=== PATIENT | female | born 1965 | race Caucasian/White ===

== ENCOUNTER 2017-08-29 00:21 | Observation (INO) | payer MEDICAID, SELFPAY ==
[2017-08-29] VITALS (9 sets, daily range): BP systolic 120–136; BP diastolic 64–76; PULSE 61–87; RESP 16–24; TEMP 36.1–36.8; O2SAT 96–98; BMI 54.1; BMI 56.2
--- NOTE | 2017-08-29 00:33 | XR_ITS ---
XR chest 2V HISTORY: ITS.REASON: CHEST PAIN AND SOB ORDERING PHYSICIAN: Juan Monreal MD PATIENT AGE: 52 years COMPARISON: 01/09/2017 FINDINGS: The cardiomediastinal silhouette and pulmonary vascularity are within normal limits. Mild coarsening of the bronchovascular markings. Patchy density is present in the right midlung over the second interspace and also in the left mid upper lung zone suggesting patchy areas of infiltrate. 7 mm nodular opacity in the right lung base course bony to calcified granuloma seen on prior chest CT. No effusions. No acute bony anomalies. IMPRESSION: Patchy perihilar infiltrates
[2017-08-29 01:09] LABS: Basophils # 0.1 K/mm3 (0-0.2); Basophils % 0.7 % (0.1-2.0); Eosinophils # 0.2 K/mm3 (0.0-0.4); Eosinophils % 2.5 % (0.1-12.0); Hematocrit 38.1 % (37.0-47.0); Hemoglobin 12.3 g/dL (12.2-16.2); Lymphocytes # 3.6 K/mm3 (0.7-4.5); Lymphocytes % 37.7 K/mm3 (10-50); Mean Corpuscular HGB Conc 32.4 g/dL (31.8-35.4); Mean Corpuscular Hemoglobin 27.5 pg (27.0-31.2); Mean Corpuscular Volume 84.6 fl (81-99); Mean Platelet Volume 7.8 fl (7.4-10.4); Monocytes # 0.6 K/mm3 (0.1-1.0); Monocytes % 6.7 % (1.7-9.3); Neutrophils % 52.4 % (37.0-80.0); Platelet Count 223 K/mm3 (142-424); Red Cell Distribution Width 14.1 % (11.5-17.5); White Blood Count 9.6 K/mm3 (4.8-10.8)
--- NOTE | 2017-08-29 01:10 | HMH.EDCP ---
ED Disposition Clinical Impression: Chest pain Qualifiers: Chest pain type: precordial pain Qualified Code(s): R07.2 - Precordial pain Disposition: Admitted as Observation Condition on Discharge: Good Referrals: Mariana Guillen PA [Primary Care Provider] - - Critical Care Critical Care Time: No Attestation: On 08/29/17, the high probability of a clinically significant, sudden or life threatening deterioration of the following system(s) required my full and direct attention, intervention and personal management. The time I documented below is in addition to time spent performing reported procedures but includes the following listed in this critical care notation. Medical Decision Making - Medical Records Medical records reviewed: Yes: I reviewed the patient's medical records. Vital Signs: 08/29/17 00:22 08/29/17 01:59 Temperature 97.5 F L Temperature Source Oral Pulse Rate [Right Brachial] 87 78 Respiratory Rate 24 20 Blood Pressure [Right Arm] 125/64 136/71 Blood Pressure Mean [Right Arm] 84 92 Blood Pressure Source [Right Arm] Automatic Cuff Automatic Cuff Blood Pressure Position [Right Arm] Supine Sitting 02 Sat by Pulse Oximetry 98 97 Oxygen Delivery Method Room Air Room Air - Lab Data Lab results reviewed: Yes: I reviewed the patient's lab results. Lab Results 08/29/17 00:50: WBC 9.6, RBC 4.50, Hgb 12.3, Hct 38.1, MCV 84.6, MCH 27.5, MCHC 32.4, RDW 14.1, Plt Count 223, MPV 7.8, Neut % (Auto) 52.4, Lymph % (Auto) 37.7, [place] % (Auto) 6.7, Eos % (Auto) 2.5, Baso % (Auto) 0.7, Neut # (Auto) 5.0, Lymph # (Auto) 3.6, [place] # (Auto) 0.6, Eos # (Auto) 0.2, Baso # (Auto) 0.1 08/29/17 00:50: Sodium 142, Potassium 3.4 L, Chloride 106, Carbon Dioxide 26, Anion Gap 13.4, BUN 15, Creatinine 1.17 H, Estimated Creat Clear 44, Estimated GFR 49 L, Est GFR ( Amer) 59, Glucose 120 H, Calcium 8.0 L, Total Bilirubin 0.2, AST 21, ALT 41, Alkaline Phosphatase 83, Total Protein 6.8, Albumin 2.9 L, Globulin 3.9 H, Albumin/Globulin Ratio 0.7 L 08/29/17 00:50: Total Creatine Kinase 73, CK-MB (CK-2) 1.0, CK-MB (CK-2) Rel Index 1.4, Troponin I < 0.02 08/29/17 00:50: B-Natriuretic Peptide 15 Result diagrams: 08/29/17 00:50 08/29/17 00:50 Orders (Tests/Meds): ED MEDICATIONS Discontinued Medications Generic Name Dose Route Start Last Admin Trade Name Freq PRN Reason Stop Dose Admin Furosemide 40 mg 08/29/17 03:00 Lasix 40mg/4ml Vial IV 08/29/17 03:01 ONCE ONE Nitroglycerin 1 gm 08/29/17 01:37 08/29/17 01:41 Nitroglycerin 1 Inch Oint Udp TD 08/29/17 01:38 1 gm ONCE ONE Administration ORDERS Category Date Time Status XR chest 2V Stat Exams 08/29/17 00:33 Taken ECG Request by /Nse Stat Y 08/29/17 00:33 Ordered - Radiology Data #1 Image(s): Chest Image Reviewed: Yes I reviewed the patient's radiology image Preliminary Findings: Normal/NAD - ECG Data Tracing #1 I reviewed this ECG and interpreted as documented below: Ischemic changes: non-specific ST-T wave changes - Bin Inquiry Pt receiving controlled substance: No Chest Pain HPI - General Chief Complaint: Chest Pain Stated Complaint: CHEST PAIN Time Seen by Provider: 08/29/17 01:11 Mode of Arrival: EMS Source of Information: Patient, EMS, Medical Record Limitations: No Limitations Description of Symptoms (Recalled from ER Triage Doc. by RN): C/O CHEST PAIN AND SOB - History of Present Illness HPI narrative: pt with chest pain intermittant during the day with no dec inc or dec factors complaint: chest pain indicative of cardiac Onset (ago): day(s) Duration: intermittent Activity at onset: during rest Pain location: substernal Severity: moderate Quality: aching Pain radiation: back Relieving factors: nothing Associated symptoms: dyspnea Risk Factors for CAD: Hypertension, Hypercholesterolemia, Family Hx of CAD, Smoking Treatments prior to or on arrival for Cardiac Chest
--- NOTE | 2017-08-29 01:16 | ED_ITS ---
ED Disposition Clinical Impression: Chest pain Qualifiers: Chest pain type: precordial pain Qualified Code(s): R07.2 - Precordial pain Disposition: Admitted as Observation Condition on Discharge: Good Referrals: Mariana Guillen PA [Primary Care Provider] - - Critical Care Critical Care Time: No Attestation: On 08/29/17, the high probability of a clinically significant, sudden or life threatening deterioration of the following system(s) required my full and direct attention, intervention and personal management. The time I documented below is in addition to time spent performing reported procedures but includes the following listed in this critical care notation. Medical Decision Making - Medical Records Medical records reviewed: Yes: I reviewed the patient's medical records. Vital Signs: 08/29/17 00:22 08/29/17 01:59 Temperature 97.5 F L Temperature Source Oral Pulse Rate [Right Brachial] 87 78 Respiratory Rate 24 20 Blood Pressure [Right Arm] 125/64 136/71 Blood Pressure Mean [Right Arm] 84 92 Blood Pressure Source [Right Arm] Automatic Cuff Automatic Cuff Blood Pressure Position [Right Arm] Supine Sitting 02 Sat by Pulse Oximetry 98 97 Oxygen Delivery Method Room Air Room Air - Lab Data Lab results reviewed: Yes: I reviewed the patient's lab results. Lab Results 08/29/17 00:50: WBC 9.6, RBC 4.50, Hgb 12.3, Hct 38.1, MCV 84.6, MCH 27.5, MCHC 32.4, RDW 14.1, Plt Count 223, MPV 7.8, Neut % (Auto) 52.4, Lymph % (Auto) 37.7 , [place] % (Auto) 6.7, Eos % (Auto) 2.5, Baso % (Auto) 0.7, Neut # (Auto) 5.0, Lymph # (Auto) 3.6, [place] # (Auto) 0.6, Eos # (Auto) 0.2, Baso # (Auto) 0.1 08/29/17 00:50: Sodium 142, Potassium 3.4 L, Chloride 106, Carbon Dioxide 26, Anion Gap 13.4, BUN 15, Creatinine 1.17 H, Estimated Creat Clear 44, Estimated GFR 49 L, Est GFR ( Amer) 59, Glucose 120 H, Calcium 8.0 L, Total Bilirubin 0.2, AST 21, ALT 41, Alkaline Phosphatase 83, Total Protein 6.8, Albumin 2.9 L, Globulin 3.9 H, Albumin/Globulin Ratio 0.7 L 08/29/17 00:50: Total Creatine Kinase 73, CK-MB (CK-2) 1.0, CK-MB (CK-2) Rel Index 1.4, Troponin I < 0.02 08/29/17 00:50: B-Natriuretic Peptide 15 Result diagrams: 08/29/17 00:50 08/29/17 00:50 Orders (Tests/Meds): ED MEDICATIONS Discontinued Medications Generic Name Dose Route Start Last Admin Trade Name Freq PRN Reason Stop Dose Admin Furosemide 40 mg 08/29/17 03:00 Lasix 40mg/4ml Vial IV 08/29/17 03:01 ONCE ONE Nitroglycerin 1 gm 08/29/17 01:37 08/29/17 01:41 Nitroglycerin 1 Inch Oint Udp TD 08/29/17 01:38 1 gm ONCE ONE Administration ORDERS Category Date Time Status XR chest 2V Stat Exams 08/29/17 00:33 Taken ECG Request by /Nse Stat Y 08/29/17 00:33 Ordered - Radiology Data #1 Image(s): Chest Image Reviewed: Yes I reviewed the patient's radiology image Preliminary Findings: Normal/NAD - ECG Data Tracing #1 I reviewed this ECG and interpreted as documented below: Ischemic changes: non-specific ST-T wave changes - Bin Inquiry Pt receiving controlled substance: No Chest Pain HPI - General Chief Complaint: Chest Pain Stated Complaint: CHEST PAIN Time Seen by Provider: 08/29/17 01:11 Mode of Arrival: EMS Source of Information: Patient, EMS, Medical Record
[2017-08-29 02:44] LABS: Alanine Aminotransferase 41 U/L (12-78); Albumin Level 2.9 gm/dL (3.4-5.0); Albumin/Globulin Ratio 0.7 (1.1-1.8); Alkaline Phosphatase 83 U/L (46-116); Anion Gap 13.4 mEq/L (5-15); Aspartate Amino Transferase 21 U/L (15-37); Bilirubin,Total 0.2 mg/dL (0.2-1.0); Blood Urea Nitrogen 15 mg/dL (7-18); Carbon Dioxide 26 mmol/L (21.0-32.0); Chloride 106 mmol/L (98-107); Creatinine Clearance Estimated 44 mL/min (0-300); Creatinine,Serum 1.17 mg/dL (0.55-1.02); Estimated Glomerular Filt Rate 49 ml/min (>60); GFR (African American) 59 ML/MIN (>60); Globulin 3.9 gm/dl (1.3-3.2); Glucose 120 mg/dL (74-106); Potassium 3.4 mmoL/L (3.5-5.1); Sodium 142 mmol/L (136-145); Total Protein,Serum 6.8 gm/dL (6.4-8.2)
[2017-08-29 02:54] LABS: CKMB Relative Index 1.4 U/L (0-4.0); Creatine Kinase 73 U/L (26-192); Troponin I < 0.02 ng/ml (0.00-0.06)
[2017-08-29 04:55] LABS: Troponin I < 0.02 ng/ml (0.00-0.06)
[2017-08-29 05:26] LABS: Basophils # 0.1 K/mm3 (0-0.2); Basophils % 0.9 % (0.1-2.0); Eosinophils # 0.3 K/mm3 (0.0-0.4); Eosinophils % 3.3 % (0.1-12.0); Hematocrit 39.7 % (37.0-47.0); Hemoglobin 13.2 g/dL (12.2-16.2); Lymphocytes # 3.4 K/mm3 (0.7-4.5); Lymphocytes % 37.7 K/mm3 (10-50); Mean Corpuscular HGB Conc 33.2 g/dL (31.8-35.4); Mean Corpuscular Volume 84.2 fl (81-99); Mean Platelet Volume 8.1 fl (7.4-10.4); Monocytes # 0.6 K/mm3 (0.1-1.0); Monocytes % 6.4 % (1.7-9.3); Neutrophils # 4.7 K/mm3 (1.8-7.8); Neutrophils % 51.7 % (37.0-80.0); Platelet Count 243 K/mm3 (142-424); Red Blood Count 4.71 M/mm3 (4.20-5.40); White Blood Count 9.1 K/mm3 (4.8-10.8)
[2017-08-29 05:28] LABS: Microscopic, Urine URINE MICROSCOPIC (MICROSCOPIC)
[2017-08-29 05:32] LABS: Appearance,Urine CLEAR (Clear); Bilirubin,Urine Negative (Negative); Blood, Urine Negative (Negative); Color,Urine YELLOW (Yellow); Glucose,Urine (UA) Negative (Negative); Ketones,Urine Negative (Negative); Leukocyte Esterase,Urine Negative (Negative); Nitrate,Urine Negative (Negative); PH,Urine 5.5 (5.0-8.5); Protein,Urine Negative (Negative); Specific Gravity, Urine 1.025 (1.005-1.030); Urobilinogen,Urine 0.2 EU/dl (0.2)
[2017-08-29 05:43] LABS: Bacteria,Urine 1+ /lpf; Mucus,Urine 1+ /lpf
[2017-08-29 06:38] LABS: Anion Gap 12.3 mEq/L (5-15); Blood Urea Nitrogen 15 mg/dL (7-18); Carbon Dioxide 26 mmol/L (21.0-32.0); Chloride 106 mmol/L (98-107); Chol/HDL Ratio 5.2 (1-3.5); Cholesterol 166 mg/dL (140-200); Creatinine Clearance Estimated 53 mL/min (0-300); Creatinine,Serum 0.99 mg/dL (0.55-1.02); Estimated Glomerular Filt Rate 59 ml/min (>60); GFR (African American) 71 ML/MIN (>60); Glucose 123 mg/dL (74-106); HDL Cholesterol 32 mg/dL (29-89); LDL Cholesterol 98 mg/dL (0-130); Potassium 3.3 mmoL/L (3.5-5.1); Sodium 141 mmol/L (136-145); Triglycerides 181 mg/dL (30-200); Troponin I < 0.02 ng/ml (0.00-0.06); VLDL Cholesterol 36 mg/dL (0-40)
--- NOTE | 2017-08-29 07:21 | HMH.PHAVTE ---
[facility] [place] Pharmacy VTE Monitoring - Patient Demographics Admission date: 08/29/17 Report Date: 08/29/17 Time: 07:21 Allergies/Adverse Reactions: Patient Allergies No Known Allergies Allergy (Verified 08/29/17 00:22) Height: 1.57 m Weight: 139.4 kg Patient Problems: Current Active Problems Chest pain (Acute) - VTE Risk Labs: VTE Related Lab Results Hgb 13.2 g/dL (12.2-16.2) 08/29/17 04:30 Hct 39.7 % (37.0-47.0) 08/29/17 04:30 Plt Count 243 K/mm3 (142-424) 08/29/17 04:30 BUN 15 mg/dL (7-18) 08/29/17 06:00 Creatinine 0.99 mg/dL (0.55-1.02) 08/29/17 06:00 Estimated Creat Clear 53 mL/min (0-300) 08/29/17 06:00 Was VTE Risk Assessment Performed: Yes VTE Score: 4 VTE Risk Level: Low Risk - Prophylaxis VTE Prophylaxis Ordered?: Yes Types of VTE Prophylaxis: TEDS Knee High Location of Applied Device: Bilateral Lower Extremeties - VTE Diagnosis Confirmed Treatment or plan recommended: Continue Current Treatment
--- NOTE | 2017-08-29 07:26 | PC.NURSE ---
REPORT GIVEN TO Pop JACK RN
--- NOTE | 2017-08-29 07:38 | PC.NURSE ---
REPORT GIVEN TO Pop CARCAMO W/C
--- NOTE | 2017-08-29 08:31 | HMH.CARDCON2 ---
History of Present Illness Consult date: 08/29/17 Requesting physician: Juan Monreal Consult reason: chest pain Chief complaint: chest pains History of present illness: 52 yo WF with normal coronaries and moderate pulmonary HTN by cath, 03/2016, was at rest last night when she developed SS chest pains that were worse with breathing and coughing. Recently with Nausea, vomiting and diarrhea last week. Pt was admitted with serial cardiac enzymes that returned normal. EKG is sinus and normal. Cardiology consulted for evaluation. Review of Systems - *Cardiovascular Reports chest pain - *Respiratory Reports shortness of breath - *Gastrointestinal Denies abdominal pain - *Neurologic Denies seizure-like activity [facility] History Medical History: Denies:: Cancer, Diabetes Mellitus Type 1, Diabetes Mellitus Type 2, Internal Pacemaker, MRSA Other Surgeries: Yes: Hysterectomy-Partial. No: Pacemaker Amputation: No Fractures: No - *Social History Educational Level: Completed High School Smoking Status: Current every day smoker Tobacco Type: cigarettes # Packs/Day (cigarettes): 1 #Yrs smoked (if former smoker): 40 Alcohol Intake: never Occupational Status: disabled Housing: house Household Members: significant other - Psychiatric History Expresses thoughts of harming self/others: None Suicide Plan Description: No Plan *Family Hx:: Anemia, Asthma, Cancer, Coronary Artery Disease, Heart Attack, Hyperlipidemia, Hypertension, Kidney Disease, Stroke Meds Home Medications Medication Instructions Recorded Confirmed Type Amitriptyline HCl [Elavil 50mg 50 mg PO DAILY 08/29/17 08/29/17 History tablet] Bumetanide 2 mg PO DAILY 08/29/17 08/29/17 History Carvedilol [Carvedilol 12.5mg Tab] 12.5 mg PO DAILY 08/29/17 08/29/17 History Citalopram Hydrobromide [Celexa] 40 mg PO DAILY 08/29/17 08/29/17 History Fenofibrate Nanocrystallized 145 mg PO DAILY 08/29/17 08/29/17 History [Fenofibrate] Gabapentin [Gabapentin 800mg Tab] 800 mg PO QID 08/29/17 08/29/17 History Lisinopril [Lisinopril 20mg Tab] 20 mg PO DAILY 08/29/17 08/29/17 History Lurasidone HCl [Latuda] 40 mg PO DAILY 08/29/17 08/29/17 History Triamterene/Hydrochlorothiazid 1 each PO DAILY 08/29/17 08/29/17 History [Triamterene-Hctz 75-50 mg Tab] cloNIDine HCl [cloNIDine 0.2mg 0.2 mg PO DAILY 08/29/17 08/29/17 History Tablet] lamoTRIgine [Lamotrigine] 100 mg PO DAILY 08/29/17 08/29/17 History Allergies Allergy/AdvReac Type Severity Reaction Status Date / Time No Known Allergies Allergy Verified 08/29/17 00:22 Exam Vital signs and Labs for Last 24 Hours: Temp Pulse Resp BP Pulse Ox 97.0 F L 80 22 133/64 97 08/29/17 03:45 08/29/17 04:35 08/29/17 03:45 08/29/17 03:45 08/29/17 03:45 Laboratory Results - last 24 hr 08/29/17 04:30: Troponin I < 0.02 08/29/17 04:30: WBC 9.1, RBC 4.71, Hgb 13.2, Hct 39.7, MCV 84.2, MCH 28.0, MCHC 33.2, RDW 14.0, Plt Count 243, MPV 8.1, Neut % (Auto) 51.7, Lymph % (Auto) 37.7, [place] % (Auto) 6.4, Eos % (Auto) 3.3, Baso % (Auto) 0.9, Neut # (Auto) 4.7, Lymph # (Auto) 3.4, [place] # (Auto) 0.6, Eos # (Auto) 0.3, Baso # (Auto) 0.1 08/29/17 06:00: Sodium 141, Potassium 3.3 L, Chloride 106, Carbon Dioxide 26, Anion Gap 12.3, BUN 15, Creatinine 0.99, Estimated Creat Clear 53, Estimated GFR 59, Est GFR ( Amer) 71 D, Glucose 123 H, Troponin I < 0.02, Triglycerides 181, Cholesterol 166, LDL Cholesterol 98, VLDL Cholesterol 36, HDL Cholesterol 32, Cholesterol/HDL Ratio 5.2 H I & O for Last 24 hours: Intake & Output 08/26/17 08/27/17 08/28/17 08/29/17 11:59 11:59 11:59 11:59 Output Total 900 / 900 Balance -900 / -900 Weight 307 lb 5.19 oz - *Routine Neck Exam Absent: JVD, carotid bruit - Routine Chest/Breast/Axilla Exam Chest wall: Present: tenderness - *Routine Respiratory Exam Present: rhonchi, wheezes - *Routine Cardiovascular Exam Present: RRR. Absent: murmur, gallop, ru
--- NOTE | 2017-08-29 08:34 | P.CONS_ITS ---
History of Present Illness Consult date: 08/29/17 Requesting physician: Juan Monreal Consult reason: chest pain Chief complaint: chest pains History of present illness: 52 yo WF with normal coronaries and moderate pulmonary HTN by cath, 03/2016, was at rest last night when she developed SS chest pains that were worse with breathing and coughing. Recently with Nausea, vomiting and diarrhea last week. Pt was admitted with serial cardiac enzymes that returned normal. EKG is sinus and normal. Cardiology consulted for evaluation. Review of Systems - *Cardiovascular Reports chest pain - *Respiratory Reports shortness of breath - *Gastrointestinal Denies abdominal pain - *Neurologic Denies seizure-like activity [facility] History Medical History: Denies:: Cancer, Diabetes Mellitus Type 1, Diabetes Mellitus Type 2, Internal Pacemaker, MRSA Other Surgeries: Yes: Hysterectomy-Partial. No: Pacemaker Amputation: No Fractures: No - *Social History Educational Level: Completed High School Smoking Status: Current every day smoker Tobacco Type: cigarettes # Packs/Day (cigarettes): 1 #Yrs smoked (if former smoker): 40 Alcohol Intake: never Occupational Status: disabled Housing: house Household Members: significant other - Psychiatric History Expresses thoughts of harming self/others: None Suicide Plan Description: No Plan *Family Hx:: Anemia, Asthma, Cancer, Coronary Artery Disease, Heart Attack, Hyperlipidemia, Hypertension, Kidney Disease, Stroke Meds Home Medications Medication Instructions Recorded Confirmed Type Amitriptyline HCl [Elavil 50mg 50 mg PO DAILY 08/29/17 08/29/17 History tablet] Bumetanide 2 mg PO DAILY 08/29/17 08/29/17 History Carvedilol [Carvedilol 12.5mg Tab] 12.5 mg PO DAILY 08/29/17 08/29/17 History Citalopram Hydrobromide [Celexa] 40 mg PO DAILY 08/29/17 08/29/17 History Fenofibrate Nanocrystallized 145 mg PO DAILY 08/29/17 08/29/17 History [Fenofibrate] Gabapentin [Gabapentin 800mg Tab] 800 mg PO QID 08/29/17 08/29/17 History Lisinopril [Lisinopril 20mg Tab] 20 mg PO DAILY 08/29/17 08/29/17 History Lurasidone HCl [Latuda] 40 mg PO DAILY 08/29/17 08/29/17 History Triamterene/Hydrochlorothiazid 1 each PO DAILY 08/29/17 08/29/17 History [Triamterene-Hctz 75-50 mg Tab] cloNIDine HCl [cloNIDine 0.2mg 0.2 mg PO DAILY 08/29/17 08/29/17 History Tablet] lamoTRIgine [Lamotrigine] 100 mg PO DAILY 08/29/17 08/29/17 History Allergies Allergy/AdvReac Type Severity Reaction Status Date / Time No Known Allergies Allergy Verified 08/29/17 00:22 Exam Vital signs and Labs for Last 24 Hours: Temp Pulse Resp BP Pulse Ox 97.0 F L 80 22 133/64 97 08/29/17 03:45 08/29/17 04:35 08/29/17 03:45 08/29/17 03:45 08/29/17 03:45 Laboratory Results - last 24 hr 08/29/17 04:30: Troponin I < 0.02 08/29/17 04:30: WBC 9.1, RBC 4.71, Hgb 13.2, Hct 39.7, MCV 84.2, MCH 28.0, MCHC 33.2, RDW 14.0, Plt Count 243, MPV 8.1, Neut % (Auto) 51.7, Lymph % (Auto) 37.7 , [place] % (Auto) 6.4, Eos % (Auto) 3.3, Baso % (Auto) 0.9, Neut # (Auto) 4.7, Lymph # (Auto) 3.4, [place] # (Auto) 0.6, Eos # (Auto) 0.3, Baso # (Auto) 0.1 08/29/17 06:00: Sodium 141, Potassium 3.3 L, Chloride 106, Carbon Dioxide 26, Anion Gap 12.3, BUN 15, Creatinine 0.99, Estimated Creat Clear 53, Estimated GFR 59, Est GFR ( Amer) 71 D, Glucose 123 H, Troponin I < 0.02, Trig
--- NOTE | 2017-08-29 08:43 | CA_ITS ---
PROCEDURE: 2-D M-mode and color Doppler study INDICATIONS FOR THE TEST: Chest pain X COPD Heart Murmur Tobacco Smoking Palpitations Fatigue Syncope Edema HypertensionXDiabetes Mellitus Rheumatic Fever SOBXXDOEXObesityXHyperlipidemiaX Family History HD Additional History TDS SECONDARY TO OBESITY PATIENT INFORMATION HEIGHT: 62 WEIGHT:307 GENDER: Female B/P:133/64 2-D/M-MODE INTERPRETATION: 2-D MEASUREMENTS OBSERVED VALUES IN CMS Right Ventricular Dimension (RVDd) 2.5 Interventricular Septum (Thickness)(IVsd) 1.3 Left Ventricular Internal Dimensions(LVIDd) 4.8 Left Ventricular Posterior Wall (Thickness)(LVPWd) 1.5 Aortic Root 3.1 Aortic Cusp Separation 1.9 Left Atrial Dimensions (LAD) 3.0 2D 1. Technically difficult study because of the patient's factor and poor acoustic windows. 2. Left atrium is mildly enlarged, left ventricle is normal size, there is mild concentric left ventricular hypertrophy, visually estimated ejection fraction 55-60% with no obvious regional wall motion abnormality. 3. The right atrium and right ventricle are relatively normal size and function. 4. The aortic valve is minimally thickened and fibrosed. 5. The mitral and tricuspid valve leaflets are grossly normal. 6. The pulmonic valve is poorly visualized. 7. No significant pericardial effusion noted. DOPPLER INTERROGATION: Doppler interrogation of the aortic, mitral and tricuspid valvular presence of mild mitral and tricuspid regurgitation, tricuspid regurgitant jet velocity is insufficient for calculation of the right ventricular systolic pressure, grade 1 diastolic dysfunction seen with tissue Doppler evidence of raised left atrial pressure. CONCLUSION: 1. Technically difficult study because of the patient's factor and poor acoustic windows 2. Mildly enlarged left atrium, normal left ventricular size, mild concentric left ventricular hypertrophy, visually estimated ejection fraction 55% with no obvious regional wall motion abnormality. Grade 1 diastolic dysfunction seen with tissue Doppler evidence of raised left atrial pressure. 3. Mild mitral and tricuspid regurgitation. 4. No significant pericardial effusion noted.
--- NOTE | 2017-08-29 08:58 | HMH.HPDC ---
General - General Admission date: 08/29/17 Discharge date: 08/29/17 *Admission Date: 08/29/17 *Chief complaint: chest pain *History of present illness: 52 yo WF with normal coronaries and moderate pulmonary HTN by cath, 03/2016, was at rest last night when she developed SS chest pains that were worse with breathing and coughing. Recently with Nausea, vomiting and diarrhea last week. Pt was admitted with serial cardiac enzymes that returned normal. EKG is sinus and normal. Cardiology consulted for evaluation. [facility] History I have reviewed the patient's past medical history: Yes Medical History: Denies:: Cancer, Diabetes Mellitus Type 1, Diabetes Mellitus Type 2, Internal Pacemaker, MRSA Other Surgeries: Yes: Hysterectomy-Partial. No: Pacemaker Amputation: No Fractures: No - *Social History Educational Level: Completed High School Smoking Status: Current every day smoker Tobacco Type: cigarettes # Packs/Day (cigarettes): 1 #Yrs smoked (if former smoker): 40 Alcohol Intake: never Occupational Status: disabled Housing: house Household Members: significant other - Psychiatric History Expresses thoughts of harming self/others: None Suicide Plan Description: No Plan *Family Hx:: Anemia, Asthma, Cancer, Coronary Artery Disease, Heart Attack, Hyperlipidemia, Hypertension, Kidney Disease, Stroke Review of Systems - Constitutional Denies body ache(s), Denies fever(s) - Eyes Denies blurry vision - ENT Denies abnormal hearing - *Cardiovascular Reports chest pain, Denies chest pain with activity, Denies excessive sweating, Denies shortness of breath, Denies shortness of breath with activity - *Respiratory Denies change in phlegm color, Denies chest congestion, Denies cough - *Gastrointestinal Denies abdominal pain - *Genitourinary Denies abnormal periods - *Musculoskeletal Denies abnormal walking - Integumentary/Breasts Denies rash - *Neurologic Denies seizure-like activity - Psychiatric Denies abnormal sleep pattern - Endocrine Denies cold intolerance, Denies excessive sweating, Denies heat intolerance - Hematologic/Lymphatic Denies easy bleeding - Allergic/Immunologic Denies GI upset with certain foods Exam Vital signs and Labs for Last 24 Hours: Temp Pulse Resp BP Pulse Ox 98.3 F 70 20 136/70 97 08/29/17 08:00 08/29/17 08:00 08/29/17 08:00 08/29/17 08:00 08/29/17 08:00 Laboratory Results - last 24 hr 08/29/17 04:30: Troponin I < 0.02 08/29/17 04:30: WBC 9.1, RBC 4.71, Hgb 13.2, Hct 39.7, MCV 84.2, MCH 28.0, MCHC 33.2, RDW 14.0, Plt Count 243, MPV 8.1, Neut % (Auto) 51.7, Lymph % (Auto) 37.7, [place] % (Auto) 6.4, Eos % (Auto) 3.3, Baso % (Auto) 0.9, Neut # (Auto) 4.7, Lymph # (Auto) 3.4, [place] # (Auto) 0.6, Eos # (Auto) 0.3, Baso # (Auto) 0.1 08/29/17 06:00: Sodium 141, Potassium 3.3 L, Chloride 106, Carbon Dioxide 26, Anion Gap 12.3, BUN 15, Creatinine 0.99, Estimated Creat Clear 53, Estimated GFR 59, Est GFR ( Amer) 71 D, Glucose 123 H, Troponin I < 0.02, Triglycerides 181, Cholesterol 166, LDL Cholesterol 98, VLDL Cholesterol 36, HDL Cholesterol 32, Cholesterol/HDL Ratio 5.2 H I & O for Last 24 hours: Intake & Output 08/26/17 08/27/17 08/28/17 08/29/17 11:59 11:59 11:59 11:59 Output Total 900 / 900 Balance -900 / -900 Weight 307 lb 5.19 oz - Constitutional no acute distress, obese - *Routine HEENT Exam Head: Present: normocephalic Eye: Present: PERRL ENT: Present: mucous membranes moist - *Routine Neck Exam Present: supple, full ROM - *Routine Respiratory Exam Present: CTA bilaterally - *Routine Cardiovascular Exam Present: RRR - *Routine Abdominal Exam Present: soft, normoactive bowel sounds - *Routine Extremities Exam Present: full ROM - *Routine Neurological Exam Present: alert, oriented X3 Hospital Course Hospital Course: Pt c/o chest wall tenderness upon palpation and suspect this is from recent GI illness/vomiti
--- NOTE | 2017-08-29 09:01 | P.SWB_ITS ---
General - General Admission date: 08/29/17 Discharge date: 08/29/17 *Admission Date: 08/29/17 *Chief complaint: chest pain *History of present illness: 52 yo WF with normal coronaries and moderate pulmonary HTN by cath, 03/2016, was at rest last night when she developed SS chest pains that were worse with breathing and coughing. Recently with Nausea, vomiting and diarrhea last week. Pt was admitted with serial cardiac enzymes that returned normal. EKG is sinus and normal. Cardiology consulted for evaluation. [facility] History I have reviewed the patient's past medical history: Yes Medical History: Denies:: Cancer, Diabetes Mellitus Type 1, Diabetes Mellitus Type 2, Internal Pacemaker, MRSA Other Surgeries: Yes: Hysterectomy-Partial. No: Pacemaker Amputation: No Fractures: No - *Social History Educational Level: Completed High School Smoking Status: Current every day smoker Tobacco Type: cigarettes # Packs/Day (cigarettes): 1 #Yrs smoked (if former smoker): 40 Alcohol Intake: never Occupational Status: disabled Housing: house Household Members: significant other - Psychiatric History Expresses thoughts of harming self/others: None Suicide Plan Description: No Plan *Family Hx:: Anemia, Asthma, Cancer, Coronary Artery Disease, Heart Attack, Hyperlipidemia, Hypertension, Kidney Disease, Stroke Review of Systems - Constitutional Denies body ache(s), Denies fever(s) - Eyes Denies blurry vision - ENT Denies abnormal hearing - *Cardiovascular Reports chest pain, Denies chest pain with activity, Denies excessive sweating, Denies shortness of breath, Denies shortness of breath with activity - *Respiratory Denies change in phlegm color, Denies chest congestion, Denies cough - *Gastrointestinal Denies abdominal pain - *Genitourinary Denies abnormal periods - *Musculoskeletal Denies abnormal walking - Integumentary/Breasts Denies rash - *Neurologic Denies seizure-like activity - Psychiatric Denies abnormal sleep pattern - Endocrine Denies cold intolerance, Denies excessive sweating, Denies heat intolerance - Hematologic/Lymphatic Denies easy bleeding - Allergic/Immunologic Denies GI upset with certain foods Exam Vital signs and Labs for Last 24 Hours: Temp Pulse Resp BP Pulse Ox 98.3 F 70 20 136/70 97 08/29/17 08:00 08/29/17 08:00 08/29/17 08:00 08/29/17 08:00 08/29/17 08:00 Laboratory Results - last 24 hr 08/29/17 04:30: Troponin I < 0.02 08/29/17 04:30: WBC 9.1, RBC 4.71, Hgb 13.2, Hct 39.7, MCV 84.2, MCH 28.0, MCHC 33.2, RDW 14.0, Plt Count 243, MPV 8.1, Neut % (Auto) 51.7, Lymph % (Auto) 37.7 , [place] % (Auto) 6.4, Eos % (Auto) 3.3, Baso % (Auto) 0.9, Neut # (Auto) 4.7, Lymph # (Auto) 3.4, [place] # (Auto) 0.6, Eos # (Auto) 0.3, Baso # (Auto) 0.1 08/29/17 06:00: Sodium 141, Potassium 3.3 L, Chloride 106, Carbon Dioxide 26, Anion Gap 12.3, BUN 15, Creatinine 0.99, Estimated Creat Clear 53, Estimated GFR 59, Est GFR ( Amer) 71 D, Glucose 123 H, Troponin I < 0.02, Triglycerides 181, Cholesterol 166, LDL Cholesterol 98, VLDL Cholesterol 36, HDL Cholesterol 32, Cholesterol/HDL Ratio 5.2 H I & O for Last 24 hours: Intake & Output 08/26/17 08/27/17 08/28/17 08/29/17 11:59 11:59 11:59 11:59 Output Total 900 / 900 Balance -900 / -900 Weight 307 lb 5.19 oz - Constitutional no acute distress, obese - *Routine
[2017-08-29 09:34] LABS: Troponin I < 0.02 ng/ml (0.00-0.06)
--- NOTE | 2017-08-29 13:43 | PC.NURSE ---
Lab called regarding troponin draw. Labs were to be done q3hrs for 3 draws. Labs have been completed and troponin levels wnl.
== END 2017-08-29 19:08 | disposition home or self-care (01) ==
LOC: ER 02:42 → 2ND 03:50
PROVIDERS: Admitting Provider Emergency Medicine; Emergency Provider Emergency Medicine; PCP Physician Assistant; Visit Provider Emergency Medicine
DX: R07.2 Precordial pain (principal); I27.20 Pulmonary hypertension, unspecified; E66.9 Obesity, unspecified; I10 Essential (primary) hypertension; E87.6 Hypokalemia; Z72.0 Tobacco use
CPT/HCPCS: 36415; 71046; 80048; 80053; 80061; 81001; 82550; 82553; 83880; 84484; 85025; 93005; 93041; 93306; 99285; G0378; J2405

== ENCOUNTER → 2017-09-18 09:36 | Outpatient (CLI) | payer MEDICAID, SELFPAY ==
--- NOTE | 2017-09-18 09:39 | US_ITS ---
MM Dig mamm BI DX w/CAD, US breast RT complete COMPARISON: Outside films of 05/15/2012 INDICATION: Palpable abnormality of the right breast ORDERING PHYSICIAN: ARABELLA Stallworth PATIENT AGE: 52 years TECHNIQUE: Standard images were performed along with spot compression views and ultrasound of the right breast FINDINGS: A marker is placed over the palpable abnormality in the medial aspect of the right breast. No obvious mammographic mL is present in this region. There is average fibroglandular tissue with benign-appearing calcifications. There is a benign. Multilocular 6 mm nodule deep in the right breast seen on the cc view and may be inferior The left breast has an unremarkable appearance. Right breast ultrasound: There is a 7 mm area of increased echogenicity in the right breast at 1:00 and a similar but slightly larger 11 x 5 mm area of increased echogenicity in the subcutaneous region at 3:00 corresponding to the palpable abnormality. These are probably due to small lipomas. They have a benign appearance. At 11:00 there is a 4 mm cystic region. No other abnormalities are evident. IMPRESSION: No evidence of malignancy. Probably benign findings of the right breast. Left breast has an unremarkable appearance. Probable benign multilocular nodule in the right breast centrally not identified by ultrasound BI-RADS Category: 3 Benign Finding Short Term Follow-up RECOMMENDED FOLLOW-UP: 6M - 6 MONTH FOLLOW-UP Recommend 6 month sonographic and mammographic follow-up of the right breast (A letter has been sent to the patient regarding results of the study.)
== END ==
PROVIDERS: PCP Physician Assistant; Visit Provider Physician Assistant
DX: N63.10 Unspecified lump in the right breast, unspecified quadrant (principal)
CPT/HCPCS: 76641; 77066

== ENCOUNTER → 2017-10-16 11:02 | Outpatient (CLI) | payer MEDICAID, SELFPAY ==
[2017-10-16 12:34] LABS: Blood Urea Nitrogen 43 mg/dL (7-18); Creatinine,Serum 1.94 mg/dL (0.55-1.02); Estimated Glomerular Filt Rate 27 ml/min (>60); GFR (African American) 33 ML/MIN (>60); Glucose 127 mg/dL (74-106); Magnesium 2.4 mg/dL (1.4-2.2)
[2017-10-16 13:57] LABS: Anion Gap 20.2 mEq/L (5-15); Carbon Dioxide 18 mmol/L (21.0-32.0); Chloride 105 mmol/L (98-107); Potassium 5.2 mmoL/L (3.5-5.1); Sodium 138 mmol/L (136-145)
== END ==
PROVIDERS: Physician Assistant; Visit Provider Internal Medicine
DX: I50.9 Heart failure, unspecified (principal)
CPT/HCPCS: 36415; 80048; 83735

== ENCOUNTER 2017-10-19 07:13 | Emergency (ER) | payer MEDICAID, SELFPAY ==
[2017-10-19] VITALS (8 sets, daily range): BP systolic 86–114; BP diastolic 52–65; PULSE 68–79; RESP 18–20; TEMP 36.4–36.8; O2SAT 92–99; BMI 56.1
--- NOTE | 2017-10-19 07:50 | PC.NURSE ---
Notified retail shift supervisor ER MD that unable to palpate or doppler pulse in pt L foot. rn shift mgr ER MD at BS to assess pt.
[2017-10-19 07:59] LABS: Basophils # 0.1 K/mm3 (0-0.2); Basophils % 0.5 % (0.1-2.0); Eosinophils # 0.3 K/mm3 (0.0-0.4); Eosinophils % 1.6 % (0.1-12.0); Hematocrit 44.8 % (37.0-47.0); Hemoglobin 14.5 g/dL (12.2-16.2); Lymphocytes # 2.6 K/mm3 (0.7-4.5); Lymphocytes % 16.9 K/mm3 (10-50); Mean Corpuscular HGB Conc 32.4 g/dL (31.8-35.4); Mean Corpuscular Hemoglobin 28.4 pg (27.0-31.2); Mean Corpuscular Volume 87.6 fl (81-99); Mean Platelet Volume 7.4 fl (7.4-10.4); Monocytes # 1.1 K/mm3 (0.1-1.0); Monocytes % 6.9 % (1.7-9.3); Neutrophils # 11.3 K/mm3 (1.8-7.8); Neutrophils % 74.1 % (37.0-80.0); Platelet Count 263 K/mm3 (142-424); Red Blood Count 5.11 M/mm3 (4.20-5.40); Red Cell Distribution Width 14.4 % (11.5-17.5); White Blood Count 15.3 K/mm3 (4.8-10.8)
[2017-10-19 08:12] LABS: Alanine Aminotransferase 45 U/L (12-78); Albumin Level 3.6 gm/dL (3.4-5.0); Albumin/Globulin Ratio 0.8 (1.1-1.8); Alkaline Phosphatase 91 U/L (46-116); Aspartate Amino Transferase 14 U/L (15-37); Bilirubin,Total 0.4 mg/dL (0.2-1.0); Blood Urea Nitrogen 41 mg/dL (7-18); Calcium 8.8 mg/dL (8.5-10.1); Carbon Dioxide 25 mmol/L (21.0-32.0); Chloride 99 mmol/L (98-107); Creatinine Clearance Estimated 19 mL/min (0-300); Creatinine,Serum 2.62 mg/dL (0.55-1.02); Estimated Glomerular Filt Rate 19 ml/min (>60); GFR (African American) 23 ML/MIN (>60); Globulin 4.6 gm/dl (1.3-3.2); Glucose 145 mg/dL (74-106); Sodium 135 mmol/L (136-145); Total Protein,Serum 8.2 gm/dL (6.4-8.2)
--- NOTE | 2017-10-19 08:12 | PC.NURSE ---
day shift ER MD at BS assess pt.
--- NOTE | 2017-10-19 08:22 | PC.NURSE ---
AMY HOLLEY spoke with Dr. Vaughn at this time
--- NOTE | 2017-10-19 08:24 | PC.NURSE ---
notified Dexter in lab of add on lab orders.
--- NOTE | 2017-10-19 08:27 | PC.NURSE ---
ER MD unable to palpate or doppler pulses in L foot, pt has pulses with doppler in popliteal area, palpable femoral pulses
--- NOTE | 2017-10-19 08:28 | CT_ITS ---
CT head/brain wo con INDICATION: Left foot numbness Routine axial images for brain followed by additional post-processing axial bone window images. Axial CT scanning from the base of the skull through the vertex to evaluate the brain was performed. Subsequent post processing 2-D CT bone windows were submitted to PACS and are useful to evaluate calvarium, visualize portions of paranasal sinuses, mastoids and base of skull. Multiaxial scans are obtained from the base of the skull to the vertex and performed without contrast. The base of the skull appeared normal. The ventricular system was normal. There was no ischemic infarct or bleed and there were no extra-axial fluid collections. The bony calvarium appeared intact. IMPRESSION: Negative noncontrast CT scan of the brain.
--- NOTE | 2017-10-19 08:29 | PC.NURSE ---
AMY HOLLEY stated to get a stat CT head on pt and he will place orders for Heparin IV as requested per Dr. Vaughn. Stated to wait for CT Head results to start Heparin.
[2017-10-19 08:30] LABS: MANUAL DIFFERENTIAL MANUAL DIFFERENTIAL (MANUAL DIFF)
--- NOTE | 2017-10-19 08:36 | PC.NURSE ---
Pt to CT at this time.
[2017-10-19 08:37] LABS: Activated Partial Thrombo Time 23.4 seconds (23.6-34.0); Prothrombin Time 10.8 seconds (9.4-11.8)
--- NOTE | 2017-10-19 08:43 | CT_ITS ---
CT lumbar spine wo con COMPARISON: None HISTORY: Low back pain and left leg weakness TECHNIQUE: Multiaxial scans the lumbar spine were obtained. Sagittal and coronal reformats were evaluated as well. FINDINGS: There is normal curvature and alignment. There is a transitional vertebrae lumbosacral with partial lumbarization of S1 with unilateral pseudarthrosis on the right side. Disc spaces are well maintained throughout. Detail is degraded due to the patient's very large size. There is a very small central disc protrusion L5-S1. The spinal canal is normal size throughout. IMPRESSION: Transitional vertebrae lumbar sacral junction with very small central disc protrusion L5-S1
--- NOTE | 2017-10-19 08:43 | CT_ITS ---
CT pelvis wo con COMPARISON: None HISTORY: Low back pain and left leg weakness TECHNIQUE: Multiaxial scans of the pelvis were obtained. Sagittal and coronal reformats were evaluated as well. FINDINGS: The transitional vertebrae lumbosacral junction is again noted with unilateral pseudarthrosis on the right side. There is mild sclerosis of the SI joints bilaterally more prominent left side than right. Both hips are normally articulated with no significant degenerative change on either side. There are mild degenerative changes of the symphysis pubis. The urinary bladder appears normal, there has been a previous hysterectomy. IMPRESSION: Mild left sacroiliitis otherwise unremarkable CT scan of the pelvis
[2017-10-19 08:48] LABS: Eosinophils % 3 % (0-3); Lymphocytes % 18 % (10-50); Monocytes % 4 % (2-9); Neutrophils % 75 % (42-76); Platelet Estimate Normal; RBC Morphology Normal; Total Cells Counted 100
--- NOTE | 2017-10-19 08:53 | HMH.EDEXTP ---
ED Disposition Clinical Impression: Lumbar radiculopathy, Acute renal failure, Dehydration, PVD (peripheral vascular disease), Lumbar disc disease, Sacroiliac joint disease, Obesity Disposition: Xfer Short-Term Hosp Condition on Discharge: Fair Referrals: Mariana Guillen PA [Primary Care Provider] - Forms: Transfer Record - ED - Critical Care Critical Care Time: No Attestation: On 10/19/17, the high probability of a clinically significant, sudden or life threatening deterioration of the following system(s) required my full and direct attention, intervention and personal management. The time I documented below is in addition to time spent performing reported procedures but includes the following listed in this critical care notation. Medical Decision Making - Medical Records Medical records reviewed: Yes: I reviewed the patient's medical records. MR Comment: Due to her medications and old labs from the computer. - Bin Inquiry Pt receiving controlled substance: Yes Bin was queried for this patient: No Risks and benefits of using a controlled substance: were discussed with pt by me Vital Signs: 10/19/17 07:14 10/19/17 08:14 10/19/17 09:35 Temperature 97.6 F Temperature Source Oral Pulse Rate Pulse Rate [Right Brachial] 79 72 68 Respiratory Rate 20 20 18 Blood Pressure Blood Pressure [Right Arm] 111/57 93/53 86/56 Blood Pressure Mean [Right Arm] 75 66 66 Blood Pressure Source Blood Pressure Source [Right Arm] Manual Cuff/ Doppler Automatic Cuff Automatic Cuff Blood Pressure Position Blood Pressure Position [Right Arm] Supine Sitting 02 Sat by Pulse Oximetry 95 92 L 97 Oxygen Delivery Method Room Air Room Air 10/19/17 10:15 10/19/17 10:55 10/19/17 11:30 Temperature Temperature Source Pulse Rate Pulse Rate [Right Brachial] 73 74 76 Respiratory Rate 18 18 20 Blood Pressure Blood Pressure [Right Arm] 114/57 89/53 99/57 Blood Pressure Mean [Right Arm] 76 65 71 Blood Pressure Source Blood Pressure Source [Right Arm] Automatic Cuff Automatic Cuff Automatic Cuff Blood Pressure Position Blood Pressure Position [Right Arm] Sitting Sitting Sitting 02 Sat by Pulse Oximetry 97 97 99 Oxygen Delivery Method Room Air Room Air Room Air 10/19/17 11:52 10/19/17 12:37 Temperature 98.2 F Temperature Source Oral Pulse Rate 75 Pulse Rate [Right Brachial] 73 Respiratory Rate 20 18 Blood Pressure 100/65 Blood Pressure [Right Arm] 96/52 Blood Pressure Mean [Right Arm] 66 Blood Pressure Source Automatic Cuff Blood Pressure Source [Right Arm] Automatic Cuff Blood Pressure Position Sitting Blood Pressure Position [Right Arm] Sitting 02 Sat by Pulse Oximetry 99 Oxygen Delivery Method Room Air Room Air - Lab Data Lab results reviewed: Yes: I reviewed the patient's lab results. Lab Results 10/19/17 07:50: WBC 15.3 H, RBC 5.11, Hgb 14.5, Hct 44.8, MCV 87.6, MCH 28.4, MCHC 32.4, RDW 14.4, Plt Count 263, MPV 7.4, Neut % (Auto) 74.1, Lymph % (Auto) 16.9, [place] % (Auto) 6.9, Eos % (Auto) 1.6, Baso % (Auto) 0.5, Neut # (Auto) 11.3 H, Lymph # (Auto) 2.6, [place] # (Auto) 1.1 H, Eos # (Auto) 0.3, Baso # (Auto) 0.1, Total Counted 100, Neutrophils % (Manual) 75, Lymphocytes % (Manual) 18, Monocytes % (Manual) 4, Eosinophils % (Manual) 3, Platelet Estimate Normal, RBC Morphology Normal 10/19/17 07:50: Sodium 135 L, Potassium 5.0, Chloride 99, Carbon Dioxide 25 D, Anion Gap 16.0 H, BUN 41 H, Creatinine 2.62 H D, Estimated Creat Clear 19, Estimated GFR 19 L*, Est GFR ( Amer) 23 L D, Glucose 145 H, Calcium 8.8, Total Bilirubin 0.4, AST 14 L, ALT 45, Alkaline Phosphatase 91, Total Protein 8.2, Albumin 3.6, Globulin 4.6 H, Albumin/Globulin Ratio 0.8 L 10/19/17 07:50: PT 10.8, INR 1.00, APTT 23.4 L 10/19/17 07:50: Total Creatine Kinase 54, CK-MB (CK-2) 2.1 D, CK-MB (CK-2) Rel Index 3.9, Troponin I < 0.02 10/19/17 09:58: Urine Color Yellow, Urine Appearance Clear, Urine pH 5.5, Ur
[2017-10-19 08:59] LABS: CKMB Relative Index 3.9 U/L (0-4.0); Creatine Kinase 54 U/L (26-192); Creatine Kinase MB 2.1 mg/ml (0.0-3.6); Troponin I < 0.02 ng/ml (0.00-0.06)
--- NOTE | 2017-10-19 09:10 | ED_ITS ---
ED Disposition Clinical Impression: Lumbar radiculopathy, Acute renal failure, Dehydration, PVD (peripheral vascular disease), Lumbar disc disease, Sacroiliac joint disease, Obesity Disposition: Xfer Short-Term Hosp Condition on Discharge: Fair Referrals: Mariana Guillen PA [Primary Care Provider] - Forms: Transfer Record - ED - Critical Care Critical Care Time: No Attestation: On 10/19/17, the high probability of a clinically significant, sudden or life threatening deterioration of the following system(s) required my full and direct attention, intervention and personal management. The time I documented below is in addition to time spent performing reported procedures but includes the following listed in this critical care notation. Medical Decision Making - Medical Records Medical records reviewed: Yes: I reviewed the patient's medical records. MR Comment: Due to her medications and old labs from the computer. - Bin Inquiry Pt receiving controlled substance: Yes Bin was queried for this patient: No Risks and benefits of using a controlled substance: were discussed with pt by me Vital Signs: 10/19/17 07:14 10/19/17 08:14 10/19/17 09:35 Temperature 97.6 F Temperature Source Oral Pulse Rate Pulse Rate [Right Brachial] 79 72 68 Respiratory Rate 20 20 18 Blood Pressure Blood Pressure [Right Arm] 111/57 93/53 86/56 Blood Pressure Mean [Right Arm] 75 66 66 Blood Pressure Source Blood Pressure Source [Right Arm] Manual Cuff/ Doppler Automatic Cuff Automatic Cuff Blood Pressure Position Blood Pressure Position [Right Arm] Supine Sitting 02 Sat by Pulse Oximetry 95 92 L 97 Oxygen Delivery Method Room Air Room Air 10/19/17 10:15 10/19/17 10:55 10/19/17 11:30 Temperature Temperature Source Pulse Rate Pulse Rate [Right Brachial] 73 74 76 Respiratory Rate 18 18 20 Blood Pressure Blood Pressure [Right Arm] 114/57 89/53 99/57 Blood Pressure Mean [Right Arm] 76 65 71 Blood Pressure Source Blood Pressure Source [Right Arm] Automatic Cuff Automatic Cuff Automatic Cuff Blood Pressure Position Blood Pressure Position [Right Arm] Sitting Sitting Sitting 02 Sat by Pulse Oximetry 97 97 99 Oxygen Delivery Method Room Air Room Air Room Air 10/19/17 11:52 10/19/17 12:37 Temperature 98.2 F Temperature Source Oral Pulse Rate 75 Pulse Rate [Right Brachial] 73 Respiratory Rate 20 18 Blood Pressure 100/65 Blood Pressure [Right Arm] 96/52 Blood Pressure Mean [Right Arm] 66 Blood Pressure Source Automatic Cuff Blood Pressure Source [Right Arm] Automatic Cuff Blood Pressure Position Sitting Blood Pressure Position [Right Arm] Sitting 02 Sat by Pulse Oximetry 99 Oxygen Delivery Method Room Air Room Air - Lab Data Lab results reviewed: Yes: I reviewed the patient's lab results. Lab Results 10/19/17 07:50: WBC 15.3 H, RBC 5.11, Hgb 14.5, Hct 44.8, MCV 87.6, MCH 28.4, MCHC 32.4, RDW 14.4, Plt Count 263, MPV 7.4, Neut % (Auto) 74.1, Lymph % (Auto) 16.9, [place] % (Auto) 6.9, Eos % (Auto) 1.6, Baso % (Auto) 0.5, Neut # (Auto) 11.3 H, Lymph # (Auto) 2.6, [place] # (Auto) 1.1 H, Eos # (Auto) 0.3, Baso # (Auto ) 0.1, Total Counted 100, [place]
--- NOTE | 2017-10-19 09:43 | PC.NURSE ---
Contacted Pharmacy r/t Heparin dosing, ER was having difficulty placing orders on pt. ER stated that per Dr. Vaughn Pt is to have a 10,000 unit bolus of Heparin once and then started on a Heparin drip at 1000 units/hr. Spoke with Rashad in pharmacy was okayed dosing and stated he would place orders in computer for pt.
--- NOTE | 2017-10-19 09:46 | XR_ITS ---
XR chest portable COMPARISON: PA and lateral chest 08/29/2017 HISTORY: Leukocytosis TECHNIQUE: Portable upright chest FINDINGS: The lung hall are well expanded and appear clear of infiltrate. The cardiac silhouette and vascularity are normal and is no pleural fluid. There are monitor lines overlying the chest. IMPRESSION: Negative portable chest
[2017-10-19 10:09] LABS: Microscopic, Urine URINE MICROSCOPIC (MICROSCOPIC)
[2017-10-19 10:20] LABS: Appearance,Urine CLEAR (Clear); Bilirubin,Urine Negative (Negative); Blood, Urine Negative (Negative); Color,Urine YELLOW (Yellow); Glucose,Urine (UA) Negative (Negative); Ketones,Urine Negative (Negative); Leukocyte Esterase,Urine Negative (Negative); Nitrate,Urine Negative (Negative); PH,Urine 5.5 (5.0-8.5); Protein,Urine Negative (Negative); Urobilinogen,Urine 0.2 EU/dl (0.2)
[2017-10-19 10:45] LABS: Lactic Acid 1.4 mmol/L (0.4-2.0)
[2017-10-19 11:17] LABS: Amorphous Sediment,Urine 1+ /lpf; Bacteria,Urine Trace /lpf; Squamous Epithelial Cell,Urine Occasional #/hpf (0-5); WBC,Urine Occasional #/hpf (0-3)
--- NOTE | 2017-10-19 11:52 | PC.NURSE ---
AMY HOLLEY spoke with Dr. Vaughn at this time.
--- NOTE | 2017-10-19 12:00 | PC.NURSE ---
1142 Dr. Rome Spoke with Dr. Vaughn about pt.
--- NOTE | 2017-10-19 12:00 | PC.NURSE ---
[id number] Dr. Latricia ortega MD at [facility]'s
--- NOTE | 2017-10-19 12:01 | PC.NURSE ---
Contacted [employer] about flight to pending weather they will call back.
--- NOTE | 2017-10-19 12:03 | PC.NURSE ---
[employer] returned call, accepted flight will have ETA of 22 min.
--- NOTE | 2017-10-19 12:08 | PC.NURSE ---
Dr. Rome discussed case with Dr Townsend vascular surgeon at [facility]
--- NOTE | 2017-10-19 12:14 | PC.NURSE ---
Pt accepted by Dr. Townsend at .
--- NOTE | 2017-10-19 12:28 | PC.NURSE ---
report called to Katlyn Ziegler RN at ED at this time.
--- NOTE | 2017-10-19 12:37 | PC.NURSE ---
report given to [employer] staff at this time.
== END 2017-10-19 12:52 | disposition still patient (30) ==
PROVIDERS: Emergency Medicine; Emergency Provider Emergency Medicine; PCP Physician Assistant
DX: M54.16 Radiculopathy, lumbar region (principal); N17.9 Acute kidney failure, unspecified; I73.9 Peripheral vascular disease, unspecified; E86.0 Dehydration; I10 Essential (primary) hypertension; F17.210 Nicotine dependence, cigarettes, uncomplicated; Z79.899 Other long term (current) drug therapy
CPT/HCPCS: 70450; 71045; 72131; 72192; 80053; 81001; 82550; 82553; 83605; 84484; 85007; 85025; 85610; 85730; 87040; 93005; 96365; 96367; 96375; 99285

== ENCOUNTER → 2017-10-22 12:00 | Outpatient (REF) | payer MEDICAID, SELFPAY ==
[2017-10-22 19:06] LABS: Anion Gap 7.3 mEq/L (5-15); Blood Urea Nitrogen 25 mg/dL (7-18); Carbon Dioxide 24 mmol/L (21.0-32.0); Chloride 104 mmol/L (98-107); Creatinine,Serum 1.12 mg/dL (0.55-1.02); Estimated Glomerular Filt Rate 51 ml/min (>60); GFR (African American) 62 ML/MIN (>60); Glucose 131 mg/dL (74-106); Potassium 4.3 mmoL/L (3.5-5.1); Sodium 131 mmol/L (136-145)
== END ==
LOC: LAB 12:00
PROVIDERS: Visit Provider Physician Assistant
DX: N19 Unspecified kidney failure (principal)
CPT/HCPCS: 80048

== ENCOUNTER 2017-10-25 10:25 | Emergency (ER) | payer MEDICAID, SELFPAY ==
[2017-10-25 10:29] VITALS: BP 128/103; PULSE 102; RESP 20; TEMP 36.5; O2SAT 95; BMI 56.1
--- NOTE | 2017-10-25 10:47 | PC.NURSE ---
attempted to establish viability of pedal pulses via doppler unsuccessful on the left lower extremity. notable weakend pulse to rle; and marked
--- NOTE | 2017-10-25 10:51 | HMH.EDGENADL ---
ED Disposition Clinical Impression: Bilateral foot pain Disposition: Home, Self-Care Condition on Discharge: Good Additional Instructions: Go to registration now and registered to have angiogram done by Dr. Vaughn. See Dr. Monreal in his office on Saturday. Referrals: Mariana Valdez PA [Primary Care Provider] - - Critical Care Critical Care Time: No Attestation: On 10/25/17, the high probability of a clinically significant, sudden or life threatening deterioration of the following system(s) required my full and direct attention, intervention and personal management. The time I documented below is in addition to time spent performing reported procedures but includes the following listed in this critical care notation. Medical Decision Making - Bin Inquiry Pt receiving controlled substance: No Vital Signs: 10/25/17 10:29 10/25/17 10:52 Temperature 97.7 F Temperature Source Oral Pulse Rate [Right Brachial] 102 H 91 H Respiratory Rate 20 20 Blood Pressure [Right Arm] 128/103 147/90 Blood Pressure Mean [Right Arm] 111 109 Blood Pressure Source [Right Arm] Automatic Cuff Automatic Cuff Blood Pressure Position [Right Arm] Sitting Sitting 02 Sat by Pulse Oximetry 95 95 Oxygen Delivery Method Room Air Room Air - Lab Data Lab Results 10/25/17 10:30: WBC 10.7, RBC 4.40, Hgb 12.5, Hct 38.3, MCV 87.1, MCH 28.4, MCHC 32.6, RDW 14.5, Plt Count 274, MPV 7.5, Neut % (Auto) 68.4, Lymph % (Auto) 23.3, [place] % (Auto) 5.3, Eos % (Auto) 2.3, Baso % (Auto) 0.7, Neut # (Auto) 7.3, Lymph # (Auto) 2.5, [place] # (Auto) 0.6, Eos # (Auto) 0.2, Baso # (Auto) 0.1 10/25/17 10:30: PT 10.4, INR 0.96, APTT 24.0 10/25/17 10:30: Sodium 140, Potassium 3.9, Chloride 108 H, Carbon Dioxide 25, Anion Gap 10.9, BUN 17 D, Creatinine 1.01, Estimated Creat Clear 52, Estimated GFR 58 L, Est GFR ( Amer) 70, Glucose 136 H, Calcium 8.2 L, Total Bilirubin 0.1 L, AST 17, ALT 47, Alkaline Phosphatase 85, Total Protein 7.4, Albumin 3.1 L, Globulin 4.3 H, Albumin/Globulin Ratio 0.7 L 10/25/17 10:30: Total Creatine Kinase 57, CK-MB (CK-2) 1.5 D, CK-MB (CK-2) Rel Index 2.6, Troponin I < 0.02 Result diagrams: 10/25/17 10:30 10/25/17 10:30 Orders (Tests/Meds): ORDERS Category Date Time Status ECG Request by /Nse Stat Y 10/25/17 10:43 Ordered - US Data US Images: Lower Extremity (bilateral) Findings Narrative: As per [facility] procedure, ultrasound report received from golf technician: Negative for DVT - ECG Data Tracing #1 EKG interpreted by Ivan Tyler MD: Rhythm: sinus Rate: 86 [place]: Left Ectopy: none Conduction: normal ST Segment Changes: none T Wave Changes: none Q Waves: none No evidence of acute ischemia or injury Medical Decision Narrative: 11:00 AM: Discussed with Dr. Monreal. He had seen the patient with Mariana valdez in the office on 10/22/17. She was complaining of left foot pain at that time. He says she still did not have a palpable pulse in that foot. He had spoken with Dr. Vaughn. He states that Dr. Vaughn said that if her creatinine was normal he would do a vascular study on her. The patient's creatinine that day was 1.12. Dr. Monreal states they can follow-up the patient in their office on Saturday. 12:14 PM: Previous imaging studies of extremities reviewed. Had an x-ray of her left lower leg and a Doppler ultrasound of her left lower leg last year that were negative. Had ABIs in February 2016 that were normal. Discussed with ARABELLA Langston, for Dr. Vaughn. He says he will have Dr. Vaughn see the patient in the ER. 12:50 PM: Patient seen by ARABELLA Langston, for Dr. Vaughn. They have obtained approval for angiogram. He requests patient be discharged from the ED and then sent to registration to have her test done. General Adult HPI - General Chief complaint: PAIN Stated complaint: Legs and feet hurting Time Seen by Provider: 10/25/17 11:00 Mode of Arrival: Whe
[2017-10-25 10:52] VITALS: BP 147/90; PULSE 91; RESP 20; O2SAT 95
[2017-10-25 10:58] LABS: Basophils # 0.1 K/mm3 (0-0.2); Basophils % 0.7 % (0.1-2.0); Eosinophils # 0.2 K/mm3 (0.0-0.4); Eosinophils % 2.3 % (0.1-12.0); Hematocrit 38.3 % (37.0-47.0); Hemoglobin 12.5 g/dL (12.2-16.2); Lymphocytes # 2.5 K/mm3 (0.7-4.5); Lymphocytes % 23.3 K/mm3 (10-50); Mean Corpuscular HGB Conc 32.6 g/dL (31.8-35.4); Mean Corpuscular Hemoglobin 28.4 pg (27.0-31.2); Mean Corpuscular Volume 87.1 fl (81-99); Mean Platelet Volume 7.5 fl (7.4-10.4); Monocytes # 0.6 K/mm3 (0.1-1.0); Monocytes % 5.3 % (1.7-9.3); Neutrophils # 7.3 K/mm3 (1.8-7.8); Neutrophils % 68.4 % (37.0-80.0); Platelet Count 274 K/mm3 (142-424); Red Cell Distribution Width 14.5 % (11.5-17.5); White Blood Count 10.7 K/mm3 (4.8-10.8)
--- NOTE | 2017-10-25 10:59 | NVE_ITS ---
Venous Exam Indications: 729.81 Swelling of limb. IMPRESSIONS 1. There is no evidence of significant Reflux. 2. No evidence of deep or superficial vein thrombosis involving the left lower extremity 3. No evidence of deep or superficial vein thrombosis involving the right lower extremity Complete lower extremity venous duplex evaluation. Doppler flow study including spectral analysis, color and gerber scale imaging. Location: Bedside. Patient status: Emergency department. CRITICAL FINDINGS - Reported to: Nurse - Read back and verified. - 10/25/17 - 1200 - None Tables: Venous flow and imaging: + + + + Location Overall Flow properties + + + + Right common femoral Patent Normal phasicity; spontaneous; normal augmentation; compressible + + + + Right saphenofemoral Patent Compressible junction + + + + Right profunda femoral Patent Compressible + + + + Right femoral Patent Normal phasicity; spontaneous; normal augmentation; compressible; no reflux + + + + Right greater saphenous Patent Normal phasicity; spontaneous; normal augmentation; compressible + + + + Right popliteal Patent Normal phasicity; spontaneous; normal augmentation; compressible + + + + Right posterior tibial Patent Compressible + + + + Right peroneal Difficult study + + + + Right gastrocnemius Patent Compressible + + + + Right soleal Patent Compressible + + + + Left common femoral Patent Normal phasicity; spontaneous; normal augmentation; compressible + + + + Left saphenofemoral Patent Compressible junction + + + +
[2017-10-25 11:07] LABS: INR 0.96 (0.9-1.1); Prothrombin Time 10.4 seconds (9.4-11.8)
[2017-10-25 11:09] LABS: Alanine Aminotransferase 47 U/L (12-78); Albumin Level 3.1 gm/dL (3.4-5.0); Albumin/Globulin Ratio 0.7 (1.1-1.8); Alkaline Phosphatase 85 U/L (46-116); Anion Gap 10.9 mEq/L (5-15); Aspartate Amino Transferase 17 U/L (15-37); Bilirubin,Total 0.1 mg/dL (0.2-1.0); Blood Urea Nitrogen 17 mg/dL (7-18); Calcium 8.2 mg/dL (8.5-10.1); Carbon Dioxide 25 mmol/L (21.0-32.0); Chloride 108 mmol/L (98-107); Creatinine Clearance Estimated 52 mL/min (0-300); Creatinine,Serum 1.01 mg/dL (0.55-1.02); Estimated Glomerular Filt Rate 58 ml/min (>60); GFR (African American) 70 ML/MIN (>60); Globulin 4.3 gm/dl (1.3-3.2); Glucose 136 mg/dL (74-106); Potassium 3.9 mmoL/L (3.5-5.1); Sodium 140 mmol/L (136-145); Total Protein,Serum 7.4 gm/dL (6.4-8.2)
[2017-10-25 11:37] LABS: CKMB Relative Index 2.6 U/L (0-4.0); Creatine Kinase 57 U/L (26-192); Creatine Kinase MB 1.5 ng/ml (0.0-3.6); Troponin I < 0.02 ng/ml (0.00-0.06)
--- NOTE | 2017-10-25 12:47 | HMH.CNCARD ---
History of Present Illness Consult date: 10/25/17 Requesting physician: Juan Monreal Chief complaint: Bilateral pain in feet (Left greater than the right) Additional Medical History:: 1. Chronic obstructive pulmonary disease A. Tobacco use starting at age 13, Stopped 2015 2. Hypertension 3. Hyperlipidemia 4. Obesity A. Referred for bariatric surgery but this never occurred. 5. Abnormal electrocardiogram with LEFT anterior fascicular block and anterior infarct pattern. A. right and left heart cath, 03/2016, normal coronaries with hyperdynamic LVEF and moderate pulmonary HTN. Diuretics recommended. 6. Hypothyroidism, on replacement. History of present illness: The patient complains of pain in both of her feet that started on Saturday 2 days ago. She says it is in the midfoot dorsally on both feet. She says she first got a knot on her right dorsal midfoot and now also has one on the left. She says she cannot bear weight. She has a history of chronic left leg pain and neurogenic claudication. She was seen in this emergency department 6 days ago for acute pain and numbness in her left leg and did not have pulses in her left foot that could be found by Doppler or palpation. She was airlifted to [facility]. She says however that they were able to find pulses there and she was discharged without any sort of vascular study. She followed up in the office with Dr. Monreal in [facility] on 10/22/17. She was started on [place] at that time. Patient states that she called Dr. Monreal's office today and spoke with office staff and was advised to come straight to the emergency department. The above per Dr. Tyler. Recent Cr >2 due to diclofenac use which has been stopped now. Cr today is 1.01. Dr. Vaughn spoke with Dr. Monreal earlier today and stated he would perform abdominal aortogram with LE runoff if needed. The patient has chronic leg pain with previous Neurologic workup unrevealing for definitive cause of pain per patient. Bilateral pedal pulses are not palpable but could be obtained with doppler. The feet are cool and tender to touch without cyanosis or evidence of acute thrombosis. [facility] History Medical History: Reports:: Hypertension Denies:: Cancer, Diabetes Mellitus Type 1, Diabetes Mellitus Type 2, Internal Pacemaker, MRSA Other Surgeries: Yes: Cardiac Catheterization, Hysterectomy-Partial. No: Pacemaker Amputation: No Fractures: No - *Social History Smoking Status: Current every day smoker Tobacco Type: cigarettes # Packs/Day (cigarettes): 1 #Yrs smoked (if former smoker): 40 Alcohol Intake: never Alcohol Intake Frequency:: other Substance Use Type: denies use Occupational Status: disabled Housing: house Household Members: significant other - Psychiatric History Expresses thoughts of harming self/others: None Suicide Plan Description: No Plan *Family Hx:: Anemia, Asthma, Cancer, Coronary Artery Disease, Heart Attack, Hyperlipidemia, Hypertension, Kidney Disease, Stroke Meds Home Medications Medication Instructions Recorded Confirmed Type Carvedilol [Carvedilol 25mg Tab] 12.5 mg PO BID 10/19/17 10/25/17 History Citalopram Hydrobromide [Celexa] 40 mg PO ONCE 10/19/17 10/25/17 History Furosemide [Furosemide 40MG tAB] 80 mg PO BID 10/19/17 10/25/17 History Lisinopril [Prinivil 20mg Tablet] 20 mg PO DAILY 10/19/17 10/25/17 History Lurasidone HCl [Latuda] 40 mg PO DAILY 10/19/17 10/25/17 History Spironolactone [Aldactone 100mg 50 mg PO DAILY 10/19/17 10/25/17 History Tab] Tizanidine HCl 4 mg PO Q8H 10/19/17 10/25/17 History lamoTRIgine [Lamotrigine] 200 mg PO QHS 10/19/17 10/25/17 History Aspirin [Low Dose Aspirin EC] 81 mg PO DAILY 10/25/17 10/25/17 History Clopidogrel Bisulfate [Plavix 75mg 75 mg PO DAILY 10/25/17 10/25/17 History Tab] Allergies Allergy/AdvReac Type Severity Reaction Status Date / Time No Known Allergies Allergy Verified 10/22/17 09:56 Review of Systems - *Cardi
--- NOTE | 2017-10-25 12:53 | P.CONS_ITS ---
History of Present Illness Consult date: 10/25/17 Requesting physician: Juan Monreal Chief complaint: Bilateral pain in feet (Left greater than the right) Additional Medical History:: 1. Chronic obstructive pulmonary disease A. Tobacco use starting at age 13, Stopped 2015 2. Hypertension 3. Hyperlipidemia 4. Obesity A. Referred for bariatric surgery but this never occurred. 5. Abnormal electrocardiogram with LEFT anterior fascicular block and anterior infarct pattern. A. right and left heart cath, 03/2016, normal coronaries with hyperdynamic LVEF and moderate pulmonary HTN. Diuretics recommended. 6. Hypothyroidism, on replacement. History of present illness: The patient complains of pain in both of her feet that started on Saturday 2 days ago. She says it is in the midfoot dorsally on both feet. She says she first got a knot on her right dorsal midfoot and now also has one on the left. She says she cannot bear weight. She has a history of chronic left leg pain and neurogenic claudication. She was seen in this emergency department 6 days ago for acute pain and numbness in her left leg and did not have pulses in her left foot that could be found by Doppler or palpation. She was airlifted to [facility]. She says however that they were able to find pulses there and she was discharged without any sort of vascular study. She followed up in the office with Dr. Monreal in [facility] on 10/22/17. She was started on [place] at that time. Patient states that she called Dr. Monreal's office today and spoke with office staff and was advised to come straight to the emergency department. The above per Dr. Tyler. Recent Cr >2 due to diclofenac use which has been stopped now. Cr today is 1.01. Dr. Vaughn spoke with Dr. Monreal earlier today and stated he would perform abdominal aortogram with LE runoff if needed. The patient has chronic leg pain with previous Neurologic workup unrevealing for definitive cause of pain per patient. Bilateral pedal pulses are not palpable but could be obtained with doppler. The feet are cool and tender to touch without cyanosis or evidence of acute thrombosis. [facility] History Medical History: Reports:: Hypertension Denies:: Cancer, Diabetes Mellitus Type 1, Diabetes Mellitus Type 2, Internal Pacemaker, MRSA Other Surgeries: Yes: Cardiac Catheterization, Hysterectomy-Partial. No: Pacemaker Amputation: No Fractures: No - *Social History Smoking Status: Current every day smoker Tobacco Type: cigarettes # Packs/Day (cigarettes): 1 #Yrs smoked (if former smoker): 40 Alcohol Intake: never Alcohol Intake Frequency:: other Substance Use Type: denies use Occupational Status: disabled Housing: house Household Members: significant other - Psychiatric History Expresses thoughts of harming self/others: None Suicide Plan Description: No Plan *Family Hx:: Anemia, Asthma, Cancer, Coronary Artery Disease, Heart Attack, Hyperlipidemia, Hypertension, Kidney Disease, Stroke Meds Home Medications Medication Instructions Recorded Confirmed Type Carvedilol [Carvedilol 25mg Tab] 12.5 mg PO BID 10/19/17 10/25/17 History Citalopram Hydrobromide [Celexa] 40 mg PO ONCE 10/19/17 10/25/17 History Furosemide [Furosemide 40MG tAB] 80 mg PO BID 10/19/17 10/25/17 History Lisinopril [Prinivil 20mg Tablet] 20 mg PO DAILY 10/19/17 10/25/17 History Lurasidone HCl [Latuda] 40 mg PO DAILY 10/19/17 10/25/17 History Spironolactone [Aldactone 100mg 50 mg PO DAILY 10/19/17 10/25/17 History Tab] Tizanidine HCl 4 mg PO Q8H 10/19/17 10/25/17 Histo
[2017-10-25 12:56] VITALS: BP 153/85; PULSE 85; RESP 18; TEMP 36.8; O2SAT 95
== END 2017-10-25 13:04 | disposition home or self-care (01) ==
PROVIDERS: Emergency Provider Emergency Medicine; PCP Physician Assistant
DX: M79.671 Pain in right foot (principal); M79.672 Pain in left foot; I73.9 Peripheral vascular disease, unspecified; R09.89 Other specified symptoms and signs involving the circulatory and respiratory systems; I10 Essential (primary) hypertension; F17.210 Nicotine dependence, cigarettes, uncomplicated; Z79.899 Other long term (current) drug therapy
CPT/HCPCS: 80053; 82550; 82553; 84484; 85025; 85610; 85730; 93005; 93970; 99283

== ENCOUNTER 2017-11-18 09:55 | Outpatient (CLI) | payer MEDICAID, SELFPAY ==
--- NOTE | 2017-11-18 09:57 | CA_ITS ---
PROCEDURE: 2-D M-mode and color Doppler study INDICATIONS FOR THE TEST: Chest pain COPD Heart Murmur Tobacco Smoking+ Palpitations Fatigue Syncope Edema+ Hypertension Diabetes Mellitus Rheumatic Fever SOB+WATTERS+Obesity+Hyperlipidemia Family History HD Additional History CHF, RENAL FAILURE, PVD PATIENT INFORMATION HEIGHT:62 WEIGHT:300 GENDER: Female B/P:126/80 2-D/M-MODE INTERPRETATION: 2-D MEASUREMENTS OBSERVED VALUES IN CMS Right Ventricular Dimension (RVDd) 2.3 Interventricular Septum (Thickness)(IVsd) 1.5 Left Ventricular Internal Dimensions(LVIDd) 5.2 Left Ventricular Posterior Wall (Thickness)(LVPWd) 0.5 Aortic Root 3.0 Aortic Cusp Separation 2.0 Left Atrial Dimensions (LAD) 4.0 2D 1. Left atrium is mildly enlarged, left ventricle is normal size, there is mild concentric left ventricular hypertrophy, visually estimated ejection fraction 55% with no obvious regional wall motion abnormality. 2. The right atrium and right ventricle are normal size and contractility. 3. The aortic valve is minimally thickened and fibrosed. 4. The mitral and tricuspid valve are grossly normal. 5. The pulmonic valve is poorly visualized. 6. No significant pericardial effusion noted. DOPPLER INTERROGATION: Doppler interrogation of the aortic, mitral and tricuspid valve reveals presence of mild mitral and tricuspid regurgitation, tricuspid and jet velocity is insufficient for calculation of the right ventricular systolic pressure, grade 1 diastolic dysfunction seen with tissue Doppler evidence of raised left atrial pressure. CONCLUSION: 1. Mildly enlarged left atrium, normal left ventricular size, mild concentric left ventricular hypertrophy, visually estimated ejection fraction 55% with no obvious regional wall motion abnormality. Grade 1 diastolic dysfunction seen with tissue Doppler evidence of raised left atrial pressure. 2. Mild mitral and tricuspid regurgitation 3. No significant pericardial effusion noted.
[2017-11-18 12:17] LABS: PHA INR Fingerstick 1.1 (0.9-1.1)
== END 2017-11-18 13:16 | disposition home or self-care (01) ==
LOC: RT 09:56
PROVIDERS: PCP Physician Assistant; Visit Provider Internal Medicine
DX: I50.9 Heart failure, unspecified (principal); I11.9 Hypertensive heart disease without heart failure; I73.9 Peripheral vascular disease, unspecified; E86.0 Dehydration; N17.9 Acute kidney failure, unspecified; I10 Essential (primary) hypertension; I27.20 Pulmonary hypertension, unspecified; R07.9 Chest pain, unspecified
CPT/HCPCS: 85610; 93306; 99211; G0463

== ENCOUNTER → 2017-11-27 10:56 | Outpatient (CLI) | payer MEDICAID, SELFPAY ==
[2017-11-27 11:24] LABS: INR 1.48 (0.9-1.1)
[2017-11-27 12:13] LABS: Blood Urea Nitrogen 38 mg/dL (7-18); Carbon Dioxide 23 mmol/L (21.0-32.0); Chloride 101 mmol/L (98-107); Creatinine,Serum 2.24 mg/dL (0.55-1.02); Estimated Glomerular Filt Rate 23 ml/min (>60); GFR (African American) 28 ML/MIN (>60); Glucose 83 mg/dL (74-106); Sodium 134 mmol/L (136-145)
[2017-11-27 12:21] LABS: Anion Gap 16.2 mEq/L (5-15)
[2017-11-27 12:39] LABS: Potassium 6.2 mmoL/L (3.5-5.1)
== END ==
PROVIDERS: PCP Physician Assistant; Visit Provider Physician Assistant
DX: I11.9 Hypertensive heart disease without heart failure (principal); I73.9 Peripheral vascular disease, unspecified
CPT/HCPCS: 36415; 80048; 83880; 85610

== ENCOUNTER → 2017-11-28 10:23 | Outpatient (CLI) | payer MEDICAID, SELFPAY ==
[2017-11-28 11:46] LABS: Anion Gap 14.7 mEq/L (5-15); Blood Urea Nitrogen 31 mg/dL (7-18); Carbon Dioxide 24 mmol/L (21.0-32.0); Chloride 102 mmol/L (98-107); Creatinine,Serum 1.42 mg/dL (0.55-1.02); Estimated Glomerular Filt Rate 39 ml/min (>60); GFR (African American) 47 ML/MIN (>60); Glucose 126 mg/dL (74-106); Magnesium 1.9 mg/dL (1.4-2.2); Potassium 5.7 mmoL/L (3.5-5.1); Sodium 135 mmol/L (136-145)
== END ==
PROVIDERS: Physician Assistant; Visit Provider Plastic Surgery
DX: I95.9 Hypotension, unspecified (principal); I11.0 Hypertensive heart disease with heart failure; E87.6 Hypokalemia; R42 Dizziness and giddiness; E11.51 Type 2 diabetes mellitus with diabetic peripheral angiopathy without gangrene
CPT/HCPCS: 36415; 80048; 83735

== ENCOUNTER → 2017-12-03 10:03 | Outpatient (CLI) | payer MEDICAID, SELFPAY ==
[2017-12-03 10:54] LABS: INR 0.99 (0.9-1.1); Prothrombin Time 10.7 seconds (9.4-11.8)
[2017-12-03 12:19] LABS: Anion Gap 13.4 mEq/L (5-15); Blood Urea Nitrogen 22 mg/dL (7-18); Carbon Dioxide 24 mmol/L (21.0-32.0); Chloride 106 mmol/L (98-107); Creatinine,Serum 1.09 mg/dL (0.55-1.02); Estimated Glomerular Filt Rate 53 ml/min (>60); GFR (African American) 64 ML/MIN (>60); Glucose 126 mg/dL (74-106); Potassium 4.4 mmoL/L (3.5-5.1); Sodium 139 mmol/L (136-145)
[2017-12-03 14:00] LABS: Amphetamine/Metha Screen,Urine Negative ng/mL (<1000); Barbiturates Screen,Urine Negative ng/mL (<200); Benzodiazepines Screen,Urine Negative ng/mL (200); Cannabinoid Screen,Urine Negative ng/mL (<50); Cocaine Screen,Urine Negative ng/g (<300); Methadone Screen,Urine Negative ng/mL (<300); Opiate Screen,Urine Negative ng/mL (<300); Phencyclidine Screen,Urine Negative ng/mL (<25)
--- NOTE | 2017-12-03 15:10 | HMH.ACPN ---
Internal Medicine - PN: Subj *Date: 12/03/17 *Time: 15:10 Exam Vital signs and Labs for Last 24 Hours: Laboratory Results - last 24 hr 12/03/17 10:06: Sodium 139, Potassium 4.4, Chloride 106, Carbon Dioxide 24, Anion Gap 13.4, BUN 22 H, Creatinine 1.09 H, Estimated GFR 53 L, Est GFR ( Amer) 64, Glucose 126 H 12/03/17 10:06: PT 10.7, INR 0.99 12/03/17 11:15: Urine Opiates Screen Negative, Ur Barbituates Screen Negative, Ur Phencyclidine Scrn Negative, Ur Amphetamines Screen Negative, U Methamphetamines Scrn Negative, U Benzodiazepines Scrn Negative, Urine Cocaine Screen Negative, U Marijuana (THC) Screen Negative Assessment and Plan - Assessment and plan all Dx Assessment and Plan for all problems:: PATIENT INR WAS 0.99 TODAY VIA VENIPUNCTURE. PATIENT INR WAS 1.48 ON 11/27/17 AT THE CURRENT DOSE OF WARFARIN 7.5 MG DAILY. SUSPECT PATIENT HAS NOT HAD DOSE FOR A COUPLE OF DAYS. DISCUSSING WITH PATIENT, WILL HAVE PATIENT TAKE 10 MG X3 DAYS THEN 7.5 MG DAILY THEREAFTER. WILL FOLLOW UP NEXT WEEK. MICHAEL FARRIS, PHARMD
== END ==
PROVIDERS: Internal Medicine Cardiovascular Disease; Physician Assistant; Visit Provider Internal Medicine
DX: Z79.01 Long term (current) use of anticoagulants (principal); Z51.81 Encounter for therapeutic drug level monitoring; Z79.899 Other long term (current) drug therapy; E11.51 Type 2 diabetes mellitus with diabetic peripheral angiopathy without gangrene; I11.0 Hypertensive heart disease with heart failure; E66.9 Obesity, unspecified
CPT/HCPCS: 36415; 80048; 80305; 85610

== ENCOUNTER 2017-12-06 10:19 | Outpatient (CLI) | payer MEDICAID, SELFPAY ==
--- NOTE | 2017-12-06 10:22 | XR_ITS ---
XR chest 2V HISTORY: ITS.REASON: productive cough, dyspnea, chest pain ORDERING PHYSICIAN: Miko Frazier MD PATIENT AGE: 52 years COMPARISON: 10/19/2017 FINDINGS: The cardiomediastinal silhouette and pulmonary vascularity are within normal limits. The lungs are clear without infiltrates, suspicious nodules, or pleural effusions. 5 mm nodule right lung base stable probably related to granuloma No acute bony abnormalities. IMPRESSION: No change with no acute finding
[2017-12-06 16:22] LABS: PHA INR Fingerstick 1.3 (0.9-1.1)
== END 2017-12-06 16:24 | disposition home or self-care (01) ==
LOC: RAD 10:20
PROVIDERS: Physician Assistant; PCP Emergency Medicine; Visit Provider Internal Medicine Cardiovascular Disease
DX: R05 Cough (principal); R07.2 Precordial pain; R06.09 Other forms of dyspnea; Z79.01 Long term (current) use of anticoagulants; Z51.81 Encounter for therapeutic drug level monitoring
CPT/HCPCS: 71046; 85610; 99211; G0463

== ENCOUNTER 2017-12-09 13:38 | Outpatient (RCR) | payer MEDICAID, SELFPAY ==
--- NOTE | 2017-12-09 14:59 | HMH.PTOPEV ---
Rehab Outpatient Evaluation Rehab OP Evaluation Start: 12/09/17 14:40 Freq: Status: Active Protocol: Document 12/09/17 14:40 JOEL (Rec: 12/09/17 14:59 JOEL [id number]) Electronically Signed By Tacho Alford, PT 12/09/17 14:40 Outpatient Therapy Subjective History Subjective History Pt reports h/o chronic LBP for ~4 yrs, which has gotten progressively worse over the last ~6 months. Pt reports L > R sided LBP currently, with B LE s/s from hips to feet. PMH : COPD,CHF,Asthma, L LE DVT Chief Complaint Pain Spasms Stiff Paresthesia Symptom Type Ache Throb Sharp Dull Stabbing Burning Numbness Tingling Shooting Symptoms Relieved By Rest/Positioning Heat OTC Meds Symptoms Aggravated By Standing Bending/Stooping Physical Activity Walking Lifting Prior Functional Limitations Lifting Housework Standing Walking Bending/Stooping Current Functional Limitations Lifting Housework Standing Bending/Stooping Symptom Description Constant but Variable Level of pain today (0-10) 5 Pain scale - at its best (0-10) 5 Pain scale - at its worst (0-10) 10 Lumbopelvic Eval Posture Thoracic Spine Posture Standing Position Neutral Lumbar Spine Posture Standing Position Increased Lordosis Assistive device Assistive Devices Straight Cane Gait Observation General Gait Pattern Observation Antalgic Gait Wide Based Gait Palapation tenderness right thoracic spinal tenderness Yes: 3/4 lumbar spinal tenderness Yes: 3/4 paraspinal tenderness Yes: 3/4 buttock tenderness Yes: 2/4 Lumbar/Sacral Palpation Findings Tenderness Muscle Guarding left thoracic spinal tenderness Yes: 3/4 lumbar spinal tenderness Yes: 3/4
== END 2017-12-09 13:39 | disposition home or self-care (01) ==
LOC: PT 13:38
PROVIDERS: PCP Emergency Medicine; Visit Provider Physician Assistant
DX: M54.16 Radiculopathy, lumbar region (principal)
CPT/HCPCS: 97163

== ENCOUNTER → 2018-01-17 07:48 | Outpatient (CLI) | payer MEDICAID, SELFPAY ==
--- NOTE | 2018-01-17 07:52 | AS_ITS ---
Arterial Exam Indications: 729.5 Pain in limb. IMPRESSIONS 1. Study suggests less than 60% stenosis involving the right lower extremity and the left lower extremity 2. Pt has small arteries difficult exam. No blockages or clots visualized. 3. Unable to obtain doppler signal in Left distal SFA, profunda artery, mid TOOL AND DIE REPAIR, distal peroneal artery, Right mid Peroneal artery, and OJ. History: Risk factors: Current tobacco use. Hypertension. Diabetes mellitus. Obese. Recent surgery: Pt had cath 10/25/17 sent to [facility] for revascularization of the Left Popliteal Artery d/t blockage vs clot.. Bilateral lower extremity arterial duplex. Duplex scan and ankle-brachial indices. Height: Height: 157.5cm. Height: 62in. Weight: Weight: 135.2kg. Weight: 297.4lb. Body mass index: BMI: 54.5kg/m^2. Body surface area: BSA: 2.52m^2. Location: Vascular laboratory. Patient status: Outpatient. Tables: Arterial flow: + +--------+--------+ Location V sys V ed + +--------+--------+ Right deep femoral - proximal 42cm/s 4.3cm/s + +--------+--------+ Right femoral - proximal 110cm/s 18.9cm/s + +--------+--------+ Right femoral - mid 91.1cm/s 13.4cm/s + +--------+--------+ Right femoral - distal 51.1cm/s 5.9cm/s + +--------+--------+ Right popliteal - proximal 60.5cm/s 9.4cm/s + +--------+--------+ Right popliteal - distal 50.7cm/s 7.9cm/s + +--------+--------+ Right posterior tibial - mid 98.7cm/s 16.7cm/s + +--------+--------+ Right posterior tibial - distal 99.7cm/s 11.8cm/s + +--------+--------+ Right peroneal - distal 37.3cm/s 7.6cm/s + +--------+--------+ Left femoral - proximal 101cm/s 11.9cm/s + +--------+--------+ Left femoral - mid 103cm/s 11.9cm/s + +--------+--------+ Left popliteal - proximal 38.4cm/s 7cm/s + +--------+--------+ Left popliteal - distal 86.4cm/s 8.4cm/s + +--------+--------+ Left anterior tibial - mid 29.5cm/s -------- + +--------+--------+ Left posterior tibial - distal 35.4cm/s 1cm/s + +--------+--------+ Left peroneal - mid 31.1cm/s 0.6cm/s + +--------+--------+ [place] and Stress table: +-------+-----+----+----+----+----+-----+----+-----+----+----+-----+----+ Stage R PT R DP R R PT R DP R Toe L PT L DP L L PT L DP L Toe inde inde index Toe inde index Toe x x x inde x +-------+-----+----+----+----+----+-----+----+-----+----+----+-----+----+ Baselin 136mm 142m 94mm 0.9 1 0.7 127m 126mm 112m 0.9 0.9 0.8 e Hg m Hg Hg m Hg Hg m Hg +-------+-----+----+----+----+----+-----+----+-----+----+----+-----+----+ (Report amended ) Electronically signed by: Valentin Evans [id number]
--- NOTE | 2018-01-17 07:54 | US_ITS ---
US Arterial Ankle Brachial Ind History: Recent vascular surgery, thrombus in popliteal artery, peripheral vascular disease, rest pain, claudication, current smoker ORDERING PHYSICIAN: Axel June MD PATIENT AGE: 52 years TECHNIQUE: Segmental pressures obtained of both right and left leg. These are compared to brachial blood pressure to yield index at each level sampled including summary [place]. The data sheets from the procedure are available in PACS FINDINGS Rest study only performed today No prior studies available for comparison. Blood pressures reported are in millimeters mercury. RIGHT LEG [place] = .9. RIGHT LEG TBI=.7 Brachial BP: 145 Thigh BP: 180 Calf BP: 120 Ankle PT: 136 Ankle DP : 142 Digit =94 LEFT LEG [place] = .9 LEFT LEG TBI= .8 Brachial BPD: 137 Thigh BP: 177 Calf BP: 121 Ankle PT:127 Ankle DP: 126 Digit = 112 Pulses and waveforms: Normal IMPRESSION: The ABIs as reported above are lower limits of normal . Waveforms and pulses are also unremarkable. The right TBI is slightly low suggesting small vessel disease
== END ==
PROVIDERS: PCP Emergency Medicine; Visit Provider Thoracic Surgery (Cardiothoracic Vascular Surgery)
DX: I73.9 Peripheral vascular disease, unspecified (principal)
CPT/HCPCS: 93922; 93925

== ENCOUNTER → 2018-01-28 10:56 | Outpatient (CLI) | payer MEDICAID, SELFPAY ==
[2018-01-28 11:54] LABS: PHA INR Fingerstick 1.3 (0.9-1.1)
== END ==
PROVIDERS: Physician Assistant; PCP Emergency Medicine; Visit Provider Internal Medicine Cardiovascular Disease
DX: Z79.01 Long term (current) use of anticoagulants (principal); Z51.81 Encounter for therapeutic drug level monitoring; I74.3 Embolism and thrombosis of arteries of the lower extremities
CPT/HCPCS: 85610; 99211; G0463

== ENCOUNTER 2018-01-31 08:00 | Outpatient (RCR) | payer MEDICAID, SELFPAY ==
--- NOTE | 2018-01-24 08:54 | HMH.PTOPEV ---
PT Outpatient Evaluation Rehab PT Outpatient Evaluation Start: 01/24/18 08:02 Freq: Status: Active Protocol: Document 01/24/18 08:03 LUCAKEVIN (Rec: 01/24/18 08:49 DANNY [id number]) Electronically Signed By Neil Can, PT 01/24/18 08:03 Outpatient Therapy Subjective History Subjective History Patient is a 52 year old female presenting to outpatient PT with reports of chronic low back pain of insidious onset starting approximately 4 years ago. Patient has previously seen a chiropractor with no relief of symptoms. No recent diagnostics to report. Assessment indicates flexion bias. Pt is currently taking [place] and Gabapentin for LBP/ BLE symptoms. Comorbidities include elevated BMI, diabetes , CHF and blood clots. Pt reports approximately 20 falls to the ground over the past year. Chief Complaint Pain Stiff Paresthesia Symptom Type Sharp Burning Tingling Symptoms Relieved By Nothing Symptoms Aggravated By Sitting Standing Bending/Stooping Physical Activity Walking Lifting Prior Functional Limitations None Current Functional Limitations Lifting Housework Sleeping Standing Sitting Squatting Recreation Activity Walking Stairs Balance Bending/Stooping Symptom Description Constant but Variable Level of pain today (0-10) 6 Pain scale - at its best (0-10) 9 Pain scale - at its worst (0-10) 3 Lumbopelvic Eval Posture Lumbar Spine Posture Standing Position Increased Lordosis Assistive device Assistive Devices Straight Cane Gait Observation General Gait Pattern Observation Antalgic Gait Accessory Movement L-spine Vertebrae Accessory Movements
== END 2018-01-31 08:01 | disposition home or self-care (01) ==
LOC: PT 08:00
PROVIDERS: PCP Emergency Medicine; Visit Provider Physician Assistant
DX: M54.9 Dorsalgia, unspecified (principal)
CPT/HCPCS: 97010; 97014; 97110; 97163; G0283

== ENCOUNTER → 2018-02-03 17:07 | Outpatient (CLI) | payer MEDICAID, SELFPAY ==
[2018-02-03 17:35] LABS: INR 1.06 (0.9-1.1); Prothrombin Time 10.9 seconds (9.4-11.8)
== END ==
PROVIDERS: Visit Provider Nurse Practitioner Family
DX: Z79.01 Long term (current) use of anticoagulants (principal); Z51.81 Encounter for therapeutic drug level monitoring
CPT/HCPCS: 36415; 85610

== ENCOUNTER → 2018-02-04 10:50 | Outpatient (CLI) | payer MEDICAID, SELFPAY ==
--- NOTE | 2018-02-04 10:53 | NVE_ITS ---
Venous Exam Indications: 729.5 Pain in limb. IMPRESSIONS 1. There is no evidence of significant Reflux. 2. No evidence of deep or superficial vein thrombosis involving the right lower extremity History: Right lower extremity pain. Swelling of the right lower extremity. Risk factors: Current tobacco use. Hypertension. History of arterial clot in popliteal artery of left lower extremityin November 2017. Obese. Medications: Warfarin (Coumadin), 15 mg. twice a week. Warfarin 10 mg 5 days a week. Aspirin, 81 mg daily. Right lower extremity venous duplex evaluation. Doppler flow study including spectral analysis, color and gerber scale imaging. Location: Vascular laboratory. Patient status: Outpatient. Tables: Venous flow and imaging: + +-------+ + Location Overall Flow properties + +-------+ + Right common femoral Patent Normal phasicity; spontaneous; normal augmentation; compressible + +-------+ + Right saphenofemoral junction Patent Compressible + +-------+ + Right profunda femoral Patent Compressible + +-------+ + Right femoral Patent Normal phasicity; spontaneous; normal augmentation; compressible + +-------+ + Right greater saphenous Patent Normal phasicity; spontaneous; normal augmentation; compressible + +-------+ + Right popliteal Patent Normal phasicity; spontaneous; normal augmentation; compressible + +-------+ + Right posterior tibial Patent Compressible + +-------+ + Right peroneal Patent Compressible + +-------+ + Right gastrocnemius Patent Compressible + +-------+ + Right soleal Patent Compressible + +-------+ + (Report amended ) Electronically signed by: Valentin Evans [id number]
== END ==
PROVIDERS: PCP Emergency Medicine; Visit Provider Nurse Practitioner Family
DX: Z86.718 Personal history of other venous thrombosis and embolism (principal); M79.661 Pain in right lower leg; M79.89 Other specified soft tissue disorders
CPT/HCPCS: 93971

== ENCOUNTER → 2018-02-28 08:20 | Outpatient (POV) | payer MEDICAID, SELFPAY | PROVIDERS: PCP Emergency Medicine; Visit Provider Thoracic Surgery (Cardiothoracic Vascular Surgery) | DX: Z00.00 Encounter for general adult medical examination without abnormal findings (principal) ==

== ENCOUNTER → 2018-03-25 10:10 | Outpatient (REF) | payer MEDICAID, SELFPAY ==
[2018-03-25 14:04] LABS: Basophils # 0.1 K/mm3 (0-0.2); Basophils % 0.6 % (0.1-2.0); Eosinophils # 0.2 K/mm3 (0.0-0.4); Eosinophils % 1.8 % (0.1-12.0); Hematocrit 41.4 % (37.0-47.0); Hemoglobin 13.4 g/dL (12.2-16.2); Lymphocytes # 2.6 K/mm3 (0.7-4.5); Lymphocytes % 28.5 K/mm3 (10-50); Mean Corpuscular HGB Conc 32.4 g/dL (31.8-35.4); Mean Corpuscular Hemoglobin 28.6 pg (27.0-31.2); Mean Corpuscular Volume 88.3 fl (81-99); Mean Platelet Volume 7.9 fl (7.4-10.4); Monocytes # 0.5 K/mm3 (0.1-1.0); Monocytes % 5.4 % (1.7-9.3); Neutrophils # 5.9 K/mm3 (1.8-7.8); Neutrophils % 63.7 % (37.0-80.0); Platelet Count 279 K/mm3 (142-424); Red Blood Count 4.69 M/mm3 (4.20-5.40); Red Cell Distribution Width 14.5 % (11.5-17.5); White Blood Count 9.2 K/mm3 (4.8-10.8)
[2018-03-25 14:20] LABS: Alanine Aminotransferase 43 U/L (12-78); Albumin Level 3.4 gm/dL (3.4-5.0); Albumin/Globulin Ratio 0.9 (1.1-1.8); Alkaline Phosphatase 93 U/L (46-116); Anion Gap 12.4 mEq/L (5-15); Aspartate Amino Transferase 18 U/L (15-37); Bilirubin,Total 0.3 mg/dL (0.2-1.0); Blood Urea Nitrogen 17 mg/dL (7-18); Calcium 8.8 mg/dL (8.5-10.1); Carbon Dioxide 26 mmol/L (21.0-32.0); Chloride 106 mmol/L (98-107); Chol/HDL Ratio 6.5 (1-3.5); Cholesterol 203 mg/dL (140-200); Creatinine,Serum 1.07 mg/dL (0.55-1.02); Estimated Glomerular Filt Rate 54 ml/min (>60); GFR (African American) 65 ML/MIN (>60); Globulin 3.9 gm/dl (1.3-3.2); Glucose 126 mg/dL (74-106); HDL Cholesterol 31 mg/dL (29-89); LDL Cholesterol 134 mg/dL (0-130); Potassium 4.4 mmoL/L (3.5-5.1); Sodium 140 mmol/L (136-145); T4 (Thyroxine) 8.5 ug/dl (4.7-13.3); Thyroid Stimulating Hormone 2.35 uIU/ml (0.358-3.740); Total Protein,Serum 7.3 gm/dL (6.4-8.2); Triglycerides 190 mg/dL (30-200); VLDL Cholesterol 38 mg/dL (0-40)
[2018-03-26 11:00] LABS: Vitamin D 25 Hydroxy 20.8 ng/mL (30.0-100.0)
[2018-03-27 16:25] LABS: Hemoglobin A1C 6.2 % (0.0-7.0)
== END ==
LOC: LAB 10:10
PROVIDERS: Visit Provider Physician Assistant
DX: L65.9 Nonscarring hair loss, unspecified (principal); M53.9 Dorsopathy, unspecified; Z79.899 Other long term (current) drug therapy; R73.9 Hyperglycemia, unspecified
CPT/HCPCS: 80053; 80061; 82652; 83036; 84436; 84443; 85025

== ENCOUNTER → 2018-04-02 08:31 | Outpatient (CLI) | payer MEDICAID, SELFPAY ==
--- NOTE | 2018-04-02 08:33 | MR_ITS ---
MR lumbar spine wo con, MR 3-d myelogram/MRCP HISTORY: PT states low back pain X 2 YRS or longer. Bilateral Hip and Leg pain. LT leg burning and numbness. ITS.REASON: low back pain ORDERING PHYSICIAN: ARABELLA Stallworth PATIENT AGE: 52 years Comparison: CT Lumbar 10/19/17. MRI 10/31/16. TECHNIQUE: Standard multiplanar multiecho sequences are performed without contrast. 3-D MIP and myelographic images are also rendered and reviewed FINDINGS: There is normal alignment. There are only 4 lumbar segments with a transitional segment at the lumbosacral junction hypoplastic 12th rib is noted on previous CT scan. The spinal cord ends at the L1 level. T12-L3 has an unremarkable appearance. L3-L4: Mild facet ligamentum hypertrophy with small amount fluid in the facets. L4-S1 small concentric bulging disc slightly eccentric toward the left with mild facet and ligamentum flavum hypertrophy with mild left-sided foraminal narrowing No disc herniation or other significant anomalies evident. IMPRESSION: 1. Transitional segment at the lumbosacral junction. 2. Minimal bulging disc at the lumbosacral junction eccentric to the left with minimal left-sided foraminal narrowing. Not significant changed 3. No disc herniation or canal stenosis
--- NOTE | 2018-04-02 09:29 | MM_ITS ---
MM Dig mamm DX unilat RT CAD Right breast ultrasound complete with axilla INDICATION: Follow-up abnormal mammogram, 6 month follow-up ORDERING PHYSICIAN: ARABELLA Stallworth PATIENT AGE: 52 years COMPARISON: 09/18/2017, 08/02/2016 TECHNIQUE: Standard images performed along with problem-solving views FINDINGS: There is average fibroglandular tissue. No malignant appearing mass or malignant appearing microcalcification is evident. Previously there was a cluster of benign-appearing nodules in the deep central aspect of the right breast. There is some minimal asymmetric density in the deep needle aspect of the right breast however the cluster of benign-appearing nodules were not identified. Right breast ultrasound: There is a hyperechoic focus at 1:00 and 6 x 4 mm and a subcutaneous 11 x 3 mm hyperechoic focus at 3:00 suggesting small lipomas. 9:00 there is a 3 mm cyst and at 11:00 a 4 mm complex cyst. No suspicious nodules apparent. Small nodes are present in the axilla IMPRESSION: Benign findings, no evidence of malignancy BI-RADS Category: 2 Benign Finding(s) RECOMMENDED FOLLOW-UP: 6M - 6 MONTH FOLLOW-UP (A letter has been sent to the patient regarding results of the study.)
== END ==
PROVIDERS: PCP Emergency Medicine; Visit Provider Physician Assistant
DX: M53.86 Other specified dorsopathies, lumbar region (principal); M79.604 Pain in right leg; M79.605 Pain in left leg; M79.671 Pain in right foot; M79.672 Pain in left foot; N63.10 Unspecified lump in the right breast, unspecified quadrant
CPT/HCPCS: 72148; 76376; 76641; 77065

== ENCOUNTER → 2018-05-19 13:26 | Outpatient (POV) | payer MEDICAID, SELFPAY ==
[2018-05-19 13:49] VITALS: BP 114/78; PULSE 75; RESP 18; O2SAT 98
--- NOTE | 2018-05-20 08:45 | HMH.PMCON ---
Assessment and Plan (1) Degenerative disc disease Current visit: Yes Status: Chronic Qualifiers: Spinal region: lumbar Qualified Code(s): M51.36 - Other intervertebral disc degeneration, lumbar region Category: Medical - Assessment and plan all Dx Assessment and Plan for all problems:: We will schedule an L4-L5 lumbar epidural steroid injection for the patient. I will follow-up with her 2 weeks after this and reassess her. Patient is on Xarelto we will have permission from her primary care physician for her to be off of this prior to the injection. Patient is continuing a home stretching program. This note was dictated using voice recognition software and may contain errors or omissions HPI - Data of Consult Consult date: 05/19/18 Requesting Physician: Corinne West APRN Primary Care Provider: Juan Monreal MD Family Provider: Referral Provider, MD - Consult Narrative Reason for consult: Left leg pain History of present illness: Ms. Hunt is a 52 year old female who presents today with a complaint of left leg pain and chronic back pain. Patient had surgery in October 2017 to have blood clots removed from her left leg. Patient states since then she has had some pain in that area. Patient states all activity makes her pain worse well nothing really decreases it. Patient is completed 6 weeks of physical therapy with no relief. Patient also tried chiropractic and massage therapy. Patient has tried anti-inflammatories including Voltaren/naproxen. Patient has tried Zanaflex and gabapentin along with Lortab as well. She rates her pain a 6 out of 10 today. She has numbness and tingling in her left leg. Patient is currently on a blood thinner. Patient is interested in interventional means of treating her pain. CC: Corinne West APRN [facility] History I have reviewed the patient's past medical history: Yes Medical History: Reports:: Congestive Heart Failure, Diabetes Mellitus Type 2, Hypertension, MRSA Denies:: Cancer, Diabetes Mellitus Type 1, Internal Pacemaker, Seizures Other Surgeries: Yes: Cardiac Catheterization, Cholecystectomy, Hysterectomy-Total, Hysterectomy-Partial. No: Pacemaker Amputation: No Fractures: No - *Social History Smoking Status: Never smoker Tobacco Type: cigarettes # Packs/Day (cigarettes): 1 #Yrs smoked (if former smoker): 40 Alcohol Intake: never Alcohol Intake Frequency:: other Substance Use Type: denies use Occupational Status: disabled Housing: house Household Members: spouse - Psychiatric History Expresses thoughts of harming self/others: None Suicide Plan Description: No Plan *Family Hx:: Anemia, Asthma, Cancer, Coronary Artery Disease, Heart Attack, Hyperlipidemia, Hypertension, Kidney Disease, Stroke Review of Systems - Review of Systems ROS General: no recent weight change, no fever, no sleep disturbances Respiratory: no cough, no shortness of air, no recurring pulmonary infections Cardiovascular/Peripheral Vascular: No chest pain, No palpitations, no edema, no shortness of breath. Gastrointestinal: no incontinence, normal bowel movements reported Genitourinary: no incontinence Musculoskeletal: Back pain, left leg pain Psychiatric: normal mood/ affect Neurological: [denies weakness in extremities], [denies balance issues] Meds Home Medications Medication Instructions Recorded Confirmed Type Carvedilol [Carvedilol 25mg Tab] 12.5 mg PO BID 10/19/17 10/25/17 History Citalopram Hydrobromide [Celexa] 40 mg PO ONCE 10/19/17 10/25/17 History Lurasidone HCl [Latuda] 40 mg PO DAILY 10/19/17 10/25/17 History Spironolactone [Aldactone 100mg 50 mg PO DAILY 10/19/17 10/25/17 History Tab] Tizanidine HCl 4 mg PO Q8H 10/19/17 10/25/17 History lamoTRIgine [Lamotrigine] 200 mg PO QHS 10/19/17 10/25/17 History acetaminophen 500 mg tablet 500 mg PO Q4H PRN 11/18/17 History albuterol sulfate HFA 90 2 puff INHALATION Q6H PRN 11/27/17 H
--- NOTE | 2018-05-20 08:48 | P.CONS_ITS ---
Assessment and Plan (1) Degenerative disc disease Current visit: Yes Status: Chronic Qualifiers: Spinal region: lumbar Qualified Code(s): M51.36 - Other intervertebral disc degeneration, lumbar region Category: Medical - Assessment and plan all Dx Assessment and Plan for all problems:: We will schedule an L4-L5 lumbar epidural steroid injection for the patient. I will follow-up with her 2 weeks after this and reassess her. Patient is on Xarelto we will have permission from her primary care physician for her to be off of this prior to the injection. Patient is continuing a home stretching program. This note was dictated using voice recognition software and may contain errors or omissions HPI - Data of Consult Consult date: 05/19/18 Requesting Physician: Corinne West APRN Primary Care Provider: Juan Monreal MD Family Provider: Referral Provider, MD - Consult Narrative Reason for consult: Left leg pain History of present illness: Ms. Hunt is a 52 year old female who presents today with a complaint of left leg pain and chronic back pain. Patient had surgery in October 2017 to have blood clots removed from her left leg. Patient states since then she has had some pain in that area. Patient states all activity makes her pain worse well nothing really decreases it. Patient is completed 6 weeks of physical therapy with no relief. Patient also tried chiropractic and massage therapy. Patient has tried anti-inflammatories including Voltaren/naproxen. Patient has tried Zanaflex and gabapentin along with Lortab as well. She rates her pain a 6 out of 10 today. She has numbness and tingling in her left leg. Patient is currently on a blood thinner. Patient is interested in interventional means of treating her pain. CC: Corinne West APRN [facility] History I have reviewed the patient's past medical history: Yes Medical History: Reports:: Congestive Heart Failure, Diabetes Mellitus Type 2, Hypertension, MRSA Denies:: Cancer, Diabetes Mellitus Type 1, Internal Pacemaker, Seizures Other Surgeries: Yes: Cardiac Catheterization, Cholecystectomy, Hysterectomy- Total, Hysterectomy-Partial. No: Pacemaker Amputation: No Fractures: No - *Social History Smoking Status: Never smoker Tobacco Type: cigarettes # Packs/Day (cigarettes): 1 #Yrs smoked (if former smoker): 40 Alcohol Intake: never Alcohol Intake Frequency:: other Substance Use Type: denies use Occupational Status: disabled Housing: house Household Members: spouse - Psychiatric History Expresses thoughts of harming self/others: None Suicide Plan Description: No Plan *Family Hx:: Anemia, Asthma, Cancer, Coronary Artery Disease, Heart Attack, Hyperlipidemia, Hypertension, Kidney Disease, Stroke Review of Systems - Review of Systems ROS General: no recent weight change, no fever, no sleep disturbances Respiratory: no cough, no shortness of air, no recurring pulmonary infections Cardiovascular/Peripheral Vascular: No chest pain, No palpitations, no edema, no shortness of breath. Gastrointestinal: no incontinence, normal bowel movements reported Genitourinary: no incontinence Musculoskeletal: Back pain, left leg pain Psychiatric: normal mood/ affect Neurological: [denies weakness in extremities], [denies balance issues] Meds Home Medications Medication Instructions Recorded Confirmed Type Carvedilol [Carvedilol 25mg Tab] 12.5 mg PO BID 10/19/17 10/25/17
== END ==
PROVIDERS: PCP Emergency Medicine; Visit Provider Clinical Nurse Specialist Family Health
DX: M51.36 Other intervertebral disc degeneration, lumbar region (principal); M79.605 Pain in left leg
CPT/HCPCS: 99203

== ENCOUNTER → 2018-06-30 10:13 | Outpatient (POV) | payer MEDICAID, SELFPAY ==
[2018-06-30 10:23] VITALS: BP 140/54; PULSE 86; RESP 18; O2SAT 98; BMI 53.2
--- NOTE | 2018-06-30 10:33 | HMH.PAINSOAP ---
[facility] Pain Management SOAP Note Subjective:: Patient is a pleasant 53-year-old white female who we are treating for low back pain with lumbar radiculopathy. Patient status post a lumbar epidural steroid injection in which she got 3 days of complete relief of her pain. Patient states the pain is slowly coming back. Patient is not on any anti-inflammatories. We will put her on some today patient is on Xarelto due to history of DVTs. She does have permission to come off of this. Patient would like to try one more epidural steroid injection to see if she gets some more long-term effect. She rates her pain a 10 out of 10 today ROS General: no recent weight change, no fever, no sleep disturbances Respiratory: no cough, no shortness of air, no recurring pulmonary infections Cardiovascular/Peripheral Vascular: No chest pain, No palpitations, no edema, no shortness of breath. Gastrointestinal: no incontinence, normal bowel movements reported Genitourinary: no incontinence Musculoskeletal: Back pain, leg pain Psychiatric: normal mood/ affect Neurological: [denies weakness in extremities], [denies balance issues] Objective:: Physical Exam General: Alert and oriented x3, no acute distress, pleasant and cooperative, [on room air] Lungs: Resps E/U, Symmetrical chest expansion, Eyes: PERRL Musculoskeletal: Flexion and extension of lumbar spine somewhat guarded secondary to pain, deep tendon reflexes normal, strength in upper and lower extremities [5/5], [abnormal gait noted] Neurological: speech clear, migrant leader equal, no gross sensory deficits Assessment:: Degenerative disc disease lumbar spine with lumbar radiculopathy Plan:: We will schedule her for another L4-L5 lumbar epidural steroid injection for the patient. Believe it will be beneficial given her relief she received from the first 1. I do believe we should also see get her involved in physical therapy after her injection. Patient is continuing a home stretching program. Patient has permission to be off of her Xarelto. We will start her on diclofenac 75 mg 1 p.o. twice daily. I will follow-up with her after her injection. This note was dictated using voice recognition software and may contain errors or omissions
--- NOTE | 2018-06-30 10:36 | P.CONS_ITS ---
[facility] Pain Management SOAP Note Subjective:: Patient is a pleasant 53-year-old white female who we are treating for low back pain with lumbar radiculopathy. Patient status post a lumbar epidural steroid injection in which she got 3 days of complete relief of her pain. Patient states the pain is slowly coming back. Patient is not on any anti-i nflammatories. We will put her on some today patient is on Xarelto due to history of DVTs. She does have permission to come off of this. Patient would like to try one more epidural steroid injection to see if she gets some more long-term effect. She rates her pain a 10 out of 10 today ROS General: no recent weight change, no fever, no sleep disturbances Respiratory: no cough, no shortness of air, no recurring pulmonary infections Cardiovascular/Peripheral Vascular: No chest pain, No palpitations, no edema, no shortness of breath. Gastrointestinal: no incontinence, normal bowel movements reported Genitourinary: no incontinence Musculoskeletal: Back pain, leg pain Psychiatric: normal mood/ affect Neurological: [denies weakness in extremities], [denies balance issues] Objective:: Physical Exam General: Alert and oriented x3, no acute distress, pleasant and cooperative, [on room air] Lungs: Resps E/U, Symmetrical chest expansion, Eyes: PERRL Musculoskeletal: Flexion and extension of lumbar spine somewhat guarded secondary to pain, deep tendon reflexes normal, strength in upper and lower extremities [5/5], [abnormal gait noted] Neurological: speech clear, 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 Believe it will be beneficial given her relief she received from the first 1. I do believe we should also see get her involved in physical therapy after her injection. Patient is continuing a home stretching program. Patient has permission to be off of her Xarelto. We will start her on diclofenac 75 mg 1 p.o. twice daily. I will follow-up with her after her injection. This note was dictated using voice recognition software and may contain errors or omissions
== END ==
PROVIDERS: PCP Emergency Medicine; Visit Provider Clinical Nurse Specialist Family Health
DX: M51.16 Intervertebral disc disorders with radiculopathy, lumbar region (principal)
CPT/HCPCS: 99213

== ENCOUNTER → 2018-10-02 08:47 | Outpatient (CLI) | payer MEDICAID, SELFPAY ==
--- NOTE | 2018-10-02 08:50 | CT_ITS ---
CT angio LE BI INDICATION: Bilateral leg pain with decreased pulses ITS.REASON: Severe leg pain, decreased pulses, h/o popliteal ORDERING PHYSICIAN: ARABELLA Stallworth PATIENT AGE: 53 years COMPARISON: None TECHNIQUE: Axial images are obtained following the bolus administration of 120 mL of Optiray 350 contrast. Sagittal and coronal reformatted images are reviewed as well. All CT scans at the facility use one or more dose reduction, viz: automated exposure control, ma/kV adjustment per patient size (including targeted exams where dose is matched to indication, i.e. head), or iterative reconstruction technique. FINDINGS: The abdominal aorta has an unremarkable appearance without evidence of significant plaque, stenosis, or aneurysm. The renal arteries, superior mesenteric, and celiac arteries are unremarkable. DEVENDRA is patent. There is some tortuosity of the iliac arteries with mild atheromatous changes. No stenotic lesions are evident. Bilateral lower extremity runoff: The common femoral, superficial femoral, and popliteal arteries have an unremarkable appearance There is three-vessel runoff to both feet. Nonvascular findings: There is a 5 mm nodule in the right lung base seen on the most superior image. This nodule is incompletely imaged. A calcified nodule is present in the right lower lobe posteriorly. Fatty liver. Postcholecystectomy changes are noted. The spleen, adrenal glands, pancreas, and kidneys have an unremarkable appearance. There some stranding of the subcutaneous fat in the lower abdomen inferior to the level of the umbilicus suggesting underlying inflammatory changes. IMPRESSION: 1. Negative CT angiogram of the abdominal aorta and bilateral lower extremities with no stenotic lesions evident. 2. Fatty liver. 3. Incompletely visualized 5 mm nodule in the right lower lobe. 4. Stranding of the fat in subcutaneous tissues of the lower abdomen nonspecific and could be due to underlying inflammatory change
[2018-10-02 09:25] LABS: Blood Urea Nitrogen 12 mg/dL (7-18); Creatinine,Serum 0.84 mg/dL (0.55-1.02); Estimated Glomerular Filt Rate 71 ml/min (>60); GFR (African American) 86 ML/MIN (>60)
== END ==
PROVIDERS: PCP Physician Assistant; Visit Provider Physician Assistant
DX: I74.3 Embolism and thrombosis of arteries of the lower extremities (principal); M79.604 Pain in right leg; M79.605 Pain in left leg; R09.89 Other specified symptoms and signs involving the circulatory and respiratory systems; E11.9 Type 2 diabetes mellitus without complications; Z01.812 Encounter for preprocedural laboratory examination
CPT/HCPCS: 36415; 73701; 73706; 82565; 84520; Q9967

== ENCOUNTER → 2018-10-14 14:38 | Outpatient (CLI) | payer MEDICAID, SELFPAY ==
--- NOTE | 2018-10-14 14:41 | CT_ITS ---
CT chest wo con HISTORY: Follow-up lung nodule ITS.REASON: lung nodule seen on CTA ORDERING PHYSICIAN: ARABELLA Stallworth PATIENT AGE: 53 years COMPARISON: 10/02/2018, 10/14/2018 Technique: Axial images obtained following the administration of 75 mL of Optiray 350 . Sagittal, and coronal reformatted images are also generated and reviewed. All CT scans at the facility use one or more dose reduction, viz: automated exposure control, ma/kV adjustment per patient size (including targeted exams where dose is matched to indication, i.e. head), or iterative reconstruction technique. FINDINGS: No mediastinal or hilar mass or adenopathy. There are some scattered mediastinal and hilar calcified lymph nodes. Normal heart size. No evidence of pericardial effusion. There is a calcified granuloma in the right lower lobe posteriorly and an additional calcified nodule in the right lower lobe anteriorly and laterally. The lower aspect of this nodule was seen on the recent CT angiogram. This represents a calcified granuloma and has a benign appearance. No suspicious nodules are evident. No further workup necessary for these calcified nodules there is a 4 mm nodule in the left lower lobe laterally which is stable since 01/09/2017.. There is mild hyperinflation with coarsening of the bronchovascular markings which may be related to smoking-related lung disease 3 mm stable nodules present in the left lower lobe laterally. Upper abdominal images show fatty infiltration of the liver. No acute bony findings. IMPRESSION: 1. Right lower lobe nodule seen on the recent CT angiogram represents a calcified granuloma. Stable CT appearance of the chest. No suspicious abnormalities evident. 2. Coarsened bronchovascular markings with bronchial thickening consistent with smoking-related lung disease/COPD 3. Fatty liver
== END ==
PROVIDERS: PCP Physician Assistant; Visit Provider Physician Assistant
DX: R91.1 Solitary pulmonary nodule (principal)
CPT/HCPCS: 71250

== ENCOUNTER → 2018-10-16 12:52 | Outpatient (CLI) | payer MEDICAID, SELFPAY ==
--- NOTE | 2018-10-16 12:54 | US_ITS ---
MM Dig mamm BI DX w/CAD, US breast RT complete INDICATION: Follow-up abnormal mammogram ORDERING PHYSICIAN: ARABELLA Stallworth PATIENT AGE: 53 years COMPARISON: 04/02/2018, 09/18/2017, 08/02/2016 TECHNIQUE: Standard images performed along with spot compression views right breast and right breast ultrasound FINDINGS: There is average fibroglandular tissue.. Previously noted cluster of nodules in the deep aspect of the right breast are not identified on today's exam despite imaging somewhat deeper on the cc view on today's exam. No malignant appearing mass or malignant appearing microcalcifications evident. There are scattered asymmetric densities in the retroareolar region which are stable. Right breast ultrasound: At 1:00 there is a 9 mm hyperechoic nodular area which may be due to a lipoma. At 3:00 there is a 13 x 4 mm subcutaneous hyperechoic nodule. These are similar when compared to the previous study. Small hyperechoic area present at 9:00 at 7 mm. A 10 mm complex cyst is present at 10:00 unchanged. Left breast: Unremarkable. No malignant appearing mass or malignant microcalcification. IMPRESSION: Overall no significant change. No evidence of malignancy. Previously noted cluster of small nodules in the deep right breast no longer apparent BI-RADS Category: 2 Benign Finding(s) RECOMMENDED FOLLOW-UP: 1YR - 1 YEAR FOLLOW-UP (A letter has been sent to the patient regarding results of the study.)
== END ==
PROVIDERS: PCP Physician Assistant; Visit Provider Physician Assistant
DX: R92.8 Other abnormal and inconclusive findings on diagnostic imaging of breast (principal)
CPT/HCPCS: 76641; 77066

== ENCOUNTER → 2018-11-11 08:23 | Outpatient (CLI) | payer MEDICAID, SELFPAY ==
--- NOTE | 2018-11-11 08:24 | MR_ITS ---
MR lumbar spine wo con, MR 3-d myelogram/MRCP HISTORY: Low back pain with bilateral leg pain and numbness tingling and burning ITS.REASON: Low back pain, bowel incontinence ORDERING PHYSICIAN: ARABELLA Stallworth PATIENT AGE: 53 years Comparison: 04/02/2018 TECHNIQUE: Standard multiplanar multiecho sequences are performed without contrast. 3-D MIP and myelographic images are also rendered and reviewed FINDINGS: There are 4 lumbar segments as described before. Transitional segment noted at the lumbosacral junction labeled as S1. Spinal cord ends at the T12-L1 level. T12-L1, L1-L2 and L2-L3 have an unremarkable appearance. L3-L4: There is mild facet hypertrophic change with a small amount fluid within the facet joints as previously described. L4 S1: Mild degenerative disc disease with bulging disc and small central disc protrusion slightly eccentric toward the right which is slightly more prominent than when compared to the previous exam abutting the anteromedial aspect of the right S1 nerve root. There is mild facet hypertrophic change on the left at this level with mild left-sided foraminal narrowing. Mild amount of subcutaneous edema is noted in the lower lumbar region IMPRESSION: 1. L3-L4: There is mild facet hypertrophic change with a small amount fluid within the facet joints not significantly changed. 2. At the lumbosacral junction which is labeled as L4 S1 there is degenerative disc disease with bulging disc and small central disc protrusion slightly eccentric toward the right which is slightly more prominent than when compared to the previous exam abutting the anteromedial aspect of the right S1 nerve root. There is mild facet hypertrophic change on the left at this level with mild left-sided foraminal narrowing 3. Transitional segment at lumbosacral junction. Please take this into consideration if any intervention is contemplated
== END ==
PROVIDERS: PCP Physician Assistant; Visit Provider Physician Assistant
DX: M54.5 Low back pain (principal)
CPT/HCPCS: 72148; 76376

== ENCOUNTER → 2018-11-24 14:28 | Outpatient (CLI) | payer MEDICAID, SELFPAY ==
[2018-11-24 16:02] LABS: Anion Gap 14.2 mEq/L (5-15); Blood Urea Nitrogen 16 mg/dL (7-18); Calcium 9.1 mg/dL (8.5-10.1); Carbon Dioxide 27 mmol/L (21.0-32.0); Chloride 107 mmol/L (98-107); Creatinine,Serum 1.01 mg/dL (0.55-1.02); Estimated Glomerular Filt Rate 57 ml/min (>60); GFR (African American) 69 ML/MIN (>60); Glucose 112 mg/dL (74-106); Potassium 4.2 mmoL/L (3.5-5.1); Sodium 144 mmol/L (136-145)
== END ==
PROVIDERS: Visit Provider Nurse Practitioner Family
DX: R07.9 Chest pain, unspecified (principal); I27.20 Pulmonary hypertension, unspecified; I10 Essential (primary) hypertension; I11.9 Hypertensive heart disease without heart failure; I50.9 Heart failure, unspecified; I73.9 Peripheral vascular disease, unspecified; I74.3 Embolism and thrombosis of arteries of the lower extremities; Z72.0 Tobacco use; Z99.89 Dependence on other enabling machines and devices; E66.9 Obesity, unspecified; G47.33 Obstructive sleep apnea (adult) (pediatric)
CPT/HCPCS: 36415; 80048

== ENCOUNTER → 2018-12-02 06:09 | Outpatient (CLI) | payer MEDICAID, SELFPAY ==
--- NOTE | 2018-12-02 06:11 | CA_ITS ---
PROCEDURE: 2-D M-mode and color Doppler study INDICATIONS FOR THE TEST: Chest pain COPD Heart Murmur Tobacco Smoking+ Palpitations Fatigue Syncope Edema Hypertension+Diabetes Mellitus Rheumatic Fever SOB+WATTERS+Obesity+Hyperlipidemia Family History HD Additional History CHF PATIENT INFORMATION HEIGHT: 62 WEIGHT: 293 GENDER: Female B/P: 145/79 2-D/M-MODE INTERPRETATION: 2-D MEASUREMENTS OBSERVED VALUES IN CMS Right Ventricular Dimension (RVDd) 2.5 Interventricular Septum (Thickness)(IVsd) 0.9 Left Ventricular Internal Dimensions(LVIDd) 4.6 Left Ventricular Posterior Wall (Thickness)(LVPWd) 0.9 Aortic Root 2.9 Aortic Cusp Separation 2.3 Left Atrial Dimensions (LAD) 3.5 2D 1. Left atrium is mildly enlarged, left ventricle is normal size, mild concentric left ventricular hypertrophy, visually estimated ejection fraction 55% with no regional wall motion abnormality. 2. The right atrium and right ventricle are normal size and contractility. 3. The aortic valve is minimally thickened and fibrosed. 4. The mitral and tricuspid valvular grossly normal. 5. The pulmonic valve is poorly. 6. No significant pericardial effusion noted. DOPPLER INTERROGATION: Doppler interrogation of the aortic, mitral and tricuspid valvular presence of mild mitral and tricuspid regurgitation, tricuspid regurgitation jet velocity is inadequate for calculation of the right ventricular systolic pressure, grade 1 diastolic dysfunction seen with tissue Doppler evidence of raised left atrial pressure. CONCLUSION: 1. Mildly enlarged left atrium, normal left ventricular size, mild concentric left ventricular hypertrophy, visually estimated ejection fraction 55% with no regional wall motion abnormality, grade 1 diastolic dysfunction seen with tissue Doppler evidence of raised left atrial pressure. Definity contrast was utilized to delineate endocardial surfaces, there is no left ventricular thrombus seen. 2. Mild mitral and tricuspid regurgitation 3. No significant pericardial effusion noted.
--- NOTE | 2018-12-02 06:17 | NM_ITS ---
CARDIOLITE SPECT MYOCARDIAL PERFUSION LEXISCAN, REST AND STRESS: History: Congestive heart failure, hypertension, diabetes, hyperlipidemia, tobacco use, family history, chest pain and shortness of breath Procedure: Patient received a 0.4 mg of intravenous Lexiscan, resting heart rate was 67 bpm resting blood pressure 176/85, with Lexiscan maximum heart rate achieved was 109 bpm which is less than 85% of the maximum predicted heart rate and a blood pressure was 152/42. With Lexiscan patient complained of shortness of breath and nausea requiring intravenous Aminophyllin to reverse the symptoms. Electrocardiogram: Resting electrocardiogram showed sinus rhythm rightward axis, with Lexiscan there is less than 1.[address] segment depression from the baseline EKG. The EKG portion of the Lexiscan Myoview is nondiagnostic. Cardiac stress and resting SPECT images: Cardiac stress and resting SPECT images were obtained using technetium 99 Myoview 31.0 mCi stress and 10.8 mCi at rest. Gated SPECT further analysis of segmental wall motion and calculation of the ejection fraction also done. Cardiac stress and resting SPECT images show his activity in the inferior and inferior apical wall which improves on the resting images suggestive of reversible ischemia. Computer derived ejection fraction is 64% with no regional wall motion abnormality. Right ventricle is normal size and contractility. There appears to be transient ischemic dilatation of the left ventricle, raising the concern is for presence of multivessel coronary artery disease. Conclusion: 1. The EKG portion of the Lexiscan Myoview is nondiagnostic. 2. Scintigraphic evidence of reversible ischemia involving the inferior and inferior apical wall, there is transient ischemic dilatation of the left ventricle seen raising the concern is for presence of multivessel coronary artery disease, computer derived ejection fraction is 64% with no regional wall motion abnormality, right ventricle is normal size and contractility. 3. Abnormal Lexiscan Myoview study
--- NOTE | 2018-12-02 06:55 | HMH.ITSHM ---
Current Home Medications as stated by this patient Melany Hunt or contracts representative. []TORSEMIDE LURASIDONE LISINOPRIL LAMOTRIGINE ISOSORBIDE HYDROCODONE GLIPIZIDE GABAPENTIN CLONIDINE CITALOPRAM ASA AMITIRIPTYLINE ALBUTEROL TIZANIDINE SPIRONOLACTONE RIVAROXABAN VITAMIN D2 VITAMIN D3 CLOPIDOGREL CARVEDILOL
== END ==
PROVIDERS: PCP Emergency Medicine; Visit Provider Internal Medicine
DX: R07.9 Chest pain, unspecified (principal); I10 Essential (primary) hypertension; I11.9 Hypertensive heart disease without heart failure; I27.20 Pulmonary hypertension, unspecified; I50.9 Heart failure, unspecified; I73.9 Peripheral vascular disease, unspecified; I74.3 Embolism and thrombosis of arteries of the lower extremities; E66.9 Obesity, unspecified; Z72.0 Tobacco use; G47.33 Obstructive sleep apnea (adult) (pediatric); Z99.89 Dependence on other enabling machines and devices
CPT/HCPCS: 78452; 93017; 93306; A9502; J2785

== ENCOUNTER → 2018-12-18 13:45 | Outpatient (POV) | payer MEDICAID, SELFPAY | PROVIDERS: Visit Provider Neurological Surgery | DX: Z00.00 Encounter for general adult medical examination without abnormal findings (principal) ==

== ENCOUNTER 2019-01-21 10:04 | Emergency (ER) | payer MEDICAID, SELFPAY ==
[2019-01-21 10:12] VITALS: BP 141/102; PULSE 87; RESP 18; TEMP 36.6; O2SAT 94; BMI 52.4
--- NOTE | 2019-01-21 10:32 | XR_ITS ---
XR chest 2V HISTORY: Weakness, smoker ITS.REASON: syncope ORDERING PHYSICIAN: Juan Harris MD PATIENT AGE: 53 years COMPARISON: 12/06/2017 FINDINGS: The cardiomediastinal silhouette and pulmonary vascularity are within normal limits. No lobar consolidation or collapse is evident. There is a faint opacity noted over the right lower lobe at 8 mm corresponding to a calcified granuloma.. No acute bony abnormalities. IMPRESSION: No acute finding
--- NOTE | 2019-01-21 10:34 | CT_ITS ---
CT CERVICAL SPINE WITHOUT CONTRAST CT RECONSTRUCTIONS HISTORY:Neck pain, radiculitis ORDERING PHYSICIAN: Juan Harris MD PATIENT AGE: 53 years COMPARISON: None Technique: All CT scans at the facility use one or more dose reduction, viz: automated exposure control, ma/kV adjustment per patient size (including targeted exams where dose is matched to indication, i.e. head), or iterative reconstruction technique PROCEDURE: Axial spiral CT scanning performed of the cervical spine without and with contrast. 75 mL's Optiray 350 utilized beginning at the base of the skull and continuing to the upper T-spine. 3-D multiplanar reconstruction with 3-D manipulation of volumetric data set in image rendering was completed by the radiologist and/or technologist with the supervision of the radiologist on independent workstation. FINDINGS: There is normal alignment. There is reversal of the cervical lordosis which may be due to patient positioning or muscle spasm. Layla: Mild foraminal narrowing on the right from facet and uncovertebral hypertrophy. C3-C4: Mild degenerative disc disease. C4-C5: Degenerative disc disease with right-sided facet hypertrophy with right-sided foraminal narrowing. C5-C6: Minimal anterolisthesis of C5 of 3 mm with foraminal narrowing on the right from facet and uncovertebral hypertrophy. C6-C7: Unremarkable. C7-T1: Unremarkable. No prevertebral soft tissue swelling. Scattered small nodes are present in the neck. Lung apices are clear. No enhancing lesions are appearance. No abscess or mass. IMPRESSION: 1. Multilevel cervical spondylosis with degenerative disc disease and facet and uncovertebral arthropathy with foraminal narrowing. Please see above for detailed description at each level. 2. Reversal of lordosis which may be due to patient positioning or muscle spasm. 3. No acute fracture. 4. There is minimal anterolisthesis of C5 on C6 of 3 mm which may be degenerative in nature.
--- NOTE | 2019-01-21 10:36 | HMH.EDGENADL ---
ED Disposition Clinical Impression: Cervical radicular pain, Foraminal stenosis of cervical region, Degenerative disc disease Disposition: Home, Self-Care Condition on Discharge: Fair Prescriptions: predniSONE [Prednisone 20mg Tab] 60 mg PO DAILY 5 Days #15 tab Ketorolac Tromethamine [Toradol 10mg tablet] 10 mg PO Q6H 5 Days #20 tab Tizanidine HCl [Zanaflex 4mg tab] 4 mg PO BID PRN 7 Days #14 tab PRN Reason: Moderate Pain Referrals: Mariana Guillen PA [Primary Care Provider] - Time of Disposition: 13:33 - Critical Care Critical Care Time: No Attestation: On 01/21/19, the high probability of a clinically significant, sudden or life threatening deterioration of the following system(s) required my full and direct attention, intervention and personal management. The time I documented below is in addition to time spent performing reported procedures but includes the following listed in this critical care notation. Medical Decision Making - Medical Records Medical records reviewed: Yes: I reviewed the patient's medical records. - Bin Inquiry Pt receiving controlled substance: No Bin was queried for this patient: No Vital Signs: 01/21/19 10:12 01/21/19 10:41 01/21/19 13:02 Temperature 97.9 F Temperature Source Temporal Artery Scan Pulse Rate [Right Brachial] 87 85 79 Respiratory Rate 18 Blood Pressure [Right Arm] 141/102 H 114/65 Blood Pressure Mean [Right Arm] 115 81 Blood Pressure Source [Right Arm] Automatic Cuff Automatic Cuff Blood Pressure Position [Right Arm] Sitting Sitting 02 Sat by Pulse Oximetry 94 L 95 93 L Oxygen Delivery Method Room Air Room Air Room Air 01/21/19 13:04 Temperature Temperature Source Pulse Rate [Right Brachial] 66 Respiratory Rate Blood Pressure [Right Arm] 112/53 L Blood Pressure Mean [Right Arm] 72 Blood Pressure Source [Right Arm] Automatic Cuff Blood Pressure Position [Right Arm] Sitting 02 Sat by Pulse Oximetry 95 Oxygen Delivery Method Room Air - Lab Data Lab results reviewed: Yes: I reviewed the patient's lab results. Lab Results 01/21/19 10:15: WBC 10.1, RBC 5.30, Hgb 13.8, Hct 43.7, MCV 82.5, MCH 26.1 L, MCHC 31.7 L, RDW 14.0, Plt Count 273, MPV 7.4, Neut % (Auto) 70.8, Lymph % (Auto) 21.0, [place] % (Auto) 6.0, Eos % (Auto) 1.7, Baso % (Auto) 0.4, Neut # (Auto) 7.2, Lymph # (Auto) 2.1, [place] # (Auto) 0.6, Eos # (Auto) 0.2, Baso # (Auto) 0.0 01/21/19 10:15: Sodium 140, Potassium 4.3, Chloride 105, Carbon Dioxide 24, Anion Gap 15.3 H, BUN 13, Creatinine 0.94, Estimated Creat Clear 55, Estimated GFR 62, Est GFR ( Amer) 75, Glucose 155 H, Calcium 8.8, Total Bilirubin 0.4, AST 22, ALT 46, Alkaline Phosphatase 106, Troponin I < 0.02, Total Protein 7.6, Albumin 3.2 L, Globulin 4.4 H, Albumin/Globulin Ratio 0.7 L 01/21/19 10:15: Magnesium 1.9 Result diagrams: 01/21/19 10:15 01/21/19 10:15 Orders (Tests/Meds): ED MEDICATIONS Discontinued Medications Generic Name Dose Route Start Last Admin Trade Name Freq PRN Reason Stop Dose Admin Dexamethasone Sodium Phosphate 8 mg 01/21/19 10:35 01/21/19 10:38 Decadron 4mg/Ml 1ml Vial IV 01/21/19 10:36 8 mg ONCE ONE Administration Ioversol 75 ml 01/21/19 12:03 01/21/19 12:04 Rad-Optiray 350 100ml Vial IV 01/21/19 12:04 75 ml ONCE ONE Administration Protocol Ketorolac Tromethamine 30 mg 01/21/19 13:15 Toradol 30mg/Ml Vial IV 01/21/19 13:16 ONCE ONE Morphine Sulfate 4 mg 01/21/19 10:35 01/21/19 10:38 Morphine 4mg/Ml Syringe IV 01/21/19 10:36 4 mg ONCE ONE Administration Sodium Chloride 10 ml 01/21/19 12:03 01/21/19 12:04 Rad-Saline Flush 10ml Syringe IV 01/21/19 12:04 10 ml ONCE ONE Administration General Adult HPI - General Chief complaint: Syncope Stated complaint: High Blood Pressure and blacking out Time Seen by Provider: 01/21/19 10:36 Mode of Arrival: Family Vehicle Source of Information: Patient Li
--- NOTE | 2019-01-21 10:39 | ED_ITS ---
ED Disposition Clinical Impression: Cervical radicular pain, Foraminal stenosis of cervical region, Degenerative disc disease Disposition: Home, Self-Care Condition on Discharge: Fair Prescriptions: predniSONE [Prednisone 20mg Tab] 60 mg PO DAILY 5 Days #15 tab Ketorolac Tromethamine [Toradol 10mg tablet] 10 mg PO Q6H 5 Days #20 tab Tizanidine HCl [Zanaflex 4mg tab] 4 mg PO BID PRN 7 Days #14 tab PRN Reason: Moderate Pain Referrals: Mariana Guillen PA [Primary Care Provider] - Time of Disposition: 13:33 - Critical Care Critical Care Time: No Attestation: On 01/21/19, the high probability of a clinically significant, sudden or life threatening deterioration of the following system(s) required my full and direct attention, intervention and personal management. The time I documented below is in addition to time spent performing reported procedures but includes the following listed in this critical care notation. Medical Decision Making - Medical Records Medical records reviewed: Yes: I reviewed the patient's medical records. - Bin Inquiry Pt receiving controlled substance: No Bin was queried for this patient: No Vital Signs: 01/21/19 10:12 01/21/19 10:41 01/21/19 13:02 Temperature 97.9 F Temperature Source Temporal Artery Scan Pulse Rate [Right Brachial] 87 85 79 Respiratory Rate 18 Blood Pressure [Right Arm] 141/102 H 114/65 Blood Pressure Mean [Right Arm] 115 81 Blood Pressure Source [Right Arm] Automatic Cuff Automatic Cuff Blood Pressure Position [Right Arm] Sitting Sitting 02 Sat by Pulse Oximetry 94 L 95 93 L Oxygen Delivery Method Room Air Room Air Room Air 01/21/19 13:04 Temperature Temperature Source Pulse Rate [Right Brachial] 66 Respiratory Rate Blood Pressure [Right Arm] 112/53 L Blood Pressure Mean [Right Arm] 72 Blood Pressure Source [Right Arm] Automatic Cuff Blood Pressure Position [Right Arm] Sitting 02 Sat by Pulse Oximetry 95 Oxygen Delivery Method Room Air - Lab Data Lab results reviewed: Yes: I reviewed the patient's lab results. Lab Results 01/21/19 10:15: WBC 10.1, RBC 5.30, Hgb 13.8, Hct 43.7, MCV 82.5, MCH 26.1 L, MCHC 31.7 L, RDW 14.0, Plt Count 273, MPV 7.4, Neut % (Auto) 70.8, Lymph % (Auto) 21.0, [place] % (Auto) 6.0, Eos % (Auto) 1.7, Baso % (Auto) 0.4, Neut # (Auto) 7.2, Lymph # (Auto) 2.1, [place] # (Auto) 0.6, Eos # (Auto) 0.2, Baso # (Auto) 0.0 01/21/19 10:15: Sodium 140, Potassium 4.3, Chloride 105, Carbon Dioxide 24, Anion Gap 15.3 H, BUN 13, Creatinine 0.94, Estimated Creat Clear 55, Estimated GFR 62, Est GFR ( Amer) 75, Glucose 155 H, Calcium 8.8, Total Bilirubin 0.4, AST 22, ALT 46, Alkaline Phosphatase 106, Troponin I < 0.02, Total Protein 7.6, Albumin 3.2 L, Globulin 4.4 H, Albumin/Globulin Ratio 0.7 L 01/21/19 10:15: Magnesium 1.9 Result diagrams: 01/21/19 10:15 01/21/19 10:15 Orders (Tests/Meds): ED MEDICATIONS Discontinued Medications Generic Name Dose Route Start Last Admin Trade Name Freq PRN Reason Stop Dose Admin Dexamethasone Sodium Phosphate 8 mg 01/21/19 10:35 01/21/19 10:38 Decadron 4mg/Ml 1ml Vial IV 01/21/19 10:36
[2019-01-21 10:41] VITALS: BP 114/65; PULSE 85; O2SAT 95
[2019-01-21 10:49] LABS: Basophils % 0.4 % (0.1-2.0); Eosinophils # 0.2 K/mm3 (0.0-0.4); Eosinophils % 1.7 % (0.1-12.0); Hematocrit 43.7 % (37.0-47.0); Hemoglobin 13.8 g/dL (12.2-16.2); Lymphocytes # 2.1 K/mm3 (0.7-4.5); Mean Corpuscular HGB Conc 31.7 g/dL (31.8-35.4); Mean Corpuscular Hemoglobin 26.1 pg (27.0-31.2); Mean Corpuscular Volume 82.5 fl (81-99); Mean Platelet Volume 7.4 fl (7.4-10.4); Monocytes # 0.6 K/mm3 (0.1-1.0); Neutrophils # 7.2 K/mm3 (1.8-7.8); Neutrophils % 70.8 % (37.0-80.0); Platelet Count 273 K/mm3 (142-424); White Blood Count 10.1 K/mm3 (4.8-10.8)
[2019-01-21 11:01] LABS: Magnesium 1.9 mg/dL (1.4-2.2)
[2019-01-21 11:07] LABS: Alanine Aminotransferase 46 U/L (12-78); Albumin Level 3.2 gm/dL (3.4-5.0); Albumin/Globulin Ratio 0.7 (1.1-1.8); Alkaline Phosphatase 106 U/L (46-116); Anion Gap 15.3 mEq/L (5-15); Aspartate Amino Transferase 22 U/L (15-37); Bilirubin,Total 0.4 mg/dL (0.2-1.0); Blood Urea Nitrogen 13 mg/dL (7-18); Calcium 8.8 mg/dL (8.5-10.1); Carbon Dioxide 24 mmol/L (21.0-32.0); Chloride 105 mmol/L (98-107); Creatinine Clearance Estimated 55 mL/min (50-200); Creatinine,Serum 0.94 mg/dL (0.55-1.02); Estimated Glomerular Filt Rate 62 ml/min (>60); GFR (African American) 75 ML/MIN (>60); Globulin 4.4 gm/dl (1.3-3.2); Glucose 155 mg/dL (74-106); Potassium 4.3 mmoL/L (3.5-5.1); Sodium 140 mmol/L (136-145); Total Protein,Serum 7.6 gm/dL (6.4-8.2); Troponin I < 0.02 ng/ml (0.00-0.06)
--- NOTE | 2019-01-21 11:10 | PC.NURSE ---
PT GOING TO CT
--- NOTE | 2019-01-21 11:34 | PC.NURSE ---
v/s delayed due to rad
[2019-01-21 13:02] VITALS: PULSE 79; O2SAT 93
[2019-01-21 13:04] VITALS: BP 112/53; PULSE 66; O2SAT 95
[2019-01-21 13:51] VITALS: BP 135/76; PULSE 70; O2SAT 96
[2019-01-21 15:04] VITALS: BP 126/66; PULSE 68; RESP 18; TEMP 36.6; O2SAT 100
== END 2019-01-21 15:10 | disposition home or self-care (01) ==
PROVIDERS: Emergency Provider Emergency Medicine; PCP Physician Assistant
DX: M48.02 Spinal stenosis, cervical region (principal); M50.30 Other cervical disc degeneration, unspecified cervical region; F17.210 Nicotine dependence, cigarettes, uncomplicated; Z79.899 Other long term (current) drug therapy
CPT/HCPCS: 71046; 72127; 80053; 83735; 84484; 85025; 93005; 96374; 96375; 99284; Q9967

== ENCOUNTER → 2019-01-26 17:39 | Outpatient (CLI) | payer MEDICAID, SELFPAY ==
[2019-01-26 18:41] LABS: Amphetamine/Metha Screen,Urine Negative ng/mL (<1000); Barbiturates Screen,Urine Negative ng/mL (<200); Benzodiazepines Screen,Urine Negative ng/mL (<200); Cannabinoid Screen,Urine Negative ng/mL (<50); Cocaine Screen,Urine Negative ng/mL (<300); Methadone Screen,Urine Negative ng/mL (<300); Opiate Screen,Urine Negative ng/mL (<300); Phencyclidine Screen,Urine Negative ng/mL (<25)
[2019-01-26 18:49] LABS: Hemoglobin A1C 6.5 % (0.0-7.0)
[2019-01-26 18:59] LABS: Alanine Aminotransferase 116 U/L (12-78); Albumin/Globulin Ratio 0.9 (1.1-1.8); Alkaline Phosphatase 89 U/L (46-116); Anion Gap 15.1 mEq/L (5-15); Aspartate Amino Transferase 35 U/L (15-37); Basophils # 0.1 K/mm3 (0-0.2); Basophils % 0.4 % (0.1-2.0); Bilirubin,Total 0.2 mg/dL (0.2-1.0); Blood Urea Nitrogen 20 mg/dL (7-18); Calcium 8.1 mg/dL (8.5-10.1); Carbon Dioxide 26 mmol/L (21.0-32.0); Chloride 106 mmol/L (98-107); Chol/HDL Ratio 6.7 (1-3.5); Cholesterol 187 mg/dL (140-200); Eosinophils # 0.2 K/mm3 (0.0-0.4); Eosinophils % 1.4 % (0.1-12.0); Estimated Glomerular Filt Rate 65 ml/min (>60); Free T4 (Free Thyroxine) 0.97 ng/dl (0.76-1.46); GFR (African American) 79 ML/MIN (>60); Globulin 3.4 gm/dl (1.3-3.2); Glucose 118 mg/dL (74-106); HDL Cholesterol 28 mg/dL (29-89); Hematocrit 42.4 % (37.0-47.0); Hemoglobin 13.3 g/dL (12.2-16.2); Lymphocytes # 5.1 K/mm3 (0.7-4.5); Lymphocytes % 36.7 % (10-50); Mean Corpuscular HGB Conc 31.3 g/dL (31.8-35.4); Mean Corpuscular Hemoglobin 27.6 pg (27.0-31.2); Mean Corpuscular Volume 88.2 fl (81-99); Mean Platelet Volume 9.2 fl (7.4-10.4); Monocytes # 0.9 K/mm3 (0.1-1.0); Monocytes % 6.2 % (1.7-9.3); Neutrophils # 7.7 K/mm3 (1.8-7.8); Neutrophils % 55.3 % (37.0-80.0); Phosphorous 3.3 mg/dL (2.4-4.9); Platelet Count 280 K/mm3 (142-424); Potassium 4.1 mmoL/L (3.5-5.1); Red Blood Count 4.81 M/mm3 (4.20-5.40); Red Cell Distribution Width 14.4 % (11.5-17.5); Sodium 143 mmol/L (136-145); Thyroid Stimulating Hormone 4.26 uIU/ml (0.358-3.740); Total Protein,Serum 6.4 gm/dL (6.4-8.2); White Blood Count 13.9 K/mm3 (4.8-10.8)
[2019-01-26 19:07] LABS: Triglycerides 492 mg/dL (30-200)
[2019-01-28 17:47] LABS: Microalbumin, Urine <3.0 ug/mL (Not Estab.); Vitamin D 25 Hydroxy 14.7 ng/mL (30.0-100.0)
== END ==
PROVIDERS: Visit Provider Physician Assistant
DX: E11.9 Type 2 diabetes mellitus without complications (principal); E87.5 Hyperkalemia; R68.89 Other general symptoms and signs; R53.83 Other fatigue; D72.829 Elevated white blood cell count, unspecified; Z79.84 Long term (current) use of oral hypoglycemic drugs; E55.9 Vitamin D deficiency, unspecified
CPT/HCPCS: 80053; 80061; 80069; 80305; 82043; 82652; 83036; 84439; 84443; 85025

== ENCOUNTER → 2019-02-11 12:45 | Outpatient (CLI) | payer MEDICAID, SELFPAY ==
--- NOTE | 2019-02-11 12:48 | MR_ITS ---
MR cervical spine wo con HISTORY: Neck pain X 1month. Left arm numbness and tingling at times. ITS.REASON: Osteophytes, anterolisthesis ORDERING PHYSICIAN: ARABELLA Lowry PATIENT AGE: 53 years Comparison: CT 01/21/19. TECHNIQUE: Standard multiplanar multiecho sequences are performed without contrast. 3-D MIP and myelographic images are also rendered and reviewed FINDINGS: There is normal alignment. IMPRESSION: There is generalized motion artifact which somewhat decreases the sensitivity of the exam. The craniocervical junction has an unremarkable appearance. C2-C3: Unremarkable. C3-C4: Mild degenerative disc disease. C4-C5: Mild facet hypertrophic change on the right with mild right-sided foraminal narrowing. C5-C6: Mild right-sided facet hypertrophy with mild right-sided foraminal narrowing. C6-C7 and C7-T1 are unremarkable. No disc herniation. No canal stenosis. IMPRESSION: 1. Moderate generalized motion artifact which obscures fine detail. 2. Mild multilevel cervical spondylosis with mild foraminal narrowing on the right at C4-C5 and C5-C6. 3. No disc herniation, canal stenosis, or cord impingement
== END ==
PROVIDERS: PCP Physician Assistant; Visit Provider Physician Assistant
DX: M54.2 Cervicalgia (principal)
CPT/HCPCS: 72141; 76376

== ENCOUNTER → 2019-02-23 10:00 | Outpatient (POV) | payer MEDICAID, SELFPAY ==
[2019-02-23 10:32] VITALS: BP 132/74; PULSE 83; RESP 18; O2SAT 98; BMI 53.2
--- NOTE | 2019-02-23 14:35 | P.CONS_ITS ---
[facility] Pain Management SOAP Note Subjective:: Patient is a 53-year-old white female who we are treating for low back pain with lumbar radiculopathy. Patient was seen last year and she received one epidural injection. She states she got 3 days of complete relief for her pain. She then canceled her second epidural injection in her series of 3 on August 08, 2018 stating that she did not have transportation. Since then we did not see her back. She does have some new imaging. She was seen by Dr. Acuña who decided she was not a surgical candidate. According to the patient she stated that Dr. Acuña encouraged her not to have any more injections however on review of Dr. Acuña note it states that the patient stated that she had 2 injections and was going to decline any further interventional treatment. Patient and I had a discussion in regards to what we could offer her and she is uninterested in any interventional means including neuro stimulation, injection therapy or any other service we can provide for her. Patient was talked about at her last visit to have physical therapy however she has not proceeded with this. She is currently on gabapentin and Lortab. Patient states that she is waiting to get in with her primary care so she can have this increased or changed. Again there is not much we can offer her today. She rates her pain a 10 out of 10 however she is walking well and does not have any interest to being seen in the ER. ROS General: no recent weight change, no fever, no sleep disturbances Respiratory: no cough, no shortness of air, no recurring pulmonary infections Cardiovascular/Peripheral Vascular: No chest pain, No palpitations, no edema, no shortness of breath. Gastrointestinal: no incontinence, normal bowel movements reported Genitourinary: no incontinence Musculoskeletal: Back pain, leg pain Psychiatric: normal mood/ affect Neurological: [denies weakness in extremities], [denies balance issues] Objective:: Physical Exam General: Alert and oriented x3, no acute distress, pleasant and cooperative, [on room air] Lungs: Resps E/U, Symmetrical chest expansion, Eyes: PERRL Musculoskeletal: Flexion and extension of lumbar and cervical spine somewhat guarded secondary to pain, deep tendon reflexes normal, strength in upper and lower extremities [5/5], slightly antalgic gait noted Neurological: speech clear, airline managerial supervisor equal, no gross sensory deficits Assessment:: Degenerative disc disease cervical and lumbar spine with radiculopathy Plan:: At this time the patient is uninterested in any interventional means of treatment. She is not a candidate for surgery. Patient would like to continue her narcotic therapy with her primary care physician. Again I do believe she would probably benefit from physical therapy along with potentially biofeedback therapy. Patient's been instructed to call the office if she has any issues. Dr. Wetzel has reviewed this note and agrees with this plan of care. This note was dictated using voice recognition software and may contain errors or omissions
== END ==
PROVIDERS: PCP Emergency Medicine; Visit Provider Clinical Nurse Specialist Family Health
DX: M50.30 Other cervical disc degeneration, unspecified cervical region (principal); M51.16 Intervertebral disc disorders with radiculopathy, lumbar region
CPT/HCPCS: 99212

== ENCOUNTER 2019-06-24 10:53 | Observation (INO) ==
[2019-06-24 11:29] LABS: Basophils # 0.1 K/mm3 (0-0.2); Basophils % 0.8 % (0.1-2.0); Eosinophils # 0.2 K/mm3 (0.0-0.4); Eosinophils % 2.3 % (0.1-12.0); Hematocrit 43.3 % (37.0-47.0); Hemoglobin 14.2 g/dL (12.2-16.2); Lymphocytes # 2.4 K/mm3 (0.7-4.5); Lymphocytes % 32.6 % (10-50); Mean Corpuscular HGB Conc 32.8 g/dL (31.8-35.4); Mean Corpuscular Volume 88.4 fl (81-99); Mean Platelet Volume 8.4 fl (7.4-10.4); Monocytes # 0.7 K/mm3 (0.1-1.0); Neutrophils % 55.2 % (37.0-80.0); Platelet Count 248 K/mm3 (142-424); Red Cell Distribution Width 14.1 % (11.5-17.5); White Blood Count 7.3 K/mm3 (4.8-10.8)
[2019-06-24 11:41] LABS: Anion Gap 9.1 mEq/L (5-15); Blood Urea Nitrogen 11 mg/dL (7-18); Calcium 8.3 mg/dL (8.5-10.1); Carbon Dioxide 28 mmol/L (21.0-32.0); Chloride 105 mmol/L (98-107); Glucose 112 mg/dL (74-106); Sodium 138 mmol/L (136-145)
--- NOTE | 2019-06-24 12:26 | Emergency Department Note ---
ED Disposition Clinical Impression: Unstable angina Diabetes Qualifiers: Diabetes mellitus type: type 2 Diabetes mellitus shelter insulin use: unspecified tank terminal gauger insulin use status Diabetes mellitus complication status: with other specified complication Qualified Code(s): E11.69 - Type 2 diabetes mellitus with other specified complication Obesity Qualifiers: Obesity type: due to excess calories Obesity classification: adult class 3 (BMI >= 40) Serious obesity comorbidity presence: with serious comorbidity Body mass index: BMI 50.0-59.9 Qualified Code(s): E66.01 - Morbid (severe) obesity due to excess calories; Z68.43 - Body mass index (BMI) 50.0-59.9, adult Disposition: Admitted As Inpatient Condition on Discharge: Serious Referrals: uJan Monreal MD [Primary Care Provider] - - Critical Care Critical Care Time: No Attestation: On 06/24/19, the high probability of a clinically significant, sudden or life threatening deterioration of the following system(s) required my full and direct attention, intervention and personal management. The time I documented below is in addition to time spent performing reported procedures but includes the following listed in this critical care notation. Medical Decision Making - Medical Records Medical records reviewed: Yes: I reviewed the patient's medical records. - Bin Inquiry Pt receiving controlled substance: No Vital Signs: 06/24/19 10:54 Temperature 98.1 F Temperature Source Oral Pulse Rate [Right] 94 H Respiratory Rate 20 Blood Pressure [Right Arm] 160/98 H Blood Pressure Mean [Right Arm] 118 Blood Pressure Source [Right Arm] Automatic Cuff Blood Pressure Position [Right Arm] Sitting 02 Sat by Pulse Oximetry 99 Oxygen Delivery Method Room Air - Lab Data Lab results reviewed: Yes: I reviewed the patient's lab results. Lab Results 06/24/19 11:00: WBC 7.3, RBC 4.90, Hgb 14.2, Hct 43.3, MCV 88.4, MCH 29.0, MCHC 32.8, RDW 14.1, Plt Count 248, MPV 8.4, Neut % (Auto) 55.2, Lymph % (Auto) 32.6, [place] % (Auto) 9.0, Eos % (Auto) 2.3, Baso % (Auto) 0.8, Neut # (Auto) 4.0, Lymph # (Auto) 2.4, [place] # (Auto) 0.7, Eos # (Auto) 0.2, Baso # (Auto) 0.1 06/24/19 11:00: Sodium 138, Potassium 4.1, Chloride 105, Carbon Dioxide 28, Anion Gap 9.1, BUN 11, Creatinine 0.89, Estimated Creat Clear 57, Estimated GFR 66, Est GFR ( Amer) 80, Glucose 112 H, Calcium 8.3 L, Troponin I < 0.02 Result diagrams: 06/24/19 11:00 06/24/19 11:00 Orders (Tests/Meds): ED MEDICATIONS Discontinued Medications Generic Name Dose Route Start Last Admin Trade Name Freq PRN Reason Stop Dose Admin Aspirin 324 mg 06/24/19 11:29 06/24/19 11:31 Aspirin 81mg Chewable Tablet PO 06/24/19 11:30 324 mg ONCE ONE Administration ORDERS Category Date Time Status XR chest portable Stat Exams 06/24/19 11:06 Taken Troponin I Q3H Lab 06/24/19 14:15 Ordered Troponin I Q3H Lab 06/24/19 17:15 Ordered - Radiology Data #1 Image(s): Chest Image Reviewed: Yes I reviewed the patient's radiology image Preliminary Findings: Normal/NAD - ECG Data Tracing #1 Normal Sinus Rhythm: Yes Ischemic changes: non-specific ST-T wave changes - Physician Consults Physician Consulted: art Reason -: Pt condition Chest Pain HPI - General Chief Complaint: Chest Pain Stated Complaint: chest pain Time Seen by Provider: 06/24/19 11:00 Mode of Arrival: Ambulatory Source of Information: Patient, Spouse, Medical Record Limitations: No Limitations Description of Symptoms (Recalled from ER Triage Doc. by RN): Patient was sent down from Dr. Bradford office for chest pain, SOA and left leg pain and warmness. - Related Data Home Medications Medication Instructions Recorded Confirmed Tizanidine HCl 4 mg PO Q8H 10/19/17 03/17/19 carvediloL [Carvedilol 25mg Tab] 12.5 mg PO DAILY 10/19/17 06/24/19 albuterol sulfate HFA 90 2 puff INHALATION Q6H PRN 11/27/17 06/24/19 mcg/actuation aerosol inhaler prazosin 1 mg capsule 1 mg PO QHS 03/03/19 06/24/19 propranolol 10 mg tablet 10 mg PO BID 03/03/19 03/17/19 Aspirin [Low Dose Aspirin EC] See Rx Instructions .ROUTE .COMPLEX 03/17/19 06/24/19 Blood Sugar Diagnostic [Blood See Dose Instructions 1000units 03/17/19 06/24/19 Glucose Test] .ROUTE .MEDSUPPLY Lancets [Unilet Lancet] See Rx Instructions .ROUTE .COMPLEX 03/17/19 06/24/19 cloNIDine HCl [Catapres] See Rx Instructions .ROUTE .COMPLEX 03/17/19 06/24/19 Previous Rx's Medication Instructions Recorded clopidogrel 75 mg tablet 75 mg PO DAILY #90 tab 01/13/19 hydrocodone 10 mg-acetaminophen 1 tab PO TID PRN #90 tab 03/03/19 325 mg tablet ergocalciferol (vitamin D2) 50,000 50,000 unit PO QWEEK #14 cap 03/13/19 unit capsule cholecalciferol (vitamin D3) 1,000 1,000 unit PO DAILY #90 cap 03/14/19 unit capsule gabapentin 800 mg tablet 800 mg PO QID #120 tab 03/16/19 spironolactone 50 mg tablet 50 mg PO DAILY #90 tab 03/20/19 levothyroxine 25 mcg tablet 25 mcg PO DAILY #90 tab 04/20/19 isosorbide mononitrate ER 30 mg 30 mg PO QAM #90 tab 05/04/19 tablet,extended release 24 hr torsemide 100 mg tablet 50 mg PO DAILY #30 tab 05/04/19 lisinopril 20 mg tablet 20 mg PO DAILY #30 tab 05/05/19 glipizide ER 5 mg tablet, extended 5 mg PO DAILY #90 tab 05/06/19 release 24 hr rivaroxaban 20 mg tablet 20 mg PO DAILY #90 tab 05/06/19 lamotrigine 100 mg tablet See Rx Instructions .ROUTE 05/14/19 .COMPLEX #180 tablet lancets 33 gauge See Dose Instructions .ROUTE 06/01/19 .MEDSUPPLY #100 each Allergies Allergy/AdvReac Type Severity Reaction Status Date / Time No Known Allergies Allergy Verified 06/24/19 10:16 [facility] History - Hepatitis A Screen Drug use history?: No High risk sexual behaviors?: No History of sexually transmitted infection?: No Currently employed?: No Childcare worker?: No Do you have indoor plumbing?: Yes Do you have electricity?: Yes Attestation statement:: This patient has been screened for Hepatitis A risk factors. I have reviewed the patient's past medical history: Yes Medical History: Reports:: Anxiety, Congestive Heart Failure, Chronic Obstructive Pulmonary Disease (COPD), Depression, Diabetes Mellitus Type 2, Hyperlipidemia, Hypertension, MRSA Denies:: Cancer, Diabetes Mellitus Type 1, Internal Pacemaker, Seizures Other Surgeries: Yes: Cardiac Catheterization, Cholecystectomy, Colonoscopy, Hysterectomy-Total, Hysterectomy-Partial, Other (removed blood clots behind left knee). No: Pacemaker Amputation: No Fractures: No - Social History Smoking Status: Current every day smoker Tobacco Type: cigarettes # Packs/Day (cigarettes): 1 #Yrs smoked (if former smoker): 40 Alcohol Intake: never Alcohol Intake Frequency:: other Substance Use Type: denies use Occupational Status: disabled Housing: apartment Household Members: significant other - Psychiatric History Pschychiatric History:: Reports:: Anxiety, Depression Family Hx:: Anemia, Asthma, Cancer, Coronary Artery Disease, Heart Attack, Hyperlipidemia, Hypertension, Kidney Disease, Stroke ROS Obtained: Yes All systems reviewed & no additional complaints - Constitutional Constitutional: Denies fever(s) - Eyes Eyes: Denies change in vision - ENT Ears, Nose, Mouth, and Throat: Denies sore throat - Cardiovascular Cardiovascular: Reports as per HPI, Reports chest pain, Reports dyspnea - Respiratory Respiratory: No cough - Gastrointestinal Gastrointestingal: Denies: abdominal pain - Genitourinary Female Genitourinary: Denies hematuria - Musculoskeletal Musculoskeletal: Denies joint pain - Integumentary/Breasts Skin/Breast: Denies rash - Neurologic Neurologic: Denies seizure-like activity Physical Exam - General General appearance: alert - Head Head exam: normocephalic - Eye Eye exam: Present: PERRL, EOMI - ENT ENT exam: Present: mucous membranes moist - Neck Neck exam: Present: trachea midline - Respiratory Respiratory exam: Absent: respiratory distress - Cardiovascular Cardiovascular exam: Present: regular rate, systolic murmur - Abdominal Exam Abdominal exam: Present: soft - Extremities Exam Extremities exam: Present: calf tenderness - Neurological Exam Neurological exam: Present: alert, oriented X3, CN II-XII intact - Psychiatric Psychiatric exam: Present: normal affect - Skin Skin exam: Absent: rash
--- NOTE | 2019-06-24 15:09 | Consult Report ---
History of Present Illness Consult date: 06/24/19 Requesting physician: Juan Monreal Consult reason: chest pain Chief complaint: chest pain and LLE pain Additional Medical History:: 1. Chronic diastolic congestive heart failure 2. COPD 3. Anxiety 4. Diabetes mellitus 5. Tobacco user 6. Hypertension 7. Hyperlipidemia 8. Morbid obesity 9. Peripheral arterial disease 10. History of normal coronary arteries in 2016. Myoview stress test November 2018: 1. The EKG portion of the Lexiscan Myoview is nondiagnostic. 2. Scintigraphic evidence of reversible ischemia involving the inferior and inferior apical wall, there is transient ischemic dilatation of the left ventricle seen raising the concern is for presence of multivessel coronary artery disease, computer derived ejection fraction is 64% with no regional wall motion abnormality, right ventricle is normal size and contractility. 3. Abnormal Lexiscan Myoview study Echocardiogram November 2018 shows: 1. Mildly enlarged left atrium, normal left ventricular size, mild concentric left ventricular hypertrophy, visually estimated ejection fraction 55% with no regional wall motion abnormality, grade 1 diastolic dysfunction seen with tissue Doppler evidence of raised left atrial pressure. Definity contrast was utilized to delineate endocardial surfaces, there is no left ventricular thrombus seen. 2. Mild mitral and tricuspid regurgitation 3. No significant pericardial effusion noted. Runoff October 2017 shows: Acute to subacute thrombosis or occlusion of the left popliteal artery. Recommend transfer to [facility] vascular surgery to be evaluated for percutaneous or surgical revascularization. Left heart cath from March 2016 shows: 1. Normal coronary arteries 2. Hyperdynamic left ventricle consistent with hypertensive heart disease and diastolic dysfunction 3. Moderate pulmonary hypertension 4. Diastolic congestive heart failure Plan: 1. Weight loss 2. Consideration for bariatric surgery 3. Diuretics therapy will be the mainstay in her current condition 4. Evaluation for sleep apnea 5. High-dose Lasix and Spironolactone 6. Beta-blockers and/or verapamil in order to decrease left ventricular systolic function 7. The single most important part of her therapy beyond the diuretics will be weight loss History of present illness: This is a 54-year-old white female who presented to the emergency department with complaints of chest pain. The patient also reports left lower extremity pain. She states her symptoms started about 4 days ago. She states she had sudden onset of chest pain. She describes this as a heavy pressure sensation in the center of her chest. She states when she takes a deep breath she has this sharp sensation that is in the left side of her chest and radiates through to her back. She states it is associated with shortness of breath and feeling really cold and clammy. The patient states that she has had pain in her left lower extremity as well as redness and edema for 4 days as well. She states her right lower extremity is a little swollen but nowhere near as edematous as the left lower extremity and her right extremity is not painful like her left lower extremity is. She states that exertion does worsen both her chest pain and shortness of breath. Rest does help to improve the symptoms but they do not completely resolve. She rates her chest pain an 8 out of 10 in intensity. She reports that the pain has not improved since being in the hospital. Her first 2 troponins are negative. She did undergo left cardiac catheterization in 2015 at which time she had normal coronary arteries. She did have a stress test in November 2018. This showed inferior and inferior apical ischemia as well as transient ischemic dilatation raising concern for multivessel disease. The patient failed to follow-up on December 08, 2018 to discuss results. The patient reports that she was not aware of this follow-up appointment. While I am in the room she is complaining of left lower extremity pain and did ask for pain medication for her leg pain. She denies any fevers, chills, nausea, vomiting, diarrhea. She does states she has some orthopnea with her shortness of breath. [facility] History I have reviewed the patient's past medical history: Yes Medical History: Reports:: Anxiety, Congestive Heart Failure, Chronic Obstructive Pulmonary Disease (COPD), Depression, Diabetes Mellitus Type 2, Hyperlipidemia, Hypertension, MRSA, Peripheral Artery Disease Denies:: Cancer, Diabetes Mellitus Type 1, Internal Pacemaker, Seizures *Have you ever received a pneumonia vaccine?: No *Have you received a flu vaccine this season?: No Other Surgeries: Yes: Cardiac Catheterization, Cholecystectomy, Colonoscopy, Hysterectomy-Total, Hysterectomy-Partial, Other (removed blood clots behind left knee). No: Pacemaker Amputation: No Fractures: No - *Social History Smoking Status: Current every day smoker Tobacco Type: cigarettes # Packs/Day (cigarettes): 1 #Yrs smoked (if former smoker): 40 Alcohol Intake: never Alcohol Intake Frequency:: other Substance Use Type: denies use *Occupational Status:: disabled Housing: apartment Household Members: significant other *Travel in the last 8 weeks: None - Psychiatric History Pschychiatric History:: Reports:: Anxiety, Depression Family Hx:: Anemia, Asthma, Cancer, Coronary Artery Disease, Heart Attack, Hyper lipidemia, Hypertension, Kidney Disease, Stroke Meds Home Medications Medication Instructions Recorded Confirmed Type Tizanidine HCl 4 mg PO Q8H 10/19/17 03/17/19 History carvediloL [Carvedilol 25mg Tab] 12.5 mg PO DAILY 10/19/17 06/24/19 History albuterol sulfate HFA 90 2 puff INHALATION Q6H PRN 11/27/17 06/24/19 History mcg/actuation aerosol inhaler clopidogrel 75 mg tablet 75 mg PO DAILY #90 tab 01/13/19 06/24/19 Rx hydrocodone 10 mg-acetaminophen 1 tab PO TID PRN #90 tab 03/03/19 06/24/19 Rx 325 mg tablet prazosin 1 mg capsule 1 mg PO QHS 03/03/19 06/24/19 History propranolol 10 mg tablet 10 mg PO BID 03/03/19 03/17/19 History ergocalciferol (vitamin D2) 50,000 50,000 unit PO QWEEK #14 cap 03/13/19 06/24/19 Rx unit capsule cholecalciferol (vitamin D3) 1,000 1,000 unit PO DAILY #90 cap 03/14/19 06/24/19 Rx unit capsule gabapentin 800 mg tablet 800 mg PO QID #120 tab 03/16/19 06/24/19 Rx Aspirin [Low Dose Aspirin EC] See Rx Instructions .ROUTE .COMPLEX 03/17/19 06/24/19 History Blood Sugar Diagnostic [Blood See Dose Instructions 1000units 03/17/19 06/24/19 History Glucose Test] .ROUTE .MEDSUPPLY Lancets [Unilet Lancet] See Rx Instructions .ROUTE .COMPLEX 03/17/19 06/24/19 History cloNIDine HCl [Catapres] See Rx Instructions .ROUTE .COMPLEX 03/17/19 06/24/19 History spironolactone 50 mg tablet 50 mg PO DAILY #90 tab 03/20/19 Rx levothyroxine 25 mcg tablet 25 mcg PO DAILY #90 tab 04/20/19 06/24/19 Rx isosorbide mononitrate ER 30 mg 30 mg PO QAM #90 tab 05/04/19 06/24/19 Rx tablet,extended release 24 hr torsemide 100 mg tablet 50 mg PO DAILY #30 tab 05/04/19 Rx lisinopril 20 mg tablet 20 mg PO DAILY #30 tab 05/05/19 06/24/19 Rx glipizide ER 5 mg tablet, extended 5 mg PO DAILY #90 tab 05/06/19 06/24/19 Rx release 24 hr rivaroxaban 20 mg tablet 20 mg PO DAILY #90 tab 05/06/19 Rx lamotrigine 100 mg tablet See Rx Instructions .ROUTE 05/14/19 06/24/19 Rx .COMPLEX #180 tablet lancets 33 gauge See Dose Instructions .ROUTE 06/01/19 06/24/19 Rx .MEDSUPPLY #100 each Allergies Allergy/AdvReac Type Severity Reaction Status Date / Time No Known Allergies Allergy Verified 06/24/19 10:16 Review of Systems - Review of Systems Review of systems:: pertinent systems reviewed and negative unless documented below - Constitutional Reports fatigue, Reports lack of energy - *Cardiovascular Reports chest pain, Reports chest pain at rest, Reports chest pain with activity, Reports shortness of breath, Reports shortness of breath with activity, Reports leg swelling (Left lower extremity greater than the right) - *Respiratory Reports shortness of breath, Reports shortness of breath with activity, Reports pain on inspiration - *Musculoskeletal Comments: Left leg pain and edema - *Neurologic Denies seizure-like activity Exam Vital signs and Labs for Last 24 Hours: Temp Pulse Resp BP Pulse Ox 98.1 F 79 15 126/98 H 98 06/24/19 10:54 06/24/19 14:45 06/24/19 13:00 06/24/19 14:45 06/24/19 14:45 Laboratory Results - last 24 hr 06/24/19 11:00: WBC 7.3, RBC 4.90, Hgb 14.2, Hct 43.3, MCV 88.4, MCH 29.0, MCHC 32.8, RDW 14.1, Plt Count 248, MPV 8.4, Neut % (Auto) 55.2, Lymph % (Auto) 32.6, [place] % (Auto) 9.0, Eos % (Auto) 2.3, Baso % (Auto) 0.8, Neut # (Auto) 4.0, Lymph # (Auto) 2.4, [place] # (Auto) 0.7, Eos # (Auto) 0.2, Baso # (Auto) 0.1 06/24/19 11:00: Sodium 138, Potassium 4.1, Chloride 105, Carbon Dioxide 28, Anion Gap 9.1, BUN 11, Creatinine 0.89, Estimated Creat Clear 57, Estimated GFR 66, Est GFR ( Amer) 80, Glucose 112 H, Calcium 8.3 L, Troponin I < 0.02 06/24/19 14:00: Troponin I < 0.02 I & O for Last 24 hours: Intake & Output 06/21/19 06/22/19 06/23/19 06/24/19 23:59 23:59 23:59 23:59 Weight 299 lb Narrative: EKG is sinus rhythm with right axis deviation. - Constitutional no acute distress, morbidly obese - *Routine HEENT Exam Head: Present: normocephalic, atraumatic Eye: Present: EOMI, PERRL ENT: Present: mucous membranes moist - *Routine Neck Exam Present: supple, full ROM, normal carotid upstroke. Absent: JVD, carotid bruit, lymphadenopathy - *Routine Respiratory Exam Present: decreased breath sounds, CTA bilaterally - *Routine Cardiovascular Exam Present: RRR, Normal S1, Normal S2. Absent: murmur, gallop - *Routine Abdominal Exam Present: soft, normoactive bowel sounds. Absent: tenderness, distended - *Routine Extremities Exam Present: edema (Bilateral lower extremity edema, left is worse than right), full ROM, pulses intact, normal capillary refill. Absent: cyanosis, clubbing - *Routine Skin Exam Present: intact, erythema (Left lower extremity), warm. Absent: rash - *Routine Neurological Exam Present: alert, oriented X3, CN II-XII intact. Absent: sensory deficit, motor deficit - Routine Psychiatric Exam Present: normal affect, normal thought process - Detailed Eye Exam Eyelids: Left normal inspection Assessment and Plan (1) Chest pain Current visit: Yes Status: Acute Category: Medical Code(s): R07.9 - Chest pain, unspecified (2) Abnormal stress test Current visit: Yes Status: Acute Category: Medical Code(s): R94.39 - Abnormal result of other cardiovascular function study (3) Chronic diastolic (congestive) heart failure Current visit: Yes Status: Chronic Category: Medical Code(s): I50.32 - Chronic diastolic (congestive) heart failure (4) Pulmonary hypertension Current visit: Yes Status: Chronic Category: Medical Code(s): I27.20 - Pulmonary hypertension, unspecified (5) Right axis deviation Current visit: Yes Status: Chronic Category: Medical Code(s): R94.31 - Abnormal electrocardiogram [ECG] [EKG] (6) Left leg pain Current visit: Yes Status: Acute Category: Medical Code(s): M79.605 - Pain in left leg (7) Diabetes Current visit: Yes Status: Chronic Qualifiers: Diabetes mellitus type: type 2 Diabetes mellitus fpc insulin use: unspecified intermission coordinator insulin use status Diabetes mellitus complication status: with other specified complication Qualified Code(s): E11.69 - Type 2 diabetes mellitus with other specified complication Category: Medical Code(s): E11.9 - Type 2 diabetes mellitus without complicat ions (8) Dyspnea Current visit: No Status: Acute Qualifiers: Dyspnea type: shortness of breath Qualified Code(s): R06.02 - Shortness of breath; R06.00 - Dyspnea, unspecified; R06.01 - Orthopnea Category: Medical Code(s): R06.00 - Dyspnea, unspecified (9) HHD (hypertensive heart disease) Current visit: No Status: Chronic Qualifiers: Heart failure presence: with heart failure Heart failure type: diastolic Heart failure chronicity: acute on chronic Qualified Code(s): I11.0 - Hypertensive heart disease with heart failure; I50.33 - Acute on chronic diastolic (congestive) heart failure Category: Medical Code(s): I11.9 - Hypertensive heart disease without heart failure (10) History of thrombosis of lower extremity Current visit: No Status: Chronic Category: Medical Code(s): Z86.718 - Personal history of other venous thrombosis and embolism (11) Hypertension Current visit: No Status: Chronic Qualifiers: Hypertension type: essential hypertension Qualified Code(s): I10 - Essential (primary) hypertension Category: Medical Code(s): I10 - Essential (primary) hypertension (12) Tobacco use Current visit: No Status: Chronic Category: Medical Code(s): Z72.0 - Tobacco use - Assessment and plan all Dx Assessment and Plan for all problems:: Plan: 1. The patient was admitted to the hospital with complaints of chest pain and shortness of breath. She did have a Myoview stress test in November 2018. This did show inferior and inferior apical ischemia with transient ischemic dilatation concerning for multivessel disease. The patient likely needs a left heart cath to evaluate coronary artery disease. However she is currently ruled out for an KS as her first 2 troponins are negative. 2. The patient's EKG is suggestive of right axis deviation, concerning for a pulmonary embolus. The patient does have a history of pulmonary hypertension and Dr. Vaughn is concerned that she could have a pulmonary embolus. She is complaining of left leg pain as well. She states that she is having chest pain and shortness of breath. Her chest pain is worse on inspiration. Want to rule the patient out for a pulmonary bolus. We will get a CTA of the pulmonary arteries to rule out PE. 3. We will get bilateral venous duplexes to rule out DVT. 4. Continue anticoagulation with Xarelto. 5. We will get an echocardiogram to evaluate her LV function as well as to evaluate for right ventricular dilatation and to make sure she does not have RV failure. 6. The patient does have an abnormal stress test from November. If her PE and DVT evaluations are negative, consider left cardiac catheterization tomorrow. In the meantime we will start her on a nitro drip at 5. 7. Her blood pressure is well controlled. 8. Her LDL goal is less than 100. 9. She is on a beta-nela, carvedilol. Stop her propranolol as she does not need to be on 2 beta-blockers. 10. She does have diabetes. She needs aggressive control of this. Will defer management to her primary care provider. 11. Tobacco cessation is highly advised and counseled. 12. Further recommendations will be made pending the patient's response to carmen tment and the results of her CTA of her chest and bilateral venous duplexes. Thank you for the opportunity to help participate in the care of this patient.
--- NOTE | 2019-06-24 19:06 | Cardiology Report ---
APPROVED REPORT Left Lower Extremity Venous Study for DVT. Socket Puller: KELSIE Indications Lower Extremity Pain: Lower Extremity Edema: leg leg pain, left leg edema Vein Imaging CFV (L): compressive, spontaneous, phasic, augmentation SFJ (L): compressive, spontaneous, phasic, augmentation FEM (L): compressive, spontaneous, phasic, augmentation POP (L): compressive, spontaneous, phasic, augmentation DFV (L): compressive, spontaneous, phasic, augmentation PTV (L): compressive, spontaneous, phasic, augmentation GSV (L): compressive, spontaneous, phasic, augmentation SSV (L): compressive, spontaneous, phasic, augmentation Peroneals (L):compressive, spontaneous, phasic, augmentation GAS (L): compressive, spontaneous, phasic, augmentation Findings No evidence of DVT or superficial thrombophlebitis in the veins scanned of the left lower extremity. Conclusion No evidence of DVT or superficial thrombophlebitis in the veins scanned of the left lower extremity. Electronically signed by : Valentin Evans MD 06/24/2019 19:05:40
[2019-06-25 06:01] LABS: Basophils # 0.1 K/mm3 (0-0.2); Basophils % 0.8 % (0.1-2.0); Eosinophils # 0.2 K/mm3 (0.0-0.4); Eosinophils % 2.9 % (0.1-12.0); Hematocrit 44.4 % (37.0-47.0); Hemoglobin 14.1 g/dL (12.2-16.2); Lymphocytes # 2.4 K/mm3 (0.7-4.5); Lymphocytes % 36.4 % (10-50); Mean Corpuscular HGB Conc 31.7 g/dL (31.8-35.4); Mean Corpuscular Volume 89.4 fl (81-99); Mean Platelet Volume 7.9 fl (7.4-10.4); Monocytes # 0.6 K/mm3 (0.1-1.0); Monocytes % 8.2 % (1.7-9.3); Neutrophils # 3.5 K/mm3 (1.8-7.8); Neutrophils % 51.6 % (37.0-80.0); Platelet Count 240 K/mm3 (142-424); Red Blood Count 4.97 M/mm3 (4.20-5.40); Red Cell Distribution Width 14.3 % (11.5-17.5); White Blood Count 6.7 K/mm3 (4.8-10.8)
[2019-06-25 06:05] LABS: Anion Gap 7.7 mEq/L (5-15); Calcium 8.3 mg/dL (8.5-10.1)
--- NOTE | 2019-06-25 07:38 | Progress Note ---
Subjective Date: 06/25/19 Time: 07:34 Principal diagnosis: chest pain Interval history: 54 yo WF in bed in NAD. Still with chest pain (including musculoskeletal component) despite IV NTG gtt. Symptoms improved but not resolved. EKG without acute changes, troponins normal X 3 but with abnormal myoview earlier this year (pt did not show up for follow up to discuss). History of normal cors in 2016 CTA of chest negative for PE LE venous doppler of left leg negative for DVT CXR negative for pneumonia Still smoking and is diabetic Exam Vital signs and Labs for Last 24 Hours: Temp Pulse Resp BP Pulse Ox 98 F 72 15 129/79 99 06/25/19 04:13 06/25/19 06:00 06/25/19 06:00 06/25/19 06:00 06/25/19 06:00 Laboratory Results - last 24 hr 06/24/19 11:00: WBC 7.3, RBC 4.90, Hgb 14.2, Hct 43.3, MCV 88.4, MCH 29.0, MCHC 32.8, RDW 14.1, Plt Count 248, MPV 8.4, Neut % (Auto) 55.2, Lymph % (Auto) 32.6, [place] % (Auto) 9.0, Eos % (Auto) 2.3, Baso % (Auto) 0.8, Neut # (Auto) 4.0, Lymph # (Auto) 2.4, [place] # (Auto) 0.7, Eos # (Auto) 0.2, Baso # (Auto) 0.1 06/24/19 11:00: Sodium 138, Potassium 4.1, Chloride 105, Carbon Dioxide 28, Anion Gap 9.1, BUN 11, Creatinine 0.89, Estimated Creat Clear 57, Estimated GFR 66, Est GFR ( Amer) 80, Glucose 112 H, Calcium 8.3 L, Troponin I < 0.02 06/24/19 14:00: Troponin I < 0.02 06/24/19 17:15: Troponin I < 0.02 06/24/19 20:18: POC Glucose 119 H 06/25/19 05:35: WBC 6.7, RBC 4.97, Hgb 14.1, Hct 44.4, MCV 89.4, MCH 28.3, MCHC 31.7 L, RDW 14.3, Plt Count 240, MPV 7.9, Neut % (Auto) 51.6, Lymph % (Auto) 36.4, [place] % (Auto) 8.2, Eos % (Auto) 2.9, Baso % (Auto) 0.8, Neut # (Auto) 3.5, Lymph # (Auto) 2.4, [place] # (Auto) 0.6, Eos # (Auto) 0.2, Baso # (Auto) 0.1 06/25/19 05:35: Sodium 134 L, Potassium 3.7, Chloride 103, Carbon Dioxide 27, Anion Gap 7.7, BUN 13, Creatinine 1.03 H, Estimated Creat Clear 47, Estimated GFR 56 L, Est GFR ( Amer) 68, Glucose 124 H, Calcium 8.3 L, Magnesium 1.9 06/25/19 05:37: POC Glucose 125 H I & O for Last 24 hours: Intake & Output 06/22/19 06/23/19 06/24/19 06/25/19 11:59 11:59 11:59 11:59 Intake Total 603 / 603 Output Total 1700 / 1700 Balance -1097 / -1097 Weight 299 lb 304 lb 0.279 oz - *Routine HEENT Exam Head: Present: normocephalic Eye: Present: EOMI, PERRL ENT: Present: mucous membranes moist - *Routine Respiratory Exam Present: CTA bilaterally. Absent: accessory muscle use, rales, rhonchi, wheezes - *Routine Cardiovascular Exam Present: RRR. Absent: murmur, gallop, rubs - *Routine Extremities Exam Absent: edema, calf tenderness - *Routine Neurological Exam Present: alert, oriented X3, moving all extremities Progress Note: A&P (1) Chest pain Status: Acute Current Visit: Yes (2) Abnormal stress test Status: Acute Current Visit: Yes (3) Chronic diastolic (congestive) heart failure Status: Chronic Current Visit: Yes (4) Pulmonary hypertension Status: Chronic Current Visit: Yes (5) Right axis deviation Status: Chronic Current Visit: Yes (6) Left leg pain Status: Acute Current Visit: Yes (7) Diabetes Status: Chronic Current Visit: Yes (8) Dyspnea Status: Acute Current Visit: No (9) HHD (hypertensive heart disease) Status: Chronic Current Visit: No (10) History of thrombosis of lower extremity Status: Chronic Current Visit: No (11) Hypertension Status: Chronic Current Visit: No (12) Tobacco use Status: Chronic Current Visit: No Assessment and Plan for All Diagnoses:: Discussed with Dr. Vaughn Will proceed with [facility] today Further recommendations to follow
--- NOTE | 2019-06-25 07:48 | Pharmacy Consult Notes ---
[facility] Pharmacy VTE Monitoring - Patient Demographics Admission date: 06/24/19 Report Date: 06/25/19 Time: 07:48 Allergies/Adverse Reactions: Patient Allergies No Known Allergies Allergy (Verified 06/24/19 10:16) Height: 1.57 m Weight: 137.9 kg Patient Problems: Current Active Problems (Last Updated 03/27/18 @ 08:52 by ARABELLA Lowry) Unstable angina (Acute) Chest pain (Acute) Abnormal stress test (Acute) Chronic diastolic (congestive) heart failure (Chronic) Pulmonary hypertension (Chronic) Right axis deviation (Chronic) Left leg pain (Acute) Diabetes (Chronic) Obesity (Chronic) - VTE Risk Labs: VTE Related Lab Results Hgb 14.1 g/dL (12.2-16.2) 06/25/19 05:35 Hct 44.4 % (37.0-47.0) 06/25/19 05:35 Plt Count 240 K/mm3 (142-424) 06/25/19 05:35 BUN 13 mg/dL (7-18) 06/25/19 05:35 Creatinine 1.03 mg/dL (0.55-1.02) H 06/25/19 05:35 Estimated Creat Clear 47 mL/min (50-200) 06/25/19 05:35 Was VTE Risk Assessment Performed: Yes VTE Score: 4 VTE Risk Level: Low Risk - Prophylaxis VTE Prophylaxis Ordered?: Yes Types of VTE Prophylaxis: TEDS Knee High Location of Applied Device: Bilateral Lower Extremeties - VTE Diagnosis Confirmed Treatment or plan recommended: Continue Current Treatment
--- NOTE | 2019-06-25 08:54 | History & Physical Report ---
*Admission Date: 06/24/19 *Chief complaint: Chest Pain *History of present illness: 54-year-old female patient sitting up in bed resting quietly oxygen on at 2 L per nasal cannula, she reports her chest pain is currently a 4 out of 10 nitro drip as it 10 mics This is a 54-year-old white female who presented to the emergency department with complaints of chest pain. The patient also reports left lower extremity pain. She states her symptoms started about 4 days ago. She states she had sudden onset of chest pain. She describes this as a heavy pressure sensation in the center of her chest. She states when she takes a deep breath she has this sharp sensation that is in the left side of her chest and radiates through to her back. She states it is associated with shortness of breath and feeling really cold and clammy. The patient states that she has had pain in her left lower extremity as well as redness and edema for 4 days as well. She states her right lower extremity is a little swollen but nowhere near as edematous as the left lower extremity and her right extremity is not painful like her left lower extremity is. She states that exertion does worsen both her chest pain and shortness of breath. Rest does help to improve the symptoms but they do not completely resolve. She rates her chest pain an 8 out of 10 in intensity. She reports that the pain has not improved since being in the hospital. Her first 2 troponins are negative. She did undergo left cardiac catheterization in 2015 at which time she had normal coronary arteries. She did have a stress test in November 2018. This showed inferior and inferior apical ischemia as well as transient ischemic dilatation raising concern for multivessel disease. The patient failed to follow-up on December 08, 2018 to discuss results. The patient reports that she was not aware of this follow-up appointment. While I am in the room she is complaining of left lower extremity pain and did ask for pain medication for her leg pain. She denies any fevers, chills, nausea, vomiting, diarrhea. She does states she has some orthopnea with her shortness of breath. (Per Lala Corral APRN) [facility] History Medical History: Reports:: Anxiety, Congestive Heart Failure, Chronic Obstructive Pulmonary Disease (COPD), Depression, Diabetes Mellitus Type 2, Hyperlipidemia, Hypertension, MRSA, Peripheral Artery Disease Denies:: Cancer, Diabetes Mellitus Type 1, Internal Pacemaker, Seizures *Have you ever received a pneumonia vaccine?: No *Have you received a flu vaccine this season?: No Other Surgeries: Yes: Cardiac Catheterization, Cholecystectomy, Colonoscopy, Hysterectomy-Total, Hysterectomy-Partial, Other (removed blood clots behind left knee). No: Pacemaker Amputation: No Fractures: No - *Social History Smoking Status: Current every day smoker Tobacco Type: cigarettes # Packs/Day (cigarettes): 1 #Yrs smoked (if former smoker): 40 Alcohol Intake: never Alcohol Intake Frequency:: other Substance Use Type: denies use *Occupational Status:: disabled Housing: apartment Household Members: significant other *Travel in the last 8 weeks: None - Psychiatric History Pschychiatric History:: Reports:: Anxiety, Depression Family Hx:: Anemia, Asthma, Cancer, Coronary Artery Disease, Heart Attack, Hyperlipidemia, Hypertension, Kidney Disease, Stroke Review of Systems - Review of Systems Review of systems:: pertinent systems reviewed and negative unless documented below - Constitutional Reports fatigue, Reports weakness, Denies anorexia - Eyes Denies change in vision, Denies pain - ENT Denies difficulty swallowing, Denies ear pain - *Cardiovascular Reports chest pain, Reports chest pain at rest, Reports shortness of breath, Reports generalized swelling, Reports leg swelling - *Respiratory Reports shortness of breath - *Gastrointestinal Denies abdominal pain, Denies change in stools - Integumentary/Breasts Comments: LLE w/ painful red area - *Neurologic Denies seizure-like activity - Psychiatric Denies confusion, Denies thoughts of hurting/killing others, Denies thoughts of hurting/killing yourself - Endocrine Denies cold intolerance, Denies heat intolerance, Denies rapid, pounding, or irregular heartbeat - Hematologic/Lymphatic Denies easy bleeding, Denies easy bruising - Allergic/Immunologic Denies GI upset with certain foods, Denies throat swelling Meds Home Medications Medication Instructions Recorded Confirmed Type Tizanidine HCl 4 mg PO Q8H 10/19/17 06/24/19 History carvediloL [Carvedilol 25mg Tab] 12.5 mg PO DAILY 10/19/17 06/24/19 History albuterol sulfate HFA 90 2 puff INHALATION Q6H PRN 11/27/17 06/24/19 History mcg/actuation aerosol inhaler clopidogrel 75 mg tablet 75 mg PO DAILY #90 tab 01/13/19 06/24/19 Rx prazosin 1 mg capsule 1 mg PO QHS 03/03/19 06/24/19 History propranolol 10 mg tablet 10 mg PO BID 03/03/19 06/24/19 History ergocalciferol (vitamin D2) 50,000 50,000 unit PO QWEEK #14 cap 03/13/19 06/24/19 Rx unit capsule cholecalciferol (vitamin D3) 1,000 1,000 unit PO DAILY #90 cap 03/14/19 06/24/19 Rx unit capsule gabapentin 800 mg tablet 800 mg PO QID #120 tab 03/16/19 06/24/19 Rx Aspirin [Low Dose Aspirin EC] See Rx Instructions .ROUTE .COMPLEX 03/17/19 06/24/19 History cloNIDine HCl [Catapres] See Rx Instructions .ROUTE .COMPLEX 03/17/19 06/24/19 History levothyroxine 25 mcg tablet 25 mcg PO DAILY #90 tab 04/20/19 06/24/19 Rx isosorbide mononitrate ER 30 mg 30 mg PO QAM #90 tab 05/04/19 06/24/19 Rx tablet,extended release 24 hr torsemide 100 mg tablet 50 mg PO DAILY #30 tab 05/04/19 06/24/19 Rx lisinopril 20 mg tablet 20 mg PO DAILY #30 tab 05/05/19 06/24/19 Rx rivaroxaban 20 mg tablet 20 mg PO DAILY #90 tab 05/06/19 06/24/19 Rx lamoTRIgine [Lamotrigine] 200 mg PO HS 06/24/19 06/25/19 History Fenofibrate Nanocrystallized 145 mg PO DAILY 06/25/19 06/25/19 History [Fenofibrate] Spironolactone 50 mg PO DAILY 06/25/19 06/25/19 History glipiZIDE [Glipizide ER] 5 mg PO DAILY 06/25/19 06/25/19 History Allergies Allergy/AdvReac Type Severity Reaction Status Date / Time No Known Allergies Allergy Verified 06/24/19 10:16 Exam Vital signs and Labs for Last 24 Hours: Temp Pulse Resp BP Pulse Ox 98 F 72 18 129/79 99 06/25/19 04:13 06/25/19 06:00 06/25/19 08:00 06/25/19 06:00 06/25/19 08:00 Laboratory Results - last 24 hr 06/24/19 11:00: WBC 7.3, RBC 4.90, Hgb 14.2, Hct 43.3, MCV 88.4, MCH 29.0, MCHC 32.8, RDW 14.1, Plt Count 248, MPV 8.4, Neut % (Auto) 55.2, Lymph % (Auto) 32.6, [place] % (Auto) 9.0, Eos % (Auto) 2.3, Baso % (Auto) 0.8, Neut # (Auto) 4.0, Lymph # (Auto) 2.4, [place] # (Auto) 0.7, Eos # (Auto) 0.2, Baso # (Auto) 0.1 06/24/19 11:00: Sodium 138, Potassium 4.1, Chloride 105, Carbon Dioxide 28, Anion Gap 9.1, BUN 11, Creatinine 0.89, Estimated Creat Clear 57, Estimated GFR 66, Est GFR ( Amer) 80, Glucose 112 H, Calcium 8.3 L, Troponin I < 0.02 06/24/19 14:00: Troponin I < 0.02 06/24/19 17:15: Troponin I < 0.02 06/24/19 20:18: POC Glucose 119 H 06/25/19 05:35: WBC 6.7, RBC 4.97, Hgb 14.1, Hct 44.4, MCV 89.4, MCH 28.3, MCHC 31.7 L, RDW 14.3, Plt Count 240, MPV 7.9, Neut % (Auto) 51.6, Lymph % (Auto) 36.4, [place] % (Auto) 8.2, Eos % (Auto) 2.9, Baso % (Auto) 0.8, Neut # (Auto) 3.5, Lymph # (Auto) 2.4, [place] # (Auto) 0.6, Eos # (Auto) 0.2, Baso # (Auto) 0.1 06/25/19 05:35: Sodium 134 L, Potassium 3.7, Chloride 103, Carbon Dioxide 27, Anion Gap 7.7, BUN 13, Creatinine 1.03 H, Estimated Creat Clear 47, Estimated GFR 56 L, Est GFR ( Amer) 68, Glucose 124 H, Calcium 8.3 L, Magnesium 1.9 06/25/19 05:35: B-Natriuretic Peptide < 5 06/25/19 05:37: POC Glucose 125 H I & O for Last 24 hours: Intake & Output 06/22/19 06/23/19 06/24/19 06/25/19 23:59 23:59 23:59 23:59 Intake Total 240 / 240 363 / 363 Output Total 700 / 700 1000 / 1000 Balance -460 / -460 -637 / -637 Weight 300 lb 1 oz 304 lb 0.279 oz - Constitutional no acute distress - *Routine HEENT Exam Head: Present: normocephalic, atraumatic Eye: Present: EOMI, PERRL, normal accommodation ENT: Present: mucous membranes moist - *Routine Neck Exam Present: full ROM, trachea midline. Absent: JVD, tracheal deviation - *Routine Respiratory Exam Present: decreased breath sounds, CTA bilaterally. Absent: accessory muscle use, rales - *Routine Cardiovascular Exam Present: RRR - *Routine Abdominal Exam Present: soft, normoactive bowel sounds. Absent: tenderness, firm - *Routine Extremities Exam Present: edema, full ROM, pulses intact, calf tenderness. Absent: cyanosis Comments: BLE edema L>R, red, warm area L outer calf - Routine Back/Spine/Pelvis Exam Back/Spine: Present: full ROM. Absent: CVA tenderness - *Routine Skin Exam Present: intact, erythema, warm Comments: Red warm area L outer calf - *Routine Neurological Exam Present: alert, oriented X3, CN II-XII intact, normal speech. Absent: pronator drift, tremors - Routine Psychiatric Exam Present: normal affect, normal thought process. Absent: suicidal ideation, homicidal ideation Assessment and Plan (1) Chest pain Current visit: Yes Status: Acute Category: Medical Code(s): R07.9 - Chest pain, unspecified (2) Abnormal stress test Current visit: Yes Status: Acute Category: Medical Code(s): R94.39 - Abnormal result of other cardiovascular function study (3) Chronic diastolic (congestive) heart failure Current visit: Yes Status: Chronic Category: Medical Code(s): I50.32 - Chronic diastolic (congestive) heart failure (4) Pulmonary hypertension Current visit: Yes Status: Chronic Category: Medical Code(s): I27.20 - Pulmonary hypertension, unspecified (5) Right axis deviation Current visit: Yes Status: Chronic Category: Medical Code(s): R94.31 - Abnormal electrocardiogram [ECG] [EKG] (6) Left leg pain Current visit: Yes Status: Acute Category: Medical Code(s): M79.605 - Pain in left leg (7) Diabetes Current visit: Yes Status: Chronic Qualifiers: Diabetes mellitus type: type 2 Diabetes mellitus long-term 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 Diabetes mellitus complication status: with other specified complication Qualified Code(s): E11.69 - Type 2 diabetes mellitus with other specified complication Category: Medical Code(s): E11.9 - Type 2 diabetes mellitus without complications (8) Dyspnea Current visit: No Status: Acute Qualifiers: Dyspnea type: shortness of breath Qualified Code(s): R06.02 - Shortness of breath; R06.00 - Dyspnea, unspecified; R06.01 - Orthopnea Category: Medical Code(s): R06.00 - Dyspnea, unspecified (9) HHD (hypertensive heart disease) Current visit: No Status: Chronic Qualifiers: Heart failure presence: with heart failure Heart failure type: diastolic Heart failure chronicity: acute on chronic Qualified Code(s): I11.0 - Hypertensive heart disease with heart failure; I50.33 - Acute on chronic diastolic (congestive) heart failure Category: Medical Code(s): I11.9 - Hypertensive heart disease without heart failure (10) History of thrombosis of lower extremity Current visit: No Status: Chronic Category: Medical Code(s): Z86.718 - Personal history of other venous thrombosis and embolism (11) Hypertension Current visit: No Status: Chronic Qualifiers: Hypertension type: essential hypertension Qualified Code(s): I10 - Essen tial (primary) hypertension Category: Medical Code(s): I10 - Essential (primary) hypertension (12) Tobacco use Current visit: No Status: Chronic Category: Medical Code(s): Z72.0 - Tobacco use - Assessment and plan all Dx Assessment and Plan for all problems:: Rounded with Dr. Monreal, all orders per Dr. Monreal 1. Cards will proceed w/ [facility] today Cardiology has seen and recommends: Plan: 1. The patient was admitted to the hospital with complaints of chest pain and shortness of breath. She did have a Myoview stress test in November 2018. This did show inferior and inferior apical ischemia with transient ischemic dilatation concerning for multivessel disease. The patient likely needs a left heart cath to evaluate coronary artery disease. However she is currently ruled out for an PA as her first 2 troponins are negative. 2. The patient's EKG is suggestive of right axis deviation, concerning for a pulmonary embolus. The patient does have a history of pulmonary hypertension and Dr. Vaughn is concerned that she could have a pulmonary embolus. She is complaining of left leg pain as well. She states that she is having chest pain and shortness of breath. Her chest pain is worse on inspiration. Want to rule the patient out for a pulmonary bolus. We will get a CTA of the pulmonary arteries to rule out PE. 3. We will get bilateral venous duplexes to rule out DVT. 4. Continue anticoagulation with Xarelto. 5. We will get an echocardiogram to evaluate her LV function as well as to evaluate for right ventricular dilatation and to make sure she does not have RV failure. 6. The patient does have an abnormal stress test from November. If her PE and DVT evaluations are negative, consider left cardiac catheterization tomorrow. In the meantime we will start her on a nitro drip at 5. 7. Her blood pressure is well controlled. 8. Her LDL goal is less than 100. 9. She is on a beta-nela, carvedilol. Stop her propranolol as she does not need to be on 2 beta-blockers. 10. She does have diabetes. She needs aggressive control of this. Will defer management to her primary care provider. 11. Tobacco cessation is highly advised and counseled. 12. Further recommendations will be made pending the patient's response to treatment and the results of her CTA of her chest and bilateral venous duplexes. 06/24/2019: IMPRESSION: No acute findings. Dictated by: Nathan 06/24/2019 BLE Venous Dopplers: Conclusion No evidence of DVT or superficial thrombophlebitis in the veins scanned of the left lower extremity. Electronically signed by : Valentin Evans MD 06/24/2019 CTA: IMPRESSION: 1. No acute finding. No evidence of pulmonary embolus. 2. 2 cm left thyroid nodule. Consider outpatient ultrasound 3. Mildly prominent right hilar lymph node nonspecific. Suggest follow-up to confirm stability Dictated by: Valentin Evans
--- NOTE | 2019-06-25 10:01 | Cardiology Report ---
APPROVED REPORT EXAM: Comprehensive 2D, Doppler, and color-flow Echocardiogram Mash Processing Operator: Lillie Grace CRT Ht: 5 ft 2 in Wt: 299lbs BSA: 2.27 BP: 160/98 mmHg Indications: COPD, CP, SOB, OBESITY 2D Dimensions LVOT 1.84 cm (M/F) 1.5-2.5 M-Mode Dimensions RVDd 3.24 cm (0.9-2.6)LVDd 4.91 cm (3.5-5.7) LVDs 3.14 cm (3.5-5.7)IVSd 1.17 cm (0.6-1.1) PWd 0.50 cm (0.6-1.1)EF (Teich) 65.50% FS 36.00% EDV (Teich) 113.40 mL ESV (Teich) 39.10 mL LV Diastology E/A Ratio 0.82 Mitral Valve MV A Velocity 76.00 (40-130 cm/s) Left Ventricle Left atrium is mildly enlarged, left ventricle is normal size, mild concentric left ventricular hypertrophy, visually estimated ejection fraction 55% with no regional wall motion abnormality. Grade 1 diastolic dysfunction seen without tissue Doppler evidence of raise left atrial pressure. Right Ventricle Right atrium and right ventricular normal size and contractility. Aortic Valve Aortic valve is minimally thickened and fibrosed. Mitral Valve Mitral valve is grossly normal, there is no mitral stenosis, there is mild mitral regurgitation. Tricuspid Valve Tricuspid valve is grossly normal. There is mild tricuspid regurgitation, tricuspid regurgitation jet velocity is inadequate for calculation of the right ventricular systolic pressure. Pulmonic Valve Pulmonic valve is poorly visualized. Great Vessels Aortic root is normal size. Pericardium No significant pericardial effusion noted. Conclusion 1. Mild biatrial enlargement, normal left ventricular size, mild concentric left ventricular hypertrophy, visually estimated ejection fraction 55% with no regional wall motion abnormality, grade 1 diastolic dysfunction seen without tissue Doppler evidence of raise left atrial pressure. 2. Mildly enlarged right ventricle with normal contractility. 3. Mild mitral and tricuspid regurgitation. 4. No significant pericardial effusion noted. Electronically signed by : Miko Frazier, 06/25/2019 10:01:28
--- OUTSIDE RECORDS SUMMARY | 2019-06-25 15:21 | External Medical Summary | Continuity of Care Document ---
:1965 Author Organization [facility] Address [address] [facility] [address] [place] [address] Phone Care Team Providers Name Role Phone Raman Monreal Primary Care Provider Beatriz Attending Provider Unavailable Black Attending Provider Raman Monreal Attending Provider Allergies, Adverse Reactions, Alerts No known allergies. Medications Medication Status Dose Units Route Sig Qty Days Start End Instruct ions Date Date Prazosin Hcl Active 1 MG Oral every February day at , bedtime 2018 10:48am Propranolol Active 10 MG Oral Twice a February Hcl day 2018 10:49am Albuterol Active 2 PUFF Inhalatio Q6H November Sulfate n 2017 9:15am Clopidogrel Active 75 MG Oral Daily January Bisulfate 2018 11:24am Ergocalciferol Active 38305 UNIT Oral every 18 March (Vitamin D2) week 2018 3:55pm Cholecalcifero Active 1000 UNIT Oral Daily March adm inister l (Vitamin D3) with meals 2018 3:54pm Gabapentin Active 800 MG Oral Four March times a 2018 2:32pm Torsemide Active 50 MG Oral Daily May 04, 2019 8:38am Isosorbide Active 30 MG Oral every April swal low whole Mononitrate morning , with g lass of 2019 water; do not 10:44am crush/chew /dissolve /cut/break Lisinopril Active 20 MG Oral Daily May 05, 2019 10:36am Rivaroxaban Active 20 MG Oral Daily May administer 4:16pm with evening meal Levothyroxine Active 0 Route .COMPLE June TAKE ONE Sodium X , TABLET BY 2018 MOUTH EVERY 11:31am DAY Carvedilol Active 12.5 MG Oral Daily October give wit h , food 2017 (meal/snack) 7:27am Tizanidine Hcl Active 4 MG Oral Q8H October 19, 2017 7:27am Aspirin Active 81 MG Oral Daily March TAKE 1 TAB LET , BY MOUTH 2018 EVERY DAY 6:57pm Clonidine Hcl Active 0.2 MG Oral Daily March TAKE 1 TABLET , BY MOUTH 2018 EVERY DAY 6:57pm Lamotrigine Active 200 MG Oral At June TAKE 2 bedtime , TABLETS BY nightly 2018 MOUTH EVERY 4:18pm DAY AT BEDTIME Glipizide Active 5 MG Oral Daily June 25, 2019 10:21am Fenofibrate Active 145 MG Oral Daily [place], ed 2018 10:27am Spironolactone Active 50 MG Oral Daily June 25, 2019 10:27am Problems Active Problems Medical Problem Onset Date Status Anterolisthesis Active Foraminal stenosis of cervical Active region Sacroiliac joint disease Active Seizure-like activity Active Lumbar radiculopathy Active JOSH on CPAP Active Degenerative disc disease Active Low back pain Active Encounter for pre-operative Active cardiovascular clearance Diabetes Active Acute renal failure Active Bilateral foot pain Active Bilateral foot pain Active Bilateral leg and foot pain Active CHF (congestive heart failure) Active Unstable angina Active Pulmonary hypertension Active Pulmonary hypertension Active Confusion Active Dyspnea Active Hypothyroidism Active Left leg pain Active History of thrombosis of lower Active extremity Lumbar disc disease Active Sciatica associated with disorder of Act nikolai lumbar spine Breast cancer screening Active Abnormal stress test Active Kidney failure Active Right axis deviation Active PVD (peripheral vascular disease) Active Degenerative disc disease Active Abnormal ECG Active Decreased pedal pulses Active Neurogenic claudication Active Tobacco use Active Lumbar disc disease Active Thrombosis of left popliteal artery Acti ve Chest pain Active Chest pain Active Chronic diastolic (congestive) heart Act nikolai failure Hypertension Active Kidney failure Active Vitamin D deficiency March, Active HHD (hypertensive heart disease) Active Hair loss Active Obesity Active Cervical radicular pain Active Dehydration Active Hypokalemia Active Hyperkalemia Active Procedures Procedure Date Performed Status XR lumbar spine min 4V March 28, 2019 completed Relevant Diagnostic Tests and/or Laboratory Data Diagnostic Imaging Reports Report Dictated Date/Time Dictated By Status Radiology Report March 28, 2019 Delfin Maher completed 6:27pm [facility] [address] [place] [facility] [address] [address] XRay R eport Sig rich Patient: Melany Hunt MR#: [id number] : 1965 Acct:[id number] Age/Sex: 53 / F ADM Date: 9 Loc: [facility] Attending Dr: Ordering Physician: Caitlin Elliott APRN Date of Service: 03/28/19 Procedure(s): XR lumbar spine min 4V Accession Number(s): [id number] cc: Delfin Maher ; Juan Monreal MD~ PROCEDURE: XR LUMBAR SPINE MIN 4V CLINICAL INDICATION: PAIN COMPARISON: LS5 LUMBAR SPINE 5 VIEWS from 03/10/[address] chest wo con from 10/14/2018 FINDINGS: There is normal curvature and alignment . There is a transitional vertebrae at the lumbosacral junction a long with hypoplastic 12th ribs bilaterally. There is partial sac ralization of L5 with unilateral pseudoarthrosis on the right side. There is no disc space narrowing. There is no pars defect. T he SI joints are normal. 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 Dictated by: Dr. Sulaiman Maher MD 0 03/29/2019 08:44 Signed by: <Electronically signed by Dr. Sulaiman Freeman MD in [place]> 03/29/2019 08:44 Advance Directives Advance Directive Response Recorded Date/Time Living Will No June 24, 2019 4:30pm Does the patient have an No June 24, 2019 12:10pm advanced directive on file? Living Will No June 24, 2019 12:10pm Chief Complaint and Reason for Visit Chief Complaint Back and Leg Leg Pain leg pain Un stable angina Reason for Visit Abnormal stress test Chest pain Left leg pain Unstable angina Chronic diastolic (congestiv e) heart failure Diabetes Obesity Pulmonary hypertension Right axis deviation Encounters Encounter Location(s) Arrival/Admit Date Discharge/Depart Date Provider(s) Departed [facility] Physician March 28, 2019 March 28, 2019 null Emergency Group-Urgent 6:02pm 7:13pm Treatment Center Departed [facility] Physician June 24, June 24, 2019 Viraj Henderson , Physician/Provi Group-Primary 2018 9:55am 10:39am OBSTETRICS TECH vannesa Office Care-Rah Visit Registered [facility] Physician June 24, Cha Corral , Inpatient Group-Cardiology 2018 4:31pm OBSTETRICS TECH -Roberta Registered [facility] Physician June 25, Juan Camargo Inpatient Group- 2018 3:18pm MD Rah Recent Diagnosis Onset Date Abnormal stress test Chest pain Left leg pain Unstable angina Chronic diastolic (congestive) heart failure Diabetes Obesity Pulmonary hypertension Right axis deviation Assessments Diagnosis Onset Date Resolution Status Abnormal stress test acute Chest pain acute Left leg pain acute Unstable angina acute Chronic diastolic chronic (congestive) heart failure Diabetes chronic Obesity chronic Pulmonary hypertension chronic Right axis deviation chronic Functional Status Observation Response Date Recorded Functional status ambulatory June 24, 2019 12:10pm Goals Ambulatory Goals Patient verbalizes understanding of dise ase process/healthy behaviors. Patient to follow plan of care. Education provid ed. Immunizations Immunization Event Date Not Given Dose Unit Assembler Lot Vac cine Reason Number Number Informatio n Statement (VIS) Deta il Fluzone Quad June [id number] 2017 Mental Status No Mental Status Information Available Medical Equipment No Medical Equipment Information available Insurance Providers Guarantor Melany Hunt Address [address] [address] Contact Info. Home Phone: Payer Policy Id Coverage Id Subscriber's Subscriber Id Effective E xpiration Name Date Date Self Pay Self N/A [facility] [id number] Melany Hunt [id number] December 24 Health Plan 2016 [employer] Plan of Treatment Future Tests Future scheduled test information is unavailable Pending Tests Pending diagnostic test information is unavailable Future Visits Future appointment information is unavailable Referrals to Other Providers Reason for Referral Start Provider Provider Contact Provider Address Referral Date Information Admission to [facility] June [address] Future Procedures Future procedure information is unavailable Future Medications Future medication information is unavailable Patient Instructions Low Back Pain DI for Low Back Pain DI for Sciatica DI for Chronic Pain -- Adult DI for Back Pain With Sciatica Social History Observation Status Date of Observation Not June 24, 2019 Assigned Sex Female Vital Signs Vital Reading Result Reference Range Collection Date/ Time Height 157.48 cm March 28 9 6:17pm Weight 132.44 kg March 28 9 6:17pm Body Temperature 98.2 [degF] 97.6-99.6 March 28 7:12pm Heart Rate 95 /min 60-March 28 9 7:12pm Respiratory rate 17 /min -March 28 7:12pm Oxygen saturation by 95 % 95-100 March Pulse oximetry 6:17pm BP Systolic 141 mm[Hg] 110-140 March 28 9 7:12pm BP Diastolic 86 mm[Hg] 60-90 March 28 9 7:12pm BMI (Body Mass Index) 53.4 kg/m2 March 6:17pm Height 157.48 cm June 24, 2 019 10:10am Weight 136.07 kg June 24, 2 019 10:10am Body Temperature 97.6 [degF] 97.6-99.6 June 24, 2019 10:10am Heart Rate 103 /min -June 24, 2 019 10:10am Oxygen saturation by 98 % 95-100 June 242018 Pulse oximetry 10:10am BP Systolic 138 mm[Hg] 110-140 June 24, 2 019 10:10am BP Diastolic 84 mm[Hg] 60-June 24, 2 019 10:10am BMI (Body Mass Index) 54.8 kg/m2 June 062018 10:10am Height 157 cm June 25, 2 019 5:07am Weight 137.90 kg June 25, 2 019 5:07am Body Temperature 97.7 [degF] 97.6-99.6 June 25, 2019 2:30pm Heart Rate 82 /min -June 25, 2 019 2:59pm Respiratory rate 18 /min -June 25, 2019 2:59pm Oxygen saturation by 95 % 95-100 June 252018 Pulse oximetry 2:59pm BP Systolic 125 mm[Hg] 110-140 June 25 2:59pm BP Diastolic 78 mm[Hg] 60-90 June 25 2:59pm BMI (Body Mass Index) 55.9 kg/m2 June 062018 5:07am Hospital Discharge Instructions Additional Instructions Take medication as prescribed, Prednisone may elevate your blood sugar but should return to normal after finishing medication. Follow up with family doctor immediately if blood sugar remains elevated Start Oral steriods tomorrow *Follow up with family doctor if no improvement or any worsening of symptoms in the next 48-72 hours Return if needed Straight to ER if any loss of control of bowel or bladder function or any life threatening symptoms
[2019-06-26 06:02] LABS: Basophils # 0.1 K/mm3 (0-0.2); Basophils % 0.8 % (0.1-2.0); Eosinophils # 0.2 K/mm3 (0.0-0.4); Eosinophils % 2.5 % (0.1-12.0); Hematocrit 44.2 % (37.0-47.0); Hemoglobin 14.3 g/dL (12.2-16.2); Lymphocytes # 3.1 K/mm3 (0.7-4.5); Lymphocytes % 35.9 % (10-50); Mean Corpuscular HGB Conc 32.4 g/dL (31.8-35.4); Mean Corpuscular Volume 88.5 fl (81-99); Mean Platelet Volume 8.5 fl (7.4-10.4); Monocytes # 0.7 K/mm3 (0.1-1.0); Monocytes % 8.4 % (1.7-9.3); Neutrophils # 4.5 K/mm3 (1.8-7.8); Neutrophils % 52.5 % (37.0-80.0); Platelet Count 268 K/mm3 (142-424); Red Cell Distribution Width 14.4 % (11.5-17.5); White Blood Count 8.6 K/mm3 (4.8-10.8)
[2019-06-26 06:05] LABS: Anion Gap 9.7 mEq/L (5-15); Calcium 8.1 mg/dL (8.5-10.1)
--- NOTE | 2019-06-26 08:13 | Electrocardiograph Report ---
APPROVED REPORT Exam: Resting ECG HR:97 bpm ECG Measurements Heart Rate 97 AXES WV 172 P 67 QRSd 108 QRS -42 QT 352 T64 QTc 447 <Conclusion> Normal sinus rhythm Biatrial enlargement Left axis deviation Pulmonary disease pattern Incomplete right bundle branch block Abnormal ECG Electronically signed by : Manfred Gama, 06/26/2019 08:13:17
--- NOTE | 2019-06-26 10:02 | Progress Note ---
Subjective Date: 06/26/19 Time: 10:00 Principal diagnosis: chest pain Interval history: 54-year-old white female sitting at bedside in no acute distress. States she feels much better and is ready to go home. Blood pressure has improved overnight. Exam Vital signs and Labs for Last 24 Hours: Temp Pulse Resp BP Pulse Ox 97.7 F 75 20 129/87 95 06/26/19 08:00 06/26/19 08:00 06/26/19 08:00 06/26/19 08:00 06/26/19 08:00 Laboratory Results - last 24 hr 06/25/19 16:15: POC Glucose 125 H 06/25/19 20:23: POC Glucose 158 H 06/26/19 05:25: POC Glucose 161 H 06/26/19 05:37: WBC 8.6 D, RBC 5.00, Hgb 14.3, Hct 44.2, MCV 88.5, MCH 28.6, MCHC 32.4, RDW 14.4, Plt Count 268, MPV 8.5, Neut % (Auto) 52.5, Lymph % (Auto) 35.9, [place] % (Auto) 8.4, Eos % (Auto) 2.5, Baso % (Auto) 0.8, Neut # (Auto) 4.5, Lymph # (Auto) 3.1, [place] # (Auto) 0.7, Eos # (Auto) 0.2, Baso # (Auto) 0.1 06/26/19 05:37: Sodium 133 L, Potassium 3.7, Chloride 99, Carbon Dioxide 28, Anion Gap 9.7, BUN 19 H D, Creatinine 1.24 H D, Estimated Creat Clear 39, Estimated GFR 45 L, Est GFR ( Amer) 55 L, Glucose 170 H, Calcium 8.1 L I & O for Last 24 hours: Intake & Output 06/23/19 06/24/19 06/25/19 06/26/19 11:59 11:59 11:59 11:59 Intake Total 603 / 603 1602 / 1602 Output Total 2240 / 2240 240 / 240 Balance -1637 / -1637 1362 / 1362 Weight 299 lb 304 lb 0.279 oz 294 lb 4 oz - *Routine HEENT Exam Head: Present: normocephalic Eye: Present: EOMI, PERRL ENT: Present: mucous membranes moist - *Routine Respiratory Exam Present: CTA bilaterally. Absent: accessory muscle use, rales, rhonchi, wheezes - *Routine Cardiovascular Exam Present: RRR. Absent: murmur, gallop, rubs - *Routine Extremities Exam Present: edema. Absent: calf tenderness - *Routine Neurological Exam Present: alert, oriented X3, moving all extremities Progress Note: A&P (1) Chest pain Status: Acute Current Visit: Yes (2) Abnormal stress test Status: Acute Current Visit: Yes (3) Chronic diastolic (congestive) heart failure Status: Chronic Current Visit: Yes (4) Pulmonary hypertension Status: Chronic Current Visit: Yes (5) Right axis deviation Status: Chronic Current Visit: Yes (6) Left leg pain Status: Acute Current Visit: Yes (7) Diabetes Status: Chronic Current Visit: Yes (8) Dyspnea Status: Acute Current Visit: No (9) HHD (hypertensive heart disease) Status: Chronic Current Visit: No (10) History of thrombosis of lower extremity Status: Chronic Current Visit: No (11) Hypertension Status: Chronic Current Visit: No (12) Tobacco use Status: Chronic Current Visit: No Assessment and Plan for All Diagnoses:: 1. Cardiac status stable for discharge home. 2. Home medication recommendations: Xarelto 20 mg daily, Coreg 12.5 mg twice da ned, lisinopril 10 mg twice daily (or 20 mg once daily), furosemide 40 mg daily Stop clonidine, spironolactone, isosorbide, torsemide and propranolol She does not need plavix from a cardiology standpoint 3. Follow-up in our office in 1 to 2 weeks with BMP and BNP
--- NOTE | 2019-06-26 13:07 | Discharge Summary ---
General - General Admission date:: 06/24/19 Discharge date: 06/26/19 HPI HPI: 54-year-old female patient sitting up in bed resting quietly oxygen on at 2 L per nasal cannula, she reports her chest pain is currently a 4 out of 10 nitro drip as it 10 mics This is a 54-year-old white female who presented to the emergency department with complaints of chest pain. The patient also reports left lower extremity pain. She states her symptoms started about 4 days ago. She states she had sudden onset of chest pain. She describes this as a heavy pressure sensation in the center of her chest. She states when she takes a deep breath she has this sharp sensation that is in the left side of her chest and radiates through to her back. She states it is associated with shortness of breath and feeling really cold and clammy. The patient states that she has had pain in her left lower extremity as well as redness and edema for 4 days as well. She states her right lower extremity is a little swollen but nowhere near as edematous as the left lower extremity and her right extremity is not painful like her left lower extremity is. She states that exertion does worsen both her chest pain and shortness of breath. Rest does help to improve the symptoms but they do not completely resolve. She rates her chest pain an 8 out of 10 in intensity. She reports that the pain has not improved since being in the hospital. Her first 2 troponins are negative. She did undergo left cardiac catheterization in 2015 at which time she had normal coronary arteries. She did have a stress test in November 2018. This showed inferior and inferior apical ischemia as well as transient ischemic dilatation raising concern for multivessel disease. The patient failed to follow-up on December 08, 2018 to discuss results. The patient reports that she was not aware of this follow-up appointment. While I am in the room she is complaining of left lower extremity pain and did ask for pain medication for her leg pain. She denies any fevers, chills, nausea, vomiting, diarrhea. She does states she has some orthopnea with her shortness of breath. (Per Lala Corral APRN) Hospital Course Hospital Course: cta IMPRESSION: 1. No acute finding. No evidence of pulmonary embolus. 2. 2 cm left thyroid nodule. Consider outpatient ultrasound 3. Mildly prominent right hilar lymph node nonspecific. Suggest follow-up to confirm stability venous doppler:Conclusion No evidence of DVT or superficial thrombophlebitis in the veins scanned of the left lower extremity. echo: Conclusion 1. Mild biatrial enlargement, normal left ventricular size, mild concentric left ventricular hypertrophy, visually estimated ejection fraction 55% with no regional wall motion abnormality, grade 1 diastolic dysfunction seen without tissue Doppler evidence of raise left atrial pressure. 2. Mildly enlarged right ventricle with normal contractility. 3. Mild mitral and tricuspid regurgitation. 4. No significant pericardial effusion noted. heart cath:IMPRESSION Normal coronary arteries Normal ejection fraction Mildly elevated LVEDP PLAN 1. Patient's chest pain is noncardiac 2. Patient's chest pain originates from pulmonary etiologies and possibly from pulmonary hypertension 3. Medical management 4. Avoidance of tobacco products today pt asking to go home. will work up pulmonary causes of pain as a out pt. medication changes per cardiology recommendations.will see in office next week. Objective Vital signs: Temp Pulse Resp BP Pulse Ox 97.7 F 84 19 122/73 98 06/26/19 12:00 06/26/19 12:00 06/26/19 12:00 06/26/19 12:00 06/26/19 12:00 no acute distress, obese - *Routine HEENT Exam Head: Present: normocephalic Eye: Present: PERRL ENT: Present: mucous membranes moist - *Routine Neck Exam Present: supple, full ROM - *Routine Respiratory Exam Present: CTA bilaterally - *Routine Cardiovascular Exam Present: RRR - *Routine Extremities Exam Present: full ROM, pulses intact - *Routine Skin Exam Present: intact - *Routine Neurological Exam Present: alert, oriented X3 - Routine Psychiatric Exam Present: normal affect Results Labs on day of discharge: Labs from last 24 hours 06/26/19 06/26/19 06/26/19 10:51 05:37 05:37 WBC 8.6 D RBC 5.00 Hgb 14.3 Hct 44.2 MCV 88.5 MCH 28.6 MCHC 32.4 RDW 14.4 Plt Count 268 MPV 8.5 Neut % (Auto) 52.5 Lymph % (Auto) 35.9 [place] % (Auto) 8.4 Eos % (Auto) 2.5 Baso % (Auto) 0.8 Neut # (Auto) 4.5 Lymph # (Auto) 3.1 [place] # (Auto) 0.7 Eos # (Auto) 0.2 Baso # (Auto) 0.1 Sodium 133 L Potassium 3.7 Chloride 99 Carbon Dioxide 28 Anion Gap 9.7 BUN 19 H D Creatinine 1.24 H D Estimated Creat Clear 39 Estimated GFR 45 L Est GFR ( Amer) 55 L Glucose 170 H POC Glucose 119 H Calcium 8.1 L 06/26/19 06/25/19 06/25/19 05:25 20:23 16:15 WBC RBC Hgb Hct MCV MCH MCHC RDW Plt Count MPV Neut % (Auto) Lymph % (Auto) [place] % (Auto) Eos % (Auto) Baso % (Auto) Neut # (Auto) Lymph # (Auto) [place] # (Auto) Eos # (Auto) Baso # (Auto) Sodium Potassium Chloride Carbon Dioxide Anion Gap BUN Creatinine Estimated Creat Clear Estimated GFR Est GFR ( Amer) Glucose POC Glucose 161 H 158 H 125 H Calcium - Additional Comments rounded with Dr Monreal all orders per Dr Monreal DS: Diagnosis - Discharge Diagnosis (1) Chest pain Status: Acute (2) Abnormal stress test Status: Acute (3) Chronic diastolic (congestive) heart failure Status: Chronic (4) Pulmonary hypertension Status: Chronic (5) Right axis deviation Status: Chronic (6) Left leg pain Status: Acute (7) Diabetes Status: Chronic (8) Dyspnea Status: Acute (9) HHD (hypertensive heart disease) Status: Chronic (10) History of thrombosis of lower extremity Status: Chronic (11) Hypertension Status: Chronic (12) Tobacco use Status: Chronic Discharge Plan - Patient Discharge Instructions ACTIVITY: Continue current activity DIET: continue same diet Patient Instructions: Type 2 Diabetes, Heart Failure, DI for Chronic Pain -- Adult - Follow up Plan Follow up with: Abhi Vaughn MD [Staff Physician] - 1 week Juan Monreal MD [Primary Care Provider] - 1 week Disposition: Home, Self-[facility] Medications: Home Medications Medication Instructions Recorded Confirmed Type Tizanidine HCl 4 mg PO Q8H 10/19/17 06/24/19 History carvediloL [Carvedilol 25mg Tab] 12.5 mg PO DAILY 10/19/17 06/24/19 History albuterol sulfate HFA 90 2 puff INHALATION Q6H PRN 11/27/17 06/24/19 History mcg/actuation aerosol inhaler clopidogrel 75 mg tablet 75 mg PO DAILY #90 tab 01/13/19 06/24/19 Rx prazosin 1 mg capsule 1 mg PO QHS 03/03/19 06/24/19 History propranolol 10 mg tablet 10 mg PO BID 03/03/19 06/24/19 History ergocalciferol (vitamin D2) 50,000 50,000 unit PO QWEEK #14 cap 03/13/19 06/24/19 Rx unit capsule cholecalciferol (vitamin D3) 1,000 1,000 unit PO DAILY #90 cap 03/14/19 06/24/19 Rx unit capsule gabapentin 800 mg tablet 800 mg PO QID #120 tab 03/16/19 06/24/19 Rx Aspirin [Low Dose Aspirin EC] 81 mg PO DAILY 03/17/19 06/25/19 History cloNIDine HCl [Catapres] 0.2 mg PO DAILY 03/17/19 06/25/19 History isosorbide mononitrate ER 30 mg 30 mg PO QAM #90 tab 05/04/19 06/24/19 Rx tablet,extended release 24 hr torsemide 100 mg tablet 50 mg PO DAILY #30 tab 05/04/19 06/24/19 Rx lisinopril 20 mg tablet 20 mg PO DAILY #30 tab 05/05/19 06/24/19 Rx rivaroxaban 20 mg tablet 20 mg PO DAILY #90 tab 05/06/19 06/24/19 Rx lamoTRIgine [Lamotrigine] 200 mg PO HS 06/24/19 06/25/19 History Fenofibrate Nanocrystallized 145 mg PO DAILY 06/25/19 06/25/19 History [Fenofibrate] Spironolactone 50 mg PO DAILY 06/25/19 06/25/19 History glipiZIDE [Glipizide ER] 5 mg PO DAILY 06/25/19 06/25/19 History levothyroxine 25 mcg tablet See Rx Instructions .ROUTE 06/25/19 Rx .COMPLEX #90 tablet Furosemide [Lasix 40mg tab] 40 mg PO DAILY 30 Days #30 tab 06/26/19 Rx carvediloL [Coreg 12.5mg 12.5 mg PO Q12 30 Days #60 tab 06/26/19 Rx Tablet] Prescriptions/Medication Reconciliation: New carvediloL [Coreg 12.5mg Tablet] 12.5 mg PO Q12 30 Days #60 tab Furosemide [Lasix 40mg tab] 40 mg PO DAILY 30 Days #30 tab Continued albuterol sulfate HFA 90 mcg/actuation aerosol inhaler 2 puff INHALATION Q6H PRN PRN Reason: breathing cholecalciferol (vitamin D3) 1,000 unit capsule 1,000 unit PO DAILY #90 cap ergocalciferol (vitamin D2) 50,000 unit capsule 50,000 unit PO QWEEK #14 cap gabapentin 800 mg tablet 800 mg PO QID #120 tab lisinopril 20 mg tablet 20 mg PO DAILY #30 tab rivaroxaban 20 mg tablet 20 mg PO DAILY #90 tab levothyroxine 25 mcg tablet See Rx Instructions .ROUTE .COMPLEX #90 tablet Tizanidine HCl 4 mg PO Q8H Aspirin [Low Dose Aspirin EC] 81 mg PO DAILY lamoTRIgine [Lamotrigine] 200 mg PO HS glipiZIDE [Glipizide ER] 5 mg PO DAILY Fenofibrate Nanocrystallized [Fenofibrate] 145 mg PO DAILY Discontinued clopidogrel 75 mg tablet 75 mg PO DAILY #90 tab prazosin 1 mg capsule 1 mg PO QHS propranolol 10 mg tablet 10 mg PO BID torsemide 100 mg tablet 50 mg PO DAILY #30 tab isosorbide mononitrate ER 30 mg tablet,extended release 24 hr 30 mg PO QAM #90 tab carvediloL [Carvedilol 25mg Tab] 12.5 mg PO DAILY cloNIDine HCl [Catapres] 0.2 mg PO DAILY Spironolactone 50 mg PO DAILY - Problem Reconciliation Problems Reviewed?: Yes
== END 2019-06-26 14:59 | disposition home or self-care (01) ==
LOC: ICU 10:53 → ER 10:53 → ICU 16:27 → 2ND 06-25 15:26
PROVIDERS: ADMIT Emergency Medicine; ATTEND Emergency Medicine
CPT/HCPCS: 36415; 71010; 71045; 71275; 80048; 82962; 83735; 83880; 84484; 85025; 90686; 90732; 93005; 93306; 93458; 93971; 94761; 96365; 96375; 99152; 99285; C1725; C1760; C1769; G0378; J1644; J2405; Q9967

== ENCOUNTER → 2019-07-06 11:36 | Outpatient (CLI) | payer MEDICAID, SELFPAY ==
[2019-07-06 13:43] LABS: Anion Gap 13.5 mEq/L (5-15); Blood Urea Nitrogen 18 mg/dL (7-18); Calcium 8.4 mg/dL (8.5-10.1); Carbon Dioxide 26 mmol/L (21.0-32.0); Chloride 105 mmol/L (98-107); Creatinine,Serum 1.01 mg/dL (0.55-1.02); Estimated Glomerular Filt Rate 57 ml/min (>60); GFR (African American) 69 ML/MIN (>60); Glucose 112 mg/dL (74-106); Potassium 4.5 mmoL/L (3.5-5.1); Sodium 140 mmol/L (136-145)
== END ==
PROVIDERS: Visit Provider Emergency Medicine
DX: I50.9 Heart failure, unspecified (principal); I95.9 Hypotension, unspecified; E86.0 Dehydration; R42 Dizziness and giddiness
CPT/HCPCS: 36415; 80048; 83880

== ENCOUNTER → 2019-07-10 12:28 | Outpatient (CLI) | payer MEDICAID, SELFPAY ==
--- NOTE | 2019-07-10 12:45 | US_ITS ---
PROCEDURE: US THYROID CLINICAL INDICATION: abnormal CT angio, thyroid nodule seen on CT scan of the chest COMPARISON: No exams were available for comparison FINDINGS: Right lobe: The right lobe measures 1.7 x 4.0 x 2.2 cm. Left lobe: The left lobe measures 1.9 x 4.0 x 2.1 cm. Isthmus: The isthmus measures 0.5 cm. Additional findings: There is a hypoechoic but likely solid nodule upper pole right lobe measuring 0.6 by 0.7 x 0.4 cm with faint homogeneous internal echoes. There is a 2nd isoechoic nodule upper pole measuring 0.8 by 0.8 x 0.4 cm. There is a 3rd hypoechoic and likely cystic lesion mid pole measuring 0.6 by 0.6 x 0.4 cm. There is a hypoechoic lung and likely cystic lesion lower pole measuring 0.9 by 1.1 x 0.7 cm. There is a dominant hypoechoic and likely cystic lesion upper pole left lobe measuring 1.8 by 2.3 x 1.4 cm. There may be some tiny mural nodules in this lesion. There is a small hypoechoic nodule lower pole measuring 0.5 by 0.6 x 0.3 cm. There is a 3rd hypoechoic cystic-appearing lesion lower pole measuring 0.3 by 0.5 x 0.4 cm. There is normal vascularity to both lobes. IMPRESSION: Normal-sized multinodular goiter Dictated by: Dr. Sulaiman Maher MD 07/10/2019 14:[address] Sulaiman Maher MD in [place] 07/10/2019 14:00
[2019-07-10 17:48] LABS: Hemoglobin A1C 6.7 % (0.0-7.0)
== END ==
PROVIDERS: Emergency Medicine; Visit Provider Urology
DX: R73.9 Hyperglycemia, unspecified (principal); E04.1 Nontoxic single thyroid nodule
CPT/HCPCS: 76536; 83036

== ENCOUNTER → 2019-07-22 17:55 | Outpatient (CLI) | payer MEDICAID, SELFPAY ==
[2019-07-22 21:32] LABS: Amphetamine/Metha Screen,Urine Negative ng/mL (<1000); Barbiturates Screen,Urine Negative ng/mL (<200); Benzodiazepines Screen,Urine Negative ng/mL (<200); Cannabinoid Screen,Urine Negative ng/mL (<50); Cocaine Screen,Urine Negative ng/mL (<300); Methadone Screen,Urine Negative ng/mL (<300); Opiate Screen,Urine Positive ng/mL (<300); Phencyclidine Screen,Urine Negative ng/mL (<25)
== END ==
PROVIDERS: Visit Provider Nurse Practitioner Family
DX: M54.5 Low back pain (principal)
CPT/HCPCS: 80305

== ENCOUNTER → 2019-08-06 08:42 | Outpatient (CLI) | payer MEDICAID, SELFPAY ==
--- NOTE | 2019-08-06 08:48 | XR_ITS ---
PROCEDURE: XR CHEST 2V CLINICAL HISTORY: rib pain left Chest pain COMPARISON: CXR1VP XR chest portable from 10/19/2017 CXR2V XR chest 2V from 12/06/2017 XR CHEST PORTABLE from 06/24/2019 CT ANGIO CHEST from 06/24/2019 FINDINGS: The cardiomediastinal silhouette and pulmonary vascularity are within normal limits. The lungs are clear without infiltrates, suspicious nodules, or pleural effusions. No acute bony abnormalities. IMPRESSION: No acute findings. Dictated by: Valentin Evans MD 08/06/2019 09:11 Electronically signed by Valentin Evans MD in [facility] 08/06/2019 09:11
[2019-08-06 11:13] VITALS: BMI 56.1
== END ==
PROVIDERS: PCP Nurse Practitioner Family; Visit Provider Physician Assistant
DX: R07.9 Chest pain, unspecified (principal); Z71.3 Dietary counseling and surveillance; R73.03 Prediabetes
CPT/HCPCS: 71046; 97802

== ENCOUNTER → 2019-08-17 15:50 | Outpatient (CLI) | payer MEDICAID, SELFPAY ==
[2019-08-17 17:29] LABS: Free T4 (Free Thyroxine) 1.23 ng/dl (0.76-1.46); Thyroid Stimulating Hormone 2.09 uIU/ml (0.358-3.740)
[2019-08-20 14:23] LABS: Thyroid Stimulating Immunoglob <0.10 IU/L (0.00-0.55)
[2019-08-21 10:50] LABS: Thyroid Peroxidase Antibodies 16 IU/mL (0-34)
[2019-08-21 10:56] LABS: Calcitonin <2.0 pg/mL (0.0-5.0)
== END ==
PROVIDERS: Visit Provider Otolaryngology
DX: E04.9 Nontoxic goiter, unspecified (principal)
CPT/HCPCS: 36415; 82308; 82310; 84439; 84443; 84445; 86376

== ENCOUNTER → 2019-08-20 09:31 | Outpatient (CLI) | payer MEDICAID, SELFPAY ==
--- NOTE | 2019-08-20 09:31 | US_ITS ---
PROCEDURE: US FNA THYROID CLINICAL INDICATION: Left thyroid nodule COMPARISON: No exams were available for comparison TECHNIQUE: Pre biopsy ultrasound confirms a dominant cystic nodule in the left lobe of the thyroid gland which was targeted for biopsy. Following obtaining informed consent, using aseptic technique and local anesthesia with buffered lidocaine, fine-needle aspiration was performed of the nodule of interest using sonographic guidance. 3 passes were made into the nodule with a 25-gauge needle. Specimen was given to cytology. FINDINGS: 3 cc of straw-colored fluid was aspirated from the nodule which nearly completely disappeared. Specimen was sent to cytology. CYTOLOGY: Nondiagnostic. No colloid macrophages or follicular groups evident. IMPRESSION: Status post aspiration of left thyroid cyst without complication. The patient tolerated the procedure well without evidence of immediate complications and left the ultrasound suite in stable condition. Dictated by: Valentin Evans MD 09/19/2019 07:24 Electronically signed by Valentin Evans MD in [facility] 09/19/2019 07:24
== END ==
PROVIDERS: PCP Nurse Practitioner Family; Visit Provider Otolaryngology
DX: E04.9 Nontoxic goiter, unspecified (principal)
CPT/HCPCS: 10005; 76942

== ENCOUNTER → 2019-08-31 15:19 | Outpatient (CLI) | payer MEDICAID, SELFPAY ==
--- NOTE | 2019-08-31 15:42 | ECG_ITS ---
APPROVED REPORT Exam: Resting ECG HR:79 bpm ECG Measurements Heart Rate 79 AXES MI 158 P 65 QRSd 98 QRS -14 QT 390 T 42 QTc 447 <Conclusion> Normal sinus rhythm Possible Left atrial enlargement Incomplete RBBB Borderline ECG Electronically signed by : Luis Fernando Snell, 08/31/2019 19:16:37
[2019-08-31 16:12] LABS: Basophils # 0.1 K/mm3 (0-0.2); Basophils % 0.6 % (0.1-2.0); Eosinophils # 0.2 K/mm3 (0.0-0.4); Eosinophils % 2.1 % (0.1-12.0); Hematocrit 42.4 % (37.0-47.0); Hemoglobin 13.7 g/dL (12.2-16.2); Lymphocytes # 3.4 K/mm3 (0.7-4.5); Lymphocytes % 36.7 % (10-50); Mean Corpuscular HGB Conc 32.3 g/dL (31.8-35.4); Mean Corpuscular Hemoglobin 27.4 pg (27.0-31.2); Mean Corpuscular Volume 84.8 fl (81-99); Mean Platelet Volume 8.1 fl (7.4-10.4); Monocytes # 0.6 K/mm3 (0.1-1.0); Monocytes % 6.6 % (1.7-9.3); Neutrophils # 4.9 K/mm3 (1.8-7.8); Neutrophils % 53.9 % (37.0-80.0); Platelet Count 257 K/mm3 (142-424); Red Cell Distribution Width 13.9 % (11.5-17.5); White Blood Count 9.1 K/mm3 (4.8-10.8)
[2019-08-31 16:56] LABS: Anion Gap 14.5 mEq/L (5-15); Blood Urea Nitrogen 15 mg/dL (7-18); Calcium 8.6 mg/dL (8.5-10.1); Carbon Dioxide 28 mmol/L (21.0-32.0); Chloride 106 mmol/L (98-107); Estimated Glomerular Filt Rate 65 ml/min (>60); GFR (African American) 79 ML/MIN (>60); Glucose 103 mg/dL (74-106); Potassium 4.5 mmoL/L (3.5-5.1); Sodium 144 mmol/L (136-145)
== END ==
PROVIDERS: Visit Provider Otolaryngology
DX: Z01.818 Encounter for other preprocedural examination (principal); E04.1 Nontoxic single thyroid nodule; E03.9 Hypothyroidism, unspecified
CPT/HCPCS: 36415; 80048; 85025; 93005

== ENCOUNTER 2019-09-15 06:06 | Observation (INO) ==
--- NOTE | 2019-09-15 07:01 | Progress Note ---
[facility] Anesthesia Checklist - Structural Data Admitted From: Home Planned Operative Procedure/s: tonsillectomy Consent for Planned Operative Procedure(s) Verified: Yes - Additional verifications Anesthesia Reactions: No Hx Blood Transfusions: No Blood Transfusion Reaction: No - Airway Assessment C-Spine Mobility Assessed: Yes TMJ Mobility Assessed: Yes Dentition: Good Dentition - Neurological Assessment Level of Consciousness: Awake, Alert, Appropriate - Anesthesia Plan Anesthesia Risk discussed: Yes Anesthesia Plan: Verified ASA Class: III Anesthesia Type: General [facility] History I have reviewed the patient's past medical history: Yes Medical History: Reports:: Anxiety, Cancer (thyroid), Congestive Heart Failure, Chronic Obstructive Pulmonary Disease (COPD), Depression, Diabetes Mellitus Type 2, Hyperlipidemia, Hypertension, Peripheral Artery Disease Denies:: Diabetes Mellitus Type 1, Internal Pacemaker, MRSA, Seizures *Have you ever received a pneumonia vaccine?: Yes *Have you received a flu vaccine this season?: Yes Other Medical History: Denies: Blood Transfusion Reaction Anesthesia experience/problems:: none Laterality Cases: Left: Arthroscopy Knee Other Surgeries: Yes: Cardiac Catheterization, Cholecystectomy, Colonoscopy, Hysterectomy-Total, Hysterectomy-Partial, Other (removed blood clots behind left knee). No: Pacemaker Amputation: No Fractures: No - *Social History Educational Level: Completed High School Smoking Status: Never smoker Tobacco Type: cigarettes # Packs/Day (cigarettes): 1 #Yrs smoked (if former smoker): 40 Alcohol Intake: never Alcohol Intake Frequency:: other Substance Use Type: denies use *Occupational Status:: disabled Housing: house Household Members: significant other *Travel in the last 8 weeks: None - Psychiatric History Pschychiatric History:: Reports:: Anxiety, Depression Family Hx:: Unable to obtain
--- NOTE | 2019-09-15 10:41 | Progress Note ---
[facility] Anesthesia Record Part I Intake, IV Amount: 1,200 Estimated blood loss (mL): 20 Urine output (mL): 0 Blood Pressure: 142/85 SaO2: 92 Pulse Rate: 100 Respiratory Rate: 16 Temperature: 97.2 F Patient is:: Drowsy, Stable Stable to PACU at:: 10:35
--- NOTE | 2019-09-15 12:55 | Operative Note ---
Date of procedure: 09/15/19 Pre-op Diagnosis:: 1. Left Thyroid neoplasm 2.4 cm with a nondiagnostic fine-needle biopsy 2. 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 Total left thyroid lobectomy including substernal portion cervical approach Surgeon:: Amando Sánchez MD ENTEROSTOMAL NURSE:: Fly Morocho Anesthesia: GETA Estimated blood loss (mL): 16 Operative findings:: same Operative note:: With the patient under general anesthesia, the neck was prepped and draped. A minimally invasive thyroid incision was marked out, a nerve monitoring endotracheal tube was used. The patient was given 1 g of Ancef and 12 mg of Decadron perioperatively. Patient had a very very short neck with a moderate amount of soft tissue redundancy because of her morbid obesity. A minimally invasive thyroid incision was marked out and skin and subcutaneous tissue and platysma were incised. The anterior jugular veins were doubly ligated and divided. The sternomastoid muscles were identified on each side and the strap muscles were fully mobilized on each side and divided. There was a large left thyroid nodule which extended substernally. The trachea was displaced to the right. Dissection was commenced superiorly the superior vascular pedicle on the left side was mobilized and doubly ligated. The left middle thyroid vein was ligated, the thyroid could then be partially mobilized and it was possible to continue the dissection inferiorly so that the inferior lobe could be mobilized and brought up in the neck from the substernal area. At that point the left inferior thyroid veins were doubly ligated and divided. The left recurrent laryngeal nerve was identified, and followed through to where it entered the larynx through the cricothyroid membrane. It was stimulated in a positive fashion on several occasions. Andres's ligament was then divided, it was then possible to separate the thyroid gland from the trachea completely. The trachea was a small 1 for the size of the patient. Once the pressure was taken off the trachea it sprung back into the midline. The isthmus of the thyroid was mobilized and carried with the left lobe, the left inferior and the left superior parathyroid glands were identified and retained in situ. The gland also had a pyramidal lobe which was carried with the isthmus, the specimen was then transected along the medial aspect of the right lobe of the thyroid and the transection line was oversewn with 2-0 Vicryl. The specimen was submitted for frozen section analysis and reported as a cystic lesion in the left lobe. The wound was thoroughly irrigated all of the bleeding was stopped blood loss was less than 20 cc. Surgicel snow was placed in the defect and the strap muscles were repaired with 2-0 Vicryl the platysma subcutaneous layer were closed with 2-0 Vicryl, a 10 mm Sam Mcmahon drain was placed and hooked to suction. And the skin was closed with Dermabond and a dressing was applied. The patient tolerated the procedure well and was sent to recovery in good general condition. Signed Amando Sánchez MD, FRCSC, FACS Condition: stable Disposition: PACU Complications:: none
--- NOTE | 2019-09-15 15:34 | Progress Note ---
[facility] Anesthesia Record Part II Discharge Time: 11:35 Destination: Medical Surgical Department PACU nurse assessment reviewed?: Yes Patient Condition:: Good Anesthesia Complications:: None Swallowing reflex intact?: Yes Cyanosis?: No Blood Pressure: 154/78 Pulse Rate: 99 Temperature: 97.8 F Mental Status: Alert & Oriented Pain level:: 0 Nausea and/or vomitting:: None Intake, IV Amount: 0
--- NOTE | 2019-09-16 07:32 | Pharmacy Consult Notes ---
[facility] VTE Monitoring - Patient Demographics Admission date: 09/15/19 Report Date: 09/16/19 Time: 07:32 Allergies/Adverse Reactions: Patient Allergies No Known Allergies Allergy (Verified 09/14/19 10:13) Height: 1.57 m Weight: 138.005 kg - VTE Risk Was VTE Risk Assessment Performed: No VTE Score: 6 VTE Risk Level: Moderate Risk - Prophylaxis VTE Prophylaxis Ordered?: Yes Types of VTE Prophylaxis: TEDS Knee High Location of Applied Device: Bilateral Lower Extremeties
[2019-09-16 08:47] VITALS: BP 148/85
--- NOTE | 2019-09-16 08:57 | Discharge Summary ---
General - General Admission date:: 09/15/19 Discharge date: 09/16/19 HPI HPI: This pt was admitted for overnight observation on 09/15/19 after having total left thyroid lobectomy including substernal portion cervical approach. Hospital Course Hospital Course: pt done well overnight and will be discharged home today (09/16/19). will follow up in clinic with me in one weeks time. Objective Vital signs: Temp Pulse Resp BP Pulse Ox 97.9 F 80 18 148/85 H 96 09/16/19 08:00 09/16/19 08:00 09/16/19 08:00 09/16/19 08:00 09/16/19 08:00 - *Routine HEENT Exam Comments: lower neck horizontal incision site noted and covered- dressing changed this am after drain was removed. very minimal drainage and pt tolerated well. Results Labs on day of discharge: Labs from last 24 hours 09/15/19 11:08 POC Glucose 171 H DS: Diagnosis - Discharge Diagnosis (1) History of thyroidectomy, total Status: Acute Discharge Plan - Patient Discharge Instructions ACTIVITY: Ambulate as tolerated DIET: continue same diet Patient Instructions: Angina, Thyroidectomy, DI for Angina, DI for Thyroidectomy, Acute Renal Failure, Lumbar Radiculopathy, DI for Lumbar Radiculopathy - Follow up Plan Follow up with: Amando Sánchez MD [Staff Physician] - Disposition: Home, Self-Longterm Medications: Home Medications Medication Instructions Recorded Confirmed Type albuterol sulfate 90 mcg/actuation 2 puff INHALATION Q6H PRN 11/27/17 09/16/19 History aerosol inhaler ergocalciferol (vitamin D2) 1,250 50,000 unit PO QWEEK #14 cap 03/13/19 09/16/19 Rx mcg (50,000 unit) capsule Aspirin [Low Dose Aspirin EC] 81 mg PO DAILY 03/17/19 09/16/19 History lisinopril 20 mg tablet 20 mg PO DAILY #30 tab 05/05/19 09/16/19 Rx gabapentin 800 mg tablet 800 mg PO QID #120 tab 06/26/19 09/16/19 Rx carvedilol 12.5 mg tablet 12.5 mg PO BID tab 07/06/19 09/16/19 History celecoxib 200 mg capsule 200 mg PO DAILY 07/06/19 09/16/19 History glipizide 5 mg tablet, extended 5 mg PO DAILY #90 tab 07/14/19 09/16/19 Rx release 24 hr rivaroxaban 20 mg tablet 20 mg PO DAILY #90 tab 07/14/19 09/16/19 Rx hydrocodone 10 mg-acetaminophen 1 tab PO TID PRN 30 Days #90 tab 07/22/19 09/16/19 Rx 325 mg tablet fenofibrate nanocrystallized 145 145 mg PO DAILY #90 tab 08/10/19 09/16/19 Rx mg tablet cholecalciferol (vitamin D3) 25 1,000 unit PO DAILY tab 08/17/19 09/16/19 History mcg (1,000 unit) tablet lamotrigine 100 mg tablet 200 mg PO HS 90 Days #180 tab 08/25/19 09/16/19 Rx Enoxaparin Sodium [Lovenox 40 mg SQ BID 09/14/19 09/16/19 History 40mg/0.4mL syringe] Furosemide [Lasix 40mg tab] 40 mg PO DAILY 09/14/19 09/16/19 History Levothyroxine Sodium [Synthroid 25 mcg PO DAILY 09/14/19 09/16/19 History 25mcg (0.025mg) tablet] Metformin HCl [Metformin HCl ER] 500 mg PO QPM 09/14/19 09/16/19 History Ca/D3/Mag/Zinc/Brittney/Pete/Mgbor 1 tab PO BID 09/16/19 09/16/19 History [Caltrate 600-D Plus Minerals] Levothyroxine Sodium [Synthroid 125 mcg PO DAILY 09/16/19 09/16/19 History 125mcg (0.125mg) tablet] Prescriptions/Medication Reconciliation: No Action albuterol sulfate 90 mcg/actuation aerosol inhaler 2 puff INHALATION Q6H PRN PRN Reason: breathing gabapentin 800 mg tablet 800 mg PO QID #120 tab carvedilol 12.5 mg tablet 12.5 mg PO BID tab glipizide 5 mg tablet, extended release 24 hr 5 mg PO DAILY #90 tab hydrocodone 10 mg-acetaminophen 325 mg tablet 1 tab PO TID PRN 30 Days #90 tab PRN Reason: pain lamotrigine 100 mg tablet 200 mg PO HS 90 Days #180 tab ergocalciferol (vitamin D2) 1,250 mcg (50,000 unit) capsule 50,000 unit PO QWEEK #14 cap lisinopril 20 mg tablet 20 mg PO DAILY #30 tab celecoxib 200 mg capsule 200 mg PO DAILY rivaroxaban 20 mg tablet 20 mg PO DAILY #90 tab fenofibrate nanocrystallized 145 mg tablet 145 mg PO DAILY #90 tab cholecalciferol (vitamin D3) 25 mcg (1,000 unit) tablet 1,000 unit PO DAILY tab Aspirin [Low Dose Aspirin EC] 81 mg PO DAILY Metformin HCl [Metformin HCl ER] 500 mg PO QPM Levothyroxine Sodium [Synthroid 25mcg (0.025mg) tablet] 25 mcg PO DAILY Enoxaparin Sodium [Lovenox 40mg/0.4mL syringe] 40 mg SQ BID Levothyroxine Sodium [Synthroid 125mcg (0.125mg) tablet] 125 mcg PO DAILY Furosemide [Lasix 40mg tab] 40 mg PO DAILY Ca/D3/Mag/Zinc/Rbittney/Peet/Mgbor [Caltrate 600-D Plus Minerals] 1 tab PO BID - Problem Reconciliation Problems Reviewed?: Yes
== END 2019-09-16 10:28 | disposition home or self-care (01) ==
LOC: 2ND 06:06 → OR 06:06
PROVIDERS: ADMIT Otolaryngology; ATTEND Otolaryngology
CPT/HCPCS: 36415; 82310; 82962; 96374; 96375; G0378; J0330; J2405

== ENCOUNTER → 2019-11-30 16:48 | Outpatient (CLI) | payer MEDICAID, SELFPAY ==
[2019-11-30 18:08] LABS: Basophils # 0.1 K/mm3 (0-0.2); Basophils % 0.9 % (0.1-2.0); Eosinophils # 0.1 K/mm3 (0.0-0.4); Eosinophils % 1.7 % (0.1-12.0); Hematocrit 44.1 % (37.0-47.0); Hemoglobin 13.9 g/dL (12.2-16.2); Lymphocytes # 2.3 K/mm3 (0.7-4.5); Lymphocytes % 28.4 % (10-50); Mean Corpuscular HGB Conc 31.6 g/dL (31.8-35.4); Mean Corpuscular Hemoglobin 27.8 pg (27.0-31.2); Mean Corpuscular Volume 87.9 fl (81-99); Mean Platelet Volume 9.1 fl (7.4-10.4); Monocytes # 0.5 K/mm3 (0.1-1.0); Monocytes % 6.1 % (1.7-9.3); Neutrophils % 62.9 % (37.0-80.0); Platelet Count 286 K/mm3 (142-424); Red Blood Count 5.02 M/mm3 (4.20-5.40); Red Cell Distribution Width 14.4 % (11.5-17.5)
[2019-11-30 18:34] LABS: Chloride 104 mmol/L (98-107); Potassium 4.3 mmoL/L (3.5-5.1); Sodium 137 mmol/L (136-145)
[2019-11-30 18:36] LABS: Amylase 39 U/L (30-110)
[2019-11-30 18:37] LABS: Alanine Aminotransferase 39 U/L (12-78); Albumin/Globulin Ratio 1.2 (1.1-1.8); Alkaline Phosphatase 102 U/L (38-126); Anion Gap 11.3 mEq/L (5-15); Aspartate Amino Transferase 36 U/L (14-36); Bilirubin,Total 0.4 mg/dl (0.2-1.3); Blood Urea Nitrogen 14 mg/dl (7-17); Calcium 9.2 mg/dl (8.4-10.2); Carbon Dioxide 26 mmol/L (22.0-30.0); Estimated Glomerular Filt Rate 75 ml/min (>60); GFR (African American) 90 ML/MIN (>60); Globulin 3.3 g/dL (1.3-3.2); Glucose 145 mg/dl (74-100); HDL Cholesterol 39 mg/dl (40-60); Lipase 100 U/L (23-300); Total Protein,Serum 7.3 g/dl (6.3-8.2)
[2019-11-30 18:38] LABS: Chol/HDL Ratio 5.1 (1-3.5); Cholesterol 199 mg/dl (140-200); Triglycerides 210 mg/dl (30-150); VLDL Cholesterol 42 mg/dL (0-40)
[2019-11-30 18:49] LABS: Direct LDL Cholesterol 137.72 mg/dL (100-129)
[2019-11-30 18:56] LABS: T4 (Thyroxine) 10.1 ug/dl (5.53-11.0)
[2019-11-30 19:08] LABS: Thyroid Stimulating Hormone 4.76 uIU/mL (0.465-4.68)
[2019-11-30 20:02] LABS: Erythrocyte Sedimentation Rate 24 mm/hr (0-30)
[2019-12-04 09:15] LABS: Vitamin D 25 Hydroxy 21.2 ng/mL (30.0-100.0)
== END ==
PROVIDERS: Visit Provider Physician Assistant
DX: G43.909 Migraine, unspecified, not intractable, without status migrainosus (principal); E55.9 Vitamin D deficiency, unspecified
CPT/HCPCS: 80053; 80061; 82150; 82652; 83690; 84436; 84443; 85025; 85651

== ENCOUNTER → 2019-12-08 12:33 | Outpatient (CLI) | payer MEDICAID, SELFPAY ==
--- NOTE | 2019-12-08 12:35 | CA_ITS ---
APPROVED REPORT EXAM: Comprehensive 2D, Doppler, and color-flow Echocardiogram Supervisor Brine: Lillie Grace CRT Ht: 5 ft 2 in Wt: 302lbs BSA: 2.28 BP: 136/84 mmHg Indications: copd, smoker, syncope, HTN,DM, obesity, HLD 2D Dimensions LVOT 2.22 cm (M/F) 1.5-2.5 M-Mode Dimensions RVDd 2.26 cm (0.9-2.6) LVDd 4.69 cm (3.5-5.7) LVDs 3.11 cm (3.5-5.7) IVSd 1.33 cm (0.6-1.1) PWd 0.98 cm (0.6-1.1) EF (Teich) 62.50% FS 33.70% EDV (Teich) 101.90 mL ESV (Teich) 38.20 mL LV Diastology E/A Ratio 0.71 Mitral Valve MV A Velocity 99.00 (40-130 cm/s) Left Ventricle Left atrium is mildly enlarged, left ventricle is normal size, mild concentric left ventricular hypertrophy, visually estimated ejection fraction 55% with no regional wall motion abnormality, grade 1 diastolic dysfunction seen without tissue Doppler evidence of raise left atrial pressure. Right Ventricle Right atrium and right ventricular normal size and contractility. Aortic Valve Aortic valve is minimally thickened and fibrosed, there is no aortic stenosis aortic insufficiency. Mitral Valve Mitral valve has mitral annular calcification, leaflets are minimally thickened there is no mitral stenosis, there is mild mitral regurgitation. Tricuspid Valve Tricuspid valve is grossly normal, there is mild tricuspid regurgitation. Tricuspid regurgitation jet velocity is inadequate for calculation of the right ventricular systolic pressure. Pulmonic Valve Pulmonic valve is poorly visualized. Great Vessels Aortic root is normal size. Pericardium No significant pericardial effusion noted. Conclusion 1. Mildly enlarged left atrium, normal left ventricular size, mild concentric left ventricular hypertrophy, visually estimated ejection fraction 55% with no regional wall motion abnormality, grade 1 diastolic dysfunction seen without tissue Doppler evidence of raise left atrial pressure. 2. Mild mitral and tricuspid regurgitation. 3. No significant pericardial effusion noted. Electronically signed by : Miko Frazier, 12/08/2019 19:52:35
--- NOTE | 2019-12-08 12:35 | CA_ITS ---
APPROVED REPORT Email Marketing Intern: CT Laterality: Bilateral Study Quality: Fair, Due to body habitus. Indications: vertigo, syncope Risk Factors Hypertension: Hyperlipidemia Diabetes PAD Smoking Doppler Spectral Velocity Analysis ECA (R) 93.50/17.20 cm/s ECA (L) 33.20/0.50 cm/s dICA (R) 126.70/50.10 cm/s dICA (L) 116.50/49.10 cm/s Elisabeth (R) 153.20/51.50 cm/s Elisabeth (L) 89.60/30.80 cm/s pICA (R) 66.50/32.70 cm/s pICA (L) 75.10/27.00 cm/s dCCA (R) 77.10/17.20 cm/s dCCA (L) 88.30/23.20 cm/s pCCA (R) 151.20/33.70 cm/s pCCA (L) 133.70/29.20 cm/s Vert (R) 62.10/62.10 cm/s Vert (L) 51.00/16.40 cm/s ICA/CCA 2.00 ICA/CCA 1.30 Findings D Conclusion Duplex evaluation demonstrates stenosis of the right proximal internal carotid artery in the range of 20-49%, increased velocity due to tortuous. Duplex evaluation demonstrates stenosis of the left proximal internal carotid artery <20% with PSV <140 cm/sec, EDV <100 cm/sec, and IC/CC Ratio <4.0. Duplex evaluation demonstrates antegrade flow of the bilateral Vertebral Arteries. Electronically signed by : Valentin Evans MD 12/08/2019 18:06:24
== END ==
PROVIDERS: PCP Physician Assistant; Visit Provider Physician Assistant
DX: R42 Dizziness and giddiness (principal); R51 Headache; R55 Syncope and collapse; R94.31 Abnormal electrocardiogram [ECG] [EKG]
CPT/HCPCS: 93306; 93880

== ENCOUNTER → 2019-12-10 07:28 | Outpatient (CLI) | payer MEDICAID, SELFPAY ==
--- NOTE | 2019-12-10 07:29 | CT_ITS ---
PROCEDURE: CT HEAD/BRAIN WO CON CLINICAL INDICATION: mendieta, vertigo, dyspnea, numbness LUE, dysphasia/dysp COMPARISON: HEADWO CT head/brain wo con from 02/10/2019 TECHNIQUE: Axial images obtained. All CT scans at the facility use one or more dose reduction, viz: automated exposure control, ma/kV adjustment per patient size (including targeted exams where dose is matched to indication, i.e. head), or iterative reconstruction technique. FINDINGS: No midline shift, mass effect, intracranial hemorrhage, hydrocephalus, or extra-axial fluid collection is evident. The calvarium has an unremarkable appearance. No mastoid effusion. There is mild mucosal thickening of the ethmoid sinuses. IMPRESSION: No acute intracranial finding Dictated by: Valentin Evans MD 12/10/2019 15:28 Electronically signed by Valentin Evans MD in [facility] 12/10/2019 15:28
--- NOTE | 2019-12-10 07:29 | CT_ITS ---
Procedure: CT ANGIO HEAD CLINICAL HISTORY: mendieta, vertigo, dyspnea, numbness LUE, dysphasia/dysp COMPARISON: CT HEAD/BRAIN WO CON from 12/10/2019 TECHNIQUE: IV Contrast: 100ml Optiray 350 Axial images obtained with sagittal and coronal reformats. All CT scans at the facility use one or more dose reduction, viz: automated exposure control, ma/kV adjustment per patient size (including targeted exams where dose is matched to indication, i.e. head), or iterative reconstruction technique. FINDINGS: No aneurysm, arteriovenous malformation, or major intracranial occlusive change apparent. There is some minimal vascular calcification of the right internal carotid artery but no significant stenosis. No evidence of sagittal sinus thrombosis. No enhancing lesions. IMPRESSION: Negative CTA of the brain Dictated by: Valentin Evans MD 12/10/2019 15:39 Electronically signed by Valentin Evans MD in [facility] 12/10/2019 15:39
== END ==
PROVIDERS: PCP Physician Assistant; Visit Provider Physician Assistant
DX: R42 Dizziness and giddiness (principal); R51 Headache; R55 Syncope and collapse; R94.31 Abnormal electrocardiogram [ECG] [EKG]
CPT/HCPCS: 70450; 70496; Q9967

== ENCOUNTER → 2020-01-18 14:17 | Outpatient (CLI) | payer MEDICAID, SELFPAY | PROVIDERS: PCP Physician Assistant; Visit Provider Specialist | DX: R55 Syncope and collapse (principal) | CPT/HCPCS: 93225; 93226 ==

== ENCOUNTER → 2020-02-02 11:01 | Outpatient (CLI) | payer MEDICAID, SELFPAY ==
[2020-02-02 12:21] LABS: Chloride 107 mmol/L (98-107); Sodium 140 mmol/L (136-145)
[2020-02-02 12:22] LABS: Potassium 4.5 mmoL/L (3.5-5.1)
[2020-02-02 12:24] LABS: Blood Urea Nitrogen 13 mg/dl (7-17); Estimated Glomerular Filt Rate 75 ml/min (>60); GFR (African American) 90 ML/MIN (>60)
[2020-02-02 12:25] LABS: Anion Gap 10.5 mEq/L (5-15); Calcium 9.1 mg/dl (8.4-10.2); Carbon Dioxide 27 mmol/L (22.0-30.0); Glucose 110 mg/dl (74-100)
[2020-02-02 12:33] LABS: NT Pro Brain Natriuretic Pep. 49.1 pg/mL (0-125)
== END ==
PROVIDERS: Visit Provider Urology
DX: I11.9 Hypertensive heart disease without heart failure (principal); I20.9 Angina pectoris, unspecified; I27.20 Pulmonary hypertension, unspecified; R06.00 Dyspnea, unspecified; I50.32 Chronic diastolic (congestive) heart failure; R60.0 Localized edema; Z72.0 Tobacco use
CPT/HCPCS: 36415; 80048; 83880

== ENCOUNTER → 2020-02-10 12:33 | Outpatient (CLI) | payer MEDICAID, SELFPAY | PROVIDERS: Visit Provider Specialist | DX: R60.0 Localized edema (principal) | CPT/HCPCS: 36415; 80048 ==

== ENCOUNTER → 2020-02-10 12:44 | Outpatient (CLI) | payer MEDICAID, SELFPAY ==
--- NOTE | 2020-02-10 12:44 | CT_ITS ---
PROCEDURE: CT ANGIO CHEST CLINCIAL INDICATION: dyspnea Shortness of breath COMPARISON: CT ANGIO CHEST from 06/24/2019 TECHNIQUE: IV Contrast: 70ML OPTIRAY 350 Axial images obtained with sagittal and coronal reformats. All CT scans at the facility use one or more dose reduction, viz: automated exposure control, ma/kV adjustment per patient size (including targeted exams where dose is matched to indication, i.e. head), or iterative reconstruction technique. FINDINGS: HEART AND MEDIASTINAL STRUCTURES: No mediastinal or hilar mass. No adenopathy. No evidence of aortic aneurysm or dissection or central pulmonary embolus. Normal heart size without evidence of pericardial effusion. Mildly prominent right hilar lymph node is unchanged. There is some mild nonspecific thickening of the distal esophagus. LUNGS AND PLEURAL SPACES: There is evidence of old granulomatous disease with scattered calcified granulomas. There is a 4 mm subpleural nodule in the left lower lobe stable. Additional 5 mm subpleural nodule left lower lobe posterior laterally stable. No new nodules evident. BONY STRUCTURES: No acute bony abnormalities apparent. UPPER ABDOMEN: Fatty liver ADDITIONAL FINDINGS: No other significant abnormalities. IMPRESSION: Overall no significant change with no acute finding. Dictated by: Valentin Evans MD 02/11/2020 12:07 Electronically signed by Valentin Evans MD in [facility] 02/11/2020 12:07
[2020-02-10 13:04] LABS: Chloride 105 mmol/L (98-107); Potassium 4.3 mmoL/L (3.5-5.1); Sodium 138 mmol/L (136-145)
[2020-02-10 13:07] LABS: Anion Gap 9.3 mEq/L (5-15); Blood Urea Nitrogen 13 mg/dl (7-17); Calcium 8.8 mg/dl (8.4-10.2); Carbon Dioxide 28 mmol/L (22.0-30.0); Estimated Glomerular Filt Rate 65 ml/min (>60); GFR (African American) 79 ML/MIN (>60); Glucose 122 mg/dl (74-100)
== END ==
PROVIDERS: Specialist; PCP Physician Assistant; Visit Provider Urology
DX: I11.9 Hypertensive heart disease without heart failure (principal); I20.9 Angina pectoris, unspecified; I27.20 Pulmonary hypertension, unspecified; I50.32 Chronic diastolic (congestive) heart failure; R06.00 Dyspnea, unspecified; R60.0 Localized edema; Z72.0 Tobacco use; Z86.718 Personal history of other venous thrombosis and embolism
CPT/HCPCS: 36415; 71275; 80048; Q9967

== ENCOUNTER → 2020-02-19 12:48 | Outpatient (CLI) | payer MEDICAID, SELFPAY ==
--- NOTE | 2020-02-19 12:48 | MR_ITS ---
PROCEDURE: MR HEAD/BRAIN WO/W CON CLINICAL INDICATION: migraine, abnormal prior MRI, syncope Migraines, memory loss, Pt states she blackouts , symptoms x4-5 years, previous MRI 2017. COMPARISON: [facility] MRI-BRAIN W/WO from 02/08/2017 TECHNIQUE: Routine multiplanar multi echo sequences are performed without and with gadolinium enhancement. 27ML prohance BUN: 13 CREAT: 0.90 GFR: 65 FINDINGS: No midline shift, mass effect, intracranial hemorrhage, or hydrocephalus. No evidence of acute infarction The cerebellopontine angles, cerebellum, and brainstem are unremarkable. There is normal gerber-white matter differentiation with no abnormal white matter signal intensity evident. No enhancing lesions are evident. The pituitary, optic chiasm, corpus callosum, and craniocervical junction have an unremarkable appearance. No mastoid effusion. There is mild mucosal thickening of the ethmoid sinuses. IMPRESSION: Negative MRI of the brain without and with contrast. Dictated by: Valentin Evans MD 02/20/2020 08:15 Electronically signed by Valentin Evans MD in [facility] 02/20/2020 08:15
== END ==
PROVIDERS: PCP Physician Assistant; Visit Provider Specialist
DX: G43.919 Migraine, unspecified, intractable, without status migrainosus (principal); I25.10 Atherosclerotic heart disease of native coronary artery without angina pectoris; R55 Syncope and collapse; R90.89 Other abnormal findings on diagnostic imaging of central nervous system
CPT/HCPCS: 70553; A9576

== ENCOUNTER → 2020-04-05 10:02 | Outpatient (CLI) | payer MEDICAID, SELFPAY ==
[2020-04-05 10:35] VITALS: PULSE 75; PULSE 78
== END ==
PROVIDERS: PCP Physician Assistant; Visit Provider Internal Medicine Pulmonary Disease
DX: Z51.81 Encounter for therapeutic drug level monitoring (principal); Z79.01 Long term (current) use of anticoagulants
CPT/HCPCS: 94060; 94618; 94640; 94726; 94729

== ENCOUNTER 2020-05-26 11:02 | Observation (INO) | payer MEDICAID, SELFPAY ==
[2020-05-26] VITALS (11 sets, daily range): BP systolic 102–172; BP diastolic 68–89; PULSE 60–108; RESP 15–24; TEMP 36.5–36.8; O2SAT 93–97; BMI 57.6
--- NOTE | 2020-05-26 11:07 | XR_ITS ---
PROCEDURE: XR CHEST PORTABLE CLINICAL HISTORY: CP Chest pain, shortness of air COMPARISON: CR CXR2V XR chest 2V from 12/06/2017 CR XR CHEST PORTABLE from 06/24/2019 CR XR CHEST 2V from 08/06/[address] ANGIO CHEST from 02/10/2020 FINDINGS: The cardiomediastinal silhouette and pulmonary vascularity are within normal limits. The lungs are clear without infiltrates, suspicious nodules, or pleural effusions. No acute bony abnormalities. IMPRESSION: No acute findings. Dictated by: Valentin Evans MD 05/26/2020 14:15 Valentin Evasn MD in [facility] 05/26/2020 14:15
--- NOTE | 2020-05-26 11:07 | ECG_ITS ---
APPROVED REPORT Exam: Resting ECG HR:70 bpm ECG Measurements Heart Rate 70 AXES OK 166 P 57 QRSd 100 QRS -10 QT 390 T 52 QTc 421 Conclusion Normal sinus rhythm Possible Left atrial enlargement Incomplete right bundle branch block Borderline ECG Electronically signed by : Manfred Gama, 05/27/2020 14:34:16
--- NOTE | 2020-05-26 11:07 | CT_ITS ---
PROCEDURE: CT HEAD/BRAIN WO CON CLINICAL INDICATION: syncope Syncope and headache COMPARISON: CT CT HEAD/BRAIN WO CON from 12/10/[address] ANGIO HEAD from 12/10/2019 TECHNIQUE: Axial images obtained. All CT scans at the facility use one or more dose reduction, viz: automated exposure control, ma/kV adjustment per patient size (including targeted exams where dose is matched to indication, i.e. head), or iterative reconstruction technique. FINDINGS: No midline shift, mass effect, intracranial hemorrhage, hydrocephalus, or extra-axial fluid collection is evident. The calvarium has an unremarkable appearance. No mastoid effusion. There is mild mucosal thickening of the ethmoid sinuses. IMPRESSION: No acute intracranial finding Dictated by: Valentin Evans MD 05/26/2020 11:37 Valentin Evans MD in [facility] 05/26/2020 11:37
--- NOTE | 2020-05-26 11:16 | HMH.EDCP ---
ED Disposition Clinical Impression: Atypical chest pain, Unstable angina pectoris, Abnormal ECG Obesity Qualifiers: Obesity type: unspecified obesity type Obesity classification: unspecified obesity classification Serious obesity comorbidity presence: with serious comorbidity Qualified Code(s): E66.9 - Obesity, unspecified Hypertension Qualifiers: Hypertension type: essential hypertension Qualified Code(s): I10 - Essential (primary) hypertension Disposition: Admitted As Inpatient Condition on Discharge: Serious Referrals: PCP,No [Non-Staff] - - Critical Care Critical Care Time: No Attestation: On , the high probability of a clinically significant, sudden or life threatening deterioration of the following system(s) required my full and direct attention, intervention and personal management. The time I documented below is in addition to time spent performing reported procedures but includes the following listed in this critical care notation. Medical Decision Making - Medical Records Medical records reviewed: Yes: I reviewed the patient's medical records. - Bin Inquiry Pt receiving controlled substance: Yes Bin was queried for this patient: No Reason not queried -: Emergent pt cond-no time Risks and benefits of using a controlled substance: were discussed with pt by me Vital Signs: 05/26/20 11:02 05/26/20 12:01 05/26/20 12:30 Temperature 98.1 F Temperature Source Oral Pulse Rate [Right Apical] 76 65 60 Respiratory Rate 23 15 Blood Pressure [Right Arm] 172/87 H 135/78 137/74 Blood Pressure Mean [Right Arm] 115 97 95 Blood Pressure Source [Right Arm] Automatic Cuff Blood Pressure Position [Right Arm] Sitting 02 Sat by Pulse Oximetry 93 L 93 L 93 L Oxygen Delivery Method Room Air Room Air 05/26/20 13:00 Temperature Temperature Source Pulse Rate [Right Apical] 61 Respiratory Rate 15 Blood Pressure [Right Arm] 125/68 Blood Pressure Mean [Right Arm] 87 Blood Pressure Source [Right Arm] Blood Pressure Position [Right Arm] 02 Sat by Pulse Oximetry 94 L Oxygen Delivery Method - Lab Data Lab Results 05/26/20 11:13: WBC 9.4, RBC 5.12, Hgb 14.3, Hct 43.9, MCV 85.7, MCH 27.9, MCHC 32.5, RDW 15.0, Plt Count 268, MPV 7.6, Neut % (Auto) 64.3, Lymph % (Auto) 26.4, [place] % (Auto) 6.1, Eos % (Auto) 2.6, Baso % (Auto) 0.6, Neut # (Auto) 6.0, Lymph # (Auto) 2.5, [place] # (Auto) 0.6, Eos # (Auto) 0.3, Baso # (Auto) 0.1 05/26/20 11:13: Sodium 139, Potassium 4.3, Chloride 105, Carbon Dioxide 28, Anion Gap 10.3, BUN 14, Creatinine 0.70, Estimated Creat Clear 73, Estimated GFR 87, Est GFR ( Amer) 106, Glucose 125 H, Calcium 9.2, Total Bilirubin 0.3, AST 35, ALT 61, Alkaline Phosphatase 105, Troponin I < 0.01, Total Protein 7.5, Albumin 4.0, Globulin 3.5 H, Albumin/Globulin Ratio 1.1, TSH 5.36 H 05/26/20 11:13: PT 11.0, INR 0.99, APTT 23.7 05/26/20 11:13: NT-Pro-B Natriuret Pep 59.1 05/26/20 11:30: Urine Color Yellow, Urine Appearance Clear, Urine pH 6.0, Ur Specific [place] 1.020, Urine Protein Negative, Urine Glucose (UA) Negative, Urine Ketones Negative, Urine Blood 1+, Urine Nitrate Negative, Urine Bilirubin Negative, Urine Urobilinogen 0.2, Ur Leukocyte Esterase Negative, Urine RBC 5-10, Urine WBC 3-5, Ur Squamous Epith Cells 3-5 Result diagrams: 05/26/20 11:13 05/26/20 11:13 Orders (Tests/Meds): ED MEDICATIONS Discontinued Medications Generic Name Dose Route Start Last Admin Trade Name Juanito PRN Reason Stop Dose Admin Aspirin 324 mg 05/26/20 11:08 05/26/20 11:36 Aspirin 81mg Chewable Tablet PO 05/26/20 11:09 324 mg ONCE ONE Administration Ioversol 70 ml 05/26/20 12:54 05/26/20 12:56 Ioversol-350 (74%) 100ml Vial IV 05/26/20 12:55 70 ml ONCE ONE Administration Protocol Morphine Sulfate 4 mg 05/26/20 11:14 05/26/20 11:36 Morphine 4mg/Ml Syringe IV 05/26/20 11:15 4 mg ONCE ONE Administration Ondansetron HCl 4 mg 05/26/20 11:14 05/26/20 11
--- NOTE | 2020-05-26 11:18 | PC.NURSE ---
Pt to rad.
[2020-05-26 11:23] LABS: Basophils # 0.1 K/mm3 (0-0.2); Basophils % 0.6 % (0.1-2.0); Eosinophils # 0.3 K/mm3 (0.0-0.4); Eosinophils % 2.6 % (0.1-12.0); Hematocrit 43.9 % (37.0-47.0); Hemoglobin 14.3 g/dL (12.2-16.2); Lymphocytes # 2.5 K/mm3 (0.7-4.5); Lymphocytes % 26.4 % (10-50); Mean Corpuscular HGB Conc 32.5 g/dL (31.8-35.4); Mean Corpuscular Hemoglobin 27.9 pg (27.0-31.2); Mean Corpuscular Volume 85.7 fl (81-99); Mean Platelet Volume 7.6 fl (7.4-10.4); Monocytes # 0.6 K/mm3 (0.1-1.0); Monocytes % 6.1 % (1.7-9.3); Neutrophils % 64.3 % (37.0-80.0); Platelet Count 268 K/mm3 (142-424); Red Blood Count 5.12 M/mm3 (4.20-5.40); White Blood Count 9.4 K/mm3 (4.8-10.8)
[2020-05-26 11:30] LABS: Alanine Aminotransferase 61 U/L (12-78); Albumin/Globulin Ratio 1.1 (1.1-1.8); Alkaline Phosphatase 105 U/L (38-126); Aspartate Amino Transferase 35 U/L (14-36); Bilirubin,Total 0.3 mg/dl (0.2-1.3); Blood Urea Nitrogen 14 mg/dl (7-17); Calcium 9.2 mg/dl (8.4-10.2); Carbon Dioxide 28 mmol/L (22.0-30.0); Creatinine Clearance Estimated 73 mL/min (50-200); Estimated Glomerular Filt Rate 87 ml/min (>60); GFR (African American) 106 ML/MIN (>60); Globulin 3.5 g/dL (1.3-3.2); Glucose 125 mg/dl (74-100); Potassium 4.3 mmoL/L (3.5-5.1); Sodium 139 mmol/L (136-145); Total Protein,Serum 7.5 g/dl (6.3-8.2)
[2020-05-26 11:41] LABS: Activated Partial Thrombo Time 23.7 seconds (23.6-34.0); INR 0.99 (0.9-1.1); NT Pro Brain Natriuretic Pep. 59.1 pg/mL (0-125)
[2020-05-26 11:47] LABS: Troponin I < 0.01 ng/ml (0.00-0.034)
[2020-05-26 11:52] LABS: Anion Gap 10.3 mEq/L (5-15); Chloride 105 mmol/L (98-107)
--- NOTE | 2020-05-26 11:57 | CT_ITS ---
PROCEDURE: CT ANGIO CHEST CLINCIAL INDICATION: pain, back pain, htn Back pain, chest pain, hypertension COMPARISON: CT CT ANGIO CHEST from 02/10/2020 TECHNIQUE: IV Contrast: 70ML OPTIRAY 350 Axial images obtained with sagittal and coronal reformats. All CT scans at the facility use one or more dose reduction, viz: automated exposure control, ma/kV adjustment per patient size (including targeted exams where dose is matched to indication, i.e. head), or iterative reconstruction technique. FINDINGS: HEART AND MEDIASTINAL STRUCTURES: No evidence of aortic aneurysm or dissection. No evidence of pulmonary embolus. No mediastinal or hilar mass or adenopathy. LUNGS AND PLEURAL SPACES: Atelectatic changes are present in the right lung base. There is calcified granuloma in the right lower lobe posteriorly. Calcified granuloma is also noted in the right lower lobe laterally. No effusions or infiltrates. There is a stable 4 mm subpleural nodule in the left lower lobe laterally and posterior laterally BONY STRUCTURES: Mild degenerative changes are present in the thoracic spine UPPER ABDOMEN: Unremarkable. ADDITIONAL FINDINGS: No other significant abnormalities. IMPRESSION: No evidence of acute pulmonary embolus aortic aneurysm or dissection. There are some mild new atelectatic changes in the right lung base. No other changes are apparent. Dictated by: Valentin Evans MD 05/26/2020 13:09 Valentin Evans MD in [place] 05/26/2020 13:09
[2020-05-26 12:01] LABS: Microscopic, Urine URINE MICROSCOPIC (MICROSCOPIC)
[2020-05-26 12:02] LABS: Thyroid Stimulating Hormone 5.36 uIU/mL (0.465-4.68)
[2020-05-26 12:03] LABS: Appearance,Urine CLEAR (Clear); Bilirubin,Urine Negative (Negative); Blood, Urine 1+ (Negative); Color,Urine YELLOW (Yellow); Glucose,Urine (UA) Negative (Negative); Ketones,Urine Negative (Negative); Leukocyte Esterase,Urine Negative (Negative); Nitrate,Urine Negative (Negative); Protein,Urine Negative (Negative); Urobilinogen,Urine 0.2 EU/dl (0.2)
--- NOTE | 2020-05-26 12:56 | PC.NURSE ---
t with Rad v/s delayed.
--- NOTE | 2020-05-26 12:56 | PC.NURSE ---
Pt returned from rad.
--- NOTE | 2020-05-26 13:32 | PC.NURSE ---
Dr Groves speaking with Helen Marinelli at this time.
--- NOTE | 2020-05-26 14:02 | P.CONPHA_ITS ---
[facility] Pharm[facility] VTE Monitoring - Patient Demographics Admission date: 05/26/20 Report Date: 05/26/20 Time: 14:02 Allergies/Adverse Reactions: Patient Allergies No Known Allergies Allergy (Verified 05/26/20 10:13) Height: 1.57 m Weight: 142.882 kg Patient Problems: Current Active Problems (Last Updated 03/27/18 @ 08:52 by ARABELLA Lowry) Atypical chest pain (Acute) Unstable angina pectoris (Acute) Abnormal ECG (Acute) Obesity (Chronic) Hypertension (Chronic) - VTE Risk Labs: VTE Related Lab Results Hgb 14.3 g/dL (12.2-16.2) 05/26/20 11:13 Hct 43.9 % (37.0-47.0) 05/26/20 11:13 Plt Count 268 K/mm3 (142-424) 05/26/20 11:13 PT 11.0 seconds (9.4-11.8) 05/26/20 11:13 INR 0.99 (0.9-1.1) 05/26/20 11:13 APTT 23.7 seconds (23.6-34.0) 05/26/20 11:13 BUN 14 mg/dl (7-17) 05/26/20 11:13 Creatinine 0.70 mg/dl (0.52-1.04) 05/26/20 11:13 Estimated Creat Clear 73 mL/min (50-200) 05/26/20 11:13 Clinical Trial Participant: No - Prophylaxis VTE Prophylaxis Ordered?: Yes Types of VTE Prophylaxis: TEDS Knee High
[2020-05-26 14:43] LABS: Troponin I < 0.01 ng/ml (0.00-0.034)
[2020-05-26 14:50] LABS: Coronavirus 19 IgG Antibody Positive (Negative)
[2020-05-26 14:51] LABS: Coronavirus 19 IgM Antibody Positive (Negative)
--- NOTE | 2020-05-26 15:00 | PC.NURSE ---
Pt transfer to floor delayed r/t covid swab, pt notified.
--- NOTE | 2020-05-26 15:19 | PC.NURSE ---
Recollected swab sent to lab
[2020-05-26 15:20] LABS: Adenovirus,PCR Not Detected (NotDetected); Bordetella Pertussis Not Detected (NotDetected); Chlamydophila Pneumoniae, PCR Not Detected (NotDetected); Coronavirus 19, PCR Not Detected (NotDetected); Coronavirus 229E Not Detected (NotDetected); Coronavirus NL63 Not Detected (NotDetected); Coronavirus OC43 Not Detected (NotDetected); Coronovirus HKU1,PCR Not Detected (NotDetected); Human Metapneumovirus Not Detected (NotDetected); Influenza A, PCR Not Detected (NotDetected); Influenza AH1, 2009 Not Detected (NotDetected); Influenza AH1, PCR Not Detected (NotDetected); Influenza AH3,PCR Not Detected (NotDetected); Influenza B, PCR Not Detected (NotDetected); Mycoplasma Pneumoniae, PCR Not Detected (NotDetected); Parainfluenza 1, PCR Not Detected (NotDetected); Parainfluenza 2, PCR Not Detected (NotDetected); Parainfluenza 3, PCR Not Detected (NotDetected); Parainfluenza 4, PCR Not Detected (NotDetected); Respiratory Syncytial Virus Not Detected (NotDetected); Rhinovirus/Enterovirus Not Detected (NotDetected)
--- NOTE | 2020-05-26 16:30 | PC.NURSE ---
Called for an update on covid swab stated it would be back in 10 minutes
--- NOTE | 2020-05-26 16:40 | PC.NURSE ---
Notified 2nd that pt swab is ready and she is ready for transport
--- NOTE | 2020-05-26 17:22 | PC.NURSE ---
patient states she does not take lamictal
--- NOTE | 2020-05-26 17:24 | PC.NURSE ---
verified with er they did not want to put in a cardiac consult at this time
[2020-05-26 18:09] LABS: Troponin I < 0.01 ng/ml (0.00-0.034)
[2020-05-26 20:27] LABS: POC Glucose,Bedside 145 (70-110)
[2020-05-27] VITALS: BP 121/76; PULSE 68; PULSE 70; RESP 25; TEMP 36.4; O2SAT 94
--- NOTE | 2020-05-27 00:16 | ECG_ITS ---
APPROVED REPORT Exam: Resting ECG HR:67 bpm ECG Measurements Heart Rate 67 AXES SC 170 P 53 QRSd 106 QRS -25 QT 410 T 55 QTc 433 Conclusion Sinus rhythm ,LAD Possible Left atrial enlargement Incomplete right bundle branch block Borderline ECG Electronically signed by : Luis Fernando Snell, 06/06/2020 16:33:14
--- NOTE | 2020-05-27 00:45 | PC.NURSE ---
2350 Pt c/o shortness of breath, pain in epigastric area radiating to back. EKG obtained. Per Dr. Tyler in ED, EKG shows no acute findings. Albuterol inhaler was administered. Pt reported feeling somewhat less sob after inhaler. Pt sleeping as of 0030.
--- NOTE | 2020-05-27 03:16 | PC.NURSE ---
Since 0030, pt has slept well. Denies soa/pain at this time. Lung sounds remain unchanged from previous assessment. Right lower extremity continues to have 2+ pitting edema. Cap refil <3sec.
[2020-05-27 04:00] VITALS: BP 134/74; PULSE 70; PULSE 72; RESP 22; TEMP 36.7; O2SAT 94
[2020-05-27 05:13] VITALS: BMI 57.3
[2020-05-27 05:55] LABS: POC Glucose,Bedside 175 (70-110)
[2020-05-27 06:58] LABS: Basophils # 0.1 K/mm3 (0-0.2); Basophils % 0.5 % (0.1-2.0); Eosinophils # 0.3 K/mm3 (0.0-0.4); Eosinophils % 2.9 % (0.1-12.0); Hematocrit 41.8 % (37.0-47.0); Hemoglobin 13.1 g/dL (12.2-16.2); Lymphocytes # 2.9 K/mm3 (0.7-4.5); Lymphocytes % 30.4 % (10-50); Mean Corpuscular HGB Conc 31.3 g/dL (31.8-35.4); Mean Corpuscular Hemoglobin 27.8 pg (27.0-31.2); Mean Corpuscular Volume 88.9 fl (81-99); Mean Platelet Volume 7.6 fl (7.4-10.4); Monocytes # 0.7 K/mm3 (0.1-1.0); Monocytes % 7.1 % (1.7-9.3); Neutrophils # 5.5 K/mm3 (1.8-7.8); Neutrophils % 59.1 % (37.0-80.0); Platelet Count 266 K/mm3 (142-424); Red Cell Distribution Width 15.1 % (11.5-17.5); White Blood Count 9.4 K/mm3 (4.8-10.8)
[2020-05-27 07:03] LABS: Chloride 102 mmol/L (98-107); Potassium 4.1 mmoL/L (3.5-5.1); Sodium 138 mmol/L (136-145)
[2020-05-27 07:06] LABS: Blood Urea Nitrogen 14 mg/dl (7-17); Creatinine Clearance Estimated 61 mL/min (50-200); Estimated Glomerular Filt Rate 75 ml/min (>60); GFR (African American) 90 ML/MIN (>60)
[2020-05-27 07:07] LABS: Anion Gap 10.1 mEq/L (5-15); Calcium 8.5 mg/dl (8.4-10.2); Carbon Dioxide 30 mmol/L (22.0-30.0); Glucose 155 mg/dl (74-100)
[2020-05-27 08:00] VITALS: BP 136/71; PULSE 63; PULSE 72; RESP 18; TEMP 37; O2SAT 98
--- NOTE | 2020-05-27 09:23 | HMH.HP ---
*Admission Date: 05/26/20 *Chief complaint: chest pain *History of present illness: 54-year-old female presented to the emergency department with chest discomfort. Patient states that she has had this pain for the last 3 days. Substernal. She states that it is dull in nature. Radiates to her back. Patient states that it started randomly while she was sitting and watching TV. And has persisted since then. She is concerned because it is not going away. She went to see her primary care physician was sent to the emergency department for evaluation. She denies any associated shortness of breath. No cough hemoptysis. No palpitations. Patient has had this pain before. She denies any abdominal pain or vomiting. No diarrhea. No headache, change in vision focal weakness. No fevers or chills. The above per ER MD, Dr. Stevens Cardiology consulted for evaluation Patient with known normal coronary arteries by cardiac catheterization June 2016 and 2018. Troponins this admission are normal. EKG is sinus with possible left atrial enlargement and incomplete right bundle branch block. Unchanged compared to previous EKGs dating back to June 2019. Patient denies any contact with anyone known to have COVID-19, however her IgG and IgM are positive for antibodies to COVID-19. Her PCR is negative. [facility] History I have reviewed the patient's past medical history: Yes Medical History: Reports:: Anxiety, Asthma, Congestive Heart Failure, Chronic Obstructive Pulmonary Disease (COPD), Depression, Diabetes Mellitus Type 2, Hyperlipidemia, Hypertension, Peripheral Artery Disease Denies:: Cancer, Diabetes Mellitus Type 1, Internal Pacemaker, MRSA, Seizures *Have you ever received a pneumonia vaccine?: Yes *Have you received a flu vaccine this season?: No Other Medical History: Reports: Arthritis, Fibromyalgia, Hypothyroidism, Other. Denies: Blood Transfusion Reaction Laterality Cases: Left: Arthroscopy Knee Other Surgeries: Yes: Appendectomy, Cardiac Catheterization, Cholecystectomy, Colonoscopy, Hysterectomy-Total, Hysterectomy-Partial, Thyroidectomy, Other (removed blood clots behind left knee). No: Pacemaker Amputation: No Fractures: No - *Social History Last grade of school completed: High school graduate Smoking Status: Current every day smoker Tobacco Type: cigarettes # Packs/Day (cigarettes): 1 #Yrs smoked (if former smoker): 40 Alcohol Intake: never Alcohol Intake Frequency:: other Substance Use Type: denies use *Occupational Status:: disabled Housing: apartment Household Members: significant other *Travel in the last 8 weeks: None - Psychiatric History Pschychiatric History:: Reports:: Anxiety, Depression Family Hx:: Cancer, Heart Attack, Hyperlipidemia, Hypertension Review of Systems - Review of Systems Review of systems:: pertinent systems reviewed and negative unless documented below - Constitutional Reports weight gain, Denies body ache(s), Denies lack of energy - Eyes Denies double vision - ENT Denies change in voice, Denies sinus pain - *Cardiovascular Reports chest pain with activity, Reports shortness of breath, Reports shortness of breath with activity, Reports generalized swelling - *Respiratory Reports shortness of breath, Denies chest congestion - *Gastrointestinal Denies bloating, Denies vomiting - *Genitourinary Denies urinary incontinence, Denies urinary urgency - *Musculoskeletal Denies decreased muscle mass - Integumentary/Breasts Denies change in hair, Denies boil, Denies rash - *Neurologic Denies headache(s), Denies fainting - Psychiatric Denies anxiety - Endocrine Denies flushing - Hematologic/Lymphatic Denies enlarged lymph nodes - Allergic/Immunologic Denies lip swelling Meds Home Medications Medication Instructions Recorded Confirmed Type albuterol sulfate 90 mcg/actuation 2 puff INHALATION Q6H PRN 11/27/17 05/26/20 History aerosol inhaler buspirone 10 mg tablet 1
--- NOTE | 2020-05-27 09:42 | HMH.CNCARD ---
History of Present Illness Consult date: 05/27/20 Requesting physician: Juan Monreal Consult reason: chest pain, shortness of breath Chief complaint: CP, SOA, Wt gain Additional Medical History:: 1. Chronic obstructive pulmonary disease A. Tobacco use starting at age 13 2. Hypertension A. Chronic diastolic CHF B. Echo, 12/2019, 1. Mildly enlarged left atrium, normal left ventricular size, mild concentric left ventricular hypertrophy, visually estimated ejection fraction 55% with no regional wall motion abnormality, grade 1 diastolic dysfunction seen without tissue Doppler evidence of raise left atrial pressure. 2. Mild mitral and tricuspid regurgitation. 3. No significant pericardial effusion noted 3. Hyperlipidemia 4. Obesity A. Referred for bariatric surgery but this never occurred. 5. Abnormal electrocardiogram with LEFT anterior fascicular block and anterior infarct pattern. A. right and left heart cath, 03/2016, normal coronaries with hyperdynamic LVEF and moderate pulmonary HTN. Diuretics recommended. B. [facility], 06/2019 ANGIOGRAPHIC RESULTS The left main artery Normal The left anterior descending artery Normal The circumflex artery Normal The right coronary artery Dominant normal The [place]STE[place] ventriculogram reveals Normal 65% The left ventricular end-diastolic pressure 20 mmHg IMPRESSION Normal coronary arteries Normal ejection fraction Mildly elevated LVEDP PLAN 1. Patient's chest pain is noncardiac 2. Patient's chest pain originates from pulmonary etiologies and possibly from pulmonary hypertension 3. Medical management 4. Avoidance of tobacco products Electronically signed by : Abhi Vaughn, 06/25/2019 11:40:09 6. Hypothyroidism, on replacement 7. Anxiety 8. DM 9. Positive IgG, IgM for COVID-19, 05/27/2020 10. History of prior DVT, now on chronic Xarelto therapy A. [facility], 10/2017, ANGIOGRAPHIC RESULTS: The distal abdominal aorta appears free of significant atherosclerotic plaque The right common internal and external iliac artery are normal. The right common femoral artery right profunda femoris artery and superficial femoral arteries normal. The right popliteal artery is normal and gives rise to the anterior tibialis artery which appears to be occluded in its proximal segment. The posterior tibialis artery and peroneal artery are both patent and supply the right foot The left common and external iliac artery is normal. The left common femoral artery is normal as is the left profunda femoris artery. The left superficial femoral artery is normal. The left popliteal artery is occluded at mid segment. There is very slow filling of the left anterior tibialis artery left posterior tibialis artery and left peroneal artery. Impression: Acute to subacute thrombosis or occlusion of the left popliteal artery Plan: Patient is having severe intolerable pain. I recommend she be transferred to [facility] vascular surgery and be evaluated for percutaneous or surgical revascularization of the left popliteal artery Patient requires aggressive attention toward risk factor modification LDL less than 55 Heparin drip will be started Absolute tobacco cessation and avoidance. 11. JOSH, CPAP therapy 12. Junctional tachycardia, Holter monitor, 02/2020, treated with diltiazem A. Referred to Dr. Kim, [place], [place] who recommended gastric surgery prior to any further treatment. History of present illness: 54-year-old female presented to the emergency department with chest discomfort. Patient states that she has had this pain for the last 3 days. Substernal. She states that it is dull in nature. Radiates to her back. Patient states that it started randomly while she was sitting and watching TV. And has persisted since then. She is concerned because it is not going away. She went to see her primary care physician was sent t
--- NOTE | 2020-05-27 09:49 | CA_ITS ---
APPROVED REPORT EXAM: Comprehensive 2D, Doppler, and color-flow Echocardiogram [facility]: Diana Smith RT(R) Ht: 5 ft 2 in Wt: 311lbs BSA: 2.31 BP: 136/71 mmHg Indications: morbid obesity, CP, COPD, SOB, WATTERS, smoker, HTN, Hyperlipidemia, DD, anxiety, asthma, PVD, ordered as a limited echo to assess EF and check for effusion. M-Mode Dimensions RVDd 2.83 cm (0.9-2.6) LVDd 4.73 cm (3.5-5.7) LVDs 3.26 cm (3.5-5.7) IVSd 1.00 cm (0.6-1.1) PWd 0.75 cm (0.6-1.1) EF (Teich) 58.80% FS 31.10% EDV (Teich) 103.90 mL ESV (Teich) 42.80 mL LV Diastology E Decel Time 257.00 (160-240 msec) E/A Ratio 1.2 MED E' 10.50 (< 7 cm/sec) E'/MED E' Ratio 10.03 (>14) LAT E' 7.50 (<10 cm/sec) E/LAT E' Ratio 14.04 (>14) Mitral Valve MV E Max José Luis. 105.00 (40-130 cm/s) MV A Velocity 88.00 (40-130 cm/s) E/A Ratio 1.19 MV Decel. Time 257.00 (160-240 ms) MV PHT 75.00 ms Left Ventricle Left atrium is mildly enlarged, left ventricle is normal size, mild concentric left ventricular hypertrophy, visually estimated ejection fraction 55% with no regional wall motion abnormality, grade 1 diastolic dysfunction seen without tissue Doppler evidence of raise left atrial pressure. Right Ventricle Right atrium and right ventricle mildly enlarged with normal contractility. Aortic Valve Aortic valve is minimally thickened and fibrosed, there is no aortic stenosis or aortic insufficiency. Mitral Valve Mitral valve has mitral calcification, leaflets are minimally thickened, there is no mitral stenosis, there is mild mitral regurgitation. Tricuspid Valve Tricuspid valve is grossly normal, there is mild tricuspid regurgitation, tricuspid regurgitation jet velocity is inadequate for calculation of the right ventricular systolic pressure. Pulmonic Valve Pulmonic valve is poorly visualized. Great Vessels Aortic root is normal size. Pericardium No significant pericardial effusion noted. Conclusion 1. Mild biatrial enlargement, normal left ventricular size, mild concentric left ventricular hypertrophy, visually estimated ejection fraction 55% with no regional wall motion abnormality, grade 1 diastolic dysfunction seen without tissue Doppler evidence of raise left atrial pressure. 2. Mildly enlarged right ventricle with normal contractility. 3. Mild mitral and tricuspid regurgitation. 4. No significant pericardial effusion noted. Electronically signed by : Miko Frazier, 05/27/2020 13:20:42
[2020-05-27 11:25] LABS: POC Glucose,Bedside 151 (70-110)
[2020-05-27 12:00] VITALS: PULSE 76
[2020-05-27 13:06] VITALS: BMI 57.2
[2020-05-27 16:00] VITALS: BP 123/62; PULSE 70; PULSE 87; RESP 20; TEMP 36.4; O2SAT 96
[2020-05-27 16:45] LABS: POC Glucose,Bedside 144 (70-110)
--- NOTE | 2020-05-27 19:35 | PC.NURSE ---
PATIENT A&OX4, LUNGS DIMINISHED, PULSES EQUAL. +3 PITTING EDEMA ON RIGHT FOOT AND ANKLE; +2 NON PITTING EDEMA ON LEFT FOOT AND ANKLE. PATIENT HAD TOTAL OUTPUT OF 350O OF URINE AFTER 80MG IV LASIX. DURING ADL ASSESSMENT, PATIENT STATED, IT IS TIME FOR MY PAIN PILL. THIS RN EXPLAINED TO PATIENT THAT HER PAIN MEDICATION IS A PRN MEDICATION. THAT IT IS NOT SCHEDULED AND SHE NEEDS TO ASK FOR IT. PATIENT VERBALIZED AN UNDERSTANDING AND STATED THAT SHE WOULD LIKE A PAIN PILL. WHILE THIS RN WAS CONTINUING AN ASSESSMENT. PATIENT CONTINUED TO DOZE OFF WHILE EATING. THIS RN ASKED PATIENT, DO YOU WANT YOUR PAIN PILL WHILE YOU ARE THIS DROWSY? PATIENT STATED YES, I AM IN A LOT OF PAIN. THIS RN PROVIDED PATIENT WITH HER PAIN MEDICATION. THIS RN EDUCATED PATIENT IN REGARDS TO PROPER DIETING FOR DM. PATIENT VERBALIZED AN UNDERSTANDING. NO OTHER CONCERNS AT THIS TIME.
[2020-05-27 20:00] VITALS: BP 119/69; PULSE 68; PULSE 70; RESP 20; TEMP 36.8; O2SAT 94
[2020-05-27 20:18] LABS: POC Glucose,Bedside 144 (70-110)
[2020-05-28] VITALS (9 sets, daily range): BP systolic 101–132; BP diastolic 50–76; PULSE 59–80; RESP 16–20; TEMP 36.4–36.8; O2SAT 90–97; BMI 57.8
--- NOTE | 2020-05-28 04:14 | PC.NURSE ---
Pt has slept intermittently this shift. Had one episode of shortness of air, which was alleviated with albuterol inhaler. Denies pain/nausea. Lung sounds remain clear, yet diminished. Cardiovascular system WNL with palpable pulses and cap refill <3 sec. Pedal edema remains unchanged.
[2020-05-28 05:52] LABS: POC Glucose,Bedside 143 (70-110)
[2020-05-28 06:30] LABS: Basophils # 0.1 K/mm3 (0-0.2); Basophils % 0.6 % (0.1-2.0); Eosinophils # 0.2 K/mm3 (0.0-0.4); Eosinophils % 1.9 % (0.1-12.0); Hematocrit 44.3 % (37.0-47.0); Hemoglobin 14.3 g/dL (12.2-16.2); Lymphocytes # 3.4 K/mm3 (0.7-4.5); Lymphocytes % 31.3 % (10-50); Mean Corpuscular HGB Conc 32.4 g/dL (31.8-35.4); Mean Corpuscular Volume 86.3 fl (81-99); Mean Platelet Volume 7.8 fl (7.4-10.4); Monocytes # 0.7 K/mm3 (0.1-1.0); Monocytes % 6.1 % (1.7-9.3); Neutrophils # 6.5 K/mm3 (1.8-7.8); Neutrophils % 60.1 % (37.0-80.0); Platelet Count 285 K/mm3 (142-424); Red Blood Count 5.13 M/mm3 (4.20-5.40); Red Cell Distribution Width 15.3 % (11.5-17.5); White Blood Count 10.9 K/mm3 (4.8-10.8)
[2020-05-28 06:58] LABS: Chloride 102 mmol/L (98-107); Potassium 4.6 mmoL/L (3.5-5.1); Sodium 138 mmol/L (136-145)
[2020-05-28 07:01] LABS: Anion Gap 16.6 mEq/L (5-15); Blood Urea Nitrogen 20 mg/dl (7-17); Carbon Dioxide 24 mmol/L (22.0-30.0); Creatinine Clearance Estimated 37 mL/min (50-200); Estimated Glomerular Filt Rate 43 ml/min (>60); GFR (African American) 52 ML/MIN (>60); Glucose 143 mg/dl (74-100)
--- NOTE | 2020-05-28 10:43 | PC.NURSE ---
Pt has had another episode of diarrhea this morning. She is requesting an anti-diarrhea med. Dr. Gama is oncall for Dr. Rojas. Contacted Dr. Gama.
--- NOTE | 2020-05-28 10:44 | PC.NURSE ---
[place] back from Dr. Gama. He ordered Immodium 1-2 Q6 prn. Order faxed to pharmacy.
[2020-05-28 11:32] LABS: POC Glucose,Bedside 129 (70-110)
--- NOTE | 2020-05-28 13:14 | PC.NURSE ---
rounded with Dr. Rojas. Received verbal order to discontinue MIVF. Order faxed to pharmacy.
--- NOTE | 2020-05-28 13:27 | HMH.ACPN2 ---
Internal Medicine - PN: Subj *Date: 05/28/20 *Time: 13:42 Interval history: echo=grade 1 diastolic dysfunction getting lasix iv 80 q12 some watery diarrhea immodium given soa last pm uses inhalers prn cta chest/cxr nml weight up 4# asymmetric edema rle will look at venous duplex Exam Vital signs and Labs for Last 24 Hours: Temp Pulse Resp BP Pulse Ox 97.9 F 69 18 123/53 L 95 05/28/20 10:55 05/28/20 10:55 05/28/20 10:55 05/28/20 10:55 05/28/20 10:55 Laboratory Results - last 24 hr 05/27/20 16:31: POC Glucose 144 H 05/27/20 19:56: POC Glucose 144 H 05/28/20 05:39: POC Glucose 143 H 05/28/20 05:50: WBC 10.9 H, RBC 5.13, Hgb 14.3, Hct 44.3, MCV 86.3, MCH 28.0, MCHC 32.4, RDW 15.3, Plt Count 285, MPV 7.8, Neut % (Auto) 60.1, Lymph % (Auto) 31.3, [place] % (Auto) 6.1, Eos % (Auto) 1.9, Baso % (Auto) 0.6, Neut # (Auto) 6.5, Lymph # (Auto) 3.4, [place] # (Auto) 0.7, Eos # (Auto) 0.2, Baso # (Auto) 0.1 05/28/20 05:50: Sodium 138, Potassium 4.6, Chloride 102, Carbon Dioxide 24, Anion Gap 16.6 H, BUN 20 H D, Creatinine 1.30 H D, Estimated Creat Clear 37, Estimated GFR 43 L, Est GFR ( Amer) 52 L D, Glucose 143 H, Calcium 9.0 05/28/20 11:20: POC Glucose 129 H I & O for Last 24 hours: Intake & Output 05/25/20 05/26/20 05/27/20 05/28/20 23:59 23:59 23:59 23:59 Intake Total 1750 / 2750 2257 / 2257 Output Total 4300 / 4300 800 / 800 Balance -2550 / -1550 1457 / 1457 Weight 315 lb 2 oz 310 lb 13.628 oz 314 lb 2 oz - Constitutional no acute distress, morbidly obese - *Routine HEENT Exam Head: Present: normocephalic Eye: Present: EOMI, PERRL ENT: Present: mucous membranes moist - *Routine Neck Exam Present: supple. Absent: lymphadenopathy - *Routine Respiratory Exam Present: CTA bilaterally. Absent: respiratory distress, rhonchi, stridor, wheezes, crackles - *Routine Cardiovascular Exam Present: RRR - *Routine Abdominal Exam Present: soft, normoactive bowel sounds. Absent: tenderness - *Routine Extremities Exam Present: edema. Absent: cyanosis, clubbing, calf tenderness, palpable cord, tenderness, pallor, extremity cold to touch, amputation - *Routine Skin Exam Present: warm. 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 status Diabetes mellitus complication status: with other specified complication Qualified Code(s): E11.69 - Type 2 diabetes mellitus with other specified complication Category: Medical Code(s): E11.9 - Type 2 diabetes mellitus without complications (4) Edema of both lower extremities Status: Chronic Category: Medical Code(s): R60.0 - Localized edema (5) HHD (hypertensive heart disease) Status: Chronic Qualifiers: Heart failure presence: with heart failure Heart failure type: diastolic Heart failure chronicity: acute on chronic Qualified Code(s): I11.0 - Hypertensive heart disease with heart failure; I50.33 - Acute on chronic diastolic (congestive) heart failure Category: Medical Code(s): I11.9 - Hypertensive heart disease without heart failure (6) Pulmonary hypertension Status: Chronic Category: Medical Code(s): I27.20 - Pulmonary hypertension, unspecified - Assessment and plan all Dx Assessment and Plan for all problems:: dc ivf continue aggressive diuresis look at duplex bilat
--- NOTE | 2020-05-28 13:47 | CA_ITS ---
APPROVED REPORT Bilateral Lower Extremity Venous Study for DVT. Library Supervisor: CT Indications Lower Extremity Pain: Lower Extremity Edema: asymmetric edema, history of clot Medications Aspirin XARELTO Vein Imaging CFV (R): compressive, spontaneous, phasic, augmentation SFJ (R): compressive, spontaneous, phasic, augmentation FEM (R): compressive, spontaneous, phasic, augmentation POP (R): compressive, spontaneous, phasic, augmentation DFV (R): compressive, spontaneous, phasic, augmentation PTV (R): compressive, spontaneous, phasic, augmentation GSV (R): compressive, spontaneous, phasic, augmentation SSV (R): Not Visualized Peroneals (R):Not Visualizedcompressive, spontaneous, phasic, augmentation GAS (R): Not Visualized CFV (L): compressive, spontaneous, phasic, augmentation SFJ (L): compressive, spontaneous, phasic, augmentation FEM (L): compressive, spontaneous, phasic, augmentation POP (L): compressive, spontaneous, phasic, augmentation DFV (L): compressive, spontaneous, phasic, augmentation PTV (L): compressive, spontaneous, phasic, augmentation GSV (L): compressive, spontaneous, phasic, augmentation SSV (L): Not Visualized Peroneals (L):compressive, spontaneous, phasic, augmentation GAS (L): Not Visualized Findings RLE and LLE negative for DVT Unable to visualize bilateral mid calf, difficult study. Conclusion RLE and LLE negative for DVT Unable to visualize bilateral mid calf, difficult study. Electronically signed by : Valentin Evans MD 05/30/2020 13:36:45
--- NOTE | 2020-05-28 13:56 | PC.NURSE ---
Called respiratory to notify numerical control lathe operator staff of venous doppler on this pt.
[2020-05-28 16:46] LABS: POC Glucose,Bedside 128 (70-110)
--- NOTE | 2020-05-28 18:09 | PC.NURSE ---
Pt has done well this shift. Gets OOB without assistance. BLE edema, R>L. BLE venous study completed today per Dr. Rojas. Pt is on RA with sats > 92%. Has had 4 episodes of diarrhea today. Imodium given twice. Nicotine patch on RUE. Left AC PIV SL. NSR on tele.
[2020-05-29] VITALS: BP 101/66; PULSE 67; PULSE 70; RESP 16; TEMP 36.5; O2SAT 93
[2020-05-29 01:41] LABS: POC Glucose,Bedside 152 (70-110)
--- NOTE | 2020-05-29 03:31 | PC.NURSE ---
Pt A&OX4 lungs CTA. pt c/o pain medicated per OCT. pt ambulates to BR. RLE 3+ edema LLE 1+ edema. pt has rested quietly this shift
[2020-05-29 04:00] VITALS: BP 108/66; PULSE 61; PULSE 70; RESP 20; TEMP 36.4; O2SAT 93
[2020-05-29 05:00] VITALS: BMI 57.9
[2020-05-29 05:31] LABS: POC Glucose,Bedside 127 (70-110)
[2020-05-29 07:20] LABS: Chloride 102 mmol/L (98-107); Sodium 138 mmol/L (136-145)
[2020-05-29 07:21] LABS: Potassium 4.4 mmoL/L (3.5-5.1)
[2020-05-29 07:23] LABS: Blood Urea Nitrogen 19 mg/dl (7-17); Creatinine Clearance Estimated 44 mL/min (50-200); Estimated Glomerular Filt Rate 52 ml/min (>60); GFR (African American) 63 ML/MIN (>60)
[2020-05-29 07:24] LABS: Anion Gap 11.4 mEq/L (5-15); Calcium 8.8 mg/dl (8.4-10.2); Carbon Dioxide 29 mmol/L (22.0-30.0); Glucose 161 mg/dl (74-100)
[2020-05-29 07:27] LABS: Basophils # 0.1 K/mm3 (0-0.2); Basophils % 0.7 % (0.1-2.0); Eosinophils # 0.2 K/mm3 (0.0-0.4); Eosinophils % 2.6 % (0.1-12.0); Hematocrit 44.7 % (37.0-47.0); Hemoglobin 14.4 g/dL (12.2-16.2); Lymphocytes # 2.8 K/mm3 (0.7-4.5); Lymphocytes % 39.4 % (10-50); Mean Corpuscular HGB Conc 32.3 g/dL (31.8-35.4); Mean Corpuscular Hemoglobin 28.5 pg (27.0-31.2); Mean Corpuscular Volume 88.3 fl (81-99); Mean Platelet Volume 7.3 fl (7.4-10.4); Monocytes # 0.5 K/mm3 (0.1-1.0); Monocytes % 7.1 % (1.7-9.3); Neutrophils # 3.6 K/mm3 (1.8-7.8); Neutrophils % 50.2 % (37.0-80.0); Platelet Count 260 K/mm3 (142-424); Red Blood Count 5.06 M/mm3 (4.20-5.40); Red Cell Distribution Width 15.2 % (11.5-17.5); White Blood Count 7.1 K/mm3 (4.8-10.8)
[2020-05-29 07:50] VITALS: BP 172/82; PULSE 83; RESP 19; TEMP 36.5; O2SAT 95
[2020-05-29 08:00] VITALS: PULSE 70
[2020-05-29 11:15] LABS: POC Glucose,Bedside 142 (70-110)
[2020-05-29 11:21] VITALS: BP 133/65; PULSE 71; RESP 19; TEMP 36.4; O2SAT 96
[2020-05-29 12:00] VITALS: PULSE 70
--- NOTE | 2020-05-29 14:18 | HMH.DCSUM ---
General - General Admission date:: 05/26/20 Discharge date: 05/29/20 HPI HPI: 54-year-old female presented to the emergency department with chest discomfort. Patient states that she has had this pain for the last 3 days. Substernal. She states that it is dull in nature. Radiates to her back. Patient states that it started randomly while she was sitting and watching TV. And has persisted since then. She is concerned because it is not going away. She went to see her primary care physician was sent to the emergency department for evaluation. She denies any associated shortness of breath. No cough hemoptysis. No palpitations. Patient has had this pain before. She denies any abdominal pain or vomiting. No diarrhea. No headache, change in vision focal weakness. No fevers or chills. The above per ER MD, Dr. Stevens Cardiology consulted for evaluation Patient with known normal coronary arteries by cardiac catheterization June 2016 and 2018. Troponins this admission are normal. EKG is sinus with possible left atrial enlargement and incomplete right bundle branch block. Unchanged compared to previous EKGs dating back to June 2019. Patient denies any contact with anyone known to have COVID-19, however her IgG and IgM are positive for antibodies to COVID-19. Her PCR is negative. Hospital Course Hospital Course: seen in consultation with cardiology team Addendum entered and electronically signed by ARABELLA Verma 05/27/20 13:38: Limited echo shows normal EF, grade I diastolic dysfunction and no evidence of pericardial effusion. Continue IV diuretics (80 mg twice daily) until renal functions show mild dehydration then switch to PO. Continue spironolactone. Diltiazem being used for history of tachycardia and recently increased by ALICIA HOLLEY in [place]. This may be contributing to her edema as well as dietary indiscretion. Nothing further to add. Follow up in office in 2 wks. She was diuresed via iv lasix. Symbicort/albuterol via mdi given bs covered by sliding scale coverage Objective Vital signs: Temp Pulse Resp BP Pulse Ox 97.6 F 71 19 133/65 96 05/29/20 11:21 05/29/20 11:21 05/29/20 11:21 05/29/20 11:21 05/29/20 11:21 no acute distress, morbidly obese - *Routine HEENT Exam Head: Present: normocephalic Eye: Present: EOMI, PERRL ENT: Present: mucous membranes moist - *Routine Neck Exam Present: supple - *Routine Respiratory Exam Present: CTA bilaterally - *Routine Cardiovascular Exam Present: RRR - *Routine Abdominal Exam Present: soft, normoactive bowel sounds. Absent: tenderness - *Routine Extremities Exam Present: edema. Absent: cyanosis, calf tenderness, tenderness - *Routine Skin Exam Present: warm. Absent: rash - *Routine Neurological Exam Present: alert, oriented X3 Results Labs on day of discharge: Labs from last 24 hours 05/29/20 05/29/20 05/29/20 11:06 06:30 06:30 WBC 7.1 D RBC 5.06 Hgb 14.4 Hct 44.7 MCV 88.3 MCH 28.5 MCHC 32.3 RDW 15.2 Plt Count 260 MPV 7.3 L Neut % (Auto) 50.2 Lymph % (Auto) 39.4 [place] % (Auto) 7.1 Eos % (Auto) 2.6 Baso % (Auto) 0.7 Neut # (Auto) 3.6 Lymph # (Auto) 2.8 [place] # (Auto) 0.5 Eos # (Auto) 0.2 Baso # (Auto) 0.1 Sodium 138 Potassium 4.4 Chloride 102 Carbon Dioxide 29 D Anion Gap 11.4 BUN 19 H Creatinine 1.10 H Estimated Creat Clear 44 Estimated GFR 52 L Est GFR ( Amer) 63 D Glucose 161 H POC Glucose 142 H Calcium 8.8 05/29/20 05/28/20 05/28/20 04:52 19:55 16:22 WBC RBC Hgb Hct MCV MCH MCHC RDW Plt Count MPV Neut % (Auto) Lymph % (Auto) [place] % (Auto) Eos % (Auto) Baso % (Auto) Neut # (Auto) Lymph # (Auto) [place] # (Auto) Eos # (Auto) Baso # (Auto) Sodium Potassium Chloride Carbon Dioxide A
--- NOTE | 2020-05-29 15:11 | PC.NURSE ---
patient had pain pill at 1300. stated at this time patient would be okay for discharge and to drive self.
== END 2020-05-29 15:25 | disposition home or self-care (01) ==
LOC: ER 13:35 → 2ND 13:38
PROVIDERS: Nurse Practitioner Family; Admitting Provider Family Medicine; Emergency Provider Emergency Medicine; PCP Physician Assistant; Visit Provider Family Medicine
DX: Z86.19 Personal history of other infectious and parasitic diseases; I11.0 Hypertensive heart disease with heart failure; I50.33 Acute on chronic diastolic (congestive) heart failure; E11.9 Type 2 diabetes mellitus without complications; Z79.84 Long term (current) use of oral hypoglycemic drugs; E78.5 Hyperlipidemia, unspecified; E03.9 Hypothyroidism, unspecified; Z72.0 Tobacco use; I27.20 Pulmonary hypertension, unspecified; Z79.52 Long term (current) use of systemic steroids; Z79.01 Long term (current) use of anticoagulants; Z86.718 Personal history of other venous thrombosis and embolism
CPT/HCPCS: 36415; 70450; 71045; 71275; 80048; 80053; 81001; 82962; 83880; 84443; 84484; 85025; 85610; 85730; 86328; 87581; 87633; 87798; 93005; 93308; 93970; 96375; 99284; G0378; J2405; Q9967

== ENCOUNTER 2020-06-13 15:25 | Emergency (ER) | payer MEDICAID, SELFPAY ==
[2020-06-13 15:33] VITALS: BP 150/77; PULSE 77; RESP 22; TEMP 36.8; O2SAT 96; BMI 55.7
--- NOTE | 2020-06-13 15:45 | HMH.EDSOB ---
ED Disposition Clinical Impression: Pedal edema, Shortness of breath Disposition: Home, Self-Care Condition on Discharge: Good Instructions: DI for Shortness of Breath, DI for Peripheral Edema -- Bilateral Additional Instructions: Follow-up with patient relations specialist tomorrow as planned. Return to the emergency department for any acute new concerns. Referrals: Mariana Guillen PA [Primary Care Provider] - 3 days - Critical Care Critical Care Time: No Attestation: On 06/13/20, the high probability of a clinically significant, sudden or life threatening deterioration of the following system(s) required my full and direct attention, intervention and personal management. The time I documented below is in addition to time spent performing reported procedures but includes the following listed in this critical care notation. Medical Decision Making - Medical Records Medical records reviewed: Yes: I reviewed the patient's medical records. - Bin Inquiry Pt receiving controlled substance: No Vital Signs: 06/13/20 15:33 06/13/20 15:54 06/13/20 16:06 Temperature 98.3 F Temperature Source Oral Pulse Rate [Radial] 77 77 80 Respiratory Rate 22 Blood Pressure [Right Arm] 150/77 H 123/81 147/78 H Blood Pressure Mean [Right Arm] 101 95 101 Blood Pressure Source [Right Arm] Automatic Cuff Automatic Cuff Automatic Cuff Blood Pressure Position [Right Arm] Sitting Sitting Sitting 02 Sat by Pulse Oximetry 96 97 96 Oxygen Delivery Method Room Air Room Air - Lab Data Lab results reviewed: Yes: I reviewed the patient's lab results. Lab Results 06/13/20 15:57: WBC 7.9, RBC 4.70, Hgb 13.5, Hct 40.3, MCV 85.8, MCH 28.8, MCHC 33.5, RDW 14.6, Plt Count 237, MPV 7.7, Neut % (Auto) 59.4, Lymph % (Auto) 30.7, [place] % (Auto) 6.2, Eos % (Auto) 3.0, Baso % (Auto) 0.6, Neut # (Auto) 4.7, Lymph # (Auto) 2.4, [place] # (Auto) 0.5, Eos # (Auto) 0.2, Baso # (Auto) 0.1 06/13/20 15:57: Sodium 139, Potassium 4.0, Chloride 107, Carbon Dioxide 24, Anion Gap 12.0, BUN 14, Creatinine 0.80, Estimated Creat Clear 64, Estimated GFR 75, Est GFR ( Amer) 90, Glucose 131 H, Calcium 8.8, NT-Pro-B Natriuret Pep 179 H Result diagrams: 06/13/20 15:57 06/13/20 15:57 Medical Decision Narrative: Chest x-ray with no acute findings including no florid pulmonary edema, pneumonia, pneumothorax, widened mediastinum. Oxygen saturations are 97% on room air with a mask on. BNP is only mildly elevated. She has no chest pain, unlikely ACS. Her creatinine is within normal limits. No need for acute intervention at this time, advise follow-up with primary care provider within 2 to 3 days for reevaluation and with patient relations specialist tomorrow as planned. Resp/SOB HPI - General Chief Complaint: Shortness of Breath/Dyspnea Stated Complaint: sob Time Seen by Provider: 06/13/20 15:45 Mode of Arrival: Ambulatory Limitations: No Limitations Description of Symptoms (Recalled from ER Triage Doc. by RN): shortness of breath, swelling since yesterday. - History of Present Illness This is a 54-year-old female with a past medical history significant for hypertension, hyperlipidemia, diabetes, COPD, anxiety who presents to the emergency department for shortness of breath and increased ankle and hand swelling since yesterday. She does not urinate much, but does take diuretics for her congestive heart failure. She feels like her shortness of breath is worse when she lies back. She complains of a heavy sensation in her lungs. No fevers. She has a dry cough intermittently. No other exacerbating or alleviating factors. She follows up with cardiology tomorrow for further evaluation. She has been using her home pulmonary medications appropriately including her CPAP at night. - Related Data Home Medications Medication Instructions Recorded Confirmed albuterol sulfate 90 mcg/actuation 2 puff INHALATION Q6H PRN 11/27/17 05/26/20 aerosol inhaler buspirone 10 mg tablet 10
--- NOTE | 2020-06-13 15:49 | XR_ITS ---
PROCEDURE: XR CHEST PORTABLE CLINICAL HISTORY: soa COMPARISON: CR XR CHEST PORTABLE from 06/24/2019 CR XR CHEST 2V from 08/06/2019 CR XR CHEST PORTABLE from 05/26/[address] ANGIO CHEST from 05/26/2020 FINDINGS: The cardiomediastinal silhouette and pulmonary vascularity are within normal limits. Nodular opacity is present in the right lower lobe consistent with a granuloma. The remaining lungs are clear. No acute bony abnormalities. IMPRESSION: No acute findings. Dictated by: Valentin Evans MD 06/13/2020 16:27 Valentin Evans MD in [place] 06/13/2020 16:27
[2020-06-13 15:54] VITALS: BP 123/81; PULSE 77; O2SAT 97
[2020-06-13 16:06] VITALS: BP 147/78; PULSE 80; O2SAT 96
[2020-06-13 16:06] LABS: Basophils # 0.1 K/mm3 (0-0.2); Basophils % 0.6 % (0.1-2.0); Eosinophils # 0.2 K/mm3 (0.0-0.4); Hematocrit 40.3 % (37.0-47.0); Hemoglobin 13.5 g/dL (12.2-16.2); Lymphocytes # 2.4 K/mm3 (0.7-4.5); Lymphocytes % 30.7 % (10-50); Mean Corpuscular HGB Conc 33.5 g/dL (31.8-35.4); Mean Corpuscular Hemoglobin 28.8 pg (27.0-31.2); Mean Corpuscular Volume 85.8 fl (81-99); Mean Platelet Volume 7.7 fl (7.4-10.4); Monocytes # 0.5 K/mm3 (0.1-1.0); Monocytes % 6.2 % (1.7-9.3); Neutrophils # 4.7 K/mm3 (1.8-7.8); Neutrophils % 59.4 % (37.0-80.0); Platelet Count 237 K/mm3 (142-424); Red Cell Distribution Width 14.6 % (11.5-17.5); White Blood Count 7.9 K/mm3 (4.8-10.8)
[2020-06-13 16:14] LABS: Chloride 107 mmol/L (98-107); Sodium 139 mmol/L (136-145)
[2020-06-13 16:17] LABS: Blood Urea Nitrogen 14 mg/dl (7-17); Calcium 8.8 mg/dl (8.4-10.2); Carbon Dioxide 24 mmol/L (22.0-30.0); Creatinine Clearance Estimated 64 mL/min (50-200); Estimated Glomerular Filt Rate 75 ml/min (>60); GFR (African American) 90 ML/MIN (>60); Glucose 131 mg/dl (74-100)
--- NOTE | 2020-06-13 16:19 | PC.NURSE ---
Pt to rad.
[2020-06-13 16:27] LABS: NT Pro Brain Natriuretic Pep. 179 pg/mL (0-125)
[2020-06-13 16:42] VITALS: BP 147/78; PULSE 74; RESP 19; TEMP 36.8; O2SAT 97
== END 2020-06-13 16:42 | disposition home or self-care (01) ==
PROVIDERS: Emergency Provider Emergency Medicine; PCP Physician Assistant
DX: R60.0 Localized edema (principal); R06.02 Shortness of breath; I50.23 Acute on chronic systolic (congestive) heart failure; I10 Essential (primary) hypertension; E78.5 Hyperlipidemia, unspecified; E11.9 Type 2 diabetes mellitus without complications; J44.9 Chronic obstructive pulmonary disease, unspecified; F41.9 Anxiety disorder, unspecified; M79.7 Fibromyalgia; E03.9 Hypothyroidism, unspecified; Z79.899 Other long term (current) drug therapy; F17.210 Nicotine dependence, cigarettes, uncomplicated
CPT/HCPCS: 71045; 80048; 83880; 85025; 99282

== ENCOUNTER → 2020-09-27 15:19 | Outpatient (CLI) | payer MEDICAID, SELFPAY ==
--- NOTE | 2020-09-27 15:19 | CT_ITS ---
PROCEDURE: CT LUNG SCREENING CLINICAL INDICATION: Lung cancer screening Current smoker 30 pack year smoking history COMPARISON: CT CT ANGIO CHEST from 05/26/2020 TECHNIQUE: The exam was performed on a GE Light Speed [address] scanner using 2.90 mGy CTDI. A low dose helical CT CHEST was performed on a multi-detector scanner. All CT scans at the facility use one or more dose reduction, viz: automated exposure control, ma/kV adjustment per patient size (including targeted exams where dose is matched to indication, i.e. head), or iterative reconstruction technique. The LDCT was performed in a facility that meets the criteria for the screening program. Data regarding this exam was submitted to ACR which is an approved registry. The order for this exam indicates that it came as a result of a lung cancer screening counseling shard decision-making visit that included all the elements required of such a visit including smoking cessation. The radiologist interpreting this exam meets the [facility] criteria for the LDCT lung cancer screening program. The exam is reported using the Lung-RADS classification scale and reported to the ACR registry. NOTE: This study was performed for the specific purposes of lung cancer screening and is not an alternative to diagnostic chest CT. RADIATION DOSE: CTDI vol(CT dose Index-volume) = 2.90mG DLP (Dose Length Product) = 101.34 mGcm FINDINGS: There is evidence of old granulomatous disease. No suspicious pulmonary nodules are identified. Stable 4 mm subpleural nodule left lower lobe OTHER FINDINGS: Fatty liver. Prior cholecystectomy IMPRESSION: Lung-RADS Category 1 Negative Follow-up: Continue annual screening with LDCT in 12 months Dictated by: Valentin Evans MD 10/03/2020 08:52 Valentin Evans MD in [place] 10/03/2020 08:52
== END ==
PROVIDERS: PCP Emergency Medicine; Visit Provider Internal Medicine Pulmonary Disease
DX: Z87.891 Personal history of nicotine dependence (principal); Z12.2 Encounter for screening for malignant neoplasm of respiratory organs
CPT/HCPCS: 71271

== ENCOUNTER → 2020-10-12 13:47 | Outpatient (CLI) | payer MEDICAID, SELFPAY ==
[2020-10-12 14:06] LABS: Alanine Aminotransferase 48 U/L (12-78); Albumin Level 3.9 g/dl (3.5-5.0); Albumin/Globulin Ratio 1.2 (1.1-1.8); Alkaline Phosphatase 99 U/L (38-126); Anion Gap 11.8 mEq/L (5-15); Aspartate Amino Transferase 41 U/L (14-36); Bilirubin,Total 0.4 mg/dl (0.2-1.3); Blood Urea Nitrogen 12 mg/dl (7-17); Calcium 8.9 mg/dl (8.4-10.2); Carbon Dioxide 27 mmol/L (22.0-30.0); Chloride 107 mmol/L (98-107); Chol/HDL Ratio 5.2 (1-3.5); Cholesterol 196 mg/dl (140-200); Estimated Glomerular Filt Rate 74 ml/min (>60); GFR (African American) 90 ML/MIN (>60); Globulin 3.3 g/dL (1.3-3.2); Glucose 148 mg/dl (74-100); HDL Cholesterol 38 mg/dl (40-60); Potassium 4.8 mmoL/L (3.5-5.1); Sodium 141 mmol/L (136-145); Total Protein,Serum 7.2 g/dl (6.3-8.2); Triglycerides 204 mg/dl (30-150); VLDL Cholesterol 41 mg/dL (0-40)
[2020-10-12 14:17] LABS: Direct LDL Cholesterol 116.34 mg/dL (100-129)
[2020-10-12 14:22] LABS: Free T4 (Free Thyroxine) 1.09 ng/dl (0.78-2.19)
[2020-10-12 14:24] LABS: Basophils # 0.1 K/mm3 (0-0.2); Basophils % 0.7 % (0.1-2.0); Eosinophils # 0.2 K/mm3 (0.0-0.4); Eosinophils % 2.2 % (0.1-12.0); Hematocrit 44.6 % (37.0-47.0); Hemoglobin 14.1 g/dL (12.2-16.2); Lymphocytes # 2.6 K/mm3 (0.7-4.5); Lymphocytes % 29.6 % (10-50); Mean Corpuscular HGB Conc 31.5 g/dL (31.8-35.4); Mean Corpuscular Hemoglobin 27.9 pg (27.0-31.2); Mean Corpuscular Volume 88.4 fl (81-99); Monocytes # 0.5 K/mm3 (0.1-1.0); Monocytes % 5.8 % (1.7-9.3); Neutrophils # 5.4 K/mm3 (1.8-7.8); Neutrophils % 61.7 % (37.0-80.0); Platelet Count 239 K/mm3 (142-424); Red Blood Count 5.04 M/mm3 (4.20-5.40); Red Cell Distribution Width 14.8 % (11.5-17.5); White Blood Count 8.8 K/mm3 (4.8-10.8)
[2020-10-12 14:35] LABS: Microalbumin < 6.000 mg/L (0-16.7)
[2020-10-12 14:37] LABS: Thyroid Stimulating Hormone 3.73 uIU/mL (0.465-4.68)
[2020-10-12 15:37] LABS: Hemoglobin A1C 7.5 % (4.0-6.0)
== END ==
PROVIDERS: Visit Provider Physician Assistant
DX: Z00.00 Encounter for general adult medical examination without abnormal findings (principal); I10 Essential (primary) hypertension; E78.5 Hyperlipidemia, unspecified; E03.9 Hypothyroidism, unspecified; E11.9 Type 2 diabetes mellitus without complications; Z79.84 Long term (current) use of oral hypoglycemic drugs
CPT/HCPCS: 80053; 80061; 82043; 83036; 84439; 84443; 85025

== ENCOUNTER → 2020-11-09 14:18 | Outpatient (CLI) | payer MEDICAID, SELFPAY ==
--- NOTE | 2020-11-09 14:18 | MM_ITS ---
PROCEDURE: MM DIG MAMM BI DX W/CAD Digital Breast Tomosynthesis Included CLINICAL INDICATION: screening LT, LUMP RIGHT BREAST COMPARISON: MG DMSB DIG MAMM-SCREEN ALEJANDRO W/CAD from 08/02/2016 MG DXBI MM Dig mamm BI DX w/CAD from 09/18/2017 US BREASTRT US breast RT complete from 04/02/2018 MG DXRT MM Dig mamm DX unilat RT CAD from 04/02/2018 MG DXBI MM Dig mamm BI DX w/CAD from 10/16/2018 US US BREAST RT COMPLETE from 11/09/2020 TECHNIQUE: Standard CC and MLO images and 3D Tomosynthesis was obtained. R2 CAD reviewed. FINDINGS: Average fibroglandular tissue. No malignant appearing mass or malignant-appearing calcification. Benign-appearing calcifications are noted. No mammographic abnormality in the region of palpable concern at the 2 o'clock region of the right breast. Right breast ultrasound: In the 2 o'clock region there is a well-circumscribed oval 16 x 6 mm area of slight increased echogenicity suggesting a lipoma. Additional small lipoma at 7 mm suspected at 1 o'clock the. 2 cm lipoma noted at 3 o'clock. Small complicated cyst is present at 10 o'clock at 4 mm. A 5 mm complex cyst is noted at 11 o'clock near the nipple. IMPRESSION: Recommend six-month at the 2 o'clock region of the right breast. Complicated cysts right breast. BI-RAD Category: 3 Probably Benign Finding Short Term Follow-up FOLLOW-UP: Six-month follow-up ultrasound of the right breast. (A letter has been sent to the patient regarding results of the study.) Dictated by: Valentin Evans MD 11/18/2020 12:18 Valentin Evans MD in [place] 11/18/2020 12:18
== END ==
PROVIDERS: PCP Physician Assistant; Visit Provider Physician Assistant
DX: N63.10 Unspecified lump in the right breast, unspecified quadrant (principal)
CPT/HCPCS: 76641; 77062; 77066; G0279

== ENCOUNTER 2020-12-10 14:08 | Emergency (ER) | payer MEDICAID, SELFPAY ==
[2020-12-10 14:08] VITALS: BP 134/83; PULSE 94; RESP 28; TEMP 36.9; O2SAT 96; BMI 57.2; BMI 59.1
--- NOTE | 2020-12-10 14:12 | ECG_ITS ---
APPROVED REPORT Exam: Resting ECG HR:88 bpm ECG Measurements Heart Rate [address] 170 P 67 QRSd 86 QRS -43 QT 358 T 49 QTc 433 Conclusion Normal sinus rhythm Possible Left atrial enlargement Left axis deviation Abnormal ECG Electronically signed by : Manfred Gama, 12/11/2020 20:28:22
--- NOTE | 2020-12-10 14:17 | XR_ITS ---
PROCEDURE INFORMATION: Exam: XR Chest Exam date and time: 12/10/2020 2:17 PM Age: 55 years old Clinical indication: Shortness of breath; Patient HX: Smoker; Additional info: SOB TECHNIQUE: Imaging protocol: XR of the chest. Views: 1 view. COMPARISON: CR XR CHEST PORTABLE 06/13/2020 4:13 PM FINDINGS: Lungs: The lungs are hyperinflated, consistent with underlying small airways disease. Mild atelectatic changes within the lung bases without focal pneumonia. Pleural spaces: Unremarkable. No pleural effusion. No pneumothorax. Heart/Mediastinum: Unremarkable. No cardiomegaly. Bones/joints: Unremarkable. IMPRESSION: 1. The lungs are hyperinflated, consistent with underlying small airways disease. 2. Mild atelectatic changes within the lung bases without focal pneumonia.
--- NOTE | 2020-12-10 14:17 | HMH.EDGENADL ---
ED Disposition Clinical Impression: Acute exacerbation of chronic obstructive airways disease Disposition: Home, Self-Care Condition on Discharge: Fair Additional Instructions: Medications as directed. Return to the emergency department for fever, worsening cough, worsening shortness of breath. Referrals: Mariana Guillen PA [Primary Care Provider] - 3 days Time of Disposition: 16:18 - Critical Care Critical Care Time: No Attestation: On 12/10/20, the high probability of a clinically significant, sudden or life threatening deterioration of the following system(s) required my full and direct attention, intervention and personal management. The time I documented below is in addition to time spent performing reported procedures but includes the following listed in this critical care notation. Medical Decision Making - Medical Records Medical records reviewed: Yes: I reviewed the patient's medical records. - Bin Inquiry Pt receiving controlled substance: No Vital Signs: 12/10/20 14:08 12/10/20 14:31 Temperature 98.4 F Temperature Source Oral Pulse Rate 92 H Pulse Rate [Radial] 94 H Respiratory Rate 28 H 24 Blood Pressure 133/66 Blood Pressure [Right Arm] 134/83 Blood Pressure Mean 99 Blood Pressure Mean [Right Arm] 100 Blood Pressure Position [Right Arm] Sitting 02 Sat by Pulse Oximetry 96 95 Oxygen Delivery Method Room Air - Lab Data Lab results reviewed: Yes: I reviewed the patient's lab results. Lab Results 12/10/20 14:35: WBC 8.3, RBC 5.08, Hgb 14.1, Hct 42.9, MCV 84.4, MCH 27.6, MCHC 32.7, RDW 14.9, Plt Count 228, MPV 7.8, Neut % (Auto) 63.9, Lymph % (Auto) 25.7, [place] % (Auto) 7.1, Eos % (Auto) 2.7, Baso % (Auto) 0.6, Neut # (Auto) 5.3, Lymph # (Auto) 2.1, [place] # (Auto) 0.6, Eos # (Auto) 0.2, Baso # (Auto) 0.1 12/10/20 14:35: Sodium 138, Potassium 4.2, Chloride 104, Carbon Dioxide 28, Anion Gap 10.2, BUN 11, Creatinine 0.70, Estimated Creat Clear 75, Estimated GFR 87, Est GFR ( Amer) 105, Glucose 130 H, Calcium 8.9, Troponin I < 0.01, NT-Pro-B Natriuret Pep 38.7 Result diagrams: 12/10/20 14:35 12/10/20 14:35 Orders (Tests/Meds): ED MEDICATIONS Discontinued Medications Generic Name Dose Route Start Last Admin Trade Name Juanito PRN Reason Stop Dose Admin Albuterol/Ipratropium 3 ml 12/10/20 15:00 12/10/20 15:52 Ipratropium/Albuterol 3 Ml Neb IH 12/10/20 15:01 3 ml ONCE ONE Administration Azithromycin 500 mg 12/10/20 15:01 12/10/20 15:14 Azithromycin 250mg Tablet PO 12/10/20 15:02 500 mg ONCE ONE Administration Protocol Methylprednisolone Sodium Succinate 125 mg 12/10/20 15:00 12/10/20 15:08 Methylprednisolone Sod Succ 125mg Vial IV 12/10/20 15:01 125 mg ONCE ONE Administration ORDERS Category Date Time Status Full Resp Panel w/COVID ([facility]) Routine Lab 12/10/20 15:43 Ordered Troponin I Q3H Lab 12/10/20 17:30 Ordered Troponin I Q3H Lab 12/10/20 20:30 Ordered CA venous doppler LE BI Routine Y 12/10/20 14:49 Ordered - Radiology Data #1 Image(s): Chest Image Reviewed: Yes I reviewed the patient's radiology results Preliminary Findings: Abnormal Hyperinflated without signs of pneumonia - US Data US Images: Lower Extremity Preliminary Findings: Normal/NAD - ECG Data Tracing #1 Normal sinus rhythm, 88 bpm, no ST elevation or depression, normal intervals, no ectopy. ECG initial impression date: 12/10/20 ECG initial impression time: 14:15 Medical Decision Narrative: 55yo F presents the emergency department secondary to shortness of breath. Patient is in no acute distress on initial evaluation. Her O2 sats are greater than 94% on room air. Patient has very junky lungs on auscultation. Treated with Solu-Medrol, DuoNeb. Routine laboratory studies were ordered. Labs are unremarkable. Patient undergoes bilateral lower extremity Dopplers which are negative for signs of DVT. Patient's EKG is unremar
[2020-12-10 14:31] VITALS: BP 133/66; PULSE 92; RESP 24; O2SAT 95
--- NOTE | 2020-12-10 14:39 | PC.NURSE ---
vascular called in for doppler
[2020-12-10 14:49] LABS: Basophils # 0.1 K/mm3 (0-0.2); Basophils % 0.6 % (0.1-2.0); Eosinophils # 0.2 K/mm3 (0.0-0.4); Eosinophils % 2.7 % (0.1-12.0); Hematocrit 42.9 % (37.0-47.0); Hemoglobin 14.1 g/dL (12.2-16.2); Lymphocytes # 2.1 K/mm3 (0.7-4.5); Lymphocytes % 25.7 % (10-50); Mean Corpuscular HGB Conc 32.7 g/dL (31.8-35.4); Mean Corpuscular Hemoglobin 27.6 pg (27.0-31.2); Mean Corpuscular Volume 84.4 fl (81-99); Mean Platelet Volume 7.8 fl (7.4-10.4); Monocytes # 0.6 K/mm3 (0.1-1.0); Monocytes % 7.1 % (1.7-9.3); Neutrophils # 5.3 K/mm3 (1.8-7.8); Neutrophils % 63.9 % (37.0-80.0); Platelet Count 228 K/mm3 (142-424); Red Blood Count 5.08 M/mm3 (4.20-5.40); Red Cell Distribution Width 14.9 % (11.5-17.5); White Blood Count 8.3 K/mm3 (4.8-10.8)
--- NOTE | 2020-12-10 14:49 | CA_ITS ---
APPROVED REPORT Bilateral Lower Extremity Venous Study for Executive Manager: JOLANTA Indications soa, previous DVT-2019, patient on bloodthinners Risk Factors Prior Phlebitis/DVT Obesity Past History DVT : Vein Imaging CFV (R): compressive, spontaneous, phasic, augmentation FEM (R): compressive, spontaneous, phasic, augmentation POP (R): compressive, spontaneous, phasic, augmentation DFV (R): compressive, spontaneous, phasic, augmentation PTV (R): compressive, spontaneous, phasic, augmentation GSV (R): compressive, spontaneous, phasic, augmentation SSV (R): compressive, spontaneous, phasic, augmentation Peroneals (R):compressive, spontaneous, phasic, augmentation GAS (R): compressive, spontaneous, phasic, augmentation CFV (L): compressive, spontaneous, phasic, augmentation FEM (L): compressive, spontaneous, phasic, augmentation POP (L): compressive, spontaneous, phasic, augmentation DFV (L): compressive, spontaneous, phasic, augmentation PTV (L): compressive, spontaneous, phasic, augmentation GSV (L): compressive, spontaneous, phasic, augmentation SSV (L): compressive, spontaneous, phasic, augmentation Peroneals (L):compressive, spontaneous, phasic, augmentation GAS (L): compressive, spontaneous, phasic, augmentation Findings Tecnhnically difficult exam due to extreme large body habitus and imaging depths. Color flow duplex demonstrates no evidence of DVT of the following bilateral lower extremity Veins:Common Femoral Vein, Femoral Vein, Popliteal Vein, Posterior Tibial Veins, Peroneal Veins, Deep Femoral Vein. Conclusion Limited study due to body habitus. No evidence of DVT within the limitations of the study. Electronically signed by : Janell Frederick, 12/14/2020 16:50:35
[2020-12-10 15:01] VITALS: BP 140/73; PULSE 90; RESP 22; O2SAT 95
[2020-12-10 15:09] LABS: Chloride 104 mmol/L (98-107); Potassium 4.2 mmoL/L (3.5-5.1); Sodium 138 mmol/L (136-145)
[2020-12-10 15:12] LABS: Anion Gap 10.2 mEq/L (5-15); Blood Urea Nitrogen 11 mg/dl (7-17); Calcium 8.9 mg/dl (8.4-10.2); Carbon Dioxide 28 mmol/L (22.0-30.0); Creatinine Clearance Estimated 75 mL/min (50-200); Estimated Glomerular Filt Rate 87 ml/min (>60); GFR (African American) 105 ML/MIN (>60); Glucose 130 mg/dl (74-100)
[2020-12-10 15:21] LABS: NT Pro Brain Natriuretic Pep. 38.7 pg/mL (0-125)
[2020-12-10 15:25] LABS: Troponin I < 0.01 ng/ml (0.00-0.034)
[2020-12-10 15:35] VITALS: BP 129/78; PULSE 86; RESP 20; O2SAT 99
--- NOTE | 2020-12-10 15:50 | PC.NURSE ---
vascular here to do doppler
[2020-12-10 16:30] VITALS: BP 128/67; PULSE 91; RESP 20; TEMP 36.9; O2SAT 92
== END 2020-12-10 16:30 | disposition home or self-care (01) ==
PROVIDERS: Emergency Provider Family Medicine; PCP Physician Assistant
DX: J44.1 Chronic obstructive pulmonary disease with (acute) exacerbation (principal); E11.9 Type 2 diabetes mellitus without complications; E78.5 Hyperlipidemia, unspecified; I10 Essential (primary) hypertension; I73.9 Peripheral vascular disease, unspecified; E03.9 Hypothyroidism, unspecified; M79.7 Fibromyalgia; F41.8 Other specified anxiety disorders; F17.210 Nicotine dependence, cigarettes, uncomplicated; Z79.899 Other long term (current) drug therapy; Z87.891 Personal history of nicotine dependence
CPT/HCPCS: 71045; 80048; 83880; 84484; 85025; 93005; 93970; 96374; 99282

== ENCOUNTER 2020-12-14 11:35 | Emergency (ER) | payer MEDICAID, SELFPAY ==
[2020-12-14 11:36] VITALS: BP 164/77; PULSE 88; RESP 26; TEMP 36.6; O2SAT 95; BMI 58.3
[2020-12-14 11:41] VITALS: BMI 58.3
--- NOTE | 2020-12-14 11:48 | XR_ITS ---
PROCEDURE: XR CHEST PORTABLE CLINICAL HISTORY: SOA COMPARISON: CR XR CHEST PORTABLE from 05/26/[address] ANGIO CHEST from 05/26/2020 CR XR CHEST PORTABLE from 06/13/2020 CR XR CHEST PORTABLE from 12/10/2020 FINDINGS: Poorly penetrated, likely secondary to body habitus. Portable upright view of the chest. No lobar consolidation, pleural effusions or pneumothorax. Hazy opacity the cardiac size is at the upper limit of normal, likely accentuated by AP technique. Central pulmonary vasculature is within normal limits. Visualized osseous structures are unremarkable. IMPRESSION: No lobar consolidation or pleural effusions within the limitations of poorly penetrated portable upright view of the chest. Dictated by: Janell Frederick 12/14/2020 12:04 Janell Frederick in [place] 12/14/2020 12:04
--- NOTE | 2020-12-14 11:49 | PC.NURSE ---
notified rad and RT of new orders on pt.
--- NOTE | 2020-12-14 11:53 | HMH.EDGENADL ---
ED Disposition Clinical Impression: Shortness of breath Disposition: Home, Self-Care Condition on Discharge: Good Referrals: Provider,Referral, [Primary Care Provider] - Valery Woods MD [Physician] - 12/16/20 10:00 am Time of Disposition: 14:00 - Critical Care Critical Care Time: No Attestation: On 12/14/20, the high probability of a clinically significant, sudden or life threatening deterioration of the following system(s) required my full and direct attention, intervention and personal management. The time I documented below is in addition to time spent performing reported procedures but includes the following listed in this critical care notation. Medical Decision Making - Medical Records Medical records reviewed: Yes: I reviewed the patient's medical records. - Bin Inquiry Pt receiving controlled substance: No Vital Signs: 12/14/20 11:36 12/14/20 12:05 Temperature 97.9 F Temperature Source Oral Pulse Rate 77 Pulse Rate [Left Radial] 88 Respiratory Rate 26 H Blood Pressure [Left Arm] 164/77 H Blood Pressure Mean [Left Arm] 106 Blood Pressure Source [Left Arm] Automatic Cuff Blood Pressure Position [Left Arm] Sitting 02 Sat by Pulse Oximetry 95 Oxygen Delivery Method Room Air - Lab Data Lab results reviewed: Yes: I reviewed the patient's lab results. Lab Results 12/14/20 11:44: WBC 13.4 H, RBC 4.96, Hgb 13.8, Hct 42.6, MCV 85.9, MCH 27.9, MCHC 32.5, RDW 14.8, Plt Count 288 D, MPV 7.9, Neut % (Auto) 66.2, Lymph % (Auto) 25.5, [place] % (Auto) 5.2, Eos % (Auto) 2.5, Baso % (Auto) 0.6, Neut # (Auto) 8.9 H, Lymph # (Auto) 3.4, [place] # (Auto) 0.7, Eos # (Auto) 0.3, Baso # (Auto) 0.1 12/14/20 11:44: Sodium 139, Potassium 4.5, Chloride 104, Carbon Dioxide 27, Anion Gap 12.5, BUN 18 H, Creatinine 0.70, Estimated Creat Clear 72, Estimated GFR 87, Est GFR ( Amer) 105, Glucose 153 H, Calcium 9.2, Total Bilirubin 0.3, AST 41 H, ALT 51, Alkaline Phosphatase 96, Troponin I < 0.01, Total Protein 7.7, Albumin 4.3, Globulin 3.4 H, Albumin/Globulin Ratio 1.3 12/14/20 11:44: Lactate 1.3 12/14/20 11:44: NT-Pro-B Natriuret Pep 31.8 Result diagrams: 12/14/20 11:44 12/14/20 11:44 Orders (Tests/Meds): ED MEDICATIONS Discontinued Medications Generic Name Dose Route Start Last Admin Trade Name Freq PRN Reason Stop Dose Admin Albuterol/Ipratropium 3 ml 12/14/20 11:48 12/14/20 12:05 Ipratropium/Albuterol 3 Ml Neb IH 12/14/20 11:49 3 ml ONCE ONE Administration Iopamidol 70 ml 12/14/20 13:14 12/14/20 13:15 Iopamidol-370 (76%);100ml Bottle IV 12/14/20 13:15 70 ml ONCE ONE Administration Sodium Chloride 50 ml 12/14/20 13:14 12/14/20 13:15 0.9 % Sodium Chloride 50 Ml Vial IV 12/14/20 13:15 50 ml ONCE ONE Administration Sodium Chloride 10 ml 12/14/20 13:14 12/14/20 13:15 Sodium Chloride 0.9% 10ml Syr (Rad Only) IV 12/14/20 13:15 10 ml ONCE ONE Administration ORDERS Category Date Time Status Blood Culture Stat Micro 12/14/20 11:44 Received - Radiology Data #1 Image(s): Chest Image Reviewed: Yes I have reviewed radiologist's interpretation Preliminary Findings: Normal/NAD No acute findings Medical Decision Narrative: 55yo F evaluated for continued shortness of breath. Patient is in no acute distress on initial evaluation. Her lung sounds are still very coarse with end expiratory wheezes. Repeat work-up is initiated. Patient received DuoNeb with little to no improvement. Laboratory studies are unremarkable. Patient is sent for CT PE. CT PE is benign. Results discussed with patient at bedside. Patient states she has a follow-up pulmonology appointment in 2 to 3 months. Case discussed with Dr. Woods, who agrees to see the patient Saturday at 10 AM. This was shared with the patient at bedside. Stressed the importance of maintaining her follow-up appoint. General Adult HPI - General Chief complaint: Shortness of Breath/
[2020-12-14 12:05] VITALS: PULSE 77; PULSE 85
[2020-12-14 12:05] LABS: Basophils # 0.1 K/mm3 (0-0.2); Basophils % 0.6 % (0.1-2.0); Eosinophils # 0.3 K/mm3 (0.0-0.4); Eosinophils % 2.5 % (0.1-12.0); Hematocrit 42.6 % (37.0-47.0); Hemoglobin 13.8 g/dL (12.2-16.2); Lymphocytes # 3.4 K/mm3 (0.7-4.5); Lymphocytes % 25.5 % (10-50); Mean Corpuscular HGB Conc 32.5 g/dL (31.8-35.4); Mean Corpuscular Hemoglobin 27.9 pg (27.0-31.2); Mean Corpuscular Volume 85.9 fl (81-99); Mean Platelet Volume 7.9 fl (7.4-10.4); Monocytes # 0.7 K/mm3 (0.1-1.0); Monocytes % 5.2 % (1.7-9.3); Neutrophils # 8.9 K/mm3 (1.8-7.8); Neutrophils % 66.2 % (37.0-80.0); Platelet Count 288 K/mm3 (142-424); Red Blood Count 4.96 M/mm3 (4.20-5.40); Red Cell Distribution Width 14.8 % (11.5-17.5); White Blood Count 13.4 K/mm3 (4.8-10.8)
[2020-12-14 12:07] LABS: Chloride 104 mmol/L (98-107); Potassium 4.5 mmoL/L (3.5-5.1); Sodium 139 mmol/L (136-145)
[2020-12-14 12:10] LABS: Alanine Aminotransferase 51 U/L (12-78); Albumin Level 4.3 g/dl (3.5-5.0); Albumin/Globulin Ratio 1.3 (1.1-1.8); Alkaline Phosphatase 96 U/L (38-126); Anion Gap 12.5 mEq/L (5-15); Aspartate Amino Transferase 41 U/L (14-36); Bilirubin,Total 0.3 mg/dl (0.2-1.3); Blood Urea Nitrogen 18 mg/dl (7-17); Calcium 9.2 mg/dl (8.4-10.2); Carbon Dioxide 27 mmol/L (22.0-30.0); Creatinine Clearance Estimated 72 mL/min (50-200); Estimated Glomerular Filt Rate 87 ml/min (>60); GFR (African American) 105 ML/MIN (>60); Globulin 3.4 g/dL (1.3-3.2); Glucose 153 mg/dl (74-100); Total Protein,Serum 7.7 g/dl (6.3-8.2)
[2020-12-14 12:17] LABS: Lactic Acid 1.3 mmol/L (0.7-2.1)
[2020-12-14 12:19] LABS: NT Pro Brain Natriuretic Pep. 31.8 pg/mL (0-125)
[2020-12-14 12:25] LABS: Troponin I < 0.01 ng/ml (0.00-0.034)
--- NOTE | 2020-12-14 12:44 | CT_ITS ---
PROCEDURE: CT ANGIO CHEST CLINCIAL INDICATION: sob COMPARISON: CT CT ANGIO CHEST from 05/26/2020 TECHNIQUE: IV Contrast: 70ML Isovue 370 Axial images obtained with sagittal and coronal reformats. All CT scans at the facility use one or more dose reduction, viz: automated exposure control, ma/kV adjustment per patient size (including targeted exams where dose is matched to indication, i.e. head), or iterative reconstruction technique. FINDINGS: HEART AND MEDIASTINAL STRUCTURES: Adequate opacification of the bilateral pulmonary arteries are noted without evidence of filling defects. No evidence of pulmonary embolism. The heart size is normal. No pericardial effusions. Atherosclerotic vascular calcification of the thoracic aorta is noted. LUNGS AND PLEURAL SPACES: Calcified granuloma in the right lower lobe. Minor atelectasis in the right middle lobe and lingula. Minor ground-glass densities are noted in the bilateral upper and right middle lobes. No lobar consolidation, pleural effusions or pneumothorax. Atelectasis noted in the left upper lobe. The central tracheobronchial tree is patent. No suspicious lung nodules. BONY STRUCTURES: No acute bony abnormalities apparent. UPPER ABDOMEN: Cholecystectomy is noted. Otherwise the visualized upper abdominal solid organs are unremarkable within the limitations of the phase of IV contrast. ADDITIONAL FINDINGS: The visualized thyroid gland is unremarkable. IMPRESSION: No evidence of pulmonary embolism. Minor ground-glass densities noted in the bilateral upper and right middle lobes. The findings are nonspecific and may be seen in infectious/inflammatory processes including viral pneumonias. Dictated by: Janell Frederick 12/14/2020 13:42 Janell Frederick in [place] 12/14/2020 13:42
--- NOTE | 2020-12-14 13:05 | PC.NURSE ---
pt to ct
[2020-12-14 14:00] VITALS: BP 167/81; PULSE 84; RESP 17; TEMP 36.8; O2SAT 98
== END 2020-12-14 14:08 | disposition home or self-care (01) ==
PROVIDERS: Emergency Provider Family Medicine
DX: J44.1 Chronic obstructive pulmonary disease with (acute) exacerbation (principal); E11.65 Type 2 diabetes mellitus with hyperglycemia; I10 Essential (primary) hypertension; E78.5 Hyperlipidemia, unspecified; E03.9 Hypothyroidism, unspecified; F41.8 Other specified anxiety disorders; M79.7 Fibromyalgia; Z87.891 Personal history of nicotine dependence
CPT/HCPCS: 71045; 71275; 80053; 83605; 83880; 84484; 85025; 87040; 99282; Q9967

== ENCOUNTER 2020-12-16 10:43 | Inpatient (IN) | payer MEDICAID, SELFPAY ==
[2020-12-16 10:58] VITALS: BMI 56.5
[2020-12-16 11:14] VITALS: BP 156/93; PULSE 88; RESP 28; TEMP 36.6; O2SAT 97
[2020-12-16 13:25] LABS: Adenovirus,PCR Not Detected (NotDetected); Bordetella Pertussis Not Detected (NotDetected); Chlamydophila Pneumoniae, PCR Not Detected (NotDetected); Coronavirus 229E Not Detected (NotDetected); Coronavirus NL63 Not Detected (NotDetected); Coronavirus OC43 Not Detected (NotDetected); Coronovirus HKU1,PCR Not Detected (NotDetected); Human Metapneumovirus Not Detected (NotDetected); Influenza A, PCR Not Detected (NotDetected); Influenza AH1, 2009 Not Detected (NotDetected); Influenza AH1, PCR Not Detected (NotDetected); Influenza AH3,PCR Not Detected (NotDetected); Influenza B, PCR Not Detected (NotDetected); Mycoplasma Pneumoniae, PCR Not Detected (NotDetected); Parainfluenza 1, PCR Not Detected (NotDetected); Parainfluenza 2, PCR Not Detected (NotDetected); Parainfluenza 3, PCR Not Detected (NotDetected); Parainfluenza 4, PCR Not Detected (NotDetected); Respiratory Syncytial Virus Not Detected (NotDetected); Rhinovirus/Enterovirus Not Detected (NotDetected)
[2020-12-16 13:45] VITALS: PULSE 84; PULSE 88
--- NOTE | 2020-12-16 14:12 | XR_ITS ---
PROCEDURE: XR CHEST 2V CLINICAL HISTORY: soa COMPARISON: CR XR CHEST PORTABLE from 06/13/2020 CR XR CHEST PORTABLE from 12/10/[address] ANGIO CHEST from 12/14/2020 CR XR CHEST PORTABLE from 12/14/2020 FINDINGS: The cardiomediastinal silhouette and pulmonary vascularity are within normal limits. Slight increased markings in the right lower lung zone which may be due to an area of atelectasis or infiltrate. No acute bony abnormalities. IMPRESSION: Patchy atelectasis or infiltrate in the right lower lung zone Dictated by: Valentin Evans MD 12/19/2020 08:28 Valentin Evans MD in [place] 12/19/2020 08:28
[2020-12-16 14:29] LABS: Basophils # 0.1 K/mm3 (0-0.2); Basophils % 0.5 % (0.1-2.0); Eosinophils # 0.3 K/mm3 (0.0-0.4); Eosinophils % 2.5 % (0.1-12.0); Hematocrit 42.1 % (37.0-47.0); Hemoglobin 13.8 g/dL (12.2-16.2); Lymphocytes # 3.3 K/mm3 (0.7-4.5); Lymphocytes % 26.6 % (10-50); Mean Corpuscular HGB Conc 32.9 g/dL (31.8-35.4); Mean Corpuscular Hemoglobin 27.9 pg (27.0-31.2); Mean Corpuscular Volume 84.8 fl (81-99); Mean Platelet Volume 8.1 fl (7.4-10.4); Monocytes # 0.6 K/mm3 (0.1-1.0); Monocytes % 4.9 % (1.7-9.3); Neutrophils % 65.5 % (37.0-80.0); Platelet Count 265 K/mm3 (142-424); Red Blood Count 4.96 M/mm3 (4.20-5.40); Red Cell Distribution Width 14.6 % (11.5-17.5); White Blood Count 12.2 K/mm3 (4.8-10.8)
[2020-12-16 14:30] LABS: Chloride 102 mmol/L (98-107); Potassium 4.2 mmoL/L (3.5-5.1); Sodium 138 mmol/L (136-145)
[2020-12-16 14:32] LABS: Alanine Aminotransferase 45 U/L (12-78); Alkaline Phosphatase 96 U/L (38-126); Aspartate Amino Transferase 35 U/L (14-36); Bilirubin,Total 0.4 mg/dl (0.2-1.3); Blood Urea Nitrogen 15 mg/dl (7-17); Creatinine Clearance Estimated 63 mL/min (50-200); Estimated Glomerular Filt Rate 74 ml/min (>60); GFR (African American) 90 ML/MIN (>60)
[2020-12-16 14:33] LABS: Albumin Level 4.1 g/dl (3.5-5.0); Albumin/Globulin Ratio 1.2 (1.1-1.8); Anion Gap 9.2 mEq/L (5-15); Carbon Dioxide 31 mmol/L (22.0-30.0); Globulin 3.4 g/dL (1.3-3.2); Glucose 154 mg/dl (74-100); Total Protein,Serum 7.5 g/dl (6.3-8.2)
--- NOTE | 2020-12-16 14:55 | HMH.PULMCON ---
*Admission Date: 12/16/20 *Reason for consult:: Asthma exacerbation *History of present illness: 55-year-old male greater than [id number] smoking history previous smoker was following the pulmonary clinic for lung cancer screening and mild persistent asthma presented to the clinic complaining of worsening exertional dyspnea, difficulty breathing and shortness of breath and was eventually admitted to the hospital with possible asthma exacerbation. [facility] History Medical History: Reports:: Anxiety, Asthma, Congestive Heart Failure, Chronic Obstructive Pulmonary Disease (COPD), Depression, Diabetes Mellitus Type 2, Hyperlipidemia, Hypertension, Migraine, Peripheral Artery Disease Denies:: Cancer, Diabetes Mellitus Type 1, Internal Pacemaker, MRSA, Seizures *Have you ever received a pneumonia vaccine?: No *Have you received a flu vaccine this season?: No Other Medical History: Reports: Arthritis, Fibromyalgia, Hypothyroidism, Thyroid Disease (THYROIDECTOMY), Other. Denies: Blood Transfusion Reaction Laterality Cases: Left: Arthroscopy Knee Other Surgeries: Yes: Appendectomy, Cardiac Catheterization, Cholecystectomy, Colonoscopy, Hysterectomy-Total, Hysterectomy-Partial, Thyroidectomy, Other (removed blood clots behind left knee). No: Pacemaker Amputation: No Fractures: No - *Social History Smoking Status: Current every day smoker Tobacco Type: cigarettes # Packs/Day (cigarettes): 1 #Yrs smoked (if former smoker): 40 Alcohol Intake: never Alcohol Intake Frequency:: other Substance Use Type: denies use *Occupational Status:: disabled Housing: apartment Household Members: significant other *Travel in the last 8 weeks: None - Psychiatric History Pschychiatric History:: Reports:: Anxiety, Depression Family Hx:: Heart Attack, Hyperlipidemia, Hypertension ROS - Cons Reports fatigue, Reports headache(s), Denies fever(s) - Card Reports shortness of breath, Reports shortness of breath with activity, Reports leg swelling - Resp Respiratory: Reports chest congestion, Reports dyspnea, Reports dyspnea on exertion, Reports excessive phlegm production, Denies coughing up blood, Reports pain with cough, Reports cough with sputum production - GI Gastrointestingal: Denies: abdominal pain - [place] Musculoskeletal: Denies joint pain Meds Home Medications Medication Instructions Recorded Confirmed Type buspirone 10 mg tablet 10 mg PO TID tab 11/30/19 12/14/20 History escitalopram oxalate 10 mg tablet 10 mg PO DAILY tab 01/18/20 12/14/20 History Oxycodone HCl/Acetaminophen 1 tab PO TIDP PRN 05/26/20 12/16/20 History [Endocet 7.5-325 mg Tablet] dilTIAZem HCl [Diltiazem 240mg 240 mg PO DAILY 05/26/20 12/16/20 History 24Hr ER Cap] Furosemide [Lasix 80mg tab] 80 mg PO BID #60 tab 05/29/20 12/14/20 Rx gabapentin 600 mg tablet 600 mg PO TID tab 06/27/20 12/16/20 History fenofibrate nanocrystallized 145 145 mg PO DAILY #90 tab 07/31/20 12/16/20 Rx mg tablet metformin 500 mg tablet,extended 500 mg PO PM #90 tab 07/31/20 12/16/20 Rx release 24 hr lisinopril 20 mg tablet 20 mg PO DAILY #90 tab 09/27/20 12/16/20 Rx spironolactone 25 mg tablet 25 mg PO DAILY #30 tab 09/27/20 12/16/20 Rx alcohol swabs 1 pad TOPICAL QD-TID #200 each 09/29/20 12/14/20 Rx rivaroxaban 20 mg tablet 20 mg PO PM #30 tab 09/30/20 12/16/20 Rx albuterol sulfate 90 mcg/actuation 2 puff INHALATION Q6H PRN #8.5 g 12/07/20 12/14/20 Rx aerosol inhaler Ipratropium/Albuterol Sulfate 3 ml IH Q4H #30 neb 12/10/20 12/14/20 Rx [Duoneb 3mL neb] Aspirin [Low Dose Aspirin EC] See Rx Instructions .ROUTE .COMPLEX 12/16/20 12/16/20 History Cholecalciferol (Vitamin D3) See Rx Instructions .ROUTE .COMPLEX 12/16/20 12/16/20 History [Vitamin D3 1,000 Unit Tab] Ergocalciferol (Vitamin D2) See Rx Instructions .ROUTE .COMPLEX 12/16/20 12/16/20 History [Drisdol] Fluticasone/Salmeterol [Advair 1 inh INHALATION BID 12/16/20 12/16/20 History 250/50mcg Diskus] Levo
[2020-12-16 16:00] VITALS: BP 156/94; PULSE 92; RESP 24; TEMP 36.8; O2SAT 93
--- NOTE | 2020-12-16 17:25 | PC.NURSE ---
PT ONLY COMPLAINT HAS BEEN SOB. SHE HAS REMAINED ON RA. SHE HAD A COUGHING EPISODE WHICH LED TO HER VOMITING AND GETTING VERY SOB, PT WAS JPLACED ON 2L NC FOR 5 MINS AND IT HELPED PT CATCH HER BREATH. AWAITING TO HEAR BACK FROM MD. CURRENTLY PT IS SITTING ON SIDE OF BED EATING DINNER WITH NO COMPLAINTS. VSS. CALL LIGHT WITHIN REACH. WILL CONT. TO MONITOR.
[2020-12-16 17:28] LABS: POC Glucose,Bedside 237 (70-110)
[2020-12-16 17:45] VITALS: PULSE 97
--- NOTE | 2020-12-16 18:11 | CT_ITS ---
PROCEDURE INFORMATION: Exam: CTA Chest With Contrast Exam date and time: 12/16/2020 6:11 PM Age: 55 years old Clinical indication: Shortness of breath; Patient HX: SOB, dizziness; Additional info: Rule out pe TECHNIQUE: Imaging protocol: Computed tomographic angiography of the chest with contrast. 3D rendering (Not supervised by radiologist): MIP and/or 3D reconstructed images were created by the technologist. Total images: 684 Radiation optimization: All CT scans at this facility use at least one of these dose optimization techniques: automated exposure control; mA and/or kV adjustment per patient size (includes targeted exams where dose is matched to clinical indication); or iterative reconstruction. Contrast material: ISO 370; Contrast volume: 70 ml; Contrast route: INTRAVENOUS (IV); COMPARISON: CT ANGIO CHEST 12/14/2020 1:07 PM FINDINGS: Pulmonary arteries: The pulmonary arteries enhance appropriately with no evidence of pulmonary embolism. Aorta: The aorta enhances appropriately without evidence of dissection or aneurysm. No mediastinal hematoma. Thyroid: The left thyroid lobe is absent, either surgically or congenitally. The right thyroid lobe is unremarkable. This is unchanged. Lungs: Mild bilateral bronchial wall thickening suggesting bronchitis or bronchial edema, unchanged. Faint peripheral ground-glass alveolar opacities in the upper lobes, right greater than left, are mildly improved and could represent subsegmental atelectasis or improving mild peripheral pneumonia. Bandlike atelectasis in the right middle lobe medial segment is new. No pulmonary mass lesions are identified. Pleural spaces: No pleural effusion. No pneumothorax. Heart: Heart size normal. No pericardial effusion. Mediastinal space: Granulomatous calcifications in the right lung and subcarinal distribution. The esophagus is largely contracted but demonstrates no gross abnormality. Lymph nodes: No supraclavicular or axillary adenopathy. No mediastinal or hilar adenopathy. Liver: Moderate fatty infiltration of the liver. Evidence of prior cholecystectomy with no significant dilatation of the common bile duct. Bones/joints: No acute osseous abnormalities are identified. Soft tissues: The soft tissues of the chest wall demonstrate no acute abnormality. IMPRESSION: 1. No evidence of pulmonary embolism or aortic dissection. 2. Bilateral bronchial wall thickening suggesting mild-moderate bronchitis/bronchiolitis versus bronchial edema, unchanged. No bronchiectasis. 3. The patchy peripheral ground-glass alveolar opacities in the upper lobes, right greater than left, are mildly improved and could represent improving subsegmental atelectasis or improving mild peripheral pneumonia. No evidence of cavitation/abscess. 4. Additional non-emergent findings detailed above.
--- NOTE | 2020-12-16 18:49 | HMH.HP ---
*Admission Date: 12/16/20 *Chief complaint: dyspnea *History of present illness: Patient is a 55-year-old white female with a history of asthma and previous tobacco usage. She was seen in the pulmonary service for a lung cancer screening and made note of progressive dyspnea with wheezing. She was admitted for further evaluation and management. Patient has several comorbid features including morbid obesity, ingestive heart failure, diabetes type 2, mood disorder, history of DVT, history of asthma, history of hypothyroidism, history of migraine headache. Dr. Woods saw and evaluated the patient, offered her a 1 time dose of Lasix 80 IV. Patient has had a progression in her dyspnea, we are sending her for a CTA to rule out a pulmonary embolism. Will look to more fully delineate the anatomy inside her chest. Patient relays that she has had asthma in the past, but never to this degree. She also relays that she had Covid over the winter, had minimal symptoms. [facility] History Medical History: Reports:: Anxiety, Asthma, Congestive Heart Failure, Chronic Obstructive Pulmonary Disease (COPD), Depression, Diabetes Mellitus Type 2, Hyperlipidemia, Hypertension, Migraine, Peripheral Artery Disease Denies:: Cancer, Diabetes Mellitus Type 1, Internal Pacemaker, MRSA, Seizures *Have you ever received a pneumonia vaccine?: No *Have you received a flu vaccine this season?: No Other Medical History: Reports: Arthritis, Fibromyalgia, Hypothyroidism, Thyroid Disease (THYROIDECTOMY), Other. Denies: Blood Transfusion Reaction Laterality Cases: Left: Arthroscopy Knee Other Surgeries: Yes: Appendectomy, Cardiac Catheterization, Cholecystectomy, Colonoscopy, Hysterectomy-Total, Hysterectomy-Partial, Thyroidectomy, Other (removed blood clots behind left knee). No: Pacemaker Amputation: No Fractures: No - *Social History Smoking Status: Current every day smoker Tobacco Type: cigarettes # Packs/Day (cigarettes): 1 #Yrs smoked (if former smoker): 40 Alcohol Intake: never Alcohol Intake Frequency:: other Substance Use Type: denies use *Occupational Status:: disabled Housing: apartment Household Members: significant other *Travel in the last 8 weeks: None - Psychiatric History Pschychiatric History:: Reports:: Anxiety, Depression Family Hx:: Heart Attack, Hyperlipidemia, Hypertension Review of Systems - Constitutional Reports weakness - Eyes Denies bulging eyes - ENT Reports sore throat - *Cardiovascular Reports shortness of breath, Reports shortness of breath with activity - *Respiratory Reports shortness of breath, Reports wheezing - *Gastrointestinal Reports nausea, Denies abdominal pain - *Genitourinary Denies difficulty urinating - *Musculoskeletal Reports muscle weakness - Integumentary/Breasts Denies yellowing of the skin - *Neurologic Reports headache(s), Reports weakness - Psychiatric Denies behavioral changes - Endocrine Denies cold intolerance - Hematologic/Lymphatic Denies easy bleeding - Allergic/Immunologic Reports wheezing, Denies hives Meds Home Medications Medication Instructions Recorded Confirmed Type buspirone 10 mg tablet 10 mg PO TID tab 11/30/19 12/14/20 History escitalopram oxalate 10 mg tablet 10 mg PO DAILY tab 01/18/20 12/14/20 History Oxycodone HCl/Acetaminophen 1 tab PO TIDP PRN 05/26/20 12/16/20 History [Endocet 7.5-325 mg Tablet] dilTIAZem HCl [Diltiazem 240mg 240 mg PO DAILY 05/26/20 12/16/20 History 24Hr ER Cap] Furosemide [Lasix 80mg tab] 80 mg PO BID #60 tab 05/29/20 12/14/20 Rx gabapentin 600 mg tablet 600 mg PO TID tab 06/27/20 12/16/20 History fenofibrate nanocrystallized 145 145 mg PO DAILY #90 tab 07/31/20 12/16/20 Rx mg tablet metformin 500 mg tablet,extended 500 mg PO PM #90 tab 07/31/20 12/16/20 Rx release 24 hr lisinopril 20 mg tablet 20 mg PO DAILY #90 tab 09/27/20 12/16/20 Rx spironolactone 25 mg tablet 25 mg PO DAILY #30 tab 09/27/20 12/16/20 Rx a
[2020-12-16 20:00] VITALS: BP 146/94; PULSE 101; RESP 19; TEMP 36.6; O2SAT 91; O2SAT 94
[2020-12-16 21:08] VITALS: PULSE 100; PULSE 101; O2SAT 94
[2020-12-16 22:21] LABS: POC Glucose,Bedside 281 (70-110)
[2020-12-17] VITALS (8 sets, daily range): BP systolic 134–161; BP diastolic 71–89; PULSE 87–110; RESP 19–24; TEMP 36.5–36.7; O2SAT 91–96; BMI 56.9
--- NOTE | 2020-12-17 04:11 | PC.NURSE ---
PT HAS DONE WELL THIS SHIFT. NO ACUTE CHANGES. PT DOES BECOME SOB ON AMBULATION AND HAS APPLIED O2 NEEDED FOR SHORT PERIODS. PT IS A&0X4. VSS. INSPIRATORY AND EXPIRATORY RHONCHI HEARD IN ALL WHYTE AND HAS REMAINED UNCHANGED. PT HAS RESTED WELL. IV SALINE LOCKED. WILL CONTINUE TO MONITOR.
[2020-12-17 05:14] LABS: POC Glucose,Bedside 287 (70-110)
[2020-12-17 05:41] LABS: Basophils # 0.1 K/mm3 (0-0.2); Basophils % 0.3 % (0.1-2.0); Eosinophils # 0.1 K/mm3 (0.0-0.4); Eosinophils % 0.5 % (0.1-12.0); Hematocrit 43.6 % (37.0-47.0); Hemoglobin 14.3 g/dL (12.2-16.2); Lymphocytes # 1.7 K/mm3 (0.7-4.5); Lymphocytes % 7.3 % (10-50); Mean Corpuscular HGB Conc 32.7 g/dL (31.8-35.4); Mean Corpuscular Hemoglobin 27.4 pg (27.0-31.2); Mean Corpuscular Volume 83.8 fl (81-99); Mean Platelet Volume 7.7 fl (7.4-10.4); Monocytes # 0.2 K/mm3 (0.1-1.0); Monocytes % 0.9 % (1.7-9.3); Neutrophils # 20.8 K/mm3 (1.8-7.8); Platelet Count 273 K/mm3 (142-424); Red Blood Count 5.21 M/mm3 (4.20-5.40); Red Cell Distribution Width 14.7 % (11.5-17.5)
[2020-12-17 05:43] LABS: Alanine Aminotransferase 76 U/L (12-78); Albumin Level 4.2 g/dl (3.5-5.0); Albumin/Globulin Ratio 1.2 (1.1-1.8); Alkaline Phosphatase 96 U/L (38-126); Anion Gap 16.2 mEq/L (5-15); Aspartate Amino Transferase 42 U/L (14-36); Bilirubin,Total 0.4 mg/dl (0.2-1.3); Blood Urea Nitrogen 17 mg/dl (7-17); Calcium 8.9 mg/dl (8.4-10.2); Carbon Dioxide 22 mmol/L (22.0-30.0); Chloride 102 mmol/L (98-107); Creatinine Clearance Estimated 69 mL/min (50-200); Estimated Glomerular Filt Rate 87 ml/min (>60); GFR (African American) 105 ML/MIN (>60); Globulin 3.6 g/dL (1.3-3.2); Glucose 323 mg/dl (74-100); Potassium 4.2 mmoL/L (3.5-5.1); Sodium 136 mmol/L (136-145); Total Protein,Serum 7.8 g/dl (6.3-8.2)
[2020-12-17 05:48] LABS: White Blood Count 22.9 K/mm3 (4.8-10.8)
[2020-12-17 05:49] LABS: MANUAL DIFFERENTIAL MANUAL DIFFERENTIAL (MANUAL DIFF)
[2020-12-17 06:37] LABS: Lymphocytes % 11 % (10-50); Monocytes % 1 % (2-9); Neutrophils % 87 % (42-76); Platelet Estimate Normal; RBC Morphology Normal; Total Cells Counted 100
--- NOTE | 2020-12-17 09:09 | HMH.ACPN2 ---
Internal Medicine - PN: Subj *Date: 12/18/20 *Time: 06:37 Interval history: doing better - inc wbc prob steroids Exam Vital signs and Labs for Last 24 Hours: Temp Pulse Resp BP Pulse Ox 97.9 F 100 H 20 146/74 H 93 L 12/17/20 07:40 12/17/20 07:40 12/17/20 07:40 12/17/20 07:40 12/17/20 07:40 Laboratory Results - last 24 hr 12/16/20 11:15: WBC 12.2 H, RBC 4.96, Hgb 13.8, Hct 42.1, MCV 84.8, MCH 27.9, MCHC 32.9, RDW 14.6, Plt Count 265, MPV 8.1, Neut % (Auto) 65.5, Lymph % (Auto) 26.6, [place] % (Auto) 4.9, Eos % (Auto) 2.5, Baso % (Auto) 0.5, Neut # (Auto) 8.0 H, Lymph # (Auto) 3.3, [place] # (Auto) 0.6, Eos # (Auto) 0.3, Baso # (Auto) 0.1 12/16/20 11:15: Sodium 138, Potassium 4.2, Chloride 102, Carbon Dioxide 31 H, Anion Gap 9.2, BUN 15, Creatinine 0.80, Estimated Creat Clear 63, Estimated GFR 74, Est GFR ( Amer) 90, Glucose 154 H, Calcium 9.0, Total Bilirubin 0.4, AST 35, ALT 45, Alkaline Phosphatase 96, Total Protein 7.5, Albumin 4.1, Globulin 3.4 H, Albumin/Globulin Ratio 1.2 12/16/20 13:20: Chlamy pneumoniae PCR Not detected, Adenovirus (PCR) Not detected, B. pertussis DNA (PCR) Not detected, Coronavirus OC43 (PCR) Not detected, Coronavirus HKU1 (PCR) Not detected, Coronavirus 229E (PCR) Not detected, Coronavirus NL63 (PCR) Not detected, Human Metapneumovir PCR Not detected, Influenza A (H1) PCR Not detected, Influ A (H1N1/09) PCR Not detected, Influenza A (H3) PCR Not detected, Influenza Type A (PCR) Not detected, Influenza Type B (PCR) Not detected, M. pneumoniae (PCR) Not detected, Parainfluenza 1 (PCR) Not detected, Parainfluenza 2 (PCR) Not detected, Parainfluenza 3 (PCR) Not detected, Parainfluenza 4 (PCR) Not detected, RSV (PCR) Not detected, Entero/Rhino (PCR) Not detected 12/16/20 17:14: POC Glucose 237 H 12/16/20 21:58: POC Glucose 281 H 12/17/20 05:05: POC Glucose 287 H 12/17/20 05:30: WBC 22.9 H* D, RBC 5.21, Hgb 14.3, Hct 43.6, MCV 83.8, MCH 27.4, MCHC 32.7, RDW 14.7, Plt Count 273, MPV 7.7, Neut % (Auto) 91.0 H, Lymph % (Auto) 7.3 L, [place] % (Auto) 0.9 L, Eos % (Auto) 0.5, Baso % (Auto) 0.3, Neut # (Auto) 20.8 H, Lymph # (Auto) 1.7, [place] # (Auto) 0.2, Eos # (Auto) 0.1, Baso # (Auto) 0.1, Total Counted 100, Neutrophils % (Manual) 87 H, Band Neutrophils % 1.0, Lymphocytes % (Manual) 11, Monocytes % (Manual) 1 L, Platelet Estimate Normal, RBC Morphology Normal 12/17/20 05:30: Sodium 136, Potassium 4.2, Chloride 102, Carbon Dioxide 22 D, Anion Gap 16.2 H, BUN 17, Creatinine 0.70, Estimated Creat Clear 69, Estimated GFR 87, Est GFR ( Amer) 105, Glucose 323 H D, Calcium 8.9, Total Bilirubin 0.4, AST 42 H, ALT 76 D, Alkaline Phosphatase 96, Total Protein 7.8, Albumin 4.2, Globulin 3.6 H, Albumin/Globulin Ratio 1.2 I & O for Last 24 hours: Intake & Output 12/14/20 12/15/20 12/16/20 12/17/20 11:59 11:59 11:59 11:59 Intake Total 1080 / 1080 Output Total 1250 / 1250 Balance -170 / -170 Weight 309 lb 5 oz 309 lb 5.007 oz Microbiology Reports for the Last 24 Hours: Microbiology 12/16/20 11:20 Nasopharyngeal Coronavirus COVID-19 PCR - Final - Constitutional no acute distress, obese - *Routine HEENT Exam Head: Present: normocephalic Eye: Present: EOMI, PERRL ENT: Present: mucous membranes dry - *Routine Neck Exam Present: supple. Absent: JVD - *Routine Respiratory Exam Present: decreased breath sounds, wheezes - *Routine Cardiovascular Exam Present: RRR, murmur, S4 - *Routine Abdominal Exam Present: soft - *Routine Extremities Exam Absent: calf tenderness - *Routine Skin Exam Present: intact - *Routine Neurological Exam Present: alert, CN II-XII intact - Routine Psychiatric Exam Present: normal affect Assessment and Plan (1) Hypothyroidism Status: Chronic Qualifiers: Hypothyroidism type: unspecified Qualified Code(s): E03.9 - Hypothyroidism, unspecified Category: Medical Code(s): E03.9 - Hypothyroidism, unspecified (2) Shortness of glenys
[2020-12-17 11:32] LABS: POC Glucose,Bedside 392 (70-110)
--- NOTE | 2020-12-17 13:58 | HMH.PHAVTE ---
[facility] Pharm[facility] VTE Monitoring - Patient Demographics Admission date: 12/16/20 Report Date: 12/17/20 Time: 13:58 Allergies/Adverse Reactions: Patient Allergies No Known Allergies Allergy (Verified 12/14/20 10:25) Height: 1.57 m Weight: 140.302 kg Patient Problems: Current Active Problems (Last Updated 03/27/18 @ 08:52 by ARABELLA Lowry) Asthma (Acute) Shortness of breath (Acute) Low back pain (Chronic) Hypothyroidism (Chronic) Dyspnea (Chronic) History of thrombosis of lower extremity (Chronic) Diabetes (Chronic) Hypertension (Chronic) CHF (congestive heart failure) (Chronic) - VTE Risk Labs: VTE Related Lab Results Hgb 14.3 g/dL (12.2-16.2) 12/17/20 05:30 Hct 43.6 % (37.0-47.0) 12/17/20 05:30 Plt Count 273 K/mm3 (142-424) 12/17/20 05:30 BUN 17 mg/dl (7-17) 12/17/20 05:30 Creatinine 0.70 mg/dl (0.52-1.04) 12/17/20 05:30 Estimated Creat Clear 69 mL/min (50-200) 12/17/20 05:30 Was VTE Risk Assessment Performed: No VTE Score: 8 VTE Risk Level: Moderate Risk - Prophylaxis VTE Prophylaxis Ordered?: Yes Types of VTE Prophylaxis: TEDS Knee High Location of Applied Device: Bilateral Lower Extremeties
--- NOTE | 2020-12-17 15:34 | PC.NURSE ---
Remains on room air. Lungs diminished throughout. Non-productive occasional cough noted. Abdomen soft, non-tender w/ active Bs in all quads. +2 edema noted to BLE. Pt ambulates independently back and forth to bathroom. Showered independently. Has sat up in chair majority of shift. Blood sugars remain high, treated per OCT. C/o headache this shift as well, medicated per OCT w/ tylenol. Currently visiting w/ family. No needs @ this time. Call yessenia w/in reach.
[2020-12-17 16:03] LABS: POC Glucose,Bedside 380 (70-110)
[2020-12-17 20:34] LABS: POC Glucose,Bedside 408 (70-110)
[2020-12-18] VITALS (13 sets, daily range): BP systolic 124–168; BP diastolic 73–98; PULSE 87–102; RESP 20–28; TEMP 36.3–36.5; O2SAT 93–98; BMI 56.0
--- NOTE | 2020-12-18 02:10 | PC.NURSE ---
temp now 98.4, patient awake moaning but states that is starting to feel better. incision dressings small amount of ss drainage.
[2020-12-18 05:34] LABS: POC Glucose,Bedside 342 (70-110)
--- NOTE | 2020-12-18 09:30 | HMH.ACPN2 ---
Internal Medicine - PN: Subj *Date: 12/19/20 *Time: 07:24 Interval history: doing better - oob - but still with wheezing Exam Vital signs and Labs for Last 24 Hours: Temp Pulse Resp BP Pulse Ox 97.7 F 100 H 24 168/95 H 96 12/18/20 07:53 12/18/20 07:53 12/18/20 07:53 12/18/20 07:53 12/18/20 07:53 Laboratory Results - last 24 hr 12/17/20 11:24: POC Glucose 392 H* 12/17/20 15:50: POC Glucose 380 H* 12/17/20 20:13: POC Glucose 408 H* 12/18/20 05:20: POC Glucose 342 H* I & O for Last 24 hours: Intake & Output 12/15/20 12/16/20 12/17/20 12/18/20 11:59 11:59 11:59 11:59 Intake Total 1080 / 1080 2554 / 2554 Output Total 4650 / 4650 1450 / 1450 Balance -3570 / -3570 1104 / 1104 Weight 309 lb 5 oz 309 lb 5.007 oz 304 lb 6 oz - Constitutional no acute distress, obese - *Routine HEENT Exam Head: Present: normocephalic Eye: Present: EOMI, PERRL ENT: Present: mucous membranes dry - *Routine Neck Exam Present: supple - *Routine Respiratory Exam Present: decreased breath sounds - *Routine Cardiovascular Exam Present: RRR - *Routine Abdominal Exam Present: soft - *Routine Extremities Exam Absent: calf tenderness - *Routine Skin Exam Present: intact - *Routine Neurological Exam Present: alert, CN II-XII intact - Routine Psychiatric Exam Present: normal affect Assessment and Plan (1) Hypothyroidism Status: Chronic Qualifiers: Hypothyroidism type: unspecified Qualified Code(s): E03.9 - Hypothyroidism, unspecified Category: Medical Code(s): E03.9 - Hypothyroidism, unspecified (2) Shortness of breath Status: Acute Category: Medical Code(s): R06.02 - Shortness of breath (3) CHF (congestive heart failure) Status: Chronic Qualifiers: Heart failure type: diastolic Heart failure chronicity: acute on chronic Qualified Code(s): I50.33 - Acute on chronic diastolic (congestive) heart failure Category: Medical Code(s): I50.9 - Heart failure, unspecified (4) Diabetes Status: Chronic Qualifiers: Diabetes mellitus type: type 2 Diabetes mellitus equipment operator intermodal yard insulin use: unspecified prison insulin use status Diabetes mellitus complication status: with other specified complication Qualified Code(s): E11.69 - Type 2 diabetes mellitus with other specified complication Category: Medical Code(s): E11.9 - Type 2 diabetes mellitus without complications (5) Dyspnea Status: Chronic Qualifiers: Dyspnea type: shortness of breath Qualified Code(s): R06.02 - Shortness of breath Category: Medical Code(s): R06.00 - Dyspnea, unspecified (6) History of thrombosis of lower extremity Status: Chronic Category: Medical Code(s): Z86.718 - Personal history of other venous thrombosis and embolism (7) Hypertension Status: Chronic Qualifiers: Hypertension type: essential hypertension Qualified Code(s): I10 - Essential (primary) hypertension Category: Medical Code(s): I10 - Essential (primary) hypertension (8) Low back pain Status: Chronic Qualifiers: Chronicity: unspecified Back pain laterality: right Sciatica presence: with sciatica Sciatica laterality: sciatica of right side Qualified Code(s): M54.41 - Lumbago with sciatica, right side Category: Medical Code(s): M54.5 - Low back pain (9) Asthma Status: Acute Qualifiers: Asthma severity: severe Asthma persistence: unspecified Asthma complication type: unspecified Qualified Code(s): J45.909 - Unspecified asthma, uncomplicated Category: Medical Code(s): J45.909 - Unspecified asthma, uncomplicated (10) Obesity Status: Chronic Qualifiers: Obesity type: due to excess calories Obesity classification: adult class 3 (BMI >= 40) Serious obesity comorbidity presence: with serious comorbidity Body mass index: BMI 50.0-59.9 Qualified Code(s): E66.01 - Morbid (severe) obesity due to excess calories; Z68
[2020-12-18 10:24] LABS: Microscopic, Urine URINE MICROSCOPIC (MICROSCOPIC)
[2020-12-18 10:38] LABS: Appearance,Urine CLEAR (Clear); Bilirubin,Urine Negative (Negative); Blood, Urine TRACE-L (Negative); Color,Urine YELLOW (Yellow); Glucose,Urine (UA) 3+ (Negative); Ketones,Urine Negative (Negative); Leukocyte Esterase,Urine Negative (Negative); Nitrate,Urine Negative (Negative); Protein,Urine Negative (Negative); Urobilinogen,Urine 0.2 EU/dl (0.2)
[2020-12-18 10:48] LABS: Bacteria,Urine Trace /lpf; RBC,Urine Occasional #/hpf (0-3); Squamous Epithelial Cell,Urine Occasional #/hpf (0-5); WBC,Urine Occasional #/hpf (0-3)
[2020-12-18 12:11] LABS: POC Glucose,Bedside 373 (70-110)
--- NOTE | 2020-12-18 13:28 | HMH.PHAINT ---
HOME MEDICATIONS RECONCILED FROM PHARMACY FILL HISTORY.
[2020-12-18 17:17] LABS: POC Glucose,Bedside 408 (70-110)
[2020-12-18 20:37] LABS: POC Glucose,Bedside 337 (70-110)
--- NOTE | 2020-12-18 23:15 | ECG_ITS ---
APPROVED REPORT Exam: Resting ECG HR:76 bpm ECG Measurements Heart Rate 76 AXES CO 146 P 73 QRSd 108 QRS -22 QT 388 T 45 QTc 436 Conclusion Normal sinus rhythm Normal ECG Electronically signed by : Manfred Gama, 12/19/2020 17:44:14
--- NOTE | 2020-12-18 23:49 | PC.NURSE ---
Pt c/o chest pain while receiving breathing Tx @ 2314. EKG was obtained at 2315 and read by ER . NSR. Pt requested medication for pain. MD Gama notified. New orders received. Morphine 2 mg IV Q4 prn.
--- NOTE | 2020-12-18 23:54 | PC.NURSE ---
2300 patient cried out loudly, RN entered room to investigate sound. patient found to be having continuous short rhythmic contractions, all four extremities extended and stiff. head jerking to right side, bilateral eyes rolled back. breathing pattern varies from apneic for a few seconds followed by slightly labored breathing. episode lasted approximately 1.5 min, patient baseline is nonverbal, patient will not follow commands after episode. vs 149/85, hr 100, 96% on ra, 24 rr, temp 99. patient previously on seizure precautions. seizure pads in place, suction set up at bedside. at 2304 patient began having same symptoms as above noted, this episode lasting 2 min. RN receiving orders from physician while jerking going on. new orders received for 1 mg ativan ivp and 1250 mg keppra ivpb.
[2020-12-19] VITALS (9 sets, daily range): BP systolic 125–159; BP diastolic 45–95; PULSE 62–89; RESP 19–24; TEMP 36.4–36.9; O2SAT 94–98; BMI 57.2
--- NOTE | 2020-12-19 00:20 | PC.NURSE ---
patient becomes dyspneic with exertion, labored breathing patterns. patient will take oxygen off at this time and hold in hands, patient has had no further complaints of chest pain. strong tobacco smell has been present in room for last two days, patient denies smoking in room and staff has not seen evidence.
[2020-12-19 06:11] LABS: POC Glucose,Bedside 298 (70-110)
--- NOTE | 2020-12-19 07:38 | PC.NURSE ---
patient has continued to have heaviness in chest, additional dose of morphine given this am with adequate results. patient sitting in chair with o2 on. breathing pattern labored, rr 26.
[2020-12-19 09:45] LABS: Chloride 100 mmol/L (98-107); Sodium 140 mmol/L (136-145)
[2020-12-19 09:46] LABS: Potassium 4.4 mmoL/L (3.5-5.1)
[2020-12-19 09:48] LABS: Alanine Aminotransferase 102 U/L (12-78); Albumin Level 4.3 g/dl (3.5-5.0); Albumin/Globulin Ratio 1.3 (1.1-1.8); Alkaline Phosphatase 84 U/L (38-126); Anion Gap 14.4 mEq/L (5-15); Aspartate Amino Transferase 85 U/L (14-36); Bilirubin,Total 0.4 mg/dl (0.2-1.3); Blood Urea Nitrogen 34 mg/dl (7-17); Carbon Dioxide 30 mmol/L (22.0-30.0); Creatinine Clearance Estimated 53 mL/min (50-200); Estimated Glomerular Filt Rate 65 ml/min (>60); GFR (African American) 79 ML/MIN (>60); Globulin 3.4 g/dL (1.3-3.2); Total Protein,Serum 7.7 g/dl (6.3-8.2)
[2020-12-19 09:49] LABS: Calcium 8.7 mg/dl (8.4-10.2); Glucose 311 mg/dl (74-100)
[2020-12-19 09:51] LABS: Basophils # 0.1 K/mm3 (0-0.2); Basophils % 0.4 % (0.1-2.0); Eosinophils % 0.1 % (0.1-12.0); Hematocrit 45.5 % (37.0-47.0); Hemoglobin 13.7 g/dL (12.2-16.2); Lymphocytes # 1.9 K/mm3 (0.7-4.5); Lymphocytes % 8.3 % (10-50); Mean Corpuscular HGB Conc 30.1 g/dL (31.8-35.4); Mean Corpuscular Hemoglobin 26.9 pg (27.0-31.2); Mean Corpuscular Volume 89.2 fl (81-99); Mean Platelet Volume 7.7 fl (7.4-10.4); Monocytes # 1.4 K/mm3 (0.1-1.0); Neutrophils # 19.7 K/mm3 (1.8-7.8); Neutrophils % 85.2 % (37.0-80.0); Platelet Count 302 K/mm3 (142-424); Red Cell Distribution Width 14.6 % (11.5-17.5); White Blood Count 23.1 K/mm3 (4.8-10.8)
[2020-12-19 09:55] LABS: MANUAL DIFFERENTIAL MANUAL DIFFERENTIAL (MANUAL DIFF)
[2020-12-19 11:19] LABS: POC Glucose,Bedside 221 (70-110)
--- NOTE | 2020-12-19 11:25 | HMH.PULMPN ---
Internal Medicine - PN: Subj *Date: 12/19/20 *Time: 11:26 Interval history: No acute respiratory events overnight Exam - Constitutional Constitutional:: Present: no acute distress, comfortable - HENMT Exam HENMT: Present: normocephalic, atraumatic - Eye Exam Eyes:: Present: normal appearance both eyes and related structures - Neck Exam Neck:: Present: normal visual inspection - Respiratory Exam Respiratory:: Present: able to speak in complete sentences, no respiratory distress, normal respiratory effort. Absent: crackles, wheezing - Cardiovascular Exam Cardiac:: Present: S1, S2 - GI Exam GI:: Present: soft, obese - Skin Exam Skin: Present: warm, no rash - Neurological Exam Neurological: Present: alert, awake - Extremities Exam Extremities: Present: no cyanosis, no clubbing, edema - Psychiatric Exam Psychiatric: Present: normal affect Assessment and Plan (1) Hypothyroidism Status: Chronic Qualifiers: Hypothyroidism type: unspecified Qualified Code(s): E03.9 - Hypothyroidism, unspecified Category: Medical Code(s): E03.9 - Hypothyroidism, unspecified (2) Shortness of breath Status: Acute Category: Medical Code(s): R06.02 - Shortness of breath (3) CHF (congestive heart failure) Status: Chronic Qualifiers: Heart failure type: diastolic Heart failure chronicity: acute on chronic Qualified Code(s): I50.33 - Acute on chronic diastolic (congestive) heart failure Category: Medical Code(s): I50.9 - Heart failure, unspecified (4) Diabetes Status: Chronic Qualifiers: Diabetes mellitus type: type 2 Diabetes mellitus termination clerk insulin use: unspecified termination clerk insulin use status Diabetes mellitus complication status: with other specified complication Qualified Code(s): E11.69 - Type 2 diabetes mellitus with other specified complication Category: Medical Code(s): E11.9 - Type 2 diabetes mellitus without complications (5) Dyspnea Status: Chronic Qualifiers: Dyspnea type: shortness of breath Qualified Code(s): R06.02 - Shortness of breath Category: Medical Code(s): R06.00 - Dyspnea, unspecified (6) History of thrombosis of lower extremity Status: Chronic Category: Medical Code(s): Z86.718 - Personal history of other venous thrombosis and embolism (7) Hypertension Status: Chronic Qualifiers: Hypertension type: essential hypertension Qualified Code(s): I10 - Essential (primary) hypertension Category: Medical Code(s): I10 - Essential (primary) hypertension (8) Low back pain Status: Chronic Qualifiers: Chronicity: unspecified Back pain laterality: right Sciatica presence: with sciatica Sciatica laterality: sciatica of right side Qualified Code(s): M54.41 - Lumbago with sciatica, right side Category: Medical Code(s): M54.5 - Low back pain (9) Asthma Status: Acute Qualifiers: Asthma severity: severe Asthma persistence: unspecified Asthma complication type: unspecified Qualified Code(s): J45.909 - Unspecified asthma, uncomplicated Category: Medical Code(s): J45.909 - Unspecified asthma, uncomplicated (10) Obesity Status: Chronic Qualifiers: Obesity type: due to excess calories Obesity classification: adult class 3 (BMI >= 40) Serious obesity comorbidity presence: with serious comorbidity Body mass index: BMI 50.0-59.9 Qualified Code(s): E66.01 - Morbid (severe) obesity due to excess calories; Z68.43 - Body mass index [BMI] 50.0-59.9, adult Category: Medical Code(s): E66.9 - Obesity, unspecified - Assessment and plan all Dx Assessment and Plan for all problems:: #Asthma exacerbation: #CAP: Ms. Hunt is a 55-year-old female with a history of heart failure, morbid obesity greater than [id number] smoking history stopped smoking June 2020 was admitted and being managed for probable patient. Her recent CT in the ER she continues hospital adm
--- NOTE | 2020-12-19 13:02 | HMH.ACPN2 ---
Internal Medicine - PN: Subj *Date: 12/20/20 *Time: 05:49 Interval history: pt c/o of chest pain this am and still with sob Exam Vital signs and Labs for Last 24 Hours: Temp Pulse Resp BP Pulse Ox 98.4 F 83 24 137/45 L 95 12/19/20 08:00 12/19/20 12:35 12/19/20 08:00 12/19/20 08:00 12/19/20 08:00 Laboratory Results - last 24 hr 12/18/20 16:39: POC Glucose 408 H* 12/18/20 20:25: POC Glucose 337 H* 12/19/20 06:03: POC Glucose 298 H 12/19/20 09:16: WBC 23.1 H*, RBC 5.10, Hgb 13.7, Hct 45.5, MCV 89.2, MCH 26.9 L, MCHC 30.1 L, RDW 14.6, Plt Count 302, MPV 7.7, Neut % (Auto) 85.2 H, Lymph % (Auto) 8.3 L, [place] % (Auto) 6.0, Eos % (Auto) 0.1, Baso % (Auto) 0.4, Neut # (Auto) 19.7 H, Lymph # (Auto) 1.9, [place] # (Auto) 1.4 H, Eos # (Auto) 0.0, Baso # (Auto) 0.1 12/19/20 09:16: Sodium 140, Potassium 4.4, Chloride 100, Carbon Dioxide 30 D, Anion Gap 14.4, BUN 34 H D, Creatinine 0.90 D, Estimated Creat Clear 53, Estimated GFR 65, Est GFR ( Amer) 79 D, Glucose 311 H, Calcium 8.7, Total Bilirubin 0.4, AST 85 H D, ALT 102 H D, Alkaline Phosphatase 84, Total Protein 7.7, Albumin 4.3, Globulin 3.4 H, Albumin/Globulin Ratio 1.3 12/19/20 11:09: POC Glucose 221 H I & O for Last 24 hours: Intake & Output 12/17/20 12/18/20 12/19/20 12/20/20 11:59 11:59 11:59 11:59 Intake Total 1080 / 1080 2554 / 2554 1080 / 1080 480 / 480 Output Total 4650 / 4650 2049 / 2049 3800 / 3800 500 / 500 Balance -3570 / -3570 504 / 504 -2720 / -2720 -20 / -20 Weight 309 lb 5.007 oz 304 lb 6 oz 311 lb 5 oz Microbiology Reports for the Last 24 Hours: Microbiology 12/19/20 06:17 Sputum - Expectorated Sputum Gram Stain - Final - Constitutional no acute distress, obese - *Routine HEENT Exam Head: Present: normocephalic Eye: Present: EOMI, PERRL ENT: Present: mucous membranes dry - *Routine Neck Exam Present: supple - *Routine Respiratory Exam Present: decreased breath sounds - *Routine Cardiovascular Exam Present: RRR - *Routine Abdominal Exam Present: soft - *Routine Extremities Exam Absent: calf tenderness - *Routine Skin Exam Present: intact - *Routine Neurological Exam Present: alert, CN II-XII intact - Routine Psychiatric Exam Present: normal affect Assessment and Plan (1) Hypothyroidism Status: Chronic Qualifiers: Hypothyroidism type: unspecified Qualified Code(s): E03.9 - Hypothyroidism, unspecified Category: Medical Code(s): E03.9 - Hypothyroidism, unspecified (2) Shortness of breath Status: Acute Category: Medical Code(s): R06.02 - Shortness of breath (3) CHF (congestive heart failure) Status: Chronic Qualifiers: Heart failure type: diastolic Heart failure chronicity: acute on chronic Qualified Code(s): I50.33 - Acute on chronic diastolic (congestive) heart failure Category: Medical Code(s): I50.9 - Heart failure, unspecified (4) Diabetes Status: Chronic Qualifiers: Diabetes mellitus type: type 2 Diabetes mellitus meterman insulin use: unspecified meterman insulin use status Diabetes mellitus complication status: with other specified complication Qualified Code(s): E11.69 - Type 2 diabetes mellitus with other specified complication Category: Medical Code(s): E11.9 - Type 2 diabetes mellitus without complications (5) Dyspnea Status: Chronic Qualifiers: Dyspnea type: shortness of breath Qualified Code(s): R06.02 - Shortness of breath Category: Medical Code(s): R06.00 - Dyspnea, unspecified (6) History of thrombosis of lower extremity Status: Chronic Category: Medical Code(s): Z86.718 - Personal history of other venous thrombosis and embolism (7) Hypertension Status: Chronic Qualifiers: Hypertension type: essential hypertension Qualified Code(s): I10 - Essential (primary) hypertension Category: Medical Code(s): I10 - Essential (primary) hypertension (8) Low back pain Status:
[2020-12-19 14:01] LABS: Troponin I < 0.01 ng/ml (0.00-0.034)
[2020-12-19 15:26] LABS: Lymphocytes % 9 % (10-50); Monocytes % 4 % (2-9); Neutrophils % 86 % (42-76); Platelet Estimate Normal; Total Cells Counted 100
[2020-12-19 15:27] LABS: Hypochromasia 2+
[2020-12-19 16:09] LABS: POC Glucose,Bedside 240 (70-110)
[2020-12-19 17:24] LABS: Troponin I < 0.01 ng/ml (0.00-0.034)
[2020-12-19 19:45] LABS: Troponin I < 0.01 ng/ml (0.00-0.034)
[2020-12-19 22:42] LABS: Troponin I < 0.01 ng/ml (0.00-0.034)
[2020-12-20] VITALS (14 sets, daily range): BP systolic 122–164; BP diastolic 60–76; PULSE 60–81; RESP 20–21; TEMP 36.3–36.6; O2SAT 93–94; BMI 57.6
[2020-12-20 00:46] LABS: POC Glucose,Bedside 362 (70-110)
--- NOTE | 2020-12-20 03:05 | PC.NURSE ---
Patient c/o pain in left lower base upon inspiration, stating makes it hard to get a deep breath. VSS, safety measures in place; will continue to monitor.
[2020-12-20 06:39] LABS: POC Glucose,Bedside 330 (70-110)
--- NOTE | 2020-12-20 09:35 | CA_ITS ---
APPROVED REPORT EXAM: Comprehensive 2D, Doppler, and color-flow Echocardiogram Sander And Polisher: Lillie Grace CRT Ht: 5 ft 1 in Wt: 313lbs BSA: 2.28 BP: 156/94 mmHg Indications: Chest Pain, Congestive Heart Failure, Shortness of Breath, Diabetes, Hypertension/HDD, post covid,asthma 2D Dimensions LVOT 1.98 cm (M/F) 1.5-2.5 LA Volume 53.20 mL LA Volume Index 23.20 mL/m2 (M/F) 16-34 M-Mode Dimensions RVDd 2.51 cm (0.9-2.6) LA Diam 3.30 cm (1.9-4.0) LVDd 5.10 cm (3.5-5.7) Ao Diam 3.28 cm (2.0-3.7) LVDs 3.55 cm (3.5-5.7) IVSd 1.50 cm (0.6-1.1) PWd 0.86 cm (0.6-1.1) EF (Teich) 57.50% FS 30.40% EDV (Teich) 123.80 mL TAPSE 2.96 (<1.7) ESV (Teich) 52.60 mL LV Diastology E Decel Time 200.00 (160-240 msec) E/A Ratio 0.93 MED E' 9.20 (< 7 cm/sec) MED A' 11.70 cm/s E'/MED E' Ratio 10.67 (>14) LAT E' 8.20 (<10 cm/sec) LAT A' 12.40 cm/s E/LAT E' Ratio 11.98 (>14) Aortic Valve AO Peak GR. 10.90 mmHg Mitral Valve MV A Velocity 105.00 (40-130 cm/s) E/A Ratio 0.93 MV Decel. Time 200.00 (160-240 ms) Tricuspid Valve TR P. Velocity 165.00 cm/s RAP Estimate 10.00 mmHg RVSP 20.90 mmHg Left Ventricle Left atrium is mildly enlarged, left ventricle is normal size, mild concentric left ventricular hypertrophy, visually estimated ejection fraction 55% with no regional wall motion abnormality, grade 1 diastolic dysfunction seen without tissue Doppler evidence of raise left atrial pressure. Right Ventricle Right atrium and right ventricle are normal size and contractility. Aortic Valve Aortic valve is minimally thickened and fibrosed, there is no aortic stenosis or aortic insufficiency. Mitral Valve Mitral valve is grossly normal, there is trace mitral regurgitation. Tricuspid Valve Tricuspid grossly normal, there is trace tricuspid regurgitation, tricuspid regurgitation jet velocity is inadequate for calculation of the right ventricular systolic pressure. Pulmonic Valve Pulmonic valve is poorly visualized. Great Vessels Aortic root is normal size. Pericardium No significant pericardial effusion noted. Conclusion 1. Mildly dilated atrium, normal left ventricular size, mild concentric left ventricular hypertrophy, visually estimated ejection fraction 55% with no regional wall motion abnormality, grade 1 diastolic dysfunction seen without tissue Doppler evidence of raise left atrial pressure. 2. Trace mitral and tricuspid regurgitation. 3. No significant pericardial effusion noted. Electronically signed by : Miko Frazier, 12/20/2020 21:35:55
[2020-12-20 09:46] LABS: Basophils # 0.1 K/mm3 (0-0.2); Basophils % 0.4 % (0.1-2.0); Eosinophils # 0.1 K/mm3 (0.0-0.4); Eosinophils % 0.4 % (0.1-12.0); Hematocrit 40.9 % (37.0-47.0); Hemoglobin 13.2 g/dL (12.2-16.2); Lymphocytes # 1.8 K/mm3 (0.7-4.5); Lymphocytes % 8.8 % (10-50); Mean Corpuscular HGB Conc 32.2 g/dL (31.8-35.4); Mean Corpuscular Hemoglobin 27.7 pg (27.0-31.2); Mean Corpuscular Volume 86.2 fl (81-99); Mean Platelet Volume 8.3 fl (7.4-10.4); Monocytes # 1.1 K/mm3 (0.1-1.0); Monocytes % 5.3 % (1.7-9.3); Neutrophils # 17.5 K/mm3 (1.8-7.8); Platelet Count 277 K/mm3 (142-424); Red Blood Count 4.75 M/mm3 (4.20-5.40); Red Cell Distribution Width 14.8 % (11.5-17.5); White Blood Count 20.6 K/mm3 (4.8-10.8)
[2020-12-20 10:02] LABS: MANUAL DIFFERENTIAL MANUAL DIFFERENTIAL (MANUAL DIFF)
[2020-12-20 10:10] LABS: Chloride 99 mmol/L (98-107); Potassium 4.5 mmoL/L (3.5-5.1); Sodium 135 mmol/L (136-145)
[2020-12-20 10:13] LABS: Anion Gap 15.5 mEq/L (5-15); Blood Urea Nitrogen 40 mg/dl (7-17); Carbon Dioxide 25 mmol/L (22.0-30.0); Creatinine Clearance Estimated 60 mL/min (50-200); Estimated Glomerular Filt Rate 74 ml/min (>60); GFR (African American) 90 ML/MIN (>60)
[2020-12-20 10:14] LABS: Calcium 8.1 mg/dl (8.4-10.2); Glucose 353 mg/dl (74-100)
--- NOTE | 2020-12-20 10:34 | HMH.CNCARD ---
History of Present Illness Consult date: 12/20/20 Requesting physician: Juan Monreal Consult reason: chest pain, shortness of breath Chief complaint: SOA, chest pain History of present illness: This is a 55-year-old white female who was admitted to the hospital with shortness of breath and asthma. The patient was seen by pulmonology on Saturday and then admitted to the hospital for progressively worsening shortness of breath and dyspnea as well as an asthma exacerbation. The patient has been treated for her asthma exacerbation but she states she continues to be short of breath. She is also complaining of an aching in the center of her chest. This does not radiate. It is associated with shortness of breath. Occurs at rest. Nothing makes the chest pain better. She states that this can be severe at times. The patient has a history of normal coronary arteries with diastolic dysfunction and diastolic congestive heart failure. She is ruled out for an [place]. She denies any fever, chills, nausea, vomiting, diarrhea, PND orthopnea. When I walk in the room the patient is lying flat without any complaints of shortness of breath. 55-year-old white female with a history of asthma and previous tobacco usage. She was seen in the pulmonary service for a lung cancer screening and made note of progressive dyspnea with wheezing. She was admitted for further evaluation and management. Patient has several comorbid features including morbid obesity, ingestive heart failure, diabetes type 2, mood disorder, history of DVT, history of asthma, history of hypothyroidism, history of migraine headache. Dr. Woods saw and evaluated the patient, offered her a 1 time dose of Lasix 80 IV. Patient has had a progression in her dyspnea, we are sending her for a CTA to rule out a pulmonary embolism. Will look to more fully delineate the anatomy inside her chest. Patient relays that she has had asthma in the past, but never to this degree. She also relays that she had Covid over the winter, had minimal symptoms. [facility] History I have reviewed the patient's past medical history: Yes Medical History: Reports:: Anxiety, Asthma, Congestive Heart Failure, Chronic Obstructive Pulmonary Disease (COPD), Depression, Diabetes Mellitus Type 2, Hyperlipidemia, Hypertension, Migraine, Peripheral Artery Disease Denies:: Cancer, Diabetes Mellitus Type 1, Internal Pacemaker, MRSA, Seizures *Have you ever received a pneumonia vaccine?: No *Have you received a flu vaccine this season?: No Other Medical History: Reports: Arthritis, Fibromyalgia, Hypothyroidism, Thyroid Disease (THYROIDECTOMY), Other. Denies: Blood Transfusion Reaction Laterality Cases: Left: Arthroscopy Knee Other Surgeries: Yes: Appendectomy, Cardiac Catheterization, Cholecystectomy, Colonoscopy, Hysterectomy-Total, Hysterectomy-Partial, Thyroidectomy, Other (removed blood clots behind left knee). No: Pacemaker Amputation: No Fractures: No - *Social History Smoking Status: Current every day smoker Tobacco Type: cigarettes # Packs/Day (cigarettes): 1 #Yrs smoked (if former smoker): 40 Alcohol Intake: never Alcohol Intake Frequency:: other Substance Use Type: denies use *Occupational Status:: disabled Housing: apartment Household Members: significant other *Travel in the last 8 weeks: None - Psychiatric History Pschychiatric History:: Reports:: Anxiety, Depression Family Hx:: Heart Attack, Hyperlipidemia, Hypertension Meds Home Medications Medication Instructions Recorded Confirmed Type buspirone 10 mg tablet 10 mg PO TID tab 11/30/19 12/18/20 History Oxycodone HCl/Acetaminophen 1 tab PO TIDP PRN 05/26/20 12/18/20 History [Endocet 7.5-325 mg Tablet] dilTIAZem HCl [Diltiazem 240mg 240 mg PO DAILY 05/26/20 12/18/20 History 24Hr ER Cap] gabapentin 600 mg tablet 600 mg PO TID tab 06/27/20 12/18/20 History fenofibrate nanocrystallized 145 145 mg PO DAILY #90 tab 07/31/20 12/18/20 Rx mg tablet met
[2020-12-20 10:49] LABS: Lymphocytes % 8 % (10-50); Monocytes % 5 % (2-9); Neutrophils % 86 % (42-76); Total Cells Counted 100
[2020-12-20 10:50] LABS: Hypochromasia 1+; Platelet Estimate Normal
--- NOTE | 2020-12-20 13:08 | HMH.ACPN2 ---
Internal Medicine - PN: Subj *Date: 12/20/20 *Time: 18:45 Interval history: 55-year-old female patient sitting up in the chair she reports she still is a little short of breath but feeling better than when she did yesterday. She does complain of midsternal chest tightness/squeezing while resting in chair, she denies increased ESPERANZA or diaphoresis during episode. We will consult cardiology Exam Vital signs and Labs for Last 24 Hours: Temp Pulse Resp BP Pulse Ox 97.6 F 76 20 150/73 H 93 L 12/20/20 11:04 12/20/20 11:04 12/20/20 11:04 12/20/20 11:04 12/20/20 11:04 Laboratory Results - last 24 hr 12/19/20 09:16: Total Counted 100, Neutrophils % (Manual) 86 H, Band Neutrophils % 1.0, Lymphocytes % (Manual) 9 L, Monocytes % (Manual) 4, Platelet Estimate Normal, Hypochromasia 2+ 12/19/20 13:27: Troponin I < 0.01 12/19/20 16:01: POC Glucose 240 H 12/19/20 16:08: Troponin I < 0.01 12/19/20 18:18: Troponin I < 0.01 12/19/20 21:20: POC Glucose 362 H* 12/19/20 22:10: Troponin I < 0.01 12/20/20 05:46: POC Glucose 330 H* 12/20/20 09:24: WBC 20.6 H*, RBC 4.75, Hgb 13.2, Hct 40.9, MCV 86.2, MCH 27.7, MCHC 32.2, RDW 14.8, Plt Count 277, MPV 8.3, Neut % (Auto) 85.0 H, Lymph % (Auto) 8.8 L, [place] % (Auto) 5.3, Eos % (Auto) 0.4, Baso % (Auto) 0.4, Neut # (Auto) 17.5 H, Lymph # (Auto) 1.8, [place] # (Auto) 1.1 H, Eos # (Auto) 0.1, Baso # (Auto) 0.1, Total Counted 100, Neutrophils % (Manual) 86 H, Lymphocytes % (Manual) 8 L, Monocytes % (Manual) 5, Blast Cells % 1.0, Platelet Estimate Normal, Hypochromasia 1+ 12/20/20 09:24: Sodium 135 L, Potassium 4.5, Chloride 99, Carbon Dioxide 25, Anion Gap 15.5 H, BUN 40 H, Creatinine 0.80, Estimated Creat Clear 60, Estimated GFR 74, Est GFR ( Amer) 90, Glucose 353 H, Calcium 8.1 L I & O for Last 24 hours: Intake & Output 12/17/20 12/18/20 12/19/20 12/20/20 23:59 23:59 23:59 23:59 Intake Total 1319 / 1319 2195 / 2195 1320 / 1320 1730 / 1730 Output Total 4200 / 4200 3050 / 3050 4600 / 5600 1999 Balance -2881 / -2881 -855 / -855 -3280 / -4280 -270 / -270 Weight 309 lb 5.007 oz 304 lb 6 oz 310 lb 13.628 oz 313 lb 8 oz Microbiology Reports for the Last 24 Hours: Microbiology 12/19/20 06:17 Sputum - Expectorated Sputum Gram Stain - Final 12/19/20 06:17 Sputum - Expectorated Sputum Sputum Culture - Preliminary - Constitutional no acute distress, morbidly obese - *Routine HEENT Exam Head: Present: normocephalic Eye: Present: EOMI ENT: Present: mucous membranes moist - *Routine Neck Exam Present: trachea midline. Absent: tracheal deviation - *Routine Respiratory Exam Present: decreased breath sounds, wheezes. Absent: accessory muscle use - *Routine Cardiovascular Exam Present: RRR - *Routine Abdominal Exam Present: soft, normoactive bowel sounds, obese. Absent: tenderness - *Routine Extremities Exam Present: edema, pulses intact, normal capillary refill. Absent: cyanosis, calf tenderness - *Routine Skin Exam Present: intact, dry, warm. Absent: cyanosis, erythema - *Routine Neurological Exam Present: alert, oriented X3. Absent: motor deficit, altered mental status - Routine Psychiatric Exam Present: normal affect, normal thought process. Absent: visual hallucinations Assessment and Plan (1) Chest pain Status: Acute Category: Medical Code(s): R07.9 - Chest pain, unspecified (2) Shortness of breath Status: Acute Category: Medical Code(s): R06.02 - Shortness of breath (3) Hypothyroidism Status: Chronic Qualifiers: Hypothyroidism type: unspecified Qualified Code(s): E03.9 - Hypothyroidism, unspecified Category: Medical Code(s): E03.9 - Hypothyroidism, unspecified (4) CHF (congestive heart failure) Status: Chronic Qualifiers: Heart failure type: diastolic Heart failure chronicity: acute on chronic Qualified Code(s): I50.33 - Acute on chronic diastolic (congestive) heart failure Category: Medical Co
--- NOTE | 2020-12-20 13:30 | HMH.PULMPN ---
Internal Medicine - PN: Subj *Date: 12/20/20 *Time: 13:32 Interval history: No acute respiratory overnight. Patient denies any new complaints. Admits improvement in her symptoms though admits some shortness of breath & chest discomfort at baseline Exam - Constitutional Constitutional:: Present: no acute distress, comfortable - HENMT Exam HENMT: Present: normocephalic - Eye Exam Eyes:: Present: normal appearance both eyes and related structures - Neck Exam Neck:: Present: normal visual inspection - Respiratory Exam Respiratory:: Present: able to speak in complete sentences, no respiratory distress, normal respiratory effort. Absent: accessory muscle use, crackles, rales, wheezing - Cardiovascular Exam Cardiac:: Present: S1, S2 - GI Exam GI:: Present: soft, no hepatosplenomegaly - Skin Exam Skin: Present: warm, no rash - Neurological Exam Neurological: Present: alert, normal cognition - Extremities Exam Extremities: Present: no cyanosis, no clubbing, edema Assessment and Plan (1) Chest pain Status: Acute Category: Medical Code(s): R07.9 - Chest pain, unspecified (2) Shortness of breath Status: Acute Category: Medical Code(s): R06.02 - Shortness of breath (3) Hypothyroidism Status: Chronic Qualifiers: Hypothyroidism type: unspecified Qualified Code(s): E03.9 - Hypothyroidism, unspecified Category: Medical Code(s): E03.9 - Hypothyroidism, unspecified (4) CHF (congestive heart failure) Status: Chronic Qualifiers: Heart failure type: diastolic Heart failure chronicity: acute on chronic Qualified Code(s): I50.33 - Acute on chronic diastolic (congestive) heart failure Category: Medical Code(s): I50.9 - Heart failure, unspecified (5) Diabetes Status: Chronic Qualifiers: Diabetes mellitus type: type 2 Diabetes mellitus detention insulin use: unspecified emt intermediate insulin use status Diabetes mellitus complication status: with other specified complication Qualified Code(s): E11.69 - Type 2 diabetes mellitus with other specified complication Category: Medical Code(s): E11.9 - Type 2 diabetes mellitus without complications (6) History of thrombosis of lower extremity Status: Chronic Category: Medical Code(s): Z86.718 - Personal history of other venous thrombosis and embolism (7) Hypertension Status: Chronic Qualifiers: Hypertension type: essential hypertension Qualified Code(s): I10 - Essential (primary) hypertension Category: Medical Code(s): I10 - Essential (primary) hypertension (8) Low back pain Status: Chronic Qualifiers: Chronicity: unspecified Back pain laterality: right Sciatica presence: with sciatica Sciatica laterality: sciatica of right side Qualified Code(s): M54.41 - Lumbago with sciatica, right side Category: Medical Code(s): M54.5 - Low back pain (9) Asthma Status: Acute Qualifiers: Asthma severity: severe Asthma persistence: unspecified Asthma complication type: unspecified Qualified Code(s): J45.909 - Unspecified asthma, uncomplicated Category: Medical Code(s): J45.909 - Unspecified asthma, uncomplicated (10) Obesity Status: Chronic Qualifiers: Obesity type: due to excess calories Obesity classification: adult class 3 (BMI >= 40) Serious obesity comorbidity presence: with serious comorbidity Body mass index: BMI 50.0-59.9 Qualified Code(s): E66.01 - Morbid (severe) obesity due to excess calories; Z68.43 - Body mass index [BMI] 50.0-59.9, adult Category: Medical Code(s): E66.9 - Obesity, unspecified (11) Normal coronary arteries Status: Acute Category: Medical (12) Diastolic dysfunction Status: Chronic Category: Medical Code(s): I51.89 - Other ill-defined heart diseases - Assessment and plan all Dx Assessment and Plan for all problems:: #Asthma exacerbation: #CAP: Ms. Hunt is a 55-year-old female with a history
--- NOTE | 2020-12-20 14:27 | HMH.ACPN ---
Internal Medicine - PN: Subj *Date: 12/20/20 *Time: 14:27 Exam Vital signs and Labs for Last 24 Hours: Temp Pulse Resp BP Pulse Ox 97.6 F 71 20 150/73 H 93 L 12/20/20 11:04 12/20/20 13:09 12/20/20 11:04 12/20/20 11:04 12/20/20 11:04 Laboratory Results - last 24 hr 12/19/20 09:16: Total Counted 100, Neutrophils % (Manual) 86 H, Band Neutrophils % 1.0, Lymphocytes % (Manual) 9 L, Monocytes % (Manual) 4, Platelet Estimate Normal, Hypochromasia 2+ 12/19/20 16:01: POC Glucose 240 H 12/19/20 16:08: Troponin I < 0.01 12/19/20 18:18: Troponin I < 0.01 12/19/20 21:20: POC Glucose 362 H* 12/19/20 22:10: Troponin I < 0.01 12/20/20 05:46: POC Glucose 330 H* 12/20/20 09:24: WBC 20.6 H*, RBC 4.75, Hgb 13.2, Hct 40.9, MCV 86.2, MCH 27.7, MCHC 32.2, RDW 14.8, Plt Count 277, MPV 8.3, Neut % (Auto) 85.0 H, Lymph % (Auto) 8.8 L, [place] % (Auto) 5.3, Eos % (Auto) 0.4, Baso % (Auto) 0.4, Neut # (Auto) 17.5 H, Lymph # (Auto) 1.8, [place] # (Auto) 1.1 H, Eos # (Auto) 0.1, Baso # (Auto) 0.1, Total Counted 100, Neutrophils % (Manual) 86 H, Lymphocytes % (Manual) 8 L, Monocytes % (Manual) 5, Blast Cells % 1.0, Platelet Estimate Normal, Hypochromasia 1+ 12/20/20 09:24: Sodium 135 L, Potassium 4.5, Chloride 99, Carbon Dioxide 25, Anion Gap 15.5 H, BUN 40 H, Creatinine 0.80, Estimated Creat Clear 60, Estimated GFR 74, Est GFR ( Amer) 90, Glucose 353 H, Calcium 8.1 L I & O for Last 24 hours: Intake & Output 12/17/20 12/18/20 12/19/20 12/20/20 23:59 23:59 23:59 23:59 Intake Total 1319 / 1319 2195 / 2195 1320 / 1320 2090 / 2090 Output Total 4200 / 4200 3050 / 3050 4600 / 5600 1999 Balance -2881 / -2881 -855 / -855 -3280 / -4280 90 / 90 Weight 140.302 kg 138.062 kg 141 kg 142.201 kg Microbiology Reports for the Last 24 Hours: Microbiology 12/19/20 06:17 Sputum - Expectorated Sputum Gram Stain - Final 12/19/20 06:17 Sputum - Expectorated Sputum Sputum Culture - Preliminary Assessment and Plan (1) Chest pain Status: Acute Category: Medical Code(s): R07.9 - Chest pain, unspecified (2) Shortness of breath Status: Acute Category: Medical Code(s): R06.02 - Shortness of breath (3) Hypothyroidism Status: Chronic Qualifiers: Hypothyroidism type: unspecified Qualified Code(s): E03.9 - Hypothyroidism, unspecified Category: Medical Code(s): E03.9 - Hypothyroidism, unspecified (4) CHF (congestive heart failure) Status: Chronic Qualifiers: Heart failure type: diastolic Heart failure chronicity: acute on chronic Qualified Code(s): I50.33 - Acute on chronic diastolic (congestive) heart failure Category: Medical Code(s): I50.9 - Heart failure, unspecified (5) Diabetes Status: Chronic Qualifiers: Diabetes mellitus type: type 2 Diabetes mellitus intermodal dispatcher insulin use: unspecified alf insulin use status Diabetes mellitus complication status: with other specified complication Qualified Code(s): E11.69 - Type 2 diabetes mellitus with other specified complication Category: Medical Code(s): E11.9 - Type 2 diabetes mellitus without complications (6) History of thrombosis of lower extremity Status: Chronic Category: Medical Code(s): Z86.718 - Personal history of other venous thrombosis and embolism (7) Hypertension Status: Chronic Qualifiers: Hypertension type: essential hypertension Qualified Code(s): I10 - Essential (primary) hypertension Category: Medical Code(s): I10 - Essential (primary) hypertension (8) Low back pain Status: Chronic Qualifiers: Chronicity: unspecified Back pain laterality: right Sciatica presence: with sciatica Sciatica laterality: sciatica of right side Qualified Code(s): M54.41 - Lumbago with sciatica, right side Category: Medical Code(s): M54.5 - Low back pain (9) Asthma Status: Acute Qualifiers: Asthma severity: severe Asthma persistence: unspecified Asthma complication
[2020-12-20 16:43] LABS: POC Glucose,Bedside 298 (70-110)
[2020-12-20 18:03] LABS: POC Glucose,Bedside 343 (70-110)
[2020-12-20 23:11] LABS: POC Glucose,Bedside 312 (70-110)
[2020-12-21] VITALS: BP 136/67; PULSE 70; PULSE 78; RESP 20; TEMP 36.6; O2SAT 96
[2020-12-21 03:53] VITALS: BP 151/87; PULSE 83; RESP 19; TEMP 36.5; O2SAT 97
[2020-12-21 04:00] VITALS: PULSE 60
[2020-12-21 05:09] VITALS: BMI 58.6
[2020-12-21 05:55] LABS: POC Glucose,Bedside 212 (70-110)
[2020-12-21 06:16] VITALS: PULSE 64; PULSE 69; O2SAT 96
[2020-12-21 06:58] LABS: Basophils # 0.1 K/mm3 (0-0.2); Basophils % 0.5 % (0.1-2.0); Eosinophils # 0.1 K/mm3 (0.0-0.4); Eosinophils % 0.4 % (0.1-12.0); Hemoglobin 14.2 g/dL (12.2-16.2); Lymphocytes # 4.6 K/mm3 (0.7-4.5); Lymphocytes % 24.1 % (10-50); Mean Corpuscular HGB Conc 33.9 g/dL (31.8-35.4); Mean Corpuscular Hemoglobin 28.3 pg (27.0-31.2); Mean Corpuscular Volume 83.5 fl (81-99); Mean Platelet Volume 7.8 fl (7.4-10.4); Monocytes # 1.2 K/mm3 (0.1-1.0); Monocytes % 6.4 % (1.7-9.3); Neutrophils # 13.1 K/mm3 (1.8-7.8); Neutrophils % 68.6 % (37.0-80.0); Platelet Count 277 K/mm3 (142-424); Red Blood Count 5.03 M/mm3 (4.20-5.40); Red Cell Distribution Width 14.8 % (11.5-17.5); White Blood Count 19.1 K/mm3 (4.8-10.8)
[2020-12-21 07:13] LABS: Anion Gap 10.1 mEq/L (5-15); Blood Urea Nitrogen 44 mg/dl (7-17); Calcium 8.5 mg/dl (8.4-10.2); Carbon Dioxide 34 mmol/L (22.0-30.0); Chloride 96 mmol/L (98-107); Creatinine Clearance Estimated 48 mL/min (50-200); Estimated Glomerular Filt Rate 58 ml/min (>60); GFR (African American) 70 ML/MIN (>60); Glucose 191 mg/dl (74-100); Potassium 4.1 mmoL/L (3.5-5.1); Sodium 136 mmol/L (136-145)
[2020-12-21 07:18] LABS: MANUAL DIFFERENTIAL MANUAL DIFFERENTIAL (MANUAL DIFF)
[2020-12-21 08:00] VITALS: BP 141/77; PULSE 77; PULSE 90; RESP 22; TEMP 36.6; O2SAT 94
--- NOTE | 2020-12-21 09:00 | HMH.DCSUM ---
General - General Admission date:: 12/16/20 Discharge date: 12/21/20 HPI HPI: Patient is a 55-year-old white female with a history of asthma and previous tobacco usage. She was seen in the pulmonary service for a lung cancer screening and made note of progressive dyspnea with wheezing. She was admitted for further evaluation and management. Patient has several comorbid features including morbid obesity, ingestive heart failure, diabetes type 2, mood disorder, history of DVT, history of asthma, history of hypothyroidism, history of migraine headache. Dr. Woods saw and evaluated the patient, offered her a 1 time dose of Lasix 80 IV. Patient has had a progression in her dyspnea, we are sending her for a CTA to rule out a pulmonary embolism. Will look to more fully delineate the anatomy inside her chest. Patient relays that she has had asthma in the past, but never to this degree. She also relays that she had Covid over the winter, had minimal symptoms. Hospital Course Hospital Course: 55-year-old female patient admitted after being seen by pulmonary service for lung cancer screening for progressive dyspnea with wheezing. She does have medical history of morbid obesity, congestive heart failure, diabetes type 2, mood disorder, history of DVT, history of asthma, hypothyroidism, and migraine headaches. She was given a one-time dose of Lasix 80 mg IV and was sent for a CTA to rule out a pulmonary embolism 12/16/20 CXR: FINDINGS: The cardiomediastinal silhouette and pulmonary vascularity are within normal limits. Slight increased markings in the right lower lung zone which may be due to an area of atelectasis or infiltrate. No acute bony abnormalities. IMPRESSION: Patchy atelectasis or infiltrate in the right lower lung zone Dictated by: Valentin Evans MD 12/16/20 CTA: FINDINGS: Pulmonary arteries: The pulmonary arteries enhance appropriately with no evidence of pulmonary embolism. Aorta: The aorta enhances appropriately without evidence of dissection or aneurysm. No mediastinal hematoma. Thyroid: The left thyroid lobe is absent, either surgically or congenitally. The right thyroid lobe is unremarkable. This is unchanged. Lungs: Mild bilateral bronchial wall thickening suggesting bronchitis or bronchial edema, unchanged. Faint peripheral ground-glass alveolar opacities in the upper lobes, right greater than left, are mildly improved and could represent subsegmental atelectasis or improving mild peripheral pneumonia. Bandlike atelectasis in the right middle lobe medial segment is new. No pulmonary mass lesions are identified. Pleural spaces: No pleural effusion. No pneumothorax. Heart: Heart size normal. No pericardial effusion. Mediastinal space: Granulomatous calcifications in the right lung and subcarinal distribution. The esophagus is largely contracted but demonstrates no gross abnormality. Lymph nodes: No supraclavicular or axillary adenopathy. No mediastinal or hilar adenopathy. Liver: Moderate fatty infiltration of the liver. Evidence of prior cholecystectomy with no significant dilatation of the common bile duct. Bones/joints: No acute osseous abnormalities are identified. Soft tissues: The soft tissues of the chest wall demonstrate no acute abnormality. IMPRESSION: 1. No evidence of pulmonary embolism or aortic dissection. 2. Bilateral bronchial wall thickening suggesting mild-moderate bronchitis/bronchiolitis versus bronchial edema, unchanged. No bronchiectasis. 3. The patchy peripheral ground-glass alveolar opacities in the upper lobes, right greater than left, are mildly improved and could represent improving subsegmental atelectasis or improving mild peripheral pneumonia. No evidence of cavitation/abscess. 4. Additional non-emergent findings detailed above. Electronically signed by Soyn Ramos MD 12/20/20 ECGO: Conclusion 1. Mildl
[2020-12-21 10:44] LABS: Lymphocytes % 24 % (10-50); Monocytes % 7 % (2-9); Neutrophils % 69 % (42-76); Platelet Estimate Normal; RBC Morphology Normal; Total Cells Counted 100
--- NOTE | 2020-12-21 11:05 | PC.NURSE ---
Pt refused morning meds, states she will take them when she gets home
== END 2020-12-21 11:29 | disposition home or self-care (01) | DRG 193 ==
PROVIDERS: Family Medicine; Internal Medicine Pulmonary Disease; Nurse Practitioner Family; Admitting Provider Emergency Medicine; PCP Emergency Medicine; Visit Provider Emergency Medicine
DX: J18.9 Pneumonia, unspecified organism (principal); I50.33 Acute on chronic diastolic (congestive) heart failure; J44.0 Chronic obstructive pulmonary disease with (acute) lower respiratory infection; Z68.43 Body mass index [BMI] 50.0-59.9, adult; I11.0 Hypertensive heart disease with heart failure; Z86.718 Personal history of other venous thrombosis and embolism; Z20.822 Contact with and (suspected) exposure to COVID-19; E03.9 Hypothyroidism, unspecified; E66.01 Morbid (severe) obesity due to excess calories; J44.9 Chronic obstructive pulmonary disease, unspecified; M54.5 Low back pain; G89.29 Other chronic pain; E11.51 Type 2 diabetes mellitus with diabetic peripheral angiopathy without gangrene; E78.5 Hyperlipidemia, unspecified; M19.90 Unspecified osteoarthritis, unspecified site; Z87.891 Personal history of nicotine dependence; Z79.84 Long term (current) use of oral hypoglycemic drugs; F41.9 Anxiety disorder, unspecified; F32.9 Major depressive disorder, single episode, unspecified; M79.7 Fibromyalgia; G43.909 Migraine, unspecified, not intractable, without status migrainosus; F39 Unspecified mood [affective] disorder; Z86.16 Personal history of COVID-19; R07.9 Chest pain, unspecified
CPT/HCPCS: 36415; 71045; 71046; 71275; 80048; 80053; 81001; 82962; 83605; 83880; 84484; 85007; 85025; 86677; 87040; 87070; 87205; 87486; 87581; 87633; 87798; 93005; 93306; 94640; 94760; 94761; 99282; J0456; Q9967; U0003

== ENCOUNTER → 2021-03-30 11:16 | Outpatient (CLI) | payer MEDICAID, SELFPAY | PROVIDERS: Visit Provider Nurse Practitioner Family | DX: Z01.812 Encounter for preprocedural laboratory examination (principal); Z11.52 Encounter for screening for COVID-19 | CPT/HCPCS: U0003 ==

== ENCOUNTER → 2021-05-24 14:08 | Outpatient (CLI) | payer MEDICAID, SELFPAY | PROVIDERS: PCP Physician Assistant; Visit Provider Nurse Practitioner | DX: Z20.822 Contact with and (suspected) exposure to COVID-19 (principal) | CPT/HCPCS: C9803; U0003; U0005 ==

== ENCOUNTER → 2021-06-22 10:28 | Outpatient (CLI) | payer MEDICAID, SELFPAY ==
--- NOTE | 2021-06-22 10:31 | CT_ITS ---
PROCEDURE: CT LUNG SCREENING CLINICAL INDICATION: H/O NICOTINE DEPENDENCE COMPARISON: CT CT ANGIO CHEST from 12/16/2020 TECHNIQUE: The exam was performed on a GE Light Speed [address] scanner using 2.90 mGy CTDI. A low dose helical CT CHEST was performed on a multi-detector scanner. All CT scans at the facility use one or more dose reduction, viz: automated exposure control, ma/kV adjustment per patient size (including targeted exams where dose is matched to indication, i.e. head), or iterative reconstruction technique. The LDCT was performed in a facility that meets the criteria for the screening program. Data regarding this exam was submitted to ACR which is an approved registry. The order for this exam indicates that it came as a result of a lung cancer screening counseling shard decision-making visit that included all the elements required of such a visit including smoking cessation. The radiologist interpreting this exam meets the [facility] criteria for the LDCT lung cancer screening program. The exam is reported using the Lung-RADS classification scale and reported to the ACR registry. NOTE: This study was performed for the specific purposes of lung cancer screening and is not an alternative to diagnostic chest CT. RADIATION DOSE: CTDI vol(CT dose Index-volume) = 2.90mG DLP (Dose Length Product) = 96.38 the mGcm FINDINGS: 4 mm subpleural nodule left lower lobe laterally unchanged. Calcified granuloma right lower lobe posteriorly right lower lobe anteriorly. No suspicious pulmonary nodules. Mild bronchial thickening. Atelectatic changes in the right middle lobe, left upper lobe and lingula have improved. OTHER FINDINGS: Diffuse fatty liver. Hepatosplenomegaly. IMPRESSION: Lung-RADS Category 2 Benign Appearance or Behavior Follow-up: Continue annual screening with LDCT in 12 months Other findings as described above. Dictated by: Valentin Evans MD 07/03/2021 07:40 Valentin Evans MD in [place] 07/03/2021 07:40
== END ==
PROVIDERS: PCP Physician Assistant; Visit Provider Nurse Practitioner Family
DX: Z87.891 Personal history of nicotine dependence (principal); Z12.2 Encounter for screening for malignant neoplasm of respiratory organs
CPT/HCPCS: 71271

== ENCOUNTER → 2021-07-05 12:39 | Outpatient (CLI) | payer MEDICAID, SELFPAY ==
--- NOTE | 2021-07-05 12:39 | US_ITS ---
PROCEDURE: US BREAST RT COMPLETE CLINICAL INDICATION: Abnormal MM Follow-up abnormal breast ultrasound COMPARISON: US US BREAST RT COMPLETE from 11/09/2020 FINDINGS: Previously noted slightly hyperechoic nodule at 2 o'clock near the nipple is once again noted measuring 16 x 6 mm not significantly changed. This is well-circumscribed and may represent a lipoma. A slightly hyperechoic area 3 o'clock also noted not as well circumscribed measuring 1.6 x 1 cm probably unchanged. Small lipomas are present at 1 o'clock at 4 mm and 8 x 6 mm. Complicated cyst noted at 10 o'clock near the nipple at 5 mm. Additional complicated cyst at 11 o'clock near the nipple at 5 mm. Small nodes are present in the axilla. IMPRESSION: No change in the benign-appearing breast nodules. BI-RADS category 2 benign. Recommend resume screening mammogram in November 2021. Dictated by: Valentin Evans MD 07/10/2021 12:42 Valentin Evans MD in [place] 07/10/2021 12:42
== END ==
PROVIDERS: PCP Physician Assistant; Visit Provider Physician Assistant
DX: R92.8 Other abnormal and inconclusive findings on diagnostic imaging of breast (principal)
CPT/HCPCS: 76641

== ENCOUNTER → 2021-10-26 16:19 | Outpatient (CLI) | payer MEDICAID, SELFPAY ==
[2021-10-26 14:01] LABS: Basophils # 0.1 K/mm3 (0-0.2); Basophils % 1.2 % (0.1-2.0); Eosinophils # 0.2 K/mm3 (0.0-0.4); Eosinophils % 2.7 % (0.1-12.0); Hematocrit 44.4 % (37.0-47.0); Hemoglobin 14.1 g/dL (12.2-16.2); Lymphocytes # 2.5 K/mm3 (0.7-4.5); Lymphocytes % 35.1 % (10-50); Mean Corpuscular HGB Conc 31.7 g/dL (31.8-35.4); Mean Corpuscular Hemoglobin 28.2 pg (27.0-31.2); Mean Corpuscular Volume 88.8 fl (81-99); Mean Platelet Volume 9.6 fl (7.4-10.4); Monocytes # 0.5 K/mm3 (0.1-1.0); Monocytes % 6.7 % (1.7-9.3); Neutrophils # 3.9 K/mm3 (1.8-7.8); Neutrophils % 54.3 % (37.0-80.0); Platelet Count 248 K/mm3 (142-424); Red Blood Count 5.01 M/mm3 (4.20-5.40); Red Cell Distribution Width 14.9 % (11.5-17.5); White Blood Count 7.1 K/mm3 (4.8-10.8)
[2021-10-26 14:02] LABS: Hemoglobin A1C 11.9 % (4.0-6.0)
[2021-10-26 14:24] LABS: Alanine Aminotransferase 57 U/L (12-78); Albumin Level 3.9 g/dl (3.5-5.0); Albumin/Globulin Ratio 1.4 (1.1-1.8); Alkaline Phosphatase 125 U/L (38-126); Anion Gap 9.5 mEq/L (5-15); Aspartate Amino Transferase 33 U/L (14-36); Bilirubin,Total 0.5 mg/dl (0.2-1.3); Blood Urea Nitrogen 12 mg/dl (7-17); Calcium 8.8 mg/dl (8.4-10.2); Carbon Dioxide 27 mmol/L (22.0-30.0); Chloride 102 mmol/L (98-107); Cholesterol 210 mg/dl (140-200); Estimated Glomerular Filt Rate 103 ml/min (>60); GFR (African American) 125 ML/MIN (>60); Globulin 2.8 g/dL (1.3-3.2); Glucose 272 mg/dl (74-100); HDL Cholesterol 35 mg/dl (40-60); Potassium 4.5 mmoL/L (3.5-5.1); Sodium 134 mmol/L (136-145); Total Protein,Serum 6.7 g/dl (6.3-8.2); Triglycerides 292 mg/dl (30-150); VLDL Cholesterol 58 mg/dL (0-40)
[2021-10-26 14:35] LABS: Direct LDL Cholesterol 115.92 mg/dL (100-129)
[2021-10-26 14:40] LABS: 25-OH Vitamin D, Total 18.1 ng/mL (30-100)
[2021-10-26 14:55] LABS: Thyroid Stimulating Hormone 3.18 uIU/mL (0.465-4.68)
[2021-10-26 21:45] LABS: Microalbumin < 6.000 mg/L (0-16.7)
[2021-10-27 11:32] LABS: C-Peptide 6.7 ng/mL (1.1-4.4)
== END ==
PROVIDERS: Visit Provider Physician Assistant
DX: E11.65 Type 2 diabetes mellitus with hyperglycemia (principal); E03.9 Hypothyroidism, unspecified; E55.9 Vitamin D deficiency, unspecified; Z79.4 Long term (current) use of insulin
CPT/HCPCS: 80053; 80061; 82043; 82306; 83036; 84443; 84681; 85025

== ENCOUNTER 2021-11-24 14:54 | Emergency (ER) | payer MEDICAID, SELFPAY ==
[2021-11-24 14:55] VITALS: BP 114/69; PULSE 92; RESP 16; TEMP 36.4; O2SAT 95; BMI 58.7
[2021-11-24 16:28] VITALS: BMI 58.7
--- NOTE | 2021-11-24 16:31 | PC.NURSE ---
spoke with deepak,membership advisor will room pt in ER as soon as a room is available.
[2021-11-24 16:50] LABS: Basophils # 0.3 K/mm3 (0-0.2); Basophils % 3.4 % (0.1-2.0); Eosinophils # 0.2 K/mm3 (0.0-0.4); Eosinophils % 2.8 % (0.1-12.0); Hematocrit 47.7 % (37.0-47.0); Hemoglobin 15.5 g/dL (12.2-16.2); Lymphocytes # 2.2 K/mm3 (0.7-4.5); Lymphocytes % 26.1 % (10-50); Mean Corpuscular HGB Conc 32.5 g/dL (31.8-35.4); Mean Corpuscular Hemoglobin 28.5 pg (27.0-31.2); Mean Corpuscular Volume 87.5 fl (81-99); Mean Platelet Volume 9.1 fl (7.4-10.4); Monocytes # 0.4 K/mm3 (0.1-1.0); Monocytes % 5.3 % (1.7-9.3); Neutrophils # 5.1 K/mm3 (1.8-7.8); Neutrophils % 62.4 % (37.0-80.0); Platelet Count 227 K/mm3 (142-424); Red Blood Count 5.45 M/mm3 (4.20-5.40); Red Cell Distribution Width 14.6 % (11.5-17.5); White Blood Count 8.2 K/mm3 (4.8-10.8)
[2021-11-24 16:59] LABS: Chloride 101 mmol/L (98-107); Potassium 4.4 mmoL/L (3.5-5.1); Sodium 132 mmol/L (136-145)
[2021-11-24 17:00] LABS: Acetone, Serum (Rapid) Small (None Detect)
[2021-11-24 17:02] LABS: Alanine Aminotransferase 41 U/L (12-78); Albumin/Globulin Ratio 1.2 (1.1-1.8); Alkaline Phosphatase 146 U/L (38-126); Anion Gap 11.4 mEq/L (5-15); Aspartate Amino Transferase 38 U/L (14-36); Bilirubin,Total 0.6 mg/dl (0.2-1.3); Blood Urea Nitrogen 15 mg/dl (7-17); Carbon Dioxide 24 mmol/L (22.0-30.0); Creatinine Clearance Estimated 71 mL/min (50-200); Estimated Glomerular Filt Rate 87 ml/min (>60); GFR (African American) 105 ML/MIN (>60); Globulin 3.3 g/dL (1.3-3.2); Total Protein,Serum 7.3 g/dl (6.3-8.2)
[2021-11-24 17:06] LABS: Glucose 530 mg/dl (74-100)
--- NOTE | 2021-11-24 17:36 | HMH.EDUTC ---
[facility] [place] Disposition Clinical Impression: Hyperglycemia Disposition: Home, Self-Care Condition on Discharge: Fair Instructions: DI for Hyperglycemia -- Adult Additional Instructions: Continue current medications. See your primary care provider at 9 AM on 11/27/2021. Return to the emergency department if worse. Referrals: Mariana Guillen PA [Primary Care Provider] - Time of Disposition: 16:40 Medical Decision Making - Bin Inquiry Pt receiving controlled substance: No Bin was queried for this patient: No Vital Signs: 11/24/21 14:55 11/24/21 18:21 11/24/21 18:32 Temperature 97.6 F 98.3 F Temperature Source Oral Oral Pulse Rate 82 Pulse Rate [Left Radial] 92 H 85 Respiratory Rate 16 18 21 Blood Pressure 150/82 H Blood Pressure [Right Arm] 114/69 127/62 Blood Pressure Mean 101 Blood Pressure Mean [Right Arm] 84 83 Blood Pressure Source [Right Arm] Automatic Cuff Automatic Cuff Blood Pressure Position [Right Arm] Sitting Sitting 02 Sat by Pulse Oximetry 95 99 100 Oxygen Delivery Method Room Air Room Air 11/24/21 20:33 Temperature 98.3 F Temperature Source Pulse Rate 81 Pulse Rate [Left Radial] Respiratory Rate 18 Blood Pressure 147/75 H Blood Pressure [Right Arm] Blood Pressure Mean Blood Pressure Mean [Right Arm] Blood Pressure Source [Right Arm] Blood Pressure Position [Right Arm] 02 Sat by Pulse Oximetry Oxygen Delivery Method - Lab Data Lab Results 11/24/21 16:31: VBG pH 7.33, VBG pCO2 40.0, VBG pO2 39.8, VBG HCO3 20.8 L, VBG Total CO2 22.0 L, VBG O2 Saturation 77.2 H, VBG Base Excess -5.1 L 11/24/21 16:40: WBC 8.2, RBC 5.45 H, Hgb 15.5, Hct 47.7 H, MCV 87.5, MCH 28.5, MCHC 32.5, RDW 14.6, Plt Count 227, MPV 9.1, Neut % (Auto) 62.4, Lymph % (Auto) 26.1, [place] % (Auto) 5.3, Eos % (Auto) 2.8, Baso % (Auto) 3.4 H, Neut # (Auto) 5.1, Lymph # (Auto) 2.2, [place] # (Auto) 0.4, Eos # (Auto) 0.2, Baso # (Auto) 0.3 H 11/24/21 16:40: Sodium 132 L, Potassium 4.4, Chloride 101, Carbon Dioxide 24, Anion Gap 11.4, BUN 15, Creatinine 0.70, Estimated Creat Clear 71, Estimated GFR 87, Est GFR ( Amer) 105, Glucose 530 H*, Calcium 8.0 L, Total Bilirubin 0.6, AST 38 H, ALT 41, Alkaline Phosphatase 146 H, Total Protein 7.3, Albumin 4.0, Globulin 3.3 H, Albumin/Globulin Ratio 1.2, Acetone Level Small 11/24/21 17:45: Urine Color Yellow, Urine Appearance Clear, Urine pH 5.0, Ur Specific [place] 1.010, Urine Protein Negative, Urine Glucose (UA) 3+, Urine Ketones Negative, Urine Blood 1+, Urine Nitrate Negative, Urine Bilirubin Negative, Urine Urobilinogen 0.2, Ur Leukocyte Esterase Negative, Urine RBC Occasional, Urine WBC None, Ur Squamous Epith Cells 3-5, Urine Bacteria None 11/24/21 20:21: POC Glucose 401 H* Result diagrams: 11/24/21 16:40 11/24/21 16:40 Orders (Tests/Meds): ED MEDICATIONS Discontinued Medications Generic Name Dose Route Start Last Admin Trade Name Juanito PRN Reason Stop Dose Admin Lactated Ringer's 1,000 mls @ 999 mls/hr 11/24/21 18:15 11/24/21 19:14 Lactated Ringer's 1000 Ml Bag IV 11/24/21 19:15 999 mls/hr .Q1H1M ARNALDO Administration Insulin Human Regular 10 unit 11/24/21 19:02 11/24/21 19:13 Insulin Human Regular 100 Units/Ml 10ml Vial IVP 11/24/21 19:03 10 unit ONCE ONE Administration Sodium Chloride 10 ml 11/24/21 16:28 Sodium Chloride 0.9% 10ml Flush Syringe IV 12/24/21 16:27 NEEDED PRN Maintain IV Site Medical Decision Narrative: 1630 Due to patient symptoms and FSBS in [facility] [place] called ED for transfer to the ED for further work up and Evaluation but no room available at this time Advised would order labs and move patient to the ED when bed available Patient agreed to transfer [facility] HPI - General Stated complaint: elevated sugar Time Seen by Provider: 11/24/21 16:20 Mode of Arrival: Ambulatory Source of Information: Patient Limitations: No Limitations Description of Symptoms (Recalled f
[2021-11-24 18:06] LABS: Microscopic, Urine URINE MICROSCOPIC (MICROSCOPIC)
--- NOTE | 2021-11-24 18:16 | PC.NURSE ---
notified RT of VBG order
[2021-11-24 18:20] LABS: Appearance,Urine CLEAR (Clear); Bilirubin,Urine Negative (Negative); Blood, Urine 1+ (Negative); Color,Urine YELLOW (Yellow); Glucose,Urine (UA) 3+ (Negative); Ketones,Urine Negative (Negative); Leukocyte Esterase,Urine Negative (Negative); Nitrate,Urine Negative (Negative); Protein,Urine Negative (Negative); Urobilinogen,Urine 0.2 EU/dl (0.2)
[2021-11-24 18:21] VITALS: BP 127/62; PULSE 85; RESP 18; TEMP 36.8; O2SAT 99; BMI 58.7
[2021-11-24 18:26] LABS: VBG Base Excess -5.1 mmol/L (-2.4-2.3); VBG HCO3 20.8 mmol/L (23-30); VBG Oxygen Saturation 77.2 % (50-70); VBG PH 7.33 mmol/L (7.31-7.41); VBG PO2 39.8 mmol/L (28-40)
[2021-11-24 18:32] VITALS: BP 150/82; PULSE 82; RESP 21; O2SAT 100
--- NOTE | 2021-11-24 18:54 | HMH.EDGENADL ---
ED Disposition Clinical Impression: Hyperglycemia Disposition: Home, Self-Care Condition on Discharge: Good Instructions: DI for Hyperglycemia -- Adult Additional Instructions: Continue current medications. See your primary care provider at 9 AM on 11/27/2021. Return to the emergency department if worse. Referrals: Mariana Guillen PA [Primary Care Provider] - - Critical Care Critical Care Time: No Attestation: On 11/24/21, the high probability of a clinically significant, sudden or life threatening deterioration of the following system(s) required my full and direct attention, intervention and personal management. The time I documented below is in addition to time spent performing reported procedures but includes the following listed in this critical care notation. Medical Decision Making - Medical Records Medical records reviewed: Yes: I reviewed the patient's medical records. MR Comment: Reviewed to most recent primary care provider note. I do not see a note of what sample she might have been given. Note indicates that she is on glipizide and metformin. I advised patient that Entresto was not for diabetes but she is insistent that the samples were for Entresto. - Bin Inquiry Pt receiving controlled substance: No Vital Signs: 11/24/21 14:55 11/24/21 18:21 11/24/21 18:32 Temperature 97.6 F 98.3 F Temperature Source Oral Oral Pulse Rate 82 Pulse Rate [Left Radial] 92 H 85 Respiratory Rate 16 18 21 Blood Pressure 150/82 H Blood Pressure [Right Arm] 114/69 127/62 Blood Pressure Mean 101 Blood Pressure Mean [Right Arm] 84 83 Blood Pressure Source [Right Arm] Automatic Cuff Automatic Cuff Blood Pressure Position [Right Arm] Sitting Sitting 02 Sat by Pulse Oximetry 95 99 100 Oxygen Delivery Method Room Air Room Air - Lab Data Lab Results 11/24/21 16:31: VBG pH 7.33, VBG pCO2 40.0, VBG pO2 39.8, VBG HCO3 20.8 L, VBG Total CO2 22.0 L, VBG O2 Saturation 77.2 H, VBG Base Excess -5.1 L 11/24/21 16:40: WBC 8.2, RBC 5.45 H, Hgb 15.5, Hct 47.7 H, MCV 87.5, MCH 28.5, MCHC 32.5, RDW 14.6, Plt Count 227, MPV 9.1, Neut % (Auto) 62.4, Lymph % (Auto) 26.1, [place] % (Auto) 5.3, Eos % (Auto) 2.8, Baso % (Auto) 3.4 H, Neut # (Auto) 5.1, Lymph # (Auto) 2.2, [place] # (Auto) 0.4, Eos # (Auto) 0.2, Baso # (Auto) 0.3 H 11/24/21 16:40: Sodium 132 L, Potassium 4.4, Chloride 101, Carbon Dioxide 24, Anion Gap 11.4, BUN 15, Creatinine 0.70, Estimated Creat Clear 71, Estimated GFR 87, Est GFR ( Amer) 105, Glucose 530 H*, Calcium 8.0 L, Total Bilirubin 0.6, AST 38 H, ALT 41, Alkaline Phosphatase 146 H, Total Protein 7.3, Albumin 4.0, Globulin 3.3 H, Albumin/Globulin Ratio 1.2, Acetone Level Small 11/24/21 17:45: Urine Color Yellow, Urine Appearance Clear, Urine pH 5.0, Ur Specific [place] 1.010, Urine Protein Negative, Urine Glucose (UA) 3+, Urine Ketones Negative, Urine Blood 1+, Urine Nitrate Negative, Urine Bilirubin Negative, Urine Urobilinogen 0.2, Ur Leukocyte Esterase Negative, Urine RBC Occasional, Urine WBC None, Ur Squamous Epith Cells 3-5, Urine Bacteria None Result diagrams: 11/24/21 16:40 11/24/21 16:40 Orders (Tests/Meds): ED MEDICATIONS Generic Name Dose Route Start Last Admin Trade Name Freq PRN Reason Stop Dose Admin Lactated Ringer's 1,000 mls @ 999 mls/hr 11/24/21 18:15 11/24/21 19:14 Lactated Ringer's 1000 Ml Bag IV 11/24/21 19:15 999 mls/hr .Q1H1M ARNALDO Administration Sodium Chloride 10 ml 11/24/21 16:28 Sodium Chloride 0.9% 10ml Flush Syringe IV 12/24/21 16:27 NEEDED PRN Maintain IV Site Discontinued Medications Generic Name Dose Route Start Last Admin Trade Name Freq PRN Reason Stop Dose Admin Insulin Human Regular 10 unit 11/24/21 19:02 11/24/21 19:13 Insulin Human Regular 100 Units/Ml 10ml Vial IVP 11/24/21 19:03 10 unit ONCE ONE Administration - Physician Consults Physician Consulted: Rah Time: 20:25 Reason -: Pt
[2021-11-24 19:10] LABS: RBC,Urine Occasional #/hpf (0-3)
[2021-11-24 20:28] LABS: POC Glucose,Bedside 401 (70-110)
[2021-11-24 20:33] VITALS: BP 147/75; PULSE 81; RESP 18; TEMP 36.8; O2SAT 100
== END 2021-11-24 20:48 | disposition home or self-care (01) ==
LOC: UTC 17:45 → ER 18:09
PROVIDERS: Emergency Medicine; Emergency Provider Nurse Practitioner; PCP Physician Assistant
DX: E11.65 Type 2 diabetes mellitus with hyperglycemia (principal); J44.9 Chronic obstructive pulmonary disease, unspecified; F41.8 Other specified anxiety disorders; I10 Essential (primary) hypertension; E78.5 Hyperlipidemia, unspecified; E03.9 Hypothyroidism, unspecified; M79.7 Fibromyalgia; Z79.899 Other long term (current) drug therapy
CPT/HCPCS: 80053; 81001; 82009; 82803; 82962; 85025; 96360; 96375; 99284

== ENCOUNTER 2022-05-01 21:02 | Observation (INO) | payer MEDICAID, SELFPAY ==
[2022-05-01 21:09] VITALS: BP 146/73; PULSE 86; RESP 22; TEMP 36.4; O2SAT 97; BMI 60.4
--- NOTE | 2022-05-01 21:09 | ECG_ITS ---
APPROVED REPORT Exam: Resting ECG HR:80 bpm ECG Measurements Heart Rate 80 AXES [place] 172 P 72 QRSd 108 QRS -38 QT 380 T 58 QTc 416 Conclusion SINUS RHYTHM LEFT AXIS DEVIATION [QRS AXIS < -30] PATTERN CONSISTENT WITH PULMONARY DISEASE ABNORMAL ECG UNCONFIRMED REPORT Electronically signed by : Manfred Gama MD 05/03/2022 15:58:07
--- NOTE | 2022-05-01 21:17 | CT_ITS ---
PROCEDURE INFORMATION: Exam: CTA Chest With Contrast Exam date and time: 05/01/22 10:04 PM Age: 56 years old Clinical indication: Other: Generalized chest pain; Additional info: Fall TECHNIQUE: Imaging protocol: Computed tomographic angiography of the chest with contrast. 3D rendering (Not supervised by radiologist): MIP and/or 3D reconstructed images were created by the technologist. Radiation optimization: All CT scans at this facility use at least one of these dose optimization techniques: automated exposure control; mA and/or kV adjustment per patient size (includes targeted exams where dose is matched to clinical indication); or iterative reconstruction. Contrast material: ISOVUE; Contrast volume: 75 ml; Contrast route: INTRAVENOUS (IV); COMPARISON: CT ANGIO CHEST 12/16/20 06:29 PM FINDINGS: Pulmonary arteries: Normal. No pulmonary emboli. Aorta: Unremarkable. No aortic aneurysm. No aortic dissection. Lungs: Unremarkable. No consolidation. No masses. Pleural spaces: Unremarkable. No pneumothorax. No pleural effusion. Heart: Unremarkable. No cardiomegaly. No pericardial effusion. Lymph nodes: Unremarkable. No enlarged lymph nodes. Bones/joints: Unremarkable. No acute fracture. Soft tissues: Unremarkable. IMPRESSION: No acute findings.
--- NOTE | 2022-05-01 21:17 | XR_ITS ---
PROCEDURE INFORMATION: Exam: XR Chest Exam date and time: 05/01/22 10:26 PM Age: 56 years old Clinical indication: Pain; Other: Generalized; Additional info: Chrest paibn TECHNIQUE: Imaging protocol: Radiologic exam of the chest. Views: 4 or more views. COMPARISON: CT ANGIO CHEST PE PROTOCOL 05/01/22 10:04 PM FINDINGS: Lungs: Unremarkable. No consolidation. Pleural spaces: Unremarkable. No pleural effusion. No pneumothorax. Heart/Mediastinum: Unremarkable. No cardiomegaly. Bones/joints: Unremarkable. IMPRESSION: No acute findings.
--- NOTE | 2022-05-01 21:17 | CT_ITS ---
PROCEDURE INFORMATION: Exam: CT Head Without Contrast Exam date and time: 05/01/2022 10:00 PM Age: 56 years old Clinical indication: Pain; Headache; Post-traumatic; Additional info: Fall TECHNIQUE: Imaging protocol: Computed tomography of the head without contrast. Radiation optimization: All CT scans at this facility use at least one of these dose optimization techniques: automated exposure control; mA and/or kV adjustment per patient size (includes targeted exams where dose is matched to clinical indication); or iterative reconstruction. COMPARISON: CT HEAD/BRAIN WO CON 05/26/2020 11:22 AM FINDINGS: Brain: Normal. No hemorrhage. Unremarkable white matter. No mass effect. Cerebral ventricles: No ventriculomegaly. Paranasal sinuses: Visualized sinuses are unremarkable. No fluid levels. Mastoid air cells: Visualized mastoid air cells are well aerated. Bones/joints: Unremarkable. No acute fracture. Soft tissues: Unremarkable. IMPRESSION: No acute intracranial abnormality.
--- NOTE | 2022-05-01 21:18 | HMH.EDCP ---
Discharge Plan Disposition Patient Disposition: Admitted as Observation Chief Complaint: Chest Pain Clinical Impressions Clinical Impression: Chest pain, Diabetes, Tobacco use, Morbid obesity Discharge ED Provider: Juan Monreal Chest Pain HPI General Chief Complaint: Chest Pain Stated Complaint: weakness/vertigo/chest discomfort with breathing Time Seen by Provider: 05/01/22 21:15 Mode of Arrival: EMS Source of Information: Patient, EMS and Medical Record Limitations: No Limitations Description of Symptoms (Recalled from ER Triage Doc. by RN): Pt reports chest pain that is intermittent and describes it as pressure. Pt states pain started this Am and got worse around 5pm. Pt was given SL nitro in route and reports no change in pain or SOA. Pt endorses SOA, nausea, dizziness, diarrhea, and recent falls. History of Present Illness HPI narrative: ant chest pain presented on the today as pressure - worse this pm pt with sob assoc with pain MD complaint: chest pain indicative of cardiac Onset (ago): hour(s) Duration: intermittent Activity at onset: during rest Pain location: substernal Severity: moderate Quality: other (pressure ) Associated symptoms: dyspnea Risk Factors for CAD: Hypertension, Family Hx of CAD, Diabetes and Smoking Treatments prior to or on arrival for Cardiac Chest Pain: nitroglycerin JOSUE Score for Non-Stemi Age of Patient: 50-59 years old Heart Rate: 70-89 bpm Systolic Blood Pressure: 100-119 mmHg Serum Creatinine: 0.40-0.79 mg/dl CHF Killip Class: I-No CHF Other Risk Factors: None Non-Stemi Risk Score: 97 Related Data Prior Cardiac Testing/Procedures: Cardiac Angiogram On Oral Contraceptives: No Home Medications Medication Instructions Recorded Confirmed oxycodone-acetaminophen 7.5 mg-325 1 tab PO TIDP PRN pain 05/26/20 01/15/22 mg tablet gabapentin 600 mg tablet 600 mg PO TID Pain 06/27/20 01/15/22 escitalopram oxalate 10 mg tablet 10 mg PO DAILY Depression 12/18/20 01/15/22 lisinopril 20 mg tablet 20 mg PO DAILY 01/15/22 01/15/22 Previous Rx's Medication Instructions Recorded fluticasone 250 mcg-salmeterol 50 1 inh inhalation BID #60 ea 12/19/20 mcg/dose blistr powdr for inhalation ipratropium 0.5 mg-albuterol 3 mg 3 ml inhalation QID PRN shortness 12/19/20 (2.5 mg base)/3 mL nebulization of breath or wheezing #90 mL soln meclizine 25 mg tablet 25 mg PO TID PRN dizziness #30 tabs 02/27/21 alcohol swabs (Alcohol Prep Pads) See Rx Instructions .Route 05/17/21 .COMPLEX #200 pad lancets 30 gauge (TRUEplus Lancets) ##100 05/17/21 fenofibrate nanocrystallized 145 See Rx Instructions .Route 07/05/21 mg tablet .COMPLEX #90 tabs levothyroxine 137 mcg tablet See Rx Instructions .Route 07/05/21 .COMPLEX #90 tabs montelukast 10 mg tablet 10 mg PO DAILY #30 tabs 07/05/21 (Singulair) albuterol sulfate 90 mcg/actuation 2 puff inhalation Q6H PRN 10/26/21 aerosol inhaler (Ventolin HFA) shortness of breath or wheezing #8.5 grams aspirin 81 mg tablet,delayed See Rx Instructions .Route 10/26/21 release .COMPLEX #90 tabs pantoprazole 40 mg tablet,delayed 40 mg PO DAILY 30 days #90 tabs 10/26/21 release atorvastatin 10 mg tablet 10 mg PO DAILY #90 tabs 10/31/21 cholecalciferol (vitamin D3) 25 See Rx Instructions .Route 10/31/21 mcg (1,000 unit) tablet .COMPLEX #90 tabs ergocalciferol (vitamin D2) 1,250 See Rx Instructions .Route 10/31/21 mcg (50,000 unit) capsule .COMPLEX #4 caps rivaroxaban 20 mg tablet (Xarelto) See Rx Instructions .Route 11/22/21 .COMPLEX #30 tabs dextromethorphan-guaifenesin ER 60 1 tab PO Q12H #20 tabs 11/27/21 mg-1,200 mg tab,extend release,12hr (Mucinex DM) glipizide 10 mg tablet, extended See Rx Instructions .Route 11/27/21 release 24 hr .COMPLEX #90 tabs metformin 500 mg tablet,extended 500 mg PO BID #180 tabs 11/27/21 release 24 hr diltiazem HCl 240 mg See Rx Instructions .Route 12/22/21 capsule,extended release 24 hr .COMPLEX #30 caps fluticason
[2022-05-01 21:30] VITALS: BP 125/61; PULSE 80; O2SAT 97
[2022-05-01 21:50] LABS: Anion Gap 13.1 mEq/L (5-15); Blood Urea Nitrogen 13 mg/dl (7-17); Carbon Dioxide 27 mmol/L (22.0-30.0); Chloride 106 mmol/L (98-107); Creatinine Clearance Estimated 68 mL/min (50-200); Estimated Glomerular Filt Rate 87 ml/min (>60); GFR (African American) 105 ML/MIN (>60); Glucose 112 mg/dl (74-100); Lipase 104 U/L (23-300); Potassium 4.1 mmoL/L (3.5-5.1); Sodium 142 mmol/L (136-145)
[2022-05-01 21:57] LABS: Basophils # 0.2 K/mm3 (0-0.2); Basophils % 1.2 % (0.1-2.0); Eosinophils # 0.3 K/mm3 (0.0-0.4); Eosinophils % 2.3 % (0.1-12.0); Hematocrit 42.7 % (37.0-47.0); Hemoglobin 14.2 g/dL (12.2-16.2); Lymphocytes # 3.8 K/mm3 (0.7-4.5); Lymphocytes % 31.5 % (10-50); Mean Corpuscular HGB Conc 33.2 g/dL (31.8-35.4); Mean Corpuscular Hemoglobin 28.5 pg (27.0-31.2); Mean Corpuscular Volume 85.8 fl (81-99); Mean Platelet Volume 7.9 fl (7.4-10.4); Monocytes # 0.7 K/mm3 (0.1-1.0); Monocytes % 5.9 % (1.7-9.3); Neutrophils # 7.1 K/mm3 (1.8-7.8); Neutrophils % 59.1 % (37.0-80.0); Platelet Count 284 K/mm3 (142-424); Red Blood Count 4.98 M/mm3 (4.20-5.40); Red Cell Distribution Width 14.4 % (11.5-17.5)
[2022-05-01 21:59] LABS: Troponin I < 0.01 ng/ml (0.00-0.034)
[2022-05-01 22:06] LABS: Alanine Aminotransferase 26 U/L (12-78); Alkaline Phosphatase 93 U/L (38-126); Aspartate Amino Transferase 29 U/L (14-36); Bilirubin,Unconjugated 0.1 mg/dL (0.0-1.1)
[2022-05-01 22:07] LABS: Albumin Level 3.8 g/dl (3.5-5.0); Total Protein,Serum 7.3 g/dl (6.3-8.2)
[2022-05-01 22:14] LABS: Bilirubin,Indirect 0.1 mg/dL (0.0-0.9); Bilirubin,Total < 0.1 mg/dl (0.2-1.3)
[2022-05-01 22:28] LABS: Coronavirus 19, PCR Not Detected (NotDetected); Influenza A, PCR Not Detected (NotDetected); Influenza B, PCR Not Detected (NotDetected)
[2022-05-01 22:42] VITALS: BP 126/73; PULSE 80; O2SAT 98
--- NOTE | 2022-05-01 22:58 | PC.NURSE ---
Pt provided with warm blanket. No other needs or complaints voiced.
[2022-05-01 23:01] VITALS: BP 109/68; PULSE 82; O2SAT 96
[2022-05-01 23:08] LABS: Thyroid Stimulating Hormone 6.32 uIU/mL (0.465-4.68)
[2022-05-01 23:45] VITALS: BP 131/71; PULSE 82; RESP 18; O2SAT 96
--- NOTE | 2022-05-01 23:53 | PC.NURSE ---
Pt updated that she would be going to second floor soon. No complaints at this time.
--- NOTE | 2022-05-01 23:53 | PC.NURSE ---
Report given to ZOE Pillai at this time
[2022-05-02] VITALS (7 sets, daily range): BP systolic 117–157; BP diastolic 73–88; PULSE 58–86; RESP 17–22; TEMP 36.4–36.7; O2SAT 95–100; BMI 54.6
--- NOTE | 2022-05-02 00:15 | PC.NURSE ---
patient up to floor via wheelchair @ this time.
--- NOTE | 2022-05-02 00:24 | CA_ITS ---
APPROVED REPORT EXAM: Comprehensive 2D, Doppler, and color-flow Echocardiogram Market Reporter: Lillie Grace CRT Ht: 5 ft 1 in Wt: 320lbs BSA: 2.31 BP: 146/73 mmHg Indications: Chest Pain, Congestive Heart Failure, Shortness of Breath, Diabetes, Hypertension/HDD, Asthma, covid 12/23, smoker, obesity 2D Dimensions LVOT 2.14 cm (M/F) 1.5-2.5 M-Mode Dimensions RVDd 2.59 cm (0.9-2.6) LA Diam 3.41 cm (1.9-4.0) LVDd 4.42 cm (3.5-5.7) Ao Diam 3.41 cm (2.0-3.7) LVDs 2.86 cm (3.5-5.7) IVSd 1.88 cm (0.6-1.1) PWd 0.77 cm (0.6-1.1) EF (Teich) 64.90% FS 35.30% EDV (Teich) 88.60 mL TAPSE 2.94 (<1.7) ESV (Teich) 31.10 mL LV Diastology E Decel Time 267.00 (160-240 msec) E/A Ratio 1.05 MED E' 5.70 (< 7 cm/sec) MED A' 8.50 cm/s E'/MED E' Ratio 21.58 (>14) LAT E' 6.50 (<10 cm/sec) LAT A' 12.00 cm/s E/LAT E' Ratio 18.92 (>14) Aortic Valve AO Peak GR. 12.70 mmHg Mitral Valve MV E Max José Luis. 123.00 (40-130 cm/s) MV A Velocity 117.00 (40-130 cm/s) E/A Ratio 1.05 MV Decel. Time 267.00 (160-240 ms) MV PHT 78.00 ms Pulmonary Valve PV Peak Velocity 131.00 (50-150 cm/s) Tricuspid Valve TR P. Velocity 208.00 cm/s RAP Estimate 10.00 mmHg RVSP 27.30 mmHg Left Ventricle Left atrium is mildly enlarged, left ventricle is normal size mild concentric left ventricular hypertrophy, estimated ejection fraction 55% with no regional wall motion abnormality, grade 1 diastolic dysfunction seen with tissue Doppler evidence of raise left atrial pressure. Right Ventricle Right atrium and right ventricle are normal size and contractility. Aortic Valve Aortic valve is minimally thickened and calcified without aortic stenosis aortic insufficiency. Mitral Valve Mitral valve has mitral annular calcification, there is no mitral stenosis, there is mild mitral regurgitation. Tricuspid Valve Tricuspid valve is grossly normal, there is mild tricuspid regurgitation, tricuspid regurgitation jet velocity is inadequate for calculation of the right ventricular systolic pressure. Pulmonic Valve Pulmonic valve is poorly visualized. Great Vessels Aortic root is normal size. Inferior vena cava is poorly visualized. Pericardium No significant pericardial effusion noted. Conclusion 1. Mildly enlarged left atrium, normal left ventricular size, mild concentric left ventricular hypertrophy, estimated ejection fraction 55% with no regional wall motion abnormality, grade 1 diastolic dysfunction seen with tissue Doppler evidence of raise left atrial pressure. 2. Mild mitral and tricuspid regurgitation. 3. No significant pericardial effusion. 4. Inferior vena cava is poorly visualized. Electronically signed by : Miko Frazier MD 05/02/2022 07:36:37
--- NOTE | 2022-05-02 04:08 | PC.NURSE ---
notified MD Monreal of pt's 04/14 pain, MD instructed to give morphine dose early, medication given
[2022-05-02 05:57] LABS: POC Glucose,Bedside 108 (70-110)
[2022-05-02 06:51] LABS: Basophils # 0.1 K/mm3 (0-0.2); Eosinophils # 0.3 K/mm3 (0.0-0.4); Eosinophils % 2.4 % (0.1-12.0); Hematocrit 45.5 % (37.0-47.0); Hemoglobin 14.4 g/dL (12.2-16.2); Lymphocytes # 4.4 K/mm3 (0.7-4.5); Lymphocytes % 35.5 % (10-50); Mean Corpuscular HGB Conc 31.7 g/dL (31.8-35.4); Mean Corpuscular Hemoglobin 27.8 pg (27.0-31.2); Mean Corpuscular Volume 87.7 fl (81-99); Monocytes # 0.8 K/mm3 (0.1-1.0); Monocytes % 6.6 % (1.7-9.3); Neutrophils # 6.7 K/mm3 (1.8-7.8); Neutrophils % 54.6 % (37.0-80.0); Platelet Count 295 K/mm3 (142-424); Red Blood Count 5.19 M/mm3 (4.20-5.40); Red Cell Distribution Width 14.4 % (11.5-17.5); White Blood Count 12.3 K/mm3 (4.8-10.8)
[2022-05-02 06:56] LABS: Anion Gap 13.1 mEq/L (5-15); Blood Urea Nitrogen 13 mg/dl (7-17); Carbon Dioxide 23 mmol/L (22.0-30.0); Chloride 107 mmol/L (98-107); Creatinine Clearance Estimated 68 mL/min (50-200); Estimated Glomerular Filt Rate 87 ml/min (>60); GFR (African American) 105 ML/MIN (>60); Glucose 121 mg/dl (74-100); Potassium 4.1 mmoL/L (3.5-5.1); Sodium 139 mmol/L (136-145)
--- NOTE | 2022-05-02 07:33 | P.CONPHA_ITS ---
[facility] Pharmacy VTE Monitoring Patient Demographics Admission date: 05/02/22 Report Date: 05/02/22 Time: 07:34 Patient Allergies No Known Allergies Allergy (Verified 01/15/22 13:17) Height: 1.55 m Weight: 131.088 kg Current Active Problems Chest pain (Acute) Morbid obesity (Chronic) Diabetes (Chronic) Tobacco use (Chronic) VTE Risk Labs: VTE Related Lab Results Hgb 14.4 g/dL (12.2-16.2) 05/02/22 06:05 Hct 45.5 % (37.0-47.0) 05/02/22 06:05 Plt Count 295 K/mm3 (142-424) 05/02/22 06:05 BUN 13 mg/dl (7-17) 05/02/22 06:05 Creatinine 0.70 mg/dl (0.52-1.04) 05/02/22 06:05 Estimated Creat Clear 68 mL/min (50-200) 05/02/22 06:05 Prophylaxis VTE Prophylaxis Ordered?: Yes Types of VTE Prophylaxis: TEDS Knee High Location of Applied Device: Bilateral Lower Extremeties
--- NOTE | 2022-05-02 08:24 | EXP.CARD.CON ---
History of Present Illness History of Present Illness Consult date: 05/02/22 Requesting physician: Juan Monreal Consult reason: chest pain Chief complaint: Chest pain Additional Medical History:: 1. Chronic obstructive pulmonary disease A. Tobacco use starting at age 13 2. Hypertension A.? Chronic diastolic CHF B.? Echocardiogram, 05/02/2022,1.? Mildly enlarged left atrium, normal left ventricular size, mild concentric left ventricular hypertrophy, estimated ejection fraction 55% with no regional wall motion abnormality, grade 1 diastolic dysfunction seen with tissue Doppler evidence of raise left atrial pressure. 2.? Mild mitral and tricuspid regurgitation. 3.? No significant pericardial effusion. 4.? Inferior vena cava is poorly visualized 3. Hyperlipidemia 4. Obesity A. Referred for bariatric surgery but this never occurred. 5. Abnormal electrocardiogram with LEFT anterior fascicular block and anterior infarct pattern. A. right and left heart cath, 03/2016, normal coronaries with hyperdynamic LVEF and moderate pulmonary HTN. Diuretics recommended. B.??LHC, 06/2019, normal coronary arteries, normal ejection fraction, LVEDP 20 mmHg 6. Hypothyroidism, on replacement 7.? Anxiety 8.? DM 9.? Positive IgG, IgM for COVID-19, 05/27/2020 10.? History of prior DVT, now on chronic Xarelto therapy A.? LE Angiography, 10/2017,?ANGIOGRAPHIC RESULTS: Acute to subacute thrombosis or occlusion of the left popliteal artery Plan: Patient is having severe intolerable pain. I recommend she be transferred to [facility] vascular surgery and be evaluated for percutaneous or surgical revascularization of the left popliteal artery Patient requires aggressive attention toward risk factor modification LDL less than 55 Heparin drip will be started Absolute tobacco cessation and avoidance. 11.? OJSH, CPAP therapy 12.? Junctional tachycardia, Holter monitor, 02/2020, treated with diltiazem A.? Referred to Dr. Kim, [place], [place] who recommended gastric surgery prior to any further treatment. History of present illness: 56-year-old white female with several day history of episodes of shortness of breath with a feeling of inability to take a deep breath along with a sharp knifelike sensation in the chest also in the left lower rib cage area. Patient was seen in the ER last evening for the symptoms with administration of nitroglycerin without significant improvement. Chest x-ray showed no evidence of congestive heart failure. Patient was admitted for further evaluation. Troponin returned normal overnight. EKG showed sinus rhythm with left axis deviation and no acute ST segment changes. Echocardiogram has been performed this morning with results showing EF 55% with no wall motion abnormality. No significant valve disease. Patient relates a 40-50 pound weight loss over the last 2 months related to vomiting and diarrhea with eating or drinking anything. Emesis is described as a greenish-yellow liquid and smells like sulfur. She denies any hematemesis or bright red blood per rectum. She also describes a discomfort in the left lower rib cage region left upper abdominal quadrant described as a knot sensation that arises and then improves after she vomits or has diarrhea. [facility] Medical History (Updated 05/02/22 @ 08:42 by ARABELLA Verma) Anterolisthesis Anxiety Bilateral leg and foot pain Bipolar 1 disorder BMI 50.0-59.9, adult Breast cancer screening CHF (congestive heart failure) COPD (chronic obstructive pulmonary disease) Degenerative disc disease Diabetes Diastolic HF (heart failure) HHD (hypertensive heart disease) Kidney failure Low back pain Lumbar radiculopathy Morbid obesity Neurogenic claudication Obesity JOSH on CPAP Sciatica associated with disorder of lumbar spine Tobacco use Vitamin D deficiency (~03/27/18) Surgical History (Updated 05/02/22 @ 00:38 by Freya Cortes RN) H/O
--- NOTE | 2022-05-02 09:18 | HMH.PHAINT1 ---
Pharmacy Intervention Comments: HOME MEDICATION LIST VERIFIED USING LIST FROM OUTPATIENT PHARMACY AND PT INTERVIEW
--- NOTE | 2022-05-02 10:11 | EXP.HPDC ---
General Admission date:: 05/02/22 Discharge date: 05/02/22 *Admission Date: 05/02/22 *Chief complaint: Chest Pain *History of present illness: 56-year-old white female with several day history of episodes of shortness of breath with a feeling of inability to take a deep breath along with a sharp knifelike sensation in the chest also in the left lower rib cage area.? Patient was seen in the ER last evening for the symptoms with administration of nitroglycerin without significant improvement.? Chest x-ray showed no evidence of congestive heart failure.? Patient was admitted for further evaluation.? Troponin returned normal overnight.? EKG showed sinus rhythm with left axis deviation and no acute ST segment changes.? Echocardiogram has been performed this morning with results showing EF 55% with no wall motion abnormality.? No significant valve disease. Patient relates a 40-50 pound weight loss over the last 2 months related to vomiting and diarrhea with eating or drinking anything.? Emesis is described as a greenish-yellow liquid and smells like sulfur.? She denies any hematemesis or bright red blood per rectum.? She also describes a discomfort in the left lower rib cage region left upper abdominal quadrant described as a knot sensation that arises and then improves after she vomits or has diarrhea (Per Fabiola BELL). [facility] Medical History (Updated 05/02/22 @ 08:42 by ARABELLA Verma) Anterolisthesis Anxiety Bilateral leg and foot pain Bipolar 1 disorder BMI 50.0-59.9, adult Breast cancer screening CHF (congestive heart failure) COPD (chronic obstructive pulmonary disease) Degenerative disc disease Diabetes Diastolic HF (heart failure) HHD (hypertensive heart disease) Kidney failure Low back pain Lumbar radiculopathy Morbid obesity Neurogenic claudication Obesity JOSH on CPAP Sciatica associated with disorder of lumbar spine Tobacco use Vitamin D deficiency (~03/27/18) Surgical History (Updated 05/02/22 @ 00:38 by Freya Cortes RN) H/O thyroidectomy H/O: hysterectomy History of surgical amputation of finger Hx of cholecystectomy Family History (Updated 05/02/22 @ 00:36 by Freya Cortes RN) Other Heart attack Social History (Updated 05/02/22 @ 00:39 by Freya Cortes RN) Smoking Status: Current every day smoker tobacco type: cigarettes packs per day: 1 second hand exposure: Yes alcohol intake: never substance use type: denies use current occupational status: disabled Travel in the last 8 weeks: None household members: significant other housing: apartment current occupational exposures/hazards: No caffeine: No Review of Systems Constitutional Constitutional: Reports system reviewed and no additional complaints, except as documented and Reports lethargy Eyes Eyes: Reports system reviewed and no additional complaints, except as documented, Denies change in vision and Denies diplopia ENT Ears, Nose, Mouth, and Throat: Reports system reviewed and no additional complaints, except as documented, Denies dizziness, Denies dysphagia and Denies lip swelling *Cardiovascular Cardiovascular: Reports chest pain at rest, Reports dyspnea and Reports radiating jaw, neck or arm pain *Respiratory Respiratory: Denies chest congestion, Reports dyspnea and Denies wheezing *Gastrointestinal Gastrointestinal: Reports abdominal pain, Reports diarrhea, Reports dyspepsia, Denies dysphagia, Reports loose stools, Reports nausea and Reports vomiting *Genitourinary Genitourinary: Reports system reviewed and no additional complaints, except as documented *Musculoskeletal Musculoskeletal: Reports system reviewed and no additional complaints, except as documented, Denies arthralgias and Denies muscle weakness Integumentary/Breasts Skin/Breast: Reports system reviewed and no additional complaints, except as documented and Denies change in pigmentation *Neurologic Neurologic: Reports system reviewed and no additional
[2022-05-02 12:10] LABS: POC Glucose,Bedside 115 (70-110)
--- NOTE | 2022-05-03 13:14 | CARE MANAGER ---
Patient returned phone call. She states she followed up with PCP today. She denies any questions or concerns at this time. ZOE Ghosh
== END 2022-05-02 13:31 | disposition home or self-care (01) ==
LOC: ER 22:15 → 2ND 23:12
PROVIDERS: Admitting Provider Emergency Medicine; Emergency Provider Emergency Medicine; PCP Physician Assistant; Visit Provider Emergency Medicine
DX: R07.2 Precordial pain (principal); E66.01 Morbid (severe) obesity due to excess calories; Z68.43 Body mass index [BMI] 50.0-59.9, adult; F17.210 Nicotine dependence, cigarettes, uncomplicated; E11.9 Type 2 diabetes mellitus without complications; G47.33 Obstructive sleep apnea (adult) (pediatric); Z99.89 Dependence on other enabling machines and devices; I11.0 Hypertensive heart disease with heart failure; I50.33 Acute on chronic diastolic (congestive) heart failure; I27.20 Pulmonary hypertension, unspecified; Z82.49 Family history of ischemic heart disease and other diseases of the circulatory system; Z79.899 Other long term (current) drug therapy; Z79.01 Long term (current) use of anticoagulants; Z79.84 Long term (current) use of oral hypoglycemic drugs; Z86.718 Personal history of other venous thrombosis and embolism
CPT/HCPCS: 36415; 70450; 71045; 71275; 80048; 80076; 82962; 83690; 84436; 84443; 84484; 85025; 93005; 93306; 94640; 99285; C9803; G0378; Q9967; U0003; U0005

== ENCOUNTER → 2022-05-04 15:30 | Outpatient (CLI) | payer MEDICAID, SELFPAY ==
[2022-05-04 15:35] LABS: Adenovirus F 40/41, stool Not Detected (NotDetected); Astrovirus Not Detected (NotDetected); Campylobacter Not Detected (NotDetected); Clostridium Difficile A/B, PCR Not Detected (NotDetected); Cryptosporidium Not Detected (NotDetected); Cyclospora Cayetanesis Not Detected (NotDetected); Entamoeba histolytica Not Detected (NotDetected); Enteroaggregative E coli Not Detected (NotDetected); Enteropathogenic E coli Not Detected (NotDetected); Enterotoxigenic E coli Not Detected (NotDetected); Giardia lamblia Not Detected (NotDetected); Norovirus Not Detected (NotDetected); Plesimonas Shigalloides, PCR Not Detected (NotDetected); Rotavirus A Not Detected (NotDetected); Salmonella, PCR Not Detected (NotDetected); Sapovirus Not Detected (NotDetected); Shiga-like toxin E coli Not Detected (NotDetected); Shigella Enterovasive E coli Not Detected (NotDetected); Vibrio Cholerae Not Detected (NotDetected); Vibrio, PCR Not Detected (NotDetected); Yersinia Entercolitica, PCR Not Detected (NotDetected)
== END ==
PROVIDERS: PCP Physician Assistant; Visit Provider Physician Assistant
DX: R10.12 Left upper quadrant pain (principal); R19.7 Diarrhea, unspecified; R11.2 Nausea with vomiting, unspecified
CPT/HCPCS: 87507

== ENCOUNTER → 2022-05-16 14:45 | Outpatient (CLI) | payer MEDICAID, SELFPAY ==
--- NOTE | 2022-05-16 14:45 | CT_ITS ---
FINAL REPORT TECHNIQUE: Axial CT images of the abdomen were obtained without contrast. Coronal reformatted images were also obtained.This study was performed with techniques to keep radiation doses as low as reasonably achievable (ALARA). Individualized dose reduction techniques using automated exposure control or adjustment of mA and/or kV according to the patient''s size were employed. CLINICAL HISTORY: abd pain, n/v/d FINDINGS: There are calcified granulomas in the right lung base. There is fatty infiltration of the liver. There are postoperative changes from cholecystectomy. There is no evidence of biliary ductal dilatation. The pancreas appears normal. The spleen size is within normal limits. There is no evidence of renal stone or hydronephrosis. There is no evidence of adenopathy. No abnormal fluid collection is seen. No localized inflammatory processes identified. There are mild vascular calcifications. IMPRESSION: Fatty liver. Cholecystectomy. No acute intra-abdominal abnormality. Reviewed, Interpreted and Dictated by Jr Stone III, MD Transcribed by Leanne Cotter Authenticated and . [facility]
== END ==
PROVIDERS: PCP Physician Assistant; Visit Provider Physician Assistant
DX: R10.9 Unspecified abdominal pain (principal)
CPT/HCPCS: 74150

== ENCOUNTER 2022-05-23 11:07 | Day surgery (SDC) | payer MEDICAID, SELFPAY ==
[2022-05-10 11:45] VITALS: BMI 54.2
[2022-05-23 11:37] VITALS: BP 126/75; PULSE 77; RESP 18; TEMP 36.1; O2SAT 97
[2022-05-23 11:50] LABS: POC Glucose,Bedside 103 (70-110)
[2022-05-23 11:52] VITALS: O2SAT 97
--- NOTE | 2022-05-23 12:00 | P.PN_ITS ---
[facility] Medical History Abnormal ECG Acute exacerbation of chronic obstructive airways disease Acute on chronic diastolic (congestive) heart failure Anterolisthesis Anxiety Asthma Atypical chest pain Bilateral foot pain Bilateral foot pain Bilateral leg and foot pain Bipolar 1 disorder BMI 50.0-59.9, adult Breast cancer screening Cervical radicular pain Chest pain CHF (congestive heart failure) Chronic diastolic (congestive) heart failure COPD (chronic obstructive pulmonary disease) COVID-19 virus IgG antibody detected COVID-19 virus IgM antibody detected Decreased pedal pulses Degenerative disc disease Degenerative disc disease Dehydration Diabetes Diastolic HF (heart failure) Edema of both lower extremities Foraminal stenosis of cervical region Hair loss HHD (hypertensive heart disease) History of thrombosis of lower extremity Hoarseness of voice Hx of deep venous thrombosis Hyperglycemia Hyperkalemia Hypokalemia Hypothyroidism Kidney failure Kidney failure Left leg pain Low back pain Lumbar disc disease Lumbar disc disease Migraine Morbid obesity Normal coronary arteries Obesity JOSH on CPAP Pedal edema Problem involving surgical incision Pulmonary hypertension Right axis deviation 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 Seizure-like activity Shortness of breath Thrombosis of left popliteal artery Tobacco use Typical angina Vitamin D deficiency (~03/27/18) Surgical History H/O thyroidectomy H/O: hysterectomy History of surgical amputation of finger History of thyroidectomy, total Hx of cholecystectomy Family History Mother Family history of cancer Other Family history of AK (myocardial infarction) Family history of stroke Heart attack Social History Smoking Status: Current every day smoker tobacco type: cigarettes packs per day: 1 years smoked: 40 second hand exposure: Yes alcohol intake: never substance use type: denies use current occupational status: disabled Travel in the last 8 weeks: None household members: significant other housing: apartment current occupational exposures/hazards: No caffeine: No special smita needs: No agree to transfusion: No do you feel safe at home: Yes victim of physical abuse: No victim of emotional abuse: No victim of sexual abuse: No would you like helpful sources: No [facility] Anesthesia Checklist Patient Identification Patient Identification: Arm Band and Verbal (Name & ) Structural Data Admitted From: Home Planned Operative Procedure/s: EGD/Colonoscopy Consent for Planned Operative Procedure(s) Verified: Yes NPO Status Verified Time NPO: 05:30 (Prep) Additional verifications Anesthesia Reactions: No Hx Blood Transfusions: No Blood Transfusion Reaction: No Airway Assessment C-Spine Mobility Assessed: Yes TMJ Mobility Assessed: Yes Dentition: Good Dentition Neurological Assessment Level of Consciousness: Awake Hx Seizures: No Numbness or tingling in extremities: No Anesthesia Plan Anesthesia Risk discussed: Yes Anesthesia Plan: Verified ASA Class: III Anesthesia Type: MAC
--- NOTE | 2022-05-23 12:26 | [facility].SCOPE ---
Procedure: Date: 05/23/22 Patient Date of :: 1965 Procedure Performed:: EGD Indications:: Abdominal pain. Weight loss. CT abdomen and pelvis overall normal Performing Provider:: Roque Okeefe MD Referring Provider:: Mariana Guillen APRN Sedation:: See RN notes Procedure:: The gastroscope was gently passed through the incisoral orifice into the oral cavity and under direct visualization the esophagus was intubated. The endoscope was passed down the esophagus, through the stomach, and into the duodenum. Color, texture, mucosa, and anatomy of the esophagus, stomach, and duodenum were carefully examined with the scope. Findings:: Oropharynx: normal Esophagus: normal EG Junction: intact at 40 cm Cardia: normal Fundus: normal Body: Gastritis, linear erythema. Biopsies obtained Antrum: Gastritis, linear erythema. Biopsies obtained Duodenal bulb: normal. Biopsies obtained Duodenum (second and third portion): normal. Biopsies obtained Recommendations:: Await pathology results Move forward to colonoscopy Complications:: None Estimated blood obtained (mL): 0
[2022-05-23 12:27] VITALS: BP 110/57; PULSE 78; RESP 18; TEMP 36.6; O2SAT 92
--- NOTE | 2022-05-23 12:30 | HMH.SCOPE ---
Procedure: Date: 05/23/22 Patient Date of :: 1965 Procedure Performed:: Colonoscopy Indications:: Screening colonoscopy. The patient has also had weight loss and abdominal pain. Performing Provider:: Roque Okeefe MD Referring Provider:: Mariana Guillen APRN Sedation:: See RN records Procedure:: After placing the patient in the left lateral decubitus position, the colonoscopy was gently inserted into the rectum and under direct visualization advanced to the cecum which was identified by transillumination in the right lower quadrant, identification of the ileocecal valve, appendiceal orifice, and cecal strap. Color, texture, mucosa, and anatomy of the colon were carefully examined with the scope. Findings:: Anal canal: normal Rectum: Internal hemorrhoids Sigmoid colon: Sessile polyp 5 mm in size. Removed with cold snare polypectomy Descending colon: normal without polyps or inflammatory changes Splenic flexure: normal Transverse colon: normal without polyps or inflammatory changes Hepatic flexure: normal Ascending colon: normal without polyps or inflammatory changes Cecum: normal Terminal ileum: not visualized Impression: Polyp of sigmoid colon Recommendations:: Await pathology results Repeat colonoscpy in 5 years Complications:: None Estimated blood obtained (mL): 0
[2022-05-23 12:37] VITALS: BP 109/57; PULSE 78; RESP 18; O2SAT 92
[2022-05-23 12:47] VITALS: BP 106/62; PULSE 69; RESP 17; O2SAT 94
[2022-05-23 12:57] VITALS: BP 116/64; PULSE 91; RESP 20; O2SAT 97
== END 2022-05-23 12:58 | disposition home or self-care (01) ==
PROVIDERS: PCP Physician Assistant; Visit Provider Internal Medicine
PROC: 0DJ08ZZ Inspection of Upper Intestinal Tract, Via Natural or Artificial Opening Endoscopic (ICD-10-PCS; CPT 43235; principal; 2022-05-23 12:30)
DX: Z12.11 Encounter for screening for malignant neoplasm of colon (principal); R10.9 Unspecified abdominal pain; K63.5 Polyp of colon; R63.4 Abnormal weight loss; Z72.0 Tobacco use; Z79.899 Other long term (current) drug therapy; E11.9 Type 2 diabetes mellitus without complications
CPT/HCPCS: 45385; 43239; 82962; J2704

== ENCOUNTER 2022-09-27 09:30 | Outpatient (RCR) | payer MEDICAID, SELFPAY | END 2022-09-27 09:35 | disposition home or self-care (01) | LOC: PT 09:30 | PROVIDERS: PCP Physician Assistant; Visit Provider Pain Medicine Interventional Pain Medicine | DX: M47.817 Spondylosis without myelopathy or radiculopathy, lumbosacral region (principal) | CPT/HCPCS: 97010; 97014; 97110; 97163; 97530; G0283 ==

== ENCOUNTER → 2022-10-11 11:03 | Outpatient (CLI) | payer MEDICAID, SELFPAY ==
--- NOTE | 2022-10-11 11:06 | CA_ITS ---
FINAL REPORT TECHNIQUE: Ultrasound images of the deep venous system were obtained from the left groin to the calf veins. CLINICAL HISTORY: Leg swelling/pain FINDINGS: The deep venous system is normally compressible. Normal flow is identified. IMPRESSION: No evidence of left lower extremity DVT. Reviewed, Interpreted and Dictated by Jr Stone III, MD Transcribed by Allegra Leyva Authenticated and [facility]
[2022-10-11 14:49] LABS: Basophils # 0.1 K/mm3 (0-0.2); Basophils % 0.9 % (0.1-2.0); Eosinophils # 0.3 K/mm3 (0.0-0.4); Hematocrit 44.2 % (37.0-47.0); Hemoglobin 14.3 g/dL (12.2-16.2); Lymphocytes % 24.6 % (10-50); Mean Corpuscular HGB Conc 32.4 g/dL (31.8-35.4); Mean Corpuscular Hemoglobin 27.8 pg (27.0-31.2); Mean Corpuscular Volume 85.7 fl (81-99); Mean Platelet Volume 9.2 fl (7.4-10.4); Monocytes # 0.7 K/mm3 (0.1-1.0); Monocytes % 5.6 % (1.7-9.3); Neutrophils # 8.2 K/mm3 (1.8-7.8); Platelet Count 339 K/mm3 (142-424); Red Blood Count 5.16 M/mm3 (4.20-5.40); White Blood Count 12.2 K/mm3 (4.8-10.8)
[2022-10-11 15:02] LABS: Chloride 103 mmol/L (98-107); Potassium 4.5 mmoL/L (3.5-5.1); Sodium 138 mmol/L (136-145)
[2022-10-11 15:05] LABS: Alanine Aminotransferase 33 U/L (12-78); Albumin/Globulin Ratio 1.3 (1.1-1.8); Alkaline Phosphatase 93 U/L (38-126); Anion Gap 10.5 mEq/L (5-15); Aspartate Amino Transferase 26 U/L (14-36); Bilirubin,Total 0.4 mg/dl (0.2-1.3); Blood Urea Nitrogen 18 mg/dl (7-17); Carbon Dioxide 29 mmol/L (22.0-30.0); Cholesterol 203 mg/dl (140-200); Estimated Glomerular Filt Rate 74 ml/min (>60); GFR (African American) 89 ML/MIN (>60); Globulin 3.1 g/dL (1.3-3.2); Total Protein,Serum 7.1 g/dl (6.3-8.2); Triglycerides 216 mg/dl (30-150); VLDL Cholesterol 43 mg/dL (0-40)
[2022-10-11 15:06] LABS: Calcium 8.7 mg/dl (8.4-10.2); Chol/HDL Ratio 5.1 (1-3.5); Glucose 177 mg/dl (74-100); HDL Cholesterol 40 mg/dl (40-60)
[2022-10-11 15:16] LABS: Direct LDL Cholesterol 120.35 mg/dL (100-129)
[2022-10-11 15:18] LABS: Hemoglobin A1C 6.6 % (4.0-6.0)
[2022-10-11 15:23] LABS: 25-OH Vitamin D, Total 17.8 ng/mL (30-100)
[2022-10-11 15:31] LABS: Creatinine,Urine Random 107 mg/dL (Not Estab.)
[2022-10-11 15:35] LABS: Microalbumin/Creatinine Ratio 7.6
[2022-10-11 15:36] LABS: Thyroid Stimulating Hormone 3.83 uIU/mL (0.465-4.68)
== END ==
PROVIDERS: PCP Physician Assistant; Visit Provider Physician Assistant
DX: M79.89 Other specified soft tissue disorders (principal); E55.9 Vitamin D deficiency, unspecified; E11.9 Type 2 diabetes mellitus without complications; Z79.84 Long term (current) use of oral hypoglycemic drugs; M79.605 Pain in left leg; Z79.899 Other long term (current) drug therapy
CPT/HCPCS: 80053; 80061; 82043; 82306; 82570; 83036; 84443; 85025; 93971

== ENCOUNTER → 2022-10-11 15:25 | Outpatient (CLI) | payer MEDICAID, SELFPAY | PROVIDERS: PCP Physician Assistant; Visit Provider Physician Assistant | DX: E11.9 Type 2 diabetes mellitus without complications (principal) ==

== ENCOUNTER → 2022-11-19 12:34 | Outpatient (CLI) | payer MEDICAID, SELFPAY ==
--- NOTE | 2022-11-19 12:46 | US_ITS ---
FINAL REPORT CLINICAL HISTORY: Swelling of lower extremity, smoker, HTN, HLD, DM, HX DVT's FINDINGS: ANKLE-BRACHIAL PRESSURE INDICES Pressure indices are as follows: RIGHT LOWER EXTREMITY: Ankle-brachial pressure index: 0.8 Comments: Mild vascular disease noted. LEFT LOWER EXTREMITY: Ankle-brachial pressure index: 0.8 Comments: Mild vascular disease noted. IMPRESSION: Mild vascular disease with normal waveforms and pulses. Reviewed, Interpreted and Dictated by Jr Stone III, MD Transcribed by Allegra Leyva Authenticated and [facility]
== END ==
PROVIDERS: PCP Physician Assistant; Visit Provider Physician Assistant
DX: R09.89 Other specified symptoms and signs involving the circulatory and respiratory systems (principal); M79.89 Other specified soft tissue disorders; R60.0 Localized edema
CPT/HCPCS: 93923

== ENCOUNTER → 2022-12-04 16:03 | Outpatient (CLI) | payer MEDICAID, SELFPAY ==
[2022-12-04 16:52] LABS: Blood Urea Nitrogen 14 mg/dl (7-17); Estimated Glomerular Filt Rate 74 ml/min (>60); GFR (African American) 89 ML/MIN (>60)
== END ==
PROVIDERS: PCP Physician Assistant; Visit Provider Physician Assistant
DX: Z01.812 Encounter for preprocedural laboratory examination (principal)
CPT/HCPCS: 36415; 82565; 84520

== ENCOUNTER → 2022-12-05 10:20 | Outpatient (CLI) | payer MEDICAID, SELFPAY ==
--- NOTE | 2022-12-05 10:20 | CT_ITS ---
FINAL REPORT CLINICAL HISTORY: Lower extremity swelling FINDINGS: Post contrast axial imaging of the aorta and bilateral lower extremity was obtained and reviewed. This study was performed with techniques to keep radiation doses as low as reasonably achievable (ALARA). Individualized dose reduction techniques using automated exposure control or adjustment of mA and/or kV according to the patient's size were employed. There is a calcified granuloma at the right base. There is mild fatty infiltration of the liver. The gallbladder is absent. The spleen, pancreas, adrenals, and kidneys appear unremarkable. No pelvic mass or inflammation is identified. The celiac axis and SMA appear patent. There are dual right and dual left renal arteries. The abdominal aorta is normal in caliber. The iliac vessels are normal in caliber. Right: The SFA is widely patent and continuous with a patent popliteal artery. There is a patent trifurcation and three-vessel runoff to the right foot. Left: The SFA is widely patent and continuous with a patent popliteal artery. There is 2 vessel runoff to the left foot via the anterior tibial and peroneal arteries. The posterior tibial artery is not well seen proximally. The posterior tibial artery is reconstituted at the level of the ankle. IMPRESSION: Nonvisualization of the proximal left posterior tibial artery, reason unclear. No evidence of aneurysm or significant inflow stenosis. Reviewed, Interpreted and Dictated by Elian Nix MD Transcribed by Krys Muñiz Authenticated and [facility][1]
== END ==
PROVIDERS: PCP Physician Assistant; Visit Provider Physician Assistant
DX: M79.662 Pain in left lower leg (principal); R60.0 Localized edema
CPT/HCPCS: 73701; Q9967

== ENCOUNTER 2024-01-29 10:25 | Emergency (ER) | payer MEDICAID, SELFPAY ==
[2024-01-29] VITALS (8 sets, daily range): BP systolic 126–146; BP diastolic 72–81; PULSE 62–76; RESP 16; TEMP 36.6; O2SAT 95–100; BMI 47.7
--- NOTE | 2024-01-29 10:48 | PC.NURSE ---
DR ARCHER AT BEDSIDE
--- NOTE | 2024-01-29 10:54 | CT_ITS ---
FINAL REPORT TECHNIQUE: Postcontrast axial images through the abdomen and pelvis were performed. This study was performed with techniques to keep radiation doses as low as reasonably achievable, (ALARA). Individualized dose reduction techniques using automated exposure control or adjustment of mA and/or kV according to the patient's size were employed. CLINICAL HISTORY: 2 mo n/v/d; lower abd ttp FINDINGS: Abdomen: No acute density is seen within the lung bases. The gallbladder is unremarkable. Solid abdominal organs are unremarkable. Patient is status post cholecystectomy. No bowel obstruction is present. There is no free air. No fluid collection is seen. There are fluid-filled large and small bowel loops which may be seen with enterocolitis. No bowel wall thickening identified. There is no adenopathy. Pelvis: The appendix is not identified. Patient is status post hysterectomy. The bladder is decompressed. There is no free fluid. No pelvic mass is seen. IMPRESSION: Multiple fluid-filled large and small bowel loops which can be seen with enterocolitis or ileus. No associated bowel wall thickening. Reviewed, Interpreted and Dictated by Fabiola Sullivan MD Transcribed by Krys Muñiz Authenticated and [facility]
--- NOTE | 2024-01-29 10:58 | [facility].EDGENADL ---
Discharge Plan Disposition Patient Disposition: Home, Self-Care Prescriptions Prescriptions: New ondansetron 4 mg tablet,disintegrating 4 mg PO Q6H PRN (Reason: nausea and vomiting) 5 Days Qty: 20 0RF No Action cyclobenzaprine 10 mg tablet 10 mg PO TID PRN gabapentin 600 mg tablet 600 mg PO TID meclizine 25 mg tablet 25 mg PO TID PRN (Reason: dizziness) Qty: 30 0RF albuterol sulfate [ProAir HFA] 90 mcg/actuation HFA aerosol inhaler See Rx Instructions .ROUTE .COMPLEX Qty: 8.5 12RF Dose Instruction: INHALE TWO PUFFS BY MOUTH EVERY 6 HOURS NEEDED FOR SHORTNESS OF BREATH OR wheezing Rx Instructions: INHALE TWO PUFFS BY MOUTH EVERY 6 HOURS NEEDED FOR SHORTNESS OF BREATH OR wheezing alcohol swabs [Alcohol Pads] Pads, Medicated See Rx Instructions topical .COMPLEX Qty: 200 0RF Rx Instructions: topically; oxycodone-acetaminophen 7.5-325 mg tablet PO Patient Comments: TAKE 1 TABLET BY MOUTH THREE TIMES DAILY (DME) SpaBoom G6 Sensor Device See Rx Instructions .Route Qty: 3 3RF Rx Instructions: Check sugar 3 to 4 times daily or As directed ergocalciferol (vitamin D2) 1,250 mcg (50,000 unit) capsule See Rx Instructions .ROUTE .COMPLEX Qty: 4 5RF Dose Instruction: TAKE ONE CAPSULE BY MOUTH EVERY WEEK Rx Instructions: TAKE ONE CAPSULE BY MOUTH EVERY WEEK metoprolol succinate 25 mg tablet extended release 24 hr See Rx Instructions .ROUTE .COMPLEX Qty: 90 5RF Dose Instruction: TAKE 1/2 TABLET BY MOUTH EVERY DAY Rx Instructions: TAKE 1/2 TABLET BY MOUTH EVERY DAY (DME) Accu-Chek Guide test strips Strip See Rx Instructions .Route Qty: 100 0RF Rx Instructions: test 3x daily (DME) lancets [Accu-Chek Softclix Lancets] Misc See Rx Instructions .Route Qty: 200 0RF Rx Instructions: As directed Ubrelvy 100 mg tablet See Rx Instructions .ROUTE .COMPLEX Qty: 10 5RF Dose Instruction: FOR migraine TAKE ONE TABLET BY MOUTH AT ONSET of symptoms, MAY REPEAT AFTER two hours if symptoms persist (Max 2 tablets in 24 hours/ 4 tablets PER WEEK) Rx Instructions: FOR migraine TAKE ONE TABLET BY MOUTH AT ONSET of symptoms, MAY REPEAT AFTER two hours if symptoms persist (Max 2 tablets in 24 hours/ 4 tablets PER WEEK) diltiazem HCl 240 mg capsule,extended release 24hr See Rx Instructions .ROUTE .COMPLEX Qty: 90 4RF Dose Instruction: TAKE ONE CAPSULE BY MOUTH EVERY DAY FOR heart disease Rx Instructions: TAKE ONE CAPSULE BY MOUTH EVERY DAY FOR heart disease lisinopril 20 mg tablet See Rx Instructions .ROUTE .COMPLEX Qty: 90 0RF Dose Instruction: TAKE ONE TABLET BY MOUTH EVERY DAY FOR high blood pressure Rx Instructions: TAKE ONE TABLET BY MOUTH EVERY DAY FOR high blood pressure Jardiance 10 mg tablet 10 mg PO DAILY Qty: 90 0RF Patient Comments: TAKE ONE TABLET BY MOUTH EVERY DAY bumetanide 2 mg tablet 2 mg PO BID Qty: 180 0RF Patient Comments: TAKE ONE TABLET BY MOUTH TWICE DAILY pantoprazole 40 mg tablet,delayed release (DR/EC) See Rx Instructions .ROUTE .COMPLEX Qty: 90 3RF Dose Instruction: TAKE ONE TABLET BY MOUTH EVERY DAY Rx Instructions: TAKE ONE TABLET BY MOUTH EVERY DAY atorvastatin 10 mg tablet See Rx Instructions .ROUTE .COMPLEX Qty: 90 3RF Dose Instruction: TAKE ONE TABLET BY MOUTH EVERY DAY Rx Instructions: TAKE ONE TABLET BY MOUTH EVERY DAY aspirin 81 mg tablet,delayed release (DR/EC) See Rx Instructions .ROUTE .COMPLEX Qty: 90 3RF Dose Instruction: TAKE ONE TABLET BY MOUTH EVERY DAY Rx Instructions: TAKE ONE TABLET BY MOUTH EVERY DAY glipizide 10 mg tablet extended release 24hr See Rx Instructions .ROUTE .COMPLEX Qty: 90 3RF Dose Instruction: TAKE ONE TABLET BY MOUTH EVERY DAY Rx Instructions: TAKE ONE TABLET BY MOUTH EVERY DAY cholecalciferol (vitamin D3) 25 mcg (1,000 unit) tablet See Rx Instructions .ROUTE .COMPLEX Qty: 90 5RF Dose Instruction: TAKE ONE TABLET BY MOUTH EVERY DAY Rx Instructions: TAKE ONE TABLET BY MOUTH EVERY DAY Ozempic 1 mg/dose (4 mg/3 mL) pen injector See Rx Instructions .ROUTE .COMPLEX Qty: 3 0RF Dose Instruction: INJECT 1 MG SUBCUTANEOUSLY ONCE A WEEK Rx Instructions: INJECT 1 MG SUBCUTANEOUSLY ONCE A WEEK fluticasone propion-salmeterol [Advair Diskus] 250-50 mcg/dose blister with device See Rx Instructions .ROUTE .COMPLEX Qty: 60 5RF Dose Instruction: INHALE 1 PUFF BY MOUTH TWICE DAILY --RINSE MOUTH AFTER USE-- Rx Instructions: INHALE 1 PUFF BY MOUTH TWICE DAILY --RINSE MOUTH AFTER USE-- spironolactone 50 mg tablet See Rx Instructions .ROUTE .COMPLEX Qty: 90 5RF Dose Instruction: TAKE ONE TABLET BY MOUTH EVERY DAY Rx Instructions: TAKE ONE TABLET BY MOUTH EVERY DAY metformin 500 mg tablet extended release 24 hr See Rx Instructions .ROUTE .COMPLEX Qty: 90 5RF Dose Instruction: TAKE ONE TABLET BY MOUTH EVERY DAY IN THE EVENING Rx Instructions: TAKE ONE TABLET BY MOUTH EVERY DAY IN THE EVENING fenofibrate nanocrystallized 145 mg tablet See Rx Instructions .ROUTE .COMPLEX Qty: 90 5RF Dose Instruction: TAKE ONE TABLET BY MOUTH EVERY DAY Rx Instructions: TAKE ONE TABLET BY MOUTH EVERY DAY levothyroxine 137 mcg tablet See Rx Instructions .ROUTE .COMPLEX Qty: 90 5RF Dose Instruction: TAKE ONE TABLET BY MOUTH EVERY DAY FOR THYROID Rx Instructions: TAKE ONE TABLET BY MOUTH EVERY DAY FOR THYROID fluticasone propionate 50 mcg/actuation spray,suspension See Rx Instructions .ROUTE .COMPLEX Qty: 16 5RF Dose Instruction: INSTILL 2 SPRAYS IN EACH NOSTRIL EVERY DAY FOR ALLERGY symptoms Rx Instructions: INSTILL 2 SPRAYS IN EACH NOSTRIL EVERY DAY FOR ALLERGY symptoms montelukast [Singulair] 10 mg tablet 10 mg PO DAILY escitalopram oxalate 10 MG tablet 10 mg PO DAILY Referrals Follow up/Referrals: Tucker Stacy MD [Physician] - See instructions Mariana Guillen PA [Primary Care Provider] - See instructions Activity Restrictions/Add. Instructions Additional Instructions/Restrictions: No emergent medical condition identified today. Given your chronic nausea vomiting and diarrhea a referral has been made to a GI doctor please keep that follow-up. You are unable to provide a stool sample for us today but an outpatient order has been placed please return to the lab at your earliest convenience and follow-up with our fitter helper for results and further management. Clinical Impressions Clinical Impression: Nausea vomiting and diarrhea, Abnormal weight loss Instructions Patient Instructions: DI for Diarrhea and Traveler's Diarrhea -- Adult, DI for Diarrhea and Traveler's Diarrhea -- Child, DI for Nausea -- Adult, DI for Nausea -- Child Discharge ED Provider: Derek Cheung General Adult HPI General Chief complaint: Nausea/Vomiting/Diarrhea Stated complaint: abd pain, vomit/diarrea Time Seen by Provider: 01/29/24 10:47 Mode of Arrival: Ambulatory Source of Information: Patient Limitations: No Limitations Description of Symptoms (Recalled from ER Triage Doc. by RN): pt reported to ED after being seen by Mariana Guillen. Wilmer referred to ED. Pt reports throwing up and having diarrhea every time she drinks and eats for approx 2 months. Pt reports having bright red blood emesis that taste like stomach acid and reports stools being green/yellow in color. History of Present Illness HPI narrative: Patient is a 58-year-old female presenting today with multiple complaints. She states that over the last 2 months she has had nausea vomiting diarrhea almost every time that she eats. States that diarrhea has been watery without any significant stool. Has had some dark red-tinged vomit which she feels may have been some blood in her vomit but no anthony hematemesis. No fevers or chills. She has had 2 abdominal surgeries in the past including cholecystectomy and a total hysterectomy. Denies any antibiotic use denies being around any healthcare situations where she may have been exposed to C. difficile. No traveling outside of the country or any other exotic animals etc. She does states she has had some feculent emesis and 30 pounds of unintentional weight loss her weight is gone from 290 prior to this episode down to 260. Denies any urinary symptoms. Has had a colonoscopy last several years which was unremarkable. No history of colitis diverticulitis etc. No urinary symptoms. Related Data Home Medications Medication Instructions Recorded Confirmed gabapentin 600 mg tablet 600 mg PO TID Pain 06/27/20 01/29/24 escitalopram oxalate 10 mg tablet 10 mg PO DAILY Depression 12/18/20 01/29/24 montelukast 10 mg tablet 10 mg PO DAILY allergies 05/10/22 01/29/24 (Singulair) cyclobenzaprine 10 mg tablet 10 mg PO TID PRN 10/11/22 01/29/24 oxycodone-acetaminophen 7.5 mg-325 tab PO 01/29/24 01/29/24 mg tablet Previous Rx's Medication Instructions Recorded meclizine 25 mg tablet 25 mg PO TID PRN dizziness #30 tabs 02/27/21 blood-glucose sensor (Dexcom G6 #3 ea 06/27/22 Sensor device) ergocalciferol (vitamin D2) 1,250 See Rx Instructions .Route 07/16/22 mcg (50,000 unit) capsule .COMPLEX #4 caps albuterol sulfate 90 mcg/actuation See Rx Instructions .Route 01/30/23 aerosol inhaler (ProAir HFA) .COMPLEX #8.5 grams alcohol swabs (Alcohol Pads) See Rx Instructions topical 01/30/23 .COMPLEX #200 ea metoprolol succinate 25 mg See Rx Instructions .Route 03/12/23 tablet,extended release 24 hr .COMPLEX #90 tabs blood sugar diagnostic (Accu-Chek #100 ea 04/16/23 Guide test strips) lancets (Accu-Chek Softclix #200 ea 04/16/23 Lancets) ubrogepant 100 mg tablet (Ubrelvy) See Rx Instructions .Route 04/16/23 .COMPLEX #10 tabs diltiazem HCl 240 mg See Rx Instructions .Route 06/12/23 capsule,extended release 24 hr .COMPLEX #90 caps bumetanide 2 mg tablet 2 mg PO BID diuretic #180 tabs 07/11/23 empagliflozin 10 mg tablet 10 mg PO DAILY Diabetes #90 tabs 07/11/23 (Jardiance) lisinopril 20 mg tablet See Rx Instructions .Route 07/11/23 .COMPLEX #90 tabs aspirin 81 mg tablet,delayed See Rx Instructions .Route 11/10/23 release .COMPLEX #90 tabs atorvastatin 10 mg tablet See Rx Instructions .Route 11/10/23 .COMPLEX #90 tabs glipizide 10 mg tablet, extended See Rx Instructions .Route 11/10/23 release 24 hr .COMPLEX #90 tabs pantoprazole 40 mg tablet,delayed See Rx Instructions .Route 11/10/23 release .COMPLEX #90 tabs cholecalciferol (vitamin D3) 25 See Rx Instructions .Route 11/21/23 mcg (1,000 unit) tablet .COMPLEX #90 tabs semaglutide 1 mg/dose (4 mg/3 mL) See Rx Instructions .Route 12/18/23 subcutaneous pen injector (Ozempic) .COMPLEX #3 mL fenofibrate nanocrystallized 145 See Rx Instructions .Route 01/20/24 mg tablet .COMPLEX #90 tabs fluticasone 250 mcg-salmeterol 50 See Rx Instructions .Route 01/20/24 mcg/dose blistr powdr for .COMPLEX #60 blisters inhalation (Advair Diskus) fluticasone propionate 50 See Rx Instructions .Route 01/20/24 mcg/actuation nasal .COMPLEX #16 grams spray,suspension levothyroxine 137 mcg tablet See Rx Instructions .Route 01/20/24 .COMPLEX #90 tabs metformin 500 mg tablet,extended See Rx Instructions .Route 01/20/24 release 24 hr .COMPLEX #90 tabs spironolactone 50 mg tablet See Rx Instructions .Route 01/20/24 .COMPLEX #90 tabs ondansetron 4 mg disintegrating 4 mg PO Q6H PRN nausea and 01/29/24 tablet vomiting 5 days #20 tabs Allergies Allergy/AdvReac Type Severity Reaction Status Date / Time amoxicillin [facility] Ver[facility]29[facility]24 09[facility]: The information contained in this section may have been updated after the patient was seen, as this information can be updated by other users. Medical History Abnormal ECG Acute exacerbation of chronic obstructive airways disease Acute on chronic diastolic (congestive) heart failure Anterolisthesis Anxiety Asthma Atypical chest pain Bilateral foot pain Bilateral foot pain Bilateral leg and foot pain Bipolar 1 disorder BMI 50.0-59.9, adult Breast cancer screening Cervical radicular pain Chest pain CHF (congestive heart failure) Chronic diastolic (congestive) heart failure COPD (chronic obstructive pulmonary disease) COVID-19 virus IgG antibody detected COVID-19 virus IgM antibody detected Decreased pedal pulses Degenerative disc disease Degenerative disc disease Dehydration Diabetes Diastolic HF (heart failure) Edema of both lower extremities Foraminal stenosis of cervical region Hair loss HHD (hypertensive heart disease) History of thrombosis of lower extremity Hoarseness of voice He has some dehydrated changes noted in the records. This is multifactorial. I have asked her to discontinue her smoking habit, increase her hydration and also avoid overuse. Hx of deep venous thrombosis Hyperglycemia Hyperkalemia Hypokalemia Hypothyroidism Kidney failure Kidney failure Left leg pain Low back pain Lumbar disc disease Lumbar disc disease Migraine Morbid obesity Normal coronary arteries Obesity JOSH on CPAP Pedal edema Problem involving surgical incision Pulmonary hypertension Right axis deviation 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 Seizure-like activity Shortness of breath Thrombosis of left popliteal artery Tobacco use Typical angina Vitamin D deficiency (~03/27/18) Surgical History H/O thyroidectomy H/O: hysterectomy History of surgical amputation of finger History of thyroidectomy, total Hx of cholecystectomy Family History Mother Family history of cancer Other Family history of IN (myocardial infarction) Family history of stroke Heart attack Social History Smoking Status: Current every day smoker tobacco type: cigarettes packs per day: 1 years smoked: 40 second hand exposure: Yes alcohol intake: never substance use type: denies use current occupational status: disabled Travel in the last 8 weeks: None household members: significant other housing: apartment current occupational exposures/hazards: No caffeine: No special smita needs: No agree to transfusion: No do you feel safe at home: Yes victim of physical abuse: No victim of emotional abuse: No victim of sexual abuse: No would you like helpful sources: No ROS Obtained: Yes All systems reviewed & no additional complaints except as documented Physical Exam General General appearance: alert Respiratory Respiratory exam: Present normal lung sounds bilaterally Cardiovascular Cardiovascular exam: Present regular rate Abdominal Exam Abdominal exam: Present distention (Obese) and tenderness (Diffusely tender predominantly in the suprapubic and left lower quadrant regions.) Neurological Exam Neurological exam: Present alert and oriented X3 Medical Decision Making Bin Inquiry Pt receiving controlled substance: No Vital Signs: 01/29/24 10:33 01/29/24 10:38 01/29/24 11:13 Temperature 97.8 F Temperature Source Oral Pulse Rate 76 65 Pulse Rate [Left Radial] 75 Respiratory Rate 16 Blood Pressure 146/78 H 126/72 Blood Pressure [Right Arm] 146/78 H Blood Pressure Mean 90 Blood Pressure Mean [Right Arm] 100 02 Sat by Pulse Oximetry 98 98 95 Oxygen Delivery Method Room Air Room Air 01/29/24 11:31 01/29/24 12:01 01/29/24 12:31 Temperature Temperature Source Pulse Rate 62 62 66 Pulse Rate [Left Radial] Respiratory Rate Blood Pressure 136/79 145/78 H 133/72 Blood Pressure [Right Arm] Blood Pressure Mean Blood Pressure Mean [Right Arm] 02 Sat by Pulse Oximetry 96 98 99 Oxygen Delivery Method Room Air Room Air Room Air 01/29/24 13:01 Temperature Temperature Source Pulse Rate 62 Pulse Rate [Left Radial] Respiratory Rate Blood Pressure 145/81 H Blood Pressure [Right Arm] Blood Pressure Mean Blood Pressure Mean [Right Arm] 02 Sat by Pulse Oximetry 100 Oxygen Delivery Method Room Air Lab Data Lab results reviewed: Yes I reviewed the patient's lab results. Lab Results 01/29/24 11:05: WBC 8.6, RBC 4.98, Hgb 14.0, Hct 42.9, MCV 86.2, MCH 28.1, MCHC 32.6, RDW 14.3, Plt Count 262, MPV 8.4, Neut % (Auto) 56.5, Lymph % (Auto) 34.3, [place] % (Auto) 5.0, Eos % (Auto) 2.6, Baso % (Auto) 1.6, Neut # (Auto) 4.9, Lymph # (Auto) 3.0, [place] # (Auto) 0.4, Eos # (Auto) 0.2, Baso # (Auto) 0.1, Sodium 139, Potassium 4.2, Chloride 108 H, Carbon Dioxide 26, Anion Gap 9.2, BUN 14, Creatinine 0.80, Estimated Creat Clear 61, Estimated GFR 74, Est GFR ( Amer) 89, Glucose 106 H, Calcium 8.7, Phosphorus 4.1, Magnesium 1.9, Total Bilirubin 0.3, AST 22, ALT 22, Alkaline Phosphatase 75, Total Protein 7.4, Albumin 3.8, Globulin 3.6 H, Albumin/Globulin Ratio 1.1, Lipase 138 01/29/24 11:13: VBG Lactic Acid 1.2 01/29/24 11:05 01/29/24 11:05 Orders (Tests/Meds): ED MEDICATIONS Discontinued Medications Generic Name Dose Route Start Last Admin Trade Name Freq PRN Reason Stop Dose Admin Lactated Ringer's 1,000 mls @ 999 mls/hr 01/29/24 11:00 01/29/24 11:04 Lactated Ringer's 1000 Ml Bag IV 01/29/24 12:00 999 mls/hr .Q1H1M ARNALDO Administration Iopamidol 75 ml 01/29/24 11:58 01/29/24 11:59 Iopamidol-370 (76%);100ml Bottle IV 01/29/24 11:59 75 ml ONCE ONE Administration Morphine Sulfate 4 mg 01/29/24 10:54 01/29/24 11:04 Morphine 4mg/Ml Syringe IV 01/29/24 10:55 4 mg ONCE ONE Administration Ondansetron HCl 4 mg 01/29/24 10:54 01/29/24 11:04 Ondansetron 4mg/2ml Vial IV 01/29/24 10:55 4 mg ONCE ONE Administration Sodium Chloride 10 ml 01/29/24 11:58 01/29/24 11:59 Sodium Chloride 0.9% 10ml Syr (Rad Only) IV 01/29/24 11:59 10 ml ONCE ONE Administration ORDERS Category Date Time Status CT abdomen pelvis w con Stat Cat Scan 01/29/24 10:54 Completed CBC w/Auto Diff [Complete Blood Count Auto Diff] Stat Lab 01/29/24 11:05 Completed CMP [Comprehensive Metabolic Panel] Stat Lab 01/29/24 11:05 Completed Diarrhea 23 Panel, PCR Stat Lab 01/29/24 10:55 Ordered Lactate Venous Stat Lab 01/29/24 11:13 Completed Lipase Stat Lab 01/29/24 11:05 Completed Magnesium Stat Lab 01/29/24 11:05 Completed Phosphorous Stat Lab 01/29/24 11:05 Completed Medical Decision Narrative: Patient is a 58-year-old female presented with nausea vomiting diarrhea quite tender abdomen she had 30 pounds of unintentional weight loss differential includes infectious diarrhea such as C. difficile colitis, other forms of colitis including inflammatory ischemic, diverticulitis, bowel obstruction etc. Will get a contrasted CT scan for further evaluation in addition to labs IV fluids pain medicine nausea medicine will reassess. Reassessment 1:31 PM serial abdominal exams are benign patient appears about the same on my assessment. CT scan performed to person interpreted shows no evidence of colitis or surgical pathology radiology read possible ileus but no definitive intra-abdominal abnormality or emergency. Labs unremarkable patient unable to provide for us a stool sample she has been given an outpatient order for this and a referral to gastroenterology as I still suspect a possible invasive bacterial species such as C. difficile colitis. She was discharged in a stable condition return precautions emphasized Critical Care Critical Care Time Critical Care Time: No
[2024-01-29] MEDS: ONDANSETRON 4MG/2ML VIAL 4 MG IV (11:04)
[2024-01-29] MEDS: LACTATED RINGERS 1000ML 1,000 ML 999 ML IV (11:04)
[2024-01-29] MEDS: MORPHINE 4MG/ML SYRINGE 4 MG IV (11:04)
[2024-01-29 11:16] LABS: Basophils # 0.1 K/mm3 (0-0.2); Basophils % 1.6 % (0.1-2.0); Eosinophils # 0.2 K/mm3 (0.0-0.4); Eosinophils % 2.6 % (0.1-12.0); Hematocrit 42.9 % (37.0-47.0); Lymphocytes % 34.3 % (10-50); Mean Corpuscular HGB Conc 32.6 g/dL (31.8-35.4); Mean Corpuscular Hemoglobin 28.1 pg (27.0-31.2); Mean Corpuscular Volume 86.2 fl (81-99); Mean Platelet Volume 8.4 fl (7.4-10.4); Monocytes # 0.4 K/mm3 (0.1-1.0); Neutrophils # 4.9 K/mm3 (1.8-7.8); Neutrophils % 56.5 % (37.0-80.0); Platelet Count 262 K/mm3 (142-424); Red Blood Count 4.98 M/mm3 (4.20-5.40); Red Cell Distribution Width 14.3 % (11.5-17.5); White Blood Count 8.6 K/mm3 (4.8-10.8)
[2024-01-29 11:17] LABS: Chloride 108 mmol/L (98-107); Potassium 4.2 mmoL/L (3.5-5.1); Sodium 139 mmol/L (136-145)
[2024-01-29 11:19] LABS: Alanine Aminotransferase 22 U/L (12-78); Aspartate Amino Transferase 22 U/L (14-36); Blood Urea Nitrogen 14 mg/dl (7-17); Creatinine Clearance Estimated 61 mL/min (50-200); Estimated Glomerular Filt Rate 74 ml/min (>60); GFR (African American) 89 ML/MIN (>60)
[2024-01-29 11:20] LABS: Albumin Level 3.8 g/dl (3.5-5.0); Albumin/Globulin Ratio 1.1 (1.1-1.8); Alkaline Phosphatase 75 U/L (38-126); Anion Gap 9.2 mEq/L (5-15); Bilirubin,Total 0.3 mg/dl (0.2-1.3); Calcium 8.7 mg/dl (8.4-10.2); Carbon Dioxide 26 mmol/L (22.0-30.0); Globulin 3.6 g/dL (1.3-3.2); Glucose 106 mg/dl (74-100); Lipase 138 U/L (23-300); Magnesium 1.9 mg/dl (1.6-2.3); Phosphorous 4.1 mg/dl (2.5-4.5); Total Protein,Serum 7.4 g/dl (6.3-8.2)
[2024-01-29 11:21] LABS: Lactate Venous 1.2 mmol/L (0.4-2.0)
--- NOTE | 2024-01-29 11:48 | PC.NURSE ---
Pt gone to RAD via wheelchair
--- NOTE | 2024-01-29 11:56 | PC.NURSE ---
Pt returned to room from RAD
[2024-01-29] MEDS: IOPAMIDOL-370 (76%);100ML BOTTLE 75 ML IV (11:59)
[2024-01-29] MEDS: SODIUM CHLORIDE 0.9% 10ML SYR (RAD ONLY) 10 ML IV (11:59)
--- NOTE | 2024-01-29 12:09 | PC.NURSE ---
Rounded on pt. No needs voiced at this time. Call light within reach.
--- NOTE | 2024-01-29 13:01 | PC.NURSE ---
Pt ambulatory to bathroom and back to bed. No needs voiced. Call light within reach.
--- NOTE | 2024-01-29 13:27 | PC.NURSE ---
DR. ARCHER AT BS TO UPDATE PT ON RESULTS AND POC
== END 2024-01-29 13:41 | disposition home or self-care (01) ==
PROVIDERS: Emergency Provider Student in an Organized Health Care Education/Training Program; PCP Physician Assistant
DX: R10.32 Left lower quadrant pain (principal); R11.2 Nausea with vomiting, unspecified; R19.7 Diarrhea, unspecified; F17.210 Nicotine dependence, cigarettes, uncomplicated; J44.9 Chronic obstructive pulmonary disease, unspecified; I11.0 Hypertensive heart disease with heart failure; I50.32 Chronic diastolic (congestive) heart failure; E11.9 Type 2 diabetes mellitus without complications; E03.9 Hypothyroidism, unspecified; I27.20 Pulmonary hypertension, unspecified; R63.4 Abnormal weight loss; Z79.84 Long term (current) use of oral hypoglycemic drugs; Z79.85 Long-term (current) use of injectable non-insulin antidiabetic drugs; Z68.42 Body mass index [BMI] 45.0-49.9, adult
CPT/HCPCS: 74177; 80053; 83605; 83690; 83735; 84100; 85025; 96361; 96374; 96375; 99285; J2270; J2405; J7120; Q9967